=== PATIENT | female | born 1990 | race Caucasian/White ===

== ENCOUNTER 2021-05-18 10:24 | Emergency (ER) | payer OTHER, SELFPAY ==
--- NOTE | 2021-05-18 10:31 | MHC.RECOVSUP ---
Recovery Support note: This designer/writer received a call from Sabrina Stiles stating that this patient was at the recovery center trying to get into detox. Patient was reportedly experiencing withdrawal symptoms and no detox bed was available so patient was brought to the hospital due to withdrawal symptoms. This designer/writer received additional information that patient used heroin recently and that she started throwing up and got really sick with hot flashes shortly after using. This designer/writer will meet with patient to discuss treatment options and referrals when she is in the ED.
--- NOTE | 2021-05-18 10:41 | ED_ITS ---
HPI - Psych General Chief Complaint: Psychiatric Symptoms Stated Complaint: crisis Time Seen by Provider: 05/18/21 10:41 Source: patient Mode of arrival: ambulatory Limitations: no limitations History of Present Illness HPI Narrative: wants heroin detox last used 4am states she thinks she might [facility] a bed [facility] complaint: substance abuse Onset (ago): month(s) Duration: getting worse History of same: Yes Relieving factors: none Exacerbating factors: drug use Context: recent drug abuse Associated psychiatric symptoms: none Associated symptoms: denies other symptoms Treatments prior to arrival: none Related Data Allergies Allergy/AdvReac Type Severity Reaction Status Date / Time hydrocodone Allergy Mild THROAT Unverified 12/27/19 18:01 [HYDROCODONE] CLOSES acetaminophen [From Allergy Unknown ANAPHYLAXIS Unverified 12/27/19 18:01 VICODIN] penicillin V Allergy Unknown HIVES Unverified 12/27/19 18:01 [PENICILLIN V] Penicillins Allergy Unknown HIVES Unverified 12/27/19 18:01 [PENICILLINS] penicilin Allergy Unknown Uncoded 07/27/18 00:00 Review of Systems Verdana 4l Review of Systems: Verdana 4d Verdana 4d Constitutional : No Fever, No Chills ENT/Mouth : No Ear Pain, No Nasal Congestion, No sore throat Eyes: No Eye Pain, No Swelling, No Redness Cardiovascular : No Chest Pain, No SOB Respiratory : No Cough, No Sputum, No Dyspnea GastrointestinalGastrointestinal : No Nausea, No Vomiting, No Diarrhea, No Hematochezia, No Melena Genitourinary : No Dysuria, No Urinary Frequency, No Hematuria Musculoskeletal : No Myalgias Skin : No Skin Lesions, No rash Neuro : No Weakness, No Numbness, No Paresthesias, No Dizziness, No Headache Psych : positive Anxiety, no Depression, no SI/HI Heme/Lymph: No Lymphadenopathy Endocrine : No Polyuria, No Polydipsia All other systems reviewed and are negative [facility] Past Medical History Medical History (Updated 05/18/21 @ 10:55 by Thu Johns DO) Active substance abuse Social History Social History (Updated 05/18/21 @ 10:54 by Thu Johns DO) Patient Tobacco Use Status: Current everyday Tobacco user Use of substances other than those prescribed or required for medical reasons: Yes Substance Use Type: Heroin Substance Use Frequency: Chronic Longstanding Last Used Substance: Just Prior to Admission Advance Directives: No Advance Directives Information Provided: No Physical Exam Verdana 4l Vital Signs: Verdana 4d Verdana 4d Vital Signs: Verdana 4d Verdana 4Bd Last Vital Signs Verdana 4d Electromechanical Technician New 4d Femi New 4d Temp 97.8 F 05/18/21 10:42 Electromechanical Technician New 4d Pulse 83 05/18/21 10:42 Electromechanical Technician New 4d Resp 20 05/18/21 10:42 BP 112/65 05/18/21 10:42 Pulse Ox 97 05/18/21 10:42 BMI result Body Mass Index 24.2 Appearance: Alert. Oriented X3. No acute distress. Eyes: Pupils equal, round and reactive to light. ENT: Pharynx normal. Neck: Normal inspection. Neck supple. CVS: Normal heart rate and rhythm. Pulses normal. Respiratory: No respiratory distress. Breath sounds normal. Abdomen: Soft and nontender. Skin: Skin warm and dry. Normal skin color. Normal skin turgor. Extremities: No lower extremity edema. No calf ttp Neuro: Oriented X 3. No motor deficit. No sensory deficit. Psych: calm and cooperative, no SI/HI Course Course Course Narrative: to go to [facility] MDM - Psych MDM Narrative Medical decision making narrative: 30 yo female here for heroin abuse just wants detox - told to come to ED by local detox center for clearance has no medical complaints no SI/HI. will obtain labs and COVID swab refer to recovery coaches. Lab Data Labs: Lab Results 05/18/21 05/18/21 05/18/21 Range/Units 11:08 11:08 11:08 Urine Color YELLOW Urine Appearance HAZY Urine pH 5.5 (5.0-8.0) Ur Specific Franklin >= 1.030 H (1.005-1.025) Urine Protein TRACE (NEG-TRACE) MG/DL Urine Glucose (UA) NEG (NEG) MG/DL Urine Ketones 15 (NEG) MG/DL Urine Blood NEG (NEG) Urine Nitrite NEG (NEG) Ur Leukocyte NEG (NEG) Esterase Urine Test NEGATIVE (NEGATIVE) Urine Opiates Screen POSITIVE H (Not Detect) Urine Fentanyl POSITIVE H (Not Detect) Screen Ur Barbiturates Not Detected (Not Detect) Screen Ur Phencyclidine Not Detected (Not Detect) Scrn Ur Amphetamines Not Detected (Not Detect) Screen U Benzodiazepines Not Detected (Not Detect) Scrn Urine Cocaine Screen POSITIVE H (Not Detect) U Marijuana (THC) POSITIVE H (Not Detect) Screen COVID-19 ([facility]) (Negative) COVID-19 Clin Com 05/18/21 Range/Units 11:09 Urine Color Urine Appearance Urine pH (5.0-8.0) Ur Specific Franklin (1.005-1.025) Urine Protein (NEG-TRACE) MG/DL Urine Glucose (UA) (NEG) MG/DL Urine Ketones (NEG) MG/DL Urine Blood (NEG) Urine Nitrite (NEG) Ur Leukocyte Esterase (NEG) Urine Test (NEGATIVE) Urine Opiates Screen (Not Detect) Urine Fentanyl Screen (Not Detect) Ur Barbiturates Screen (Not Detect) Ur Phencyclidine Scrn (Not Detect) Ur Amphetamines Screen (Not Detect) U Benzodiazepines Scrn (Not Detect) Urine Cocaine Screen (Not Detect) U Marijuana (THC) Screen (Not Detect) COVID-19 ([facility]) Negative (Negative) COVID-19 Clin Com See Note Discharge Plan Discharge Clinical Impression: Opiate dependence, continuous Patient Disposition: Xfer Other Transfer Details: [facility] Instructions: Opioid Use Disorder (ED) Additional Instructions: return to ED for any worsening symptoms or concerns COVID test negative
[2021-05-18 10:42] VITALS: BP 112/65; PULSE 83; RESP 20; TEMP 36.6; O2SAT 97; BMI 24.2
--- NOTE | 2021-05-18 11:11 | MHC.RECOVSUP ---
Recovery Support note: Patient is a 30 year old Congolese speaking female who presented to [facility] ED seeking detox. Patient reports using 4-5 bundles of heroin daily, IV. Patient reports no alcohol use. Patient denies SI/HI/AH/VH. Patient reports last using this morning. Patient has completed intake with [facility] however no beds are available at this time. Patient is willing to go anywhere for treatment. This feature writer will assist patient in referring to ATS facilities.
[2021-05-18 11:31] LABS: COVID-19 Test Negative (Negative)
[2021-05-18 11:32] LABS: UPreg QC Valid YES; Urine Pregnancy NEGATIVE (NEGATIVE)
[2021-05-18] MEDS: Nicotine 21 MG PATCH.TD24 TRANSDERMA (11:32)
[2021-05-18 11:35] LABS: Appearance Urine HAZY; Color Urine YELLOW; Glucose Urine UA NEG (NEG); Leukocyte Esterase Urine NEG (NEG); Nitrite Urine NEG (NEG); PH 5.5 (5.0-8.0); Specific Gravity - Urine >= 1.030 (1.005-1.025); Urine Blood NEG (NEG); Urine Ketones 15 MG/DL (NEG); Urine Protein TRACE MG/DL (NEG-TRACE)
--- NOTE | 2021-05-18 11:41 | PC.NURSE ---
pt voluntarily came to ed, states she is an active user last used this morning. pt states she called [facility] to get a bed and they told her that something may become available later this evening. pt denies SI/HI. denies history of self harm. denies pain. snack given. Twan from Care Team attempted to meet with pt but she kept falling asleep during assessment, Twan reports he will reattempt when pt is more awake. will continue to monitor.
[2021-05-18 12:00] VITALS: BP 108/59; PULSE 87; RESP 20; O2SAT 97
[2021-05-18 12:01] LABS: Amphetamine Screen Urine Not Detected (Not Detect); Barbiturates, Urine Not Detected (Not Detect); Benzodiazepines Screen Urine Not Detected (Not Detect); Cannabinoid Screen Urine POSITIVE (Not Detect); Cocaine Screen Urine POSITIVE (Not Detect); Fentanyl, urine POSITIVE (Not Detect); Opiate Screen Urine POSITIVE (Not Detect); Phencyclidine Screen Urine Not Detected (Not Detect)
--- NOTE | 2021-05-18 13:39 | MHC.RECOVSUP ---
Recovery Support note: Patient accepted to [facility] and transported via Lyft.
== END 2021-05-18 13:54 | disposition other institution (70) ==
PROVIDERS: Emergency Provider Emergency Medicine; PCP Internal Medicine
DX: F11.20 Opioid dependence, uncomplicated (principal); Z20.822 Contact with and (suspected) exposure to COVID-19; F19.10 Other psychoactive substance abuse, uncomplicated; F17.200 Nicotine dependence, unspecified, uncomplicated
CPT/HCPCS: 80307; 81003; 81025; 87635; 99285

== ENCOUNTER 2023-08-27 01:48 | Emergency (ER) | payer OTHER, SELFPAY ==
[2023-08-27 01:57] VITALS: BP 128/70; BP 139/66; PULSE 110; PULSE 132; RESP 16; TEMP 36.3; O2SAT 98; BMI 29.8
--- NOTE | 2023-08-27 02:21 | MHC.EDTECH ---
Patient came in by EMS,security called to assist with private branch exchange repairer, this tech brought patient to the bathroom and an empty bag of white substance fell out onto floor,with needle cap security discarded and all belongings placed in [place]. Vitals taken,attempted to get a urine patient said she is unable to give at this time.
--- NOTE | 2023-08-27 03:01 | ED_ITS ---
HPI - General Adult General Chief complaint: General Medical Stated complaint: insomnia 5xdays Time Seen by Provider: 08/27/23 03:07 Source: patient and EMS Mode of arrival: EMS Limitations: no limitations History of Present Illness HPI narrative: Patient comes to the emergency room complaining that EMS brought her against her will. Patient states she was brought to emergency room against her will. Patient states that she has not been able to sleep for about 5 days, according to EMS patient was acting erratic. However, patient is alert and oriented x3, states she has not slept for several days, admits to using heroin. Denies SI or HI. Related Data Home Medications ?Medication ?Instructions ?Recorded ?Confirmed gabapentin 300 mg capsule 300 mg PO TID 11/04/23 11/04/23 Allergies Allergy/AdvReac Type Severity Reaction Status Date / Time penicillin V [PENICILLIN V] Allergy Unknown HIVES Verified 11/03/23 16:58 Penicillins [PENICILLINS] Allergy Unknown HIVES Verified 11/03/23 16:58 penicilin Allergy Unknown Difficulty Uncoded 11/03/23 16:58 Breathing Review of Systems Review of Systems: Constitutional : No Weight loss, No Fever, No Chills, No Night Sweats, No Fatigue, No Malaise ENT/Mouth : No Hearing loss, No Ear Pain, No Nasal Congestion, No Sinus Pain, No Hoarseness, No sore throat, No Rhinorrhea, No Swallowing Difficulty Eyes: No Eye Pain, No Swelling, No Redness, No Foreign Body, No Discharge, No Vision Changes Cardiovascular : No Chest Pain, No SOB, No Dyspnea on Exertion, No Orthopnea, No Edema, No Palpitations Respiratory : No Cough, No Sputum, No Wheezing, No Smoke Exposure, No Dyspnea Gastrointestinal : No Nausea, No Vomiting, No Diarrhea, No Constipation, No abdominal Pain, No Hematochezia, No Melena Genitourinary : no irregular bleeding, No Dysuria, No Urinary Frequency, No Luther turia, No Urinary Incontinence, No Urgency, No Flank Pain, No Urinary Flow Changes, No Hesitancy Musculoskeletal : No joint pain, No Myalgias, No Joint Swelling Skin : No Skin Lesions, No rash Neuro : No Weakness, No Numbness, No Paresthesias, No Loss of Consciousness, No Dizziness, No Headache, patient complaining of insomnia Psych : No Anxiety/Panic, No Depression, denies SI or HI, Heme/Lymph: No Bruising, No Bleeding,No Lymphadenopathy Endocrine : No Polyuria, No Polydipsia, No Temperature Intolerance [facility] Past Medical History Medical History Active substance abuse Social History Social History Household Members: None Housing: Homeless Do you presently have visiting nurse or other home services: No Alcohol intake: never Patient Tobacco Use Status: Current everyday Tobacco user Tobacco use type: Cigarette e-Cigarette/Vaping Use: Never Used Second Hand Smoke Exposure: Yes Substance Use Type: Crack/Cocaine and Marijuana service: No Physical Exam ED Vital Signs: Vital Signs - 24 hr 08/27/23 01:57 Temperature 97.3 F Pulse Rate 110 H Respiratory Rate 16 Blood Pressure 139/66 Pulse Oximetry 98 Oxygen Delivery Method Room Air BMI result Body Mass Index 29.8 Const Other: Appearance: Alert. Oriented X3. No acute distress. Eyes: Pupils equal, round and reactive to light. ENT: Pharynx normal. Neck: Normal inspection. Neck supple. No lymph nodes noted. No crepitus CVS: Normal heart rate and rhythm. Pulses normal. Normal S1 and S2 Respiratory: No respiratory distress. Breath sounds normal. No Wheezing. No rales Abdomen: Soft and nontender. No rigidity. No distention. Skin: Skin warm and dry. Normal skin color. Normal skin turgor. Extremities: No lower extremity edema. No Lacerations. No Rash Neuro: Oriented X 3. No motor deficit. No sensory deficit. Moving all extremities. No slurred speech. CN 2 through 12 grossly intact Psych: Agitated, angry, requesting to be discharged Medical Decision Making Medical Decision Making [facility] Narrative: Patient yelling in the hallway that she want to come here, requesting to be discharged. -patient is alert and oriented x3, has steady gait. -patient requesting to have her belongings returned to her so that she can do. -patient declined any further care. -patient denies SI or HI -vital signs stable Discharge Plan Discharge Clinical Impression: Insomnia Patient Disposition: Home, Self-Care Instructions: Insomnia (ED) Additional Instructions: Please follow-up with your primary care physician tomorrow. If you have any worsening or new symptoms, please return to the emergency room or call 911 Prescriptions: No Action gabapentin 300 mg Capsule 300 mg PO TID Interventions: ED Discharge Assessment Last Done: 08/27/23 03:43 Discharge Date/Time: 08/27/23 03:45 Print Language: Romanian
--- NOTE | 2023-08-27 03:01 | PC.NURSE ---
Patient is alert and oriented x3, ambulating with a steady gait. Patient requesting to leave AMA. Dr. Brown made aware.
--- NOTE | 2023-08-27 03:38 | PC.NURSE ---
Patient was seen by Dr. Brown, plan for discharge at this time. Patient refused vital signs to be checked at discharge.
[2023-08-27 03:43] VITALS: BP 139/66; PULSE 110; RESP 16; TEMP 36.3; O2SAT 98
== END 2023-08-27 03:45 | disposition home or self-care (01) ==
PROVIDERS: Emergency Provider Emergency Medicine; PCP Internal Medicine
DX: G47.00 Insomnia, unspecified (principal); F19.90 Other psychoactive substance use, unspecified, uncomplicated
CPT/HCPCS: 99284

== ENCOUNTER 2023-10-12 11:10 | Emergency (ER) | payer OTHER, SELFPAY ==
[2023-10-12 11:14] VITALS: BP 136/72; PULSE 83; RESP 16; TEMP 36.6; O2SAT 99; BMI 29.2
--- NOTE | 2023-10-12 12:15 | ED_ITS ---
HPI - Eye Problem General Chief complaint: Eye Problems Stated complaint: infected eyes Time Seen by Provider: 10/12/23 12:17 Source: patient Mode of arrival: ambulatory Limitations: no limitations History of Present Illness ED Provider: STACIA Haines HPI Narrative: 32 yo f presents w/ red itchy eyes w/ yellow / green discharge in the morning ongoing for the past three days. Not improving. No trauma. Blurred vision. No pain to eyes. No fb sensation. Denies recent illness. No cough, nausea, vomiting, abd pain, headache, vision changes, dizziness, weakness, cp, sob Related Data Previous Rx's ?Medication ?Instructions ?Recorded erythromycin 5 mg/gram (0.5 %) eye 1 appl ophthalmic (eye) TID 5 days 10/12/23 ointment #3.5 grams Allergies Allergy/AdvReac Type Severity Reaction Status Date / Time hydrocodone [HYDROCODONE] Allergy Mild THROAT Verified 10/12/23 11:15 CLOSES acetaminophen [From VICODIN] Allergy Unknown ANAPHYLAXIS Verified 10/12/23 11:15 penicillin V [PENICILLIN V] Allergy Unknown HIVES Verified 10/12/23 11:15 Penicillins [PENICILLINS] Allergy Unknown HIVES Verified 10/12/23 11:15 penicilin Allergy Unknown Difficulty Uncoded 10/12/23 11:15 Breathing Review of Systems Review of Systems: Yes all other systems are reviewed and are negative PMF[facility] Past Medical History Attestation statement: The following information was validated with the patient. Source: old records reviewed and nursing notes reviewed Medical History Active substance abuse Social History Social History Alcohol intake: unknown Patient Tobacco Use Status: Current everyday Tobacco user Substance Use Type: Crack/Cocaine and Marijuana Physical Exam Vital Signs: Vital Signs: Last Vital Signs Temp 97.8 F 10/12/23 11:14 Pulse 83 10/12/23 11:14 Resp 16 10/12/23 11:14 BP 136/72 10/12/23 11:14 Pulse Ox 99 10/12/23 11:14 O2 Del Method Room Air 10/12/23 11:14 BMI result Body Mass Index 29.2 vss Appearance: Alert.? Oriented X3.? No acute cardiopulmonary distress distress.? Head: Normocephalic, atraumatic, no step-offs or deformities Neck: Normal inspection.? Neck supple. Eyes: b/l conjunctival injection. EOMI pain free. ? CVS: Pulses normal.? Respiratory: No respiratory distress.? Abdomen: Soft and nontender.? Skin: ? Normal skin color. Extremities: 5/5 strength to bilateral upper and lower extremities Neuro: Oriented X 3.? No motor deficit.? No sensory deficit. Medical Decision Making Medical Decision Making [facility] Narrative: 32 yo f presents w/ redness/ drainage x 3 days. No injury or trauma PE b/l conjunctival injection. EOMI pain free. ? hx and pe concerning for conjunctivitis. Unlikley orbital/ periorbital cellulitis. No signs of fb in eye. No signs of acute closed angle or wet macular degneratin Plan- dc home w/ erythromycin ointment Differential Diagnosis Differential Diagnoses: The differential diagnosis associated with the presentation includes hx and pe concerning for conjunctivitis. Unlikley orbital/ periorbital cellulitis. No signs of fb in eye. No signs of acute closed angle or wet macular degneratin Admission/Observation Consideration of admission/observation: Escalation of care including admission/observation considered No indication Discharge Plan Discharge Clinical Impression: Bacterial conjunctivitis Patient Disposition: Home, Self-Care Instructions: Conjunctivitis (ED) Additional Instructions: Take your medications as prescribed. If you were prescribed antibiotics today, it is important that you take your medication to their entirety, do not skip any doses, do not finish them early. Follow-up with your primary care provider this week. Return to the emergency department with new or worsening symptoms. In case of emergency call 911 Prescriptions: New erythromycin 5 mg/gram (0.5 %) ointment 1 appl ophthalmic (eye) TID 5 Days Qty: 3.5 0RF Referrals: Emery Izaguirre MD [Primary Care Provider] - 2 days Print Language: Yi
[2023-10-12 12:28] VITALS: BP 136/72; PULSE 83; RESP 16; TEMP 36.6; O2SAT 99
== END 2023-10-12 12:29 | disposition home or self-care (01) ==
PROVIDERS: Emergency Provider Emergency Medicine; PCP Internal Medicine
DX: H10.89 Other conjunctivitis (principal); H57.89 Other specified disorders of eye and adnexa
CPT/HCPCS: 99282; 99283

== ENCOUNTER 2023-10-18 19:46 | Emergency (ER) | payer OTHER, SELFPAY ==
[2023-10-18 19:51] VITALS: BP 128/88; PULSE 122; O2SAT 97
[2023-10-18 20:15] VITALS: BP 143/77; PULSE 115; RESP 18; TEMP 36.9; O2SAT 96; BMI 28.8
--- NOTE | 2023-10-18 22:05 | ED.GENADULT ---
HPI - General Adult General Chief complaint: Vaginal Bleeding Stated complaint: low back pain post op from [facility] Time Seen by Provider: 10/18/23 22:04 Source: patient Mode of arrival: ambulatory Limitations: no limitations History of Present Illness ED Provider: Dr. Evelyn Brown HPI narrative: Patient comes to the emergency room complaining of lower back pain. Patient states that it has been a few days since she feels an achy back. Patient denies fever chills. Patient states that last week she was seen at [facility] for medical . Patient initially came in complaining that she was having heavy vaginal bleeding. When I spoke with the patient, patient states that she feels well, it has not heavy, states that while she was in the waiting room she took her home medications gabapentin, acetaminophen, and now the medication started kicking in that she has no pain at all and would like to be discharged home. Related Data Previous Rx's ?Medication ?Instructions ?Recorded erythromycin 5 mg/gram (0.5 %) eye 1 appl ophthalmic (eye) TID 5 days 10/12/23 ointment #3.5 grams Allergies Allergy/AdvReac Type Severity Reaction Status Date / Time hydrocodone [HYDROCODONE] Allergy Mild THROAT Verified 10/18/23 20:18 CLOSES acetaminophen [From VICODIN] Allergy Unknown ANAPHYLAXIS Verified 10/18/23 20:18 penicillin V [PENICILLIN V] Allergy Unknown HIVES Verified 10/18/23 20:18 Penicillins [PENICILLINS] Allergy Unknown HIVES Verified 10/18/23 20:18 penicilin Allergy Unknown Difficulty Uncoded 10/18/23 20:18 Breathing Review of Systems Review of Systems: Constitutional : No Weight loss, No Fever, No Chills, No Night Sweats, No Fatigue, No Malaise ENT/Mouth : No Hearing loss, No Ear Pain, No Nasal Congestion, No Sinus Pain, No Hoarseness, No sore throat, No Rhinorrhea, No Swallowing Difficulty Eyes: No Eye Pain, No Swelling, No Redness, No Foreign Body, No Discharge, No Vision Changes Cardiovascular : No Chest Pain, No SOB, No Dyspnea on Exertion, No Orthopnea, No Edema, No Palpitations Respiratory : No Cough, No Sputum, No Wheezing, No Smoke Exposure, No Dyspnea Gastrointestinal : No Nausea, No Vomiting, No Diarrhea, No Constipation, No abdominal Pain, No Hematochezia, No Melena Genitourinary : Complaining of vaginal bleeding status post medical , No Dysuria, No Urinary Frequency, No Hematuria, No Urinary Incontinence, No Urgency, No Flank Pain, No Urinary Flow Changes, No Hesitancy Musculoskeletal : Complaining of back pain which resolved, No joint pain, No Myalgias, No Joint Swelling Skin : No Skin Lesions, No rash Neuro : No Weakness, No Numbness, No Paresthesias, No Loss of Consciousness, No Dizziness, No Headache Psych : No Anxiety/Panic, No Depression, No SI/HI/AH/VH, No Social Issues, Heme/Lymph: No Bruising, No Bleeding,No Lymphadenopathy Endocrine : No Polyuria, No Polydipsia, No Temperature Intolerance [facility] Past Medical History Medical History Active substance abuse Social History Social History Alcohol intake: unknown Patient Tobacco Use Status: Current everyday Tobacco user Smoked in Last 30 Days: Yes Use of substances other than those prescribed or required for medical reasons: Yes Substance Use Type: Crack/Cocaine and Marijuana Advance Directives: No Advance Directives Information Provided: No Do you have a plan to hurt others: No Plan Physical Exam ED Vital Signs: Vital Signs - 24 hr 10/18/23 20:15 Temperature 98.5 F Pulse Rate 115 H Respiratory Rate 18 Blood Pressure 143/77 H Pulse Oximetry 96 Oxygen Delivery Method Room Air BMI result Body Mass Index 28.8 Const Other: Appearance: Alert. Oriented X3. No acute distress. Eyes: Pupils equal, round and reactive to light. ENT: Pharynx normal. Neck: Normal inspection. Neck supple. No lymph nodes noted. No crepitus CVS: Normal heart rate and rhythm. Pulses normal. Normal S1 and S2 Respiratory: No respiratory distress. Breath sounds normal. No Wheezing. No rales Abdomen: Soft and nontender. No rigidity. No distention. Skin: Skin warm and dry. Normal skin color. Normal skin turgor. Extremities: No lower extremity edema. No Lacerations. No Rash Neuro: Oriented X 3. No motor deficit. No sensory deficit. Moving all extremities. No slurred speech. CN 2 through 12 grossly intact Psych: calm, cooperative, normal affect Medical Decision Making Medical Decision Making [facility] Narrative: When I walk into the room to evaluate the patient, patient states that her medication gabapentin and acetaminophen a starting to kick in and she no longer has any pain. Patient does not want to be evaluated for vaginal bleeding, states that she is at baseline and feels ready to be discharged. Patient is not SI no HI, does not seem to be intoxicated or under the influence of drugs. -per patient's request, patient being discharged without any further workup Discharge Plan Discharge Clinical Impression: Back pain Patient Disposition: Home, Self-Care Instructions: Back Pain (ED) Additional Instructions: Please follow-up with your primary care physician tomorrow. If you have any worsening or new symptoms, please return to the emergency room or call 911 Prescriptions: No Action erythromycin 5 mg/gram (0.5 %) ointment 1 appl ophthalmic (eye) TID 5 Days Qty: 3.5 0RF Print Language: Kiswahili
--- NOTE | 2023-10-18 22:08 | PC.NURSE ---
pt requesting discharge. states that she cracked her back, pain is now relieved, and she would like to go home. MD is aware. DC paperwork ready.
[2023-10-18 22:27] VITALS: BP 143/77; PULSE 115; RESP 18; TEMP 36.9; O2SAT 96
== END 2023-10-18 22:29 | disposition home or self-care (01) ==
PROVIDERS: Emergency Provider Emergency Medicine
DX: M54.9 Dorsalgia, unspecified (principal)
CPT/HCPCS: 99282; 99284

== ENCOUNTER 2023-10-19 20:43 | Emergency (ER) | payer OTHER, SELFPAY ==
[2023-10-19 20:48] VITALS: BP 114/50; PULSE 111; O2SAT 98
[2023-10-19 20:54] VITALS: BP 119/87; PULSE 108; RESP 20; TEMP 38.3; O2SAT 98; BMI 28.8
--- NOTE | 2023-10-19 21:00 | PC.NURSE ---
2100: Pt A&Ox3, reports 10/10 lower back pain x 2 days. Bruising and warmness noted to left inner thigh. Pt reports IV cocaine use x 3 days ago to area. Pt febrile. IV line established, blood work collected and sent to lab.
[2023-10-19 21:16] LABS: MANUAL DIFF FLAG NO
[2023-10-19 21:17] LABS: Basophils Percent Auto 0.3 % (0-2); Eosinophils Absolute Auto 0.1 X10*3/uL (0.0-0.4); Eosinophils Percent Auto 0.8 % (0-4); Hematocrit 33.2 % (37.0-47.0); Hemoglobin 11.4 g/dl (12.0-16.0); Imm Gran Pct Auto 0.6 % (0.0-0.4); Lymphocytes Absolute Auto 2.5 X10*3/uL (1.2-4.9); Lymphocytes Percent Auto 15.6 % (20-40); Mean Corpuscular HGB Conc 34.3 g/dl (31.0-35.0); Mean Corpuscular Hemoglobin 31.4 pg (27.0-33.0); Mean Corpuscular Volume 91.5 fL (80.0-98.0); Mean Platelet Volume 8.3 fL (9.4-12.3); Monocytes Absolute Auto 1.5 X10*3/uL (0.1-1.2); Monocytes Percent Auto 9.5 % (2-11); Neutrophils Absolute Auto 11.5 x10*3/uL (2.0-8.3); Neutrophils Percent Auto 73.2 % (45-73); Platelet Count 221 X10*3/uL (160-400); Red Blood Count 3.63 X10*6/uL (4.20-5.50); Red Cell Distribution Width 13.2 % (11.0-16.0); White Blood Count 15.8 X10*3/uL (4.8-10.8)
[2023-10-19 21:43] VITALS: BP 109/51; PULSE 106; RESP 20; TEMP 37.8; O2SAT 95
[2023-10-19 21:43] LABS: Alanine Aminotransferase 67 U/L (0-31); Albumin Level 3.3 g/dL (3.5-5.0); Alkaline Phosphatase 109 U/L (39-117); Anion Gap 13 (12-20); Aspartate Amino Transferase 26 U/L (5-31); Bilirubin Total 0.8 mg/dL (0.0-1.0); Blood Urea Nitrogen 14 mg/dL (9-16); Calcium 8.9 mg/dL (8.4-10.2); Carbon Dioxide 26 mmol/L (22-29); Chloride 102 mmol/L (96-108); Creatinine Clr Calc Pharmacy 129.8; Estimated Glomerular Filt Rate > 60; Glucose Random 119 mg/dL (60-115); Potassium 3.8 mmol/L (3.3-5.1); Sodium 137 mmol/L (135-145); Total Protein 6.9 g/dL (6.5-8.0)
[2023-10-19 21:44] LABS: HCG Quantitative 473 mIU/mL
[2023-10-19 21:57] LABS: Appearance Urine Clear; Color Urine Dark Yellow; Glucose Urine UA Negative (Negative); Leukocyte Esterase Urine Trace (Negative); Nitrite Urine Negative (Negative); Specific Gravity - Urine >= 1.030 (1.005-1.025); UMIC TRIGGER UACC YES; Urine Blood Moderate (2+) (Negative); Urine Ketones Negative (Negative); Urine Protein 30 (1+) mg/dL (Neg-Trace)
[2023-10-19 22:06] LABS: Amphetamine Screen Urine Not Detected (Not Detect); Barbiturates, Urine Not Detected (Not Detect); Benzodiazepines Screen Urine Not Detected (Not Detect); Buprenorphine Scr Not Detected (Not Detect); Cannabinoid Screen Urine Not Detected (Not Detect); Cocaine Screen Urine POSITIVE (Not Detect); Fentanyl, urine POSITIVE (Not Detect); Methadone Screen, Urine Positive (Not Detect); Opiate Screen Urine POSITIVE (Not Detect); Oxycodone Screen Urine Not Detected (Not Detect); Phencyclidine Screen Urine Not Detected (Not Detect)
[2023-10-19 22:09] LABS: Bacteria Urine Trace (None Seen); Hyaline Casts Urine 0-2 /LPF (0-2); RBC Urine 0-2 /HPF (0-2); UACC Culture Trigger YES
--- NOTE | 2023-10-19 22:09 | MHC.EDTECH ---
Patient belonging list done ,urine sample collected and sent to lab ,vitals taken .
--- NOTE | 2023-10-19 22:14 | ED_ITS ---
HPI - General Adult General Chief complaint: Extremity Problem Stated complaint: LEG PAIN X1WEEK, FEVER, SEPSIS ALERT PER EMS Time Seen by Provider: 10/19/23 22:11 Source: patient Mode of arrival: EMS Limitations: no limitations History of Present Illness ED Provider: Dr. Zeke Kothari HPI narrative: 32-year-old female history of opiate use disorder, cocaine use disorder, paraspinal abscess, therapeutic 1 week prior at [facility] who was brought to emergency department by ambulance for evaluation of left lower back pain and pain with swelling , increased warmth to her left inner thigh. The patient states that she has been injecting cocaine 20-30 times a day into her left inner thigh area where she has the swelling and pain. She states she has been ?hitting a vein ? when she injects herself. She states that 3 days prior, she did notice a hard, warm, area of swelling swelling to her left inner thigh which has gotten worse. She states that over the past 2 days, she also developed pain in her left lower back radiating to her buttocks. She states that both lower extremities are numb but this is a chronic condition for her. She states that 5-6 years ago when she was in [place] she had similar pain in her lower back and had a paraspinal abscess which required incision and drainage. She states that the left inner thigh pain and left lower back pain is 10/10. She denied loss of bowel or bladder control. She states she has had fever and chills. She had nausea but no vomiting or diarrhea. Patient was seen yesterday, 10/18/2023 in the emergency department complaining of lower back pain and pain in her left inner thigh. She took her gabapentin and acetaminophen in her pain improved and she did not want any further treatment yesterday. Patient states she just started a methadone program and takes methadone 30 mg once a day. Patient states she is allergic to penicillin, she states when she gets penicillin she gets hives. Related Data Previous Rx's ?Medication ?Instructions ?Recorded erythromycin 5 mg/gram (0.5 %) eye 1 appl ophthalmic (eye) TID 5 days 10/12/23 ointment #3.5 grams Allergies Allergy/AdvReac Type Severity Reaction Status Date / Time hydrocodone [HYDROCODONE] Allergy Mild THROAT Verified 10/18/23 20:18 CLOSES acetaminophen [From VICODIN] Allergy Unknown ANAPHYLAXIS Verified 10/19/23 20:55 penicillin V [PENICILLIN V] Allergy Unknown HIVES Verified 10/19/23 20:55 Penicillins [PENICILLINS] Allergy Unknown HIVES Verified 10/19/23 20:55 penicilin Allergy Unknown Difficulty Uncoded 10/18/23 20:18 Breathing Review of Systems 2 Review of Systems: Yes all other systems are reviewed and are negative [facility] Past Medical History [facility] Narrative: Social history: Patient states she was homeless. She denies alcohol use. She does smoke cigarettes. She admits to injecting cocaine 20-30 times a day and to her left inner thigh. She denies opiate use. She just started a methadone program in his on methadone 30 mg once a day. Medical History Active substance abuse Social History Social History Alcohol intake: never Patient Tobacco Use Status: Current everyday Tobacco user Smoked in Last 30 Days: Yes Use of substances other than those prescribed or required for medical reasons: Yes Substance Use Type: Crack/Cocaine Advance Directives: No Advance Directives Information Provided: No Physical Exam ED Vital Signs: Vital Signs - 24 hr 10/19/23 20:54 10/19/23 21:43 10/19/23 22:51 Temperature 101.0 F H 100.0 F Pulse Rate 108 H 106 H Respiratory Rate 20 20 22 H Blood Pressure 119/87 109/51 L Pulse Oximetry 98 95 Oxygen Delivery Method Room Air Room Air 10/20/23 01:01 10/20/23 02:00 10/20/23 02:43 Temperature 99.0 F 98.4 F Pulse Rate 83 74 72 Respiratory Rate 16 16 12 Blood Pressure 91/45 L 86/49 L Pulse Oximetry 96 94 96 Oxygen Delivery Method Room Air Room Air Room Air 10/20/23 02:47 10/20/23 02:51 10/20/23 02:57 Temperature Pulse Rate 73 81 Respiratory Rate 12 Blood Pressure 76/37 L 83/37 L Pulse Oximetry 100 95 Oxygen Delivery Method Room Air Room Air 10/20/23 03:01 10/20/23 03:05 10/20/23 03:15 Temperature Pulse Rate 79 Respiratory Rate 13 Blood Pressure 95/50 L 96/45 L Pulse Oximetry 96 Oxygen Delivery Method Room Air 10/20/23 03:17 10/20/23 03:20 10/20/23 03:27 Temperature Pulse Rate 72 Respiratory Rate 12 Blood Pressure 100/37 L 95/38 L 96/50 L Pulse Oximetry 93 Oxygen Delivery Method Room Air 10/20/23 03:56 10/20/23 04:04 10/20/23 04:10 Temperature Pulse Rate 78 77 Respiratory Rate Blood Pressure 85/44 L 83/39 L 80/41 L Pulse Oximetry Oxygen Delivery Method 10/20/23 04:10 10/20/23 04:16 10/20/23 04:19 Temperature Pulse Rate 74 65 67 Respiratory Rate 19 18 Blood Pressure 80/41 L 98/53 L 91/47 L Pulse Oximetry 96 Oxygen Delivery Method Room Air 10/20/23 04:24 10/20/23 04:31 10/20/23 04:36 Temperature Pulse Rate 62 70 Respiratory Rate 20 Blood Pressure 105/48 L 108/51 L 108/47 L Pulse Oximetry Oxygen Delivery Method 10/20/23 04:52 10/20/23 05:51 10/20/23 05:56 Temperature Pulse Rate 73 Respiratory Rate 18 18 Blood Pressure 99/49 L 106/52 L Pulse Oximetry Oxygen Delivery Method 10/20/23 06:03 Temperature 99.4 F Pulse Rate 73 Respiratory Rate 18 Blood Pressure 106/52 L Pulse Oximetry Oxygen Delivery Method BMI result Body Mass Index 28.8 Vital signs revealed a fever of 101.0 degrees orally Exam: General: Awake, alert , appears to be moderate distress secondary to her left lower back pain in her left inner thigh pain Head: Normocephalic, atraumatic EENT: PERRL, Lids normal, sclera normal, conjunctiva normal, nose normal , ears normal, throat without erythema or exudates Neck: Supple, no adenopathy Lung: breath sounds symmetric, no wheezing, rales or rhonchi Chest: symmetric movement, nontender Heart: regular rate and rhythm, normal S1, S2 no murmurs or rubs Abdomen: soft, non-tender, nondistended, normal bowel sounds Back: Patient has tenderness palpation of her lumbar spine in her left lumbar paraspinal muscles, there has no increased warmth or swelling of this area. Extremities: Patient has a 10 x 10 area of in with erythema and some ecchymosis to her left inner thigh. This area is very warm to the touch, there has no flocculence to palpation. Neuro: Awake, alert, oriented, normal speech, cranial nerves intact, moves all extremities symmetrically Psych: Appears in distress secondary to pain but is cooperative, answers all questions appropriately, normal affect. Medications Administered Discontinued Medications Generic Name Dose Route Start Last Admin Trade Name Adele PRN Reason Stop Dose Admin Acetaminophen 975 mg 10/19/23 22:38 10/19/23 22:49 Acetaminophen 325 Mg Tablet PO 10/19/23 22:39 975 mg ONCE STA Administration Fentanyl 100 mcg 10/20/23 03:09 10/20/23 03:15 Fentanyl Citrate/Pf 100 Mcg/2 Ml Vial IVPUSH 10/20/23 03:10 100 mcg ONCE ONE Administration Protocol Fentanyl 100 mcg 10/20/23 05:50 10/20/23 05:56 Fentanyl Citrate/Pf 100 Mcg/2 Ml Vial IVPUSH 10/20/23 05:51 100 mcg ONCE ONE Administration Protocol Hydromorphone HCl 2 mg 10/19/23 22:29 10/19/23 22:51 Hydromorphone Hcl 2 Mg/Ml Vial IVPUSH 10/19/23 22:30 2 mg ONCE ONE Administration Protocol Ceftriaxone Sodium 1 gm/ 50 mls @ 100 mls/hr 10/19/23 22:29 10/19/23 23:18 Sodium Chloride IV 10/19/23 22:58 Infused ONCE ONE Infusion Vancomycin HCl 2,000 mg in 500 mls @ 250 mls/hr 10/19/23 22:29 10/20/23 02:49 Vancomycin/Ns IV 10/20/23 00:28 Infused ONCE ONE Infusion Sodium Chloride 1,000 mls @ 999 mls/hr 10/19/23 22:45 10/19/23 23:50 Ns IV 10/19/23 23:45 Infused .Q1H1M STA Infusion Sodium Chloride 1,000 mls @ 999 mls/hr 10/20/23 03:00 10/20/23 04:07 Ns IV 10/20/23 04:00 Infused .Q1H1M JOE Infusion Norepinephrine Bitartrate 8 mg in 250 mls @ 0 mls/hr 10/20/23 04:00 10/20/23 04:10 Levophed IV 0.07 mcg/kg/min .Q0M JOE 10.3 mls/hr Titration Protocol Per Protocol Medical Decision Making Medical Decision Making [facility] Narrative: 32-year-old female history of opiate use disorder, cocaine use disorder, paraspinal abscess, therapeutic 1 week prior at [facility] who was brought to emergency department by ambulance for evaluation of left lower back pain and pain with swelling , increased warmth to her left inner thigh. Your cocaine 20-30 times a day into her left inner thigh and states she has been ?hitting a vein ? when she injects herself. Her left inner thigh became painful, hot, and swollen 3 days. Over the past 2 days she developed pain in her left lower back radiating to her buttocks. She states this pain is similar to the pain in her back when she had a paraspinal abscess 6 years prior in [place]. Her pain is 10/10. She denied loss of bowel or bladder control. She does have numbness in both feet but this is chronic Differential diagnosis: ?Includes but is not limited to left thigh cellulitis, left thigh abscess, paraspinal abscess, endocarditis, electrolyte abnormalities, anemia, polysubstance use disorder Following evaluation was ordered: CBC, CMP, quantitative beta-hCG, urinalysis, drug screen urine, lactic acid, blood cultures x2 Patient was initially treated with the following: Cardiac monitoring, O2 saturation monitoring, IV insert, Dilaudid 2 mg IV, vancomycin 2 g IV, ceftriaxone 1 g IV, normal saline x1 Course: 01:15 My interpretation of the patient's laboratory evaluation is as follows: Elevated white blood count 17939 with a left shift 73 neutrophils 15 lymphocytes. Anemia with an H&H of 11.4 and 33.2. Glucose elevated 118. AST elevated 67. Lactic acid normal at 0.8. Urinalysis was positive under in protein. Microscopic revealed 11-20 WBCs and trace bacteria. Urine tox screen was positive for opiates, methadone, fentanyl and cocaine The patient is feeling better after the IV Dilaudid however she states that her pain is still severe. Given her IV drug use and her history of having a paraspinal abscess, I will try to transfer the patient to a facility that can get an urgent a paraspinal abscess. 01:42 I did talk to the neurosurgical PA at [facility] and she states that if the patient had no neurologic symptoms then they were and recommend that I talk to the hospitalist service at [facility] to see if they would accept the patient in transfer for further workup of possible paraspinal abscess. The transfer line however stated that they are closed to transfers this evening and the patient could not be accepted until tomorrow if there was space available. [facility] was also close to transfer 03:01 Patient was accepted at the [facility] in [place], [place]. Accepting physician is Dr. Urbano Eugene 03:52 Prior to transferring the patient, she developed vaginal bleeding. The patient did have a therapeutic at 24 weeks 1 week prior at [facility]. I did do a pelvic exam on the patient, the os appears to be open but did not see any products of conception in the cervical os. The patient had blood in the vagina which was swept away with 4 x 4 ring forceps swabs. At this time I do not think the patient has significant bleeding but the bleeding is most likely related to her D&C. I ordered a type and screen, CBC, CMP, lactic acid. Given the patient's hypotension I will start Levophed to help support her pressure. Patient was given fentanyl 100 mcg IV for her pain 04:[address] and OB pad on the patient and there is only a small amount of blood on the pad. It is H&H was 9.9 and 29.5 which is decreased from 11.4 and 33.2 but she did receive 2 L of fluid IV I believe this is delusional as opposed to significant blood loss. CMP is unchanged. Quantitative beta-hCG is 340 this is consistent with the recent therapeutic . Lactic acid was unchanged at 0.8. I did update the patient status to the [facility] transfer service [facility] will be [facility] by ALS paramedics Admission/Observation Consideration of admission/observation: Escalation of care including admission/observation considered Lab Data 10/20/23 03:59 10/20/23 03:59 Labs: Lab Results 10/19/23 10/19/23 10/19/23 Range/Units 21:12 21:49 22:47 WBC 15.8 H (4.8-10.8) X10*3/uL RBC 3.63 L (4.20-5.50) X10*6/uL Hgb 11.4 L (12.0-16.0) g/dl Hct 33.2 L (37.0-47.0) % MCV 91.5 (80.0-98.0) fL MCH 31.4 (27.0-33.0) pg MCHC 34.3 (31.0-35.0) g/dl RDW 13.2 (11.0-16.0) % Plt Count 221 (160-400) X10*3/uL MPV 8.3 L (9.4-12.3) fL Immature Gran % (Auto) 0.6 H (0.0-0.4) % Neut % (Auto) 73.2 H (45-73) % Lymph % (Auto) 15.6 L (20-40) % Hartley % (Auto) 9.5 (2-11) % Eos % (Auto) 0.8 (0-4) % Baso % (Auto) 0.3 (0-2) % Lymph # (Auto) 2.5 (1.2-4.9) X10*3/uL Hartley # (Auto) 1.5 H (0.1-1.2) X10*3/uL Eos # (Auto) 0.1 (0.0-0.4) X10*3/uL Baso # (Auto) 0.0 (0.0-0.2) X10*3/uL Abs Immat Gran (auto) 0.10 H (0.00-0.03) X10*3/uL Absolute Neuts (auto) 11.5 H (2.0-8.3) x10*3/uL Absolute Nucleated RBC 0.000 (0.0-0.012) X10*3/uL Nucleated RBC % (auto) 0.0 (0.0-0.2) /100WBC Sodium 137 (135-145) mmol/L Potassium 3.8 (3.3-5.1) mmol/L Chloride 102 (96-108) mmol/L Carbon Dioxide 26 (22-29) mmol/L Anion Gap 13 (12-20) BUN 14 (9-16) mg/dL Creatinine 0.65 (0.5-1.4) mg/dL Estim Creat Clear Calc 129.8 Estimated GFR > 60 Random Glucose 119 H (60-115) mg/dL Lactic Acid 0.8 (0.5-2.0) mmol/L Calcium 8.9 (8.4-10.2) mg/dL Total Bilirubin 0.8 (0.0-1.0) mg/dL AST 26 (5-31) U/L ALT 67 H (0-31) U/L Alkaline Phosphatase 109 (39-117) U/L Total Protein 6.9 (6.5-8.0) g/dL Albumin 3.3 L (3.5-5.0) g/dL Beta HCG, Quant 473 mIU/mL Hold Yellow Top Urine Color Dark Yellow Urine Appearance Clear Urine pH 6.0 (5.0-9.0) Ur Specific Wells >= 1.030 H (1.005-1.025) Urine Protein 30 (1+) H (Neg-Trace) mg/dL Urine Glucose (UA) Negative (Negative) mg/dL Urine Ketones Negative (Negative) mg/dL Urine Blood Moderate (2+) H (Negative) Urine Nitrite Negative (Negative) Ur Leukocyte Esterase Trace H (Negative) Urine RBC 0-2 (0-2) /HPF Urine WBC 11-20 H (0-5) /HPF Ur Squamous Epith Cells 3-5 (0-2) /HPF Urine Bacteria Trace (None Seen) Hyaline Casts 0-2 (0-2) /LPF Urine Opiates Screen POSITIVE H (Not Detect) Ur Buprenorphine Scrn Not Detected (Not Detect) ng/mL Ur Oxycodone Screen Not Detected (Not Detect) ng/mL Urine Methadone Screen Positive H (Not Detect) ng/mL Urine Fentanyl Screen POSITIVE H (Not Detect) Ur Barbiturates Screen Not Detected (Not Detect) Ur Phencyclidine Scrn Not Detected (Not Detect) Ur Amphetamines Screen Not Detected (Not Detect) U Benzodiazepines Scrn Not Detected (Not Detect) Urine Cocaine Screen POSITIVE H (Not Detect) U Marijuana (THC) Screen Not Detected (Not Detect) Blood Type Antibody Screen Antibody Identification Crossmatch 10/20/23 10/20/23 10/20/23 Range/Units 03:48 03:48 03:59 WBC 11.9 H (4.8-10.8) X10*3/uL RBC 3.17 L (4.20-5.50) X10*6/uL Hgb 9.9 L (12.0-16.0) g/dl Hct 29.5 L (37.0-47.0) % MCV 93.1 (80.0-98.0) fL MCH 31.2 (27.0-33.0) pg MCHC 33.6 (31.0-35.0) g/dl RDW 13.4 (11.0-16.0) % Plt Count 154 L D (160-400) X10*3/uL MPV 8.2 L (9.4-12.3) fL Immature Gran % (Auto) 0.5 H (0.0-0.4) % Neut % (Auto) 69.1 (45-73) % Lymph % (Auto) 20.9 (20-40) % Hartley % (Auto) 8.5 (2-11) % Eos % (Auto) 0.8 (0-4) % Baso % (Auto) 0.2 (0-2) % Lymph # (Auto) 2.5 (1.2-4.9) X10*3/uL Hartley # (Auto) 1.0 (0.1-1.2) X10*3/uL Eos # (Auto) 0.1 (0.0-0.4) X10*3/uL Baso # (Auto) 0.0 (0.0-0.2) X10*3/uL Abs Immat Gran (auto) 0.06 H (0.00-0.03) X10*3/uL Absolute Neuts (auto) 8.3 (2.0-8.3) x10*3/uL Absolute Nucleated RBC 0.000 (0.0-0.012) X10*3/uL Nucleated RBC % (auto) 0.0 (0.0-0.2) /100WBC Sodium 136 (135-145) mmol/L Potassium 3.8 (3.3-5.1) mmol/L Chloride 106 (96-108) mmol/L Carbon Dioxide 24 (22-29) mmol/L Anion Gap 10 L (12-20) BUN 12 (9-16) mg/dL Creatinine 0.68 (0.5-1.4) mg/dL Estim Creat Clear Calc 124.1 Estimated GFR > 60 Random Glucose 107 (60-115) mg/dL Lactic Acid 0.8 (0.5-2.0) mmol/L Calcium 8.0 L D (8.4-10.2) mg/dL Total Bilirubin 1.0 (0.0-1.0) mg/dL AST 18 (5-31) U/L ALT 53 H (0-31) U/L Alkaline Phosphatase 92 (39-117) U/L Total Protein 6.0 L (6.5-8.0) g/dL Albumin 2.7 L (3.5-5.0) g/dL Beta HCG, Quant 340 mIU/mL Hold Yellow Top See Note Urine Color Urine Appearance Urine pH (5.0-9.0) Ur Specific Wells (1.005-1.025) Urine Protein (Neg-Trace) mg/dL Urine Glucose (UA) (Negative) mg/dL Urine Ketones (Negative) mg/dL Urine Blood (Negative) Urine Nitrite (Negative) Ur Leukocyte Esterase (Negative) Urine RBC (0-2) /HPF Urine WBC (0-5) /HPF Ur Squamous Epith Cells (0-2) /HPF Urine Bacteria (None Seen) Hyaline Casts (0-2) /LPF Urine Opiates Screen (Not Detect) Ur Buprenorphine Scrn (Not Detect) ng/mL Ur Oxycodone Screen (Not Detect) ng/mL Urine Methadone Screen (Not Detect) ng/mL Urine Fentanyl Screen (Not Detect) Ur Barbiturates Screen (Not Detect) Ur Phencyclidine Scrn (Not Detect) Ur Amphetamines Screen (Not Detect) U Benzodiazepines Scrn (Not Detect) Urine Cocaine Screen (Not Detect) U Marijuana (THC) Screen (Not Detect) Blood Type A Positive Antibody Screen POSITIVE Antibody Identification Inconclusive Anti-Michelle Crossmatch See Detail Critical Care Time Critical Care Time Critical Care Time: Yes Total Critical Care Time: 120 Attestation: Critical Care: The patient was critically ill with a high probability of imminent or life threatening deterioration. I spent greater than 30 minutes of discontinuous time evaluating the patient,delivering critical care at the bedside, discussing and evaluating pertinent data with consultants. Critical care time does not include time spent performing separately billable procedures or teaching. Total time spent performing critical care was 120 minutes. Discharge Plan Discharge Clinical Impression: Abscess of left thigh, Left lumbar pain, Acute hypotension, Polysubstance abuse, Vaginal bleeding, Status post therapeutic Patient Disposition: Xfer Acute Care Hospital Transfer Details: [facility] Prescriptions: No Action erythromycin 5 mg/gram (0.5 %) ointment 1 appl ophthalmic (eye) TID 5 Days Qty: 3.5 0RF Interventions: Acute Care Transfer Worksheet (ED) Last Done: 10/20/23 06:03 Discharge Date/Time: 10/20/23 06:16 Print Language: Serbian
--- NOTE | 2023-10-19 22:45 | ECG_ITS ---
Test Reason : fever Blood Pressure : / mmHG Vent. Rate : 089 BPM Atrial Rate : 089 BPM P-R Int : 134 ms QRS Dur : 088 ms QT Int : 350 ms P-R-T Axes : 042 084 053 degrees QTc Int : 425 ms Normal sinus rhythm Normal ECG No previous ECGs available Referred By: Zeek Kothari Electronically Signed By:Michel Morales
[2023-10-19] MEDS: cefTRIAXone sodium 1 GM in 0.9 % Sodium Chloride 50 ML IV (22:48)
[2023-10-19] MEDS: Acetaminophen 325 MG TABLET 975 MG PO (22:49)
[2023-10-19] MEDS: 0.9 % Sodium Chloride 1,000 ML 999 ML IV (22:49)
[2023-10-19 22:51] VITALS: RESP 22
[2023-10-19] MEDS: HYDROmorphone HCl 2 MG/ML VIAL IVPUSH (22:51)
[2023-10-19 23:02] LABS: Lactic Acid 0.8 mmol/L (0.5-2.0)
[2023-10-19] MEDS: vancomycin/NS 2,000 MG/500 ML PLAST..BAG 250 MG IV (23:18)
[2023-10-20] VITALS (24 sets, daily range): BP systolic 76–108; BP diastolic 37–53; PULSE 62–83; RESP 12–20; TEMP 36.9–37.4; O2SAT 93–100
[2023-10-20] MEDS: 0.9 % Sodium Chloride 1,000 ML 999 ML IV (03:00)
[2023-10-20] MEDS: fentaNYL citrate/PF 100 MCG/2 ML VIAL IVPUSH ×2 (03:15→05:56)
[2023-10-20] MEDS: Norepinephrine Bitartrate/D5W 8 MG/250 ML PLAST..BAG 7.36 MG IV (04:04)
[2023-10-20 04:06] LABS: MANUAL DIFF FLAG NO
[2023-10-20 04:07] LABS: Basophils Percent Auto 0.2 % (0-2); Eosinophils Absolute Auto 0.1 X10*3/uL (0.0-0.4); Eosinophils Percent Auto 0.8 % (0-4); Hematocrit 29.5 % (37.0-47.0); Hemoglobin 9.9 g/dl (12.0-16.0); Imm Gran Abs Auto 0.06 X10*3/uL (0.00-0.03); Imm Gran Pct Auto 0.5 % (0.0-0.4); Lymphocytes Absolute Auto 2.5 X10*3/uL (1.2-4.9); Lymphocytes Percent Auto 20.9 % (20-40); Mean Corpuscular HGB Conc 33.6 g/dl (31.0-35.0); Mean Corpuscular Hemoglobin 31.2 pg (27.0-33.0); Mean Corpuscular Volume 93.1 fL (80.0-98.0); Mean Platelet Volume 8.2 fL (9.4-12.3); Monocytes Percent Auto 8.5 % (2-11); Neutrophils Absolute Auto 8.3 x10*3/uL (2.0-8.3); Neutrophils Percent Auto 69.1 % (45-73); Platelet Count 154 X10*3/uL (160-400); Red Blood Count 3.17 X10*6/uL (4.20-5.50); Red Cell Distribution Width 13.4 % (11.0-16.0); White Blood Count 11.9 X10*3/uL (4.8-10.8)
--- NOTE | 2023-10-20 04:07 | PC.NURSE ---
pt was going to be a transfer out, attempt to transfer, ems at bedside when noted blood flowing from vaginal area. Notified MD right away, he was at bedside to perform exam. Per MD pt just had Dand C for recently, On exam bleeding subsided. Pt no longer stable to transfer. Pt is hypotensive at 83/39 and levo administered at 0405
[2023-10-20 04:18] LABS: Lactic Acid 0.8 mmol/L (0.5-2.0)
[2023-10-20 04:34] LABS: Alanine Aminotransferase 53 U/L (0-31); Albumin Level 2.7 g/dL (3.5-5.0); Alkaline Phosphatase 92 U/L (39-117); Anion Gap 10 (12-20); Aspartate Amino Transferase 18 U/L (5-31); Blood Urea Nitrogen 12 mg/dL (9-16); Carbon Dioxide 24 mmol/L (22-29); Chloride 106 mmol/L (96-108); Creatinine Clr Calc Pharmacy 124.1; Estimated Glomerular Filt Rate > 60; Glucose Random 107 mg/dL (60-115); HCG Quantitative 340 mIU/mL; Potassium 3.8 mmol/L (3.3-5.1); Sodium 136 mmol/L (135-145)
--- NOTE | 2023-10-20 06:13 | PC.NURSE ---
Report given to FAUSTO Camp at [facility]. Pt medicated prior to transport, Pt aware of plan.
== END 2023-10-20 06:16 | disposition short-term general hospital (02) ==
PROVIDERS: Emergency Provider Emergency Medicine Emergency Medical Services
DX: L02.416 Cutaneous abscess of left lower limb (principal); I95.9 Hypotension, unspecified; F19.10 Other psychoactive substance abuse, uncomplicated; N93.9 Abnormal uterine and vaginal bleeding, unspecified; M54.50 Low back pain, unspecified; Z79.899 Other long term (current) drug therapy
CPT/HCPCS: 36415; 80053; 80307; 81001; 83605; 84702; 85025; 86850; 86870; 86885; 86900; 86901; 87040; 87086; 87147; 87186; 87205; 93005; 96361; 96365; 96366; 96367; 96375; 96376; 99285; 99291; 99292; J0696; J1170; J3010; J3370

== ENCOUNTER → 2023-10-19 22:45 | Outpatient (BNV) | payer OTHER, SELFPAY | PROVIDERS: Emergency Provider Emergency Medicine Emergency Medical Services; Visit Provider Internal Medicine Cardiovascular Disease | DX: R50.9 Fever, unspecified (principal) | CPT/HCPCS: 93010 ==

== ENCOUNTER 2023-11-03 16:33 | Inpatient (IN) | payer OTHER, SELFPAY ==
[2023-11-03] VITALS (10 sets, daily range): BP systolic 103–119; BP diastolic 46–59; PULSE 91–118; RESP 16–34; TEMP 37.1–40.2; O2SAT 96–97; BMI 28.6
--- NOTE | ~2023-11-03 | CT_ITS ---
EXAMINATION: CT of thoracic and lumbar spine with contrast CLINICAL INFORMATION: hx paraspinal abscess, cant feel L leg COMPARISON: None. TECHNIQUE: 85 mL Omnipaque 350 injected intravenously. Axial images obtained through the thoracic and lumbar spine. Coronal and sagittal reformatted images are performed at CT scanner. [This CT examination was performed using dose optimization techniques as appropriate, variously including the following: *Automated exposure control *Adjustment of mA and/or kV according to patient size (this includes techniques or standardized protocols for targeted exams where dose is matched to indication/reason for exam; i.e. extremities or head) *Use of iterative reconstruction technique] Dose: DLP 1106.66 FINDINGS: No abscess. No focal fluid collection. No abnormal enhancing lesion. There is edema and probable small volume of fluid around the left iliopsoas muscle extending down into the pelvis. The edema and fluid extending around the left common iliac and external iliac artery and vein. No focal bone lesion. Vertebrae have normal height and alignment. There is fusion of the T1 and T2 vertebrae. Mild diffuse degenerative lipping at the anterior endplates of lower thoracic and upper lumbar vertebrae. CT/CT thoracic spine w IV con IMPRESSION: No abscess. There is edema and probable small volume of fluid around the left iliopsoas muscle extending down into the pelvis.
--- NOTE | ~2023-11-03 | XR_ITS ---
EXAMINATION: XR CHEST CLINICAL INFORMATION: Fever COMPARISON: 10/05/2013 TECHNIQUE: Frontal view of the chest was obtained. FINDINGS: Heart is normal in size. Increased bilateral perihilar opacities. No pleural effusions. XR/XR chest 1V IMPRESSION: Increased bilateral perihilar opacities.
--- NOTE | ~2023-11-03 | CT_ITS ---
EXAMINATION: CT HIP WITH CONTRAST, LEFT CLINICAL INFORMATION: severe pain, hx abscess, IVDU COMPARISON: None available. TECHNIQUE: Axial images obtained through the left hip. Coronal and sagittal reformatted images are performed at CT scanner This CT examination was performed using dose optimization techniques as appropriate, variously including the following: *Automated exposure control *Adjustment of mA and/or kV according to patient size (this includes techniques or standardized protocols for targeted exams where dose is matched to indication/reason for exam; i.e. extremities or head) *Use of iterative reconstruction technique DLP: 435.68 mGy-cm FINDINGS: There is edema around the iliacus muscle which is prominent in size relative to the other muscles of the hip. There is no defined fluid collection or abscess however. No joint effusion. No focal bone lesion. Hip joint is maintained. IUD partially imaged in the uterus. CT/CT hip LT w IV con IMPRESSION: Edema around the iliacus muscle . No defined fluid collection or abscess. Targeted ultrasound could be helpful for follow-up.
--- NOTE | ~2023-11-03 | CT_ITS ---
EXAMINATION: CT of thoracic and lumbar spine with contrast CLINICAL INFORMATION: hx paraspinal abscess, cant feel L leg COMPARISON: None. TECHNIQUE: 85 mL Omnipaque 350 injected intravenously. Axial images obtained through the thoracic and lumbar spine. Coronal and sagittal reformatted images are performed at CT scanner. [This CT examination was performed using dose optimization techniques as appropriate, variously including the following: *Automated exposure control *Adjustment of mA and/or kV according to patient size (this includes techniques or standardized protocols for targeted exams where dose is matched to indication/reason for exam; i.e. extremities or head) *Use of iterative reconstruction technique] Dose: DLP 1106.66 FINDINGS: No abscess. No focal fluid collection. No abnormal enhancing lesion. There is edema and probable small volume of fluid around the left iliopsoas muscle extending down into the pelvis. The edema and fluid extending around the left common iliac and external iliac artery and vein. No focal bone lesion. Vertebrae have normal height and alignment. There is fusion of the T1 and T2 vertebrae. Mild diffuse degenerative lipping at the anterior endplates of lower thoracic and upper lumbar vertebrae. CT/CT lumbar spine w IV con IMPRESSION: No abscess. There is edema and probable small volume of fluid around the left iliopsoas muscle extending down into the pelvis.
--- NOTE | ~2023-11-03 | MR_ITS ---
CANCELED MRI OF THE LUMBAR SPINE WITHOUT CONTRAST CLINICAL INFORMATION: Intravenous drug use. Fever. L4-L5 epidural abscess. COMPARISON: Lumbar spine CT 11/03/2023. TECHNIQUE: Limited incomplete lumbar spine MRI is performed with sagittal T1 and sagittal T2-weighted series. MR/MR lumbar spine wo/w con FINDINGS/IMPRESSION: * Nondiagnostic MRI of the lumbar spine. The patient could not tolerate this study and no postcontrast imaging or axial imaging was obtained. 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 Probable phlegmon effacing the left L5-S1 neural foramen inseparable from the exiting left L5 nerve root. No definite epidural abscess is appreciated and there is nondiagnostic assessment for epidural phlegmon given the lack of axial imaging and postcontrast imaging. There are a few small subcentimeter abscesses versus synovial cysts along the dorsal margin of the left L5-S1 facet joint and to a lesser extent the left L4-L5 facet joint. * At L5-S1, there is a broad-based central disc protrusion eccentric to the right side that likely results in mild mass effect on the traversing right S1 nerve root within the right subarticular zone.
--- NOTE | 2023-11-03 17:04 | PC.NURSE ---
Aguilar Brown MD aware of sepsis trigger
--- NOTE | 2023-11-03 17:05 | PC.NURSE ---
Pt. is on phototypesetting equipment monitor at this time. Aguilar Brown MD is at bedside at this time.
--- NOTE | 2023-11-03 17:21 | ED.GENADULT ---
HPI - General Adult General Chief complaint: General Medical Stated complaint: BACK PAIN Time Seen by Provider: 11/03/23 17:01 Source: patient and EMS Mode of arrival: EMS Limitations: no limitations History of Present Illness ED Provider: Dr. Evelyn Brown HPI narrative: Patient comes to the emergency room complaining of severe left-sided hip pain. Patient states that about 2 weeks ago, patient was seen at [facility] for severe hip pain, some kind of hip infection?, patient was told that she needed 6 weeks of IV antibiotics and they offered her to go to short-term rehab during this time. Patient states that she is homeless and has history of IV drug use. Patient states that she refused to go for 6 weeks. Patient was prescribed p.o. antibiotics which she never picked up from the pharmacy. Patient states that for the last week, she has been having worsening and much more severe left-sided hip pain. Patient states that now she can not move or feel much the upper part of her thigh on the left side. Patient complaining of fever and chills, denies hematuria or dysuria. No issues with the right leg. Patient denies any urinary/fecal incontinence or retention. Related Data Previous Rx's ?Medication ?Instructions ?Recorded erythromycin 5 mg/gram (0.5 %) eye 1 appl ophthalmic (eye) TID 5 days 10/12/23 ointment #3.5 grams Allergies Allergy/AdvReac Type Severity Reaction Status Date / Time hydrocodone [HYDROCODONE] Allergy Mild THROAT Verified 11/03/23 16:58 CLOSES penicillin V [PENICILLIN V] Allergy Unknown HIVES Verified 11/03/23 16:58 Penicillins [PENICILLINS] Allergy Unknown HIVES Verified 11/03/23 16:58 penicilin Allergy Unknown Difficulty Uncoded 11/03/23 16:58 Breathing Review of Systems Review of Systems: Constitutional : No Weight loss, complaining of fever and chills, No Night Sweats, No Fatigue, No Malaise ENT/Mouth : No Hearing loss, No Ear Pain, No Nasal Congestion, No Sinus Pain, No Hoarseness, No sore throat, No Rhinorrhea, No Swallowing Difficulty Eyes: No Eye Pain, No Swelling, No Redness, No Foreign Body, No Discharge, No Vision Changes Cardiovascular : No Chest Pain, No SOB, No Dyspnea on Exertion, No Orthopnea, No Edema, No Palpitations Respiratory : No Cough, No Sputum, No Wheezing, No Smoke Exposure, No Dyspnea Gastrointestinal : No Nausea, No Vomiting, No Diarrhea, No Constipation, No abdominal Pain, No Hematochezia, No Melena Genitourinary : no irregular bleeding, No Dysuria, No Urinary Frequency, No Hematuria, No Urinary Incontinence, No Urgency, No Flank Pain, No Urinary Flow Changes, No Hesitancy Musculoskeletal : Complaining of severe left-sided hip pain, no thoracic or lumbar spine pain. Skin : No Skin Lesions, No rash Neuro : No Weakness, No Numbness, No Paresthesias, No Loss of Consciousness, No Dizziness, No Headache Psych : No Anxiety/Panic, No Depression, No SI/HI/AH/VH, No Social Issues, Heme/Lymph: No Bruising, No Bleeding,No Lymphadenopathy Endocrine : No Polyuria, No Polydipsia, No Temperature Intolerance PMFSH Past Medical History Medical History Active substance abuse Social History Social History Alcohol intake: never Patient Tobacco Use Status: Current everyday Tobacco user Substance Use Type: Crack/Cocaine Advance Directives: No Advance Directives Information Provided: No Do you have a plan to hurt others: No Plan Physical Exam ED Vital Signs: Vital Signs - 24 hr 11/03/23 16:56 11/03/23 17:05 11/03/23 17:12 Temperature 103.1 F H 103.1 F H 104.3 F H Pulse Rate 117 H 117 H Respiratory Rate 24 H 25 H Blood Pressure 113/51 L 113/51 L Pulse Oximetry 96 97 Oxygen Delivery Method Room Air Room Air 11/03/23 17:43 11/03/23 18:21 11/03/23 18:42 Temperature Pulse Rate 111 H 110 H Respiratory Rate 20 34 H 28 H Blood Pressure 115/50 L 104/46 L Pulse Oximetry 96 96 Oxygen Delivery Method Room Air Room Air 11/03/23 18:49 11/03/23 19:21 11/03/23 20:20 Temperature 102.5 F H 99.1 F 98.8 F Pulse Rate 106 H 106 H 91 Respiratory Rate 23 H 18 18 Blood Pressure 108/54 L 115/52 L 119/56 L Pulse Oximetry 97 97 97 Oxygen Delivery Method Room Air Room Air Room Air 11/03/23 22:31 11/04/23 00:14 Temperature 98.5 F Pulse Rate 89 Respiratory Rate 16 15 Blood Pressure 113/74 Pulse Oximetry 97 Oxygen Delivery Method Room Air BMI result Body Mass Index 28.6 Const Other: Appearance: Alert. Oriented X3. Ill-appearing, disheveled Eyes: Pupils equal, round and reactive to light. ENT: Pharynx normal. Neck: Normal inspection. Neck supple. No lymph nodes noted. No crepitus CVS: Normal heart rate and rhythm. Pulses normal. Normal S1 and S2 Respiratory: No respiratory distress. Breath sounds normal. No Wheezing. No rales Abdomen: Soft and nontender. No rigidity. No distention. Back: No pain to palpation over the cervical thoracic or lumbar spine. Skin: Very warm to touch, flushed Extremities: No lower extremity edema. No Lacerations. No Rash. Patient has severe pain with any left-sided hip pain movement. Patient is able to move her legs. Patient has normal patellar and plantar reflexes bilaterally, normal sensation in the soles of feet bilaterally Neuro: Oriented X 3. No motor deficit. No sensory deficit. Moving all extremities. No slurred speech. CN 2 through 12 grossly intact Psych: calm, cooperative, normal affect Course Course Course Narrative: -patient has a fever of 104.3, tachycardic, blood pressure holding up, 113/51 -patient has been giving IV fluids and Zosyn and vancomycin, sepsis protocol has been started. - Medications Administered Discontinued Medications Generic Name Dose Route Start Last Admin Trade Name Adele PRN Reason Stop Dose Admin Acetaminophen 975 mg 11/03/23 17:20 11/03/23 17:59 Acetaminophen 325 Mg Tablet PO 11/03/23 17:21 975 mg ONCE ONE Administration Hydromorphone HCl 1 mg 11/03/23 17:27 11/03/23 17:43 Hydromorphone Hcl 1 Mg/Ml Syringe IVPUSH 11/03/23 17:28 1 mg ONCE ONE Administration Protocol Hydromorphone HCl 1 mg 11/03/23 20:36 11/03/23 22:31 Hydromorphone Hcl 1 Mg/Ml Syringe IVPUSH 11/03/23 20:37 1 mg ONCE ONE Administration Protocol Hydromorphone HCl 1 mg 11/03/23 23:41 11/04/23 00:10 Hydromorphone Hcl 1 Mg/Ml Syringe IVPUSH 11/03/23 23:42 1 mg ONCE ONE Administration Protocol Sodium Chloride 2,343 mls @ 2,343 mls/hr 11/03/23 17:15 11/03/23 18:32 Ns 30 ml/kg infuse over 1 hr (2343 ml) 11/03/23 18:14 Infused IV Infusion .Q1H STA Piperacillin Sod/Tazobactam 50 mls @ 100 mls/hr 11/03/23 17:15 11/03/23 18:22 Sod 3.375 gm/ Sodium Chloride IV 11/03/23 17:44 Infused ONCE ONE Infusion Vancomycin HCl 2,000 mg in 500 mls @ 250 mls/hr 11/03/23 17:15 11/03/23 22:33 Vancomycin/Ns IV 11/03/23 19:14 Infused ONCE ONE Infusion Ibuprofen 600 mg 11/03/23 17:20 11/03/23 17:58 Ibuprofen Oral Susp 200 Mg/10 Ml Oral.Susp PO 11/03/23 17:21 600 mg ONCE ONE Administration Iohexol 85 ml 11/03/23 20:17 11/03/23 20:17 Iohexol 350 Mg/Ml 100 Ml Infus..Btl IV 11/03/23 20:18 85 ml ONCE ONE Administration Medical Decision Making Medical Decision Making [facility] Narrative: -patient empirically being treated with IV fluids and vancomycin/Zosyn, p.o. acetaminophen and ibuprofen, IV Dilaudid -all of patient's labs pending -patient does not have any thoracic/lumbar spine pain, normal rectal tone, normal patellar reflexes. At this time, cauda equina is not suspected. -all of patient's labs and imaging pending. -my interpretation of chest x-ray: No obvious abnormality. No infiltrates -my interpretation of CT scan of the thoracic and lumbar spine no obvious abnormality, no obvious abscess. -my interpretation of CT scan of the left hip, no obvious abscess or drainable fluid collection -I discussed the patient with Dr. Mayes from the Medicine team, patient being admitted Differential Diagnosis Differential Diagnoses: The differential diagnosis associated with the presentation includes (Cellulitis, abscess, osteomyelitis of the left hip, sepsis) Admission/Observation Consideration of admission/observation: Escalation of care including admission/observation considered Lab Data [facility] Lab Attestation statement: I reviewed the patient's lab results. 11/03/23 17:39 11/03/23 17:39 Labs: Lab Results 11/03/23 11/03/23 11/03/23 Range/Units 17:39 17:50 18:40 WBC 16.9 H (4.8-10.8) X10*3/uL RBC 3.62 L (4.20-5.50) X10*6/uL Hgb 11.3 L (12.0-16.0) g/dl Hct 32.7 L (37.0-47.0) % MCV 90.3 (80.0-98.0) fL MCH 31.2 (27.0-33.0) pg MCHC 34.6 (31.0-35.0) g/dl RDW 12.5 (11.0-16.0) % Plt Count 245 D (160-400) X10*3/uL MPV 8.8 L (9.4-12.3) fL Immature Gran % (Auto) 0.6 H (0.0-0.4) % Neut % (Auto) 82.1 H (45-73) % Lymph % (Auto) 9.9 L (20-40) % [place] % (Auto) 7.0 (2-11) % Eos % (Auto) 0.1 (0-4) % Baso % (Auto) 0.3 (0-2) % Lymph # (Auto) 1.7 (1.2-4.9) X10*3/uL [place] # (Auto) 1.2 (0.1-1.2) X10*3/uL Eos # (Auto) 0.0 (0.0-0.4) X10*3/uL Baso # (Auto) 0.1 (0.0-0.2) X10*3/uL Abs Immat Gran (auto) 0.10 H (0.00-0.03) X10*3/uL Absolute Neuts (auto) 13.9 H (2.0-8.3) x10*3/uL Absolute Nucleated RBC 0.000 (0.0-0.012) X10*3/uL Nucleated RBC % (auto) 0.0 (0.0-0.2) /100WBC ESR 66 H (0-20) MM/HR Hold Purple Top SEE NOTE PT 14.5 H (11.1-13.3) SEC INR 1.2 H (0.9-1.1) Sodium 135 (135-145) mmol/L Potassium 3.4 (3.3-5.1) mmol/L Chloride 101 (96-108) mmol/L Carbon Dioxide 24 (22-29) mmol/L Anion Gap 13 (12-20) BUN 8 L (9-16) mg/dL Creatinine 0.82 (0.5-1.4) mg/dL Estim Creat Clear Calc 102.7 Estimated GFR > 60 Random Glucose 153 H (60-115) mg/dL Lactic Acid 2.1 H* (0.5-2.0) mmol/L Lactic Acid F/U @ 2Hr (0.5-2.0) mmol/L Calcium 8.9 D (8.4-10.2) mg/dL Magnesium 1.6 (1.6-2.6) mg/dL Total Bilirubin 0.9 (0.0-1.0) mg/dL Direct Bilirubin 0.4 (0.0-0.5) mg/dL AST 22 (5-31) U/L ALT 18 (0-31) U/L Alkaline Phosphatase 85 (39-117) U/L Troponin I High Sens < 2.7 (<3.5-17.0) ng/L C-Reactive Protein 12.06 H (< or = 0.50) mg/dL Total Protein 6.8 (6.5-8.0) g/dL Albumin 3.4 L (3.5-5.0) g/dL Beta HCG, Quant < 2 mIU/mL Urine Color Urine Appearance Urine pH (5.0-9.0) Ur Specific [place] (1.005-1.025) Urine Protein (Neg-Trace) mg/dL Urine Glucose (UA) (Negative) mg/dL Urine Ketones (Negative) mg/dL Urine Blood (Negative) Urine Nitrite (Negative) Ur Leukocyte Esterase (Negative) Urine RBC (0-2) /HPF Urine WBC (0-5) /HPF Ur Squamous Epith Cells (0-2) /HPF Urine Bacteria (None Seen) Hyaline Casts (0-2) /LPF Urine Opiates Screen (Not Detect) Ur Buprenorphine Scrn (Not Detect) ng/mL Ur Oxycodone Screen (Not Detect) ng/mL Urine Methadone Screen (Not Detect) ng/mL Urine Fentanyl Screen (Not Detect) Ur Barbiturates Screen (Not Detect) Ur Phencyclidine Scrn (Not Detect) Ur Amphetamines Screen (Not Detect) U Benzodiazepines Scrn (Not Detect) Urine Cocaine Screen (Not Detect) U Marijuana (THC) Screen (Not Detect) Ethyl Alcohol < 10 mg/dL COVID-19 ([facility]BERTO) Negative (Negative) COVID-19 Clin Com See Note Influenza Type A (CARL) Negative (Negative) Influenza Type B (CARL) Negative (Negative) Influenza A & B Note See Note 11/03/23 11/03/23 Range/Units 20:18 21:15 WBC (4.8-10.8) X10*3/uL RBC (4.20-5.50) X10*6/uL Hgb (12.0-16.0) g/dl Hct (37.0-47.0) % MCV (80.0-98.0) fL MCH (27.0-33.0) pg MCHC (31.0-35.0) g/dl RDW (11.0-16.0) % Plt Count (160-400) X10*3/uL MPV (9.4-12.3) fL Immature Gran % (Auto) (0.0-0.4) % Neut % (Auto) (45-73) % Lymph % (Auto) (20-40) % [place] % (Auto) (2-11) % Eos % (Auto) (0-4) % Baso % (Auto) (0-2) % Lymph # (Auto) (1.2-4.9) X10*3/uL [place] # (Auto) (0.1-1.2) X10*3/uL Eos # (Auto) (0.0-0.4) X10*3/uL Baso # (Auto) (0.0-0.2) X10*3/uL Abs Immat Gran (auto) (0.00-0.03) X10*3/uL Absolute Neuts (auto) (2.0-8.3) x10*3/uL Absolute Nucleated RBC (0.0-0.012) X10*3/uL Nucleated RBC % (auto) (0.0-0.2) /100WBC ESR (0-20) MM/HR Hold Purple Top PT (11.1-13.3) SEC INR (0.9-1.1) Sodium (135-145) mmol/L Potassium (3.3-5.1) mmol/L Chloride (96-108) mmol/L Carbon Dioxide (22-29) mmol/L Anion Gap (12-20) BUN (9-16) mg/dL Creatinine (0.5-1.4) mg/dL Estim Creat Clear Calc Estimated GFR Random Glucose (60-115) mg/dL Lactic Acid (0.5-2.0) mmol/L Lactic Acid F/U @ 2Hr 0.7 (0.5-2.0) mmol/L Calcium (8.4-10.2) mg/dL Magnesium (1.6-2.6) mg/dL Total Bilirubin (0.0-1.0) mg/dL Direct Bilirubin (0.0-0.5) mg/dL AST (5-31) U/L ALT (0-31) U/L Alkaline Phosphatase (39-117) U/L Troponin I High Sens (<3.5-17.0) ng/L C-Reactive Protein (< or = 0.50) mg/dL Total Protein (6.5-8.0) g/dL Albumin (3.5-5.0) g/dL Beta HCG, Quant mIU/mL Urine Color Yellow Urine Appearance Clear Urine pH 6.0 (5.0-9.0) Ur Specific [place] 1.020 (1.005-1.025) Urine Protein Negative (Neg-Trace) mg/dL Urine Glucose (UA) Negative (Negative) mg/dL Urine Ketones Negative (Negative) mg/dL Urine Blood Trace H (Negative) Urine Nitrite Negative (Negative) Ur Leukocyte Esterase Small (1+) H (Negative) Urine RBC 0-2 (0-2) /HPF Urine WBC 0-5 (0-5) /HPF Ur Squamous Epith Cells 0-2 (0-2) /HPF Urine Bacteria None Seen (None Seen) Hyaline Casts 0-2 (0-2) /LPF Urine Opiates Screen POSITIVE H (Not Detect) Ur Buprenorphine Scrn Not Detected (Not Detect) ng/mL Ur Oxycodone Screen Not Detected (Not Detect) ng/mL Urine Methadone Screen Not Detected (Not Detect) ng/mL Urine Fentanyl Screen POSITIVE H (Not Detect) Ur Barbiturates Screen Not Detected (Not Detect) Ur Phencyclidine Scrn Not Detected (Not Detect) Ur Amphetamines Screen Not Detected (Not Detect) U Benzodiazepines Scrn Not Detected (Not Detect) Urine Cocaine Screen POSITIVE H (Not Detect) U Marijuana (THC) Screen POSITIVE H (Not Detect) Ethyl Alcohol mg/dL COVID-19 ([facility]ERTO) (Negative) COVID-19 Clin Com Influenza Type A (CARL) (Negative) Influenza Type B (CARL) (Negative) Influenza A & B Note Independent Interpretation I performed an independent interpretation of an: Plain X-Ray Radiology Impression Discussion of test interpretation with radiology: I have reviewed the radiologist's reading. Radiologist Impression: Heart is normal in size. Increased bilateral perihilar opacities. No pleural effusions. XR/XR chest 1V IMPRESSION: Increased bilateral perihilar opacities. Critical Care Time Critical Care Time Critical Care Time: Yes Total Critical Care Time: 75 Attestation: I have personally provided critical care time. Time includes review of lab data, radiology results, discussion with consultants, and monitoring for potential decompensation. Intervention performed as documented. Discharge Plan Discharge Clinical Impression: Muscle pain, Fever Patient Disposition: Admitted As Inpatient Print Language: [place]
[2023-11-03] MEDS: Piperacillin Sodium/Tazobactam 3.375 GM in 0.9 % Sodium Chloride 50 ML IV (17:40)
--- NOTE | 2023-11-03 17:40 | PC.NURSE ---
Unable to obtain second ser of cultures at this time - pt. is a difficult stick d/t history of IV drug use. Provider aware
[2023-11-03] MEDS: vancomycin/NS 2,000 MG/500 ML PLAST..BAG 250 MG IV (17:42)
[2023-11-03] MEDS: HYDROmorphone HCl 1 MG/ML SYRINGE IVPUSH ×2 (17:43→22:31)
[2023-11-03 17:52] LABS: MANUAL DIFF FLAG NO
[2023-11-03] MEDS: Ibuprofen Oral Susp 200 MG/10 ML ORAL.SUSP 600 MG PO (17:58)
[2023-11-03] MEDS: Acetaminophen 325 MG TABLET 975 MG PO (17:59)
[2023-11-03 18:06] LABS: Basophils Absolute Auto 0.1 X10*3/uL (0.0-0.2); Basophils Percent Auto 0.3 % (0-2); Eosinophils Percent Auto 0.1 % (0-4); Hematocrit 32.7 % (37.0-47.0); Hemoglobin 11.3 g/dl (12.0-16.0); Imm Gran Pct Auto 0.6 % (0.0-0.4); Lymphocytes Absolute Auto 1.7 X10*3/uL (1.2-4.9); Lymphocytes Percent Auto 9.9 % (20-40); Mean Corpuscular HGB Conc 34.6 g/dl (31.0-35.0); Mean Corpuscular Hemoglobin 31.2 pg (27.0-33.0); Mean Corpuscular Volume 90.3 fL (80.0-98.0); Mean Platelet Volume 8.8 fL (9.4-12.3); Monocytes Absolute Auto 1.2 X10*3/uL (0.1-1.2); Neutrophils Absolute Auto 13.9 x10*3/uL (2.0-8.3); Neutrophils Percent Auto 82.1 % (45-73); Platelet Count 245 X10*3/uL (160-400); Red Blood Count 3.62 X10*6/uL (4.20-5.50); Red Cell Distribution Width 12.5 % (11.0-16.0); White Blood Count 16.9 X10*3/uL (4.8-10.8)
[2023-11-03 18:27] LABS: C Reactive Protein 12.06 mg/dL (< or = 0.50); Ethanol < 10 mg/dL
[2023-11-03 18:29] LABS: Alanine Aminotransferase 18 U/L (0-31); Albumin Level 3.4 g/dL (3.5-5.0); Alkaline Phosphatase 85 U/L (39-117); Anion Gap 13 (12-20); Aspartate Amino Transferase 22 U/L (5-31); Bilirubin Direct 0.4 mg/dL (0.0-0.5); Bilirubin Total 0.9 mg/dL (0.0-1.0); Blood Urea Nitrogen 8 mg/dL (9-16); Calcium 8.9 mg/dL (8.4-10.2); Carbon Dioxide 24 mmol/L (22-29); Chloride 101 mmol/L (96-108); Creatinine Clr Calc Pharmacy 102.7; Estimated Glomerular Filt Rate > 60; Glucose Random 153 mg/dL (60-115); HCG Quantitative < 2 mIU/mL; Magnesium 1.6 mg/dL (1.6-2.6); Potassium 3.4 mmol/L (3.3-5.1); Sodium 135 mmol/L (135-145); Total Protein 6.8 g/dL (6.5-8.0)
[2023-11-03 18:30] LABS: COVID-19 Test Negative (Negative); IDNOW Serial# 08D9AD1C; IDNOW Serial# 152EDE1D; Influenza A Negative (Negative); Influenza B2 Negative (Negative)
[2023-11-03 18:35] LABS: Troponin-I High Sensitivity < 2.7 ng/L (<3.5-17.0)
[2023-11-03 18:40] LABS: INTERNATIONAL NORM RATIO 1.2 (0.9-1.1); Prothrombin Time 14.5 SEC (11.1-13.3)
[2023-11-03 19:04] LABS: Lactic Acid 2.1 mmol/L (0.5-2.0)
[2023-11-03 19:08] LABS: Erythrocyte Sedimentation Rate 66 MM/HR (0-20)
--- NOTE | 2023-11-03 19:18 | MHC.EDTECH ---
This Tech took over care as PCT @1900 pt expresses no other needs at this time Call light within reach Plan of care ongoing
[2023-11-03] MEDS: iohexoL 350 MG/ML 100 ML INFUS..BTL 85 ML IV (20:17)
[2023-11-03 20:24] LABS: Appearance Urine Clear; Color Urine Yellow; Glucose Urine UA Negative (Negative); Leukocyte Esterase Urine Small (1+) (Negative); Nitrite Urine Negative (Negative); UMIC TRIGGER UACC YES; Urine Blood Trace (Negative); Urine Ketones Negative (Negative); Urine Protein Negative (Neg-Trace)
[2023-11-03 20:33] LABS: Amphetamine Screen Urine Not Detected (Not Detect); Barbiturates, Urine Not Detected (Not Detect); Benzodiazepines Screen Urine Not Detected (Not Detect); Buprenorphine Scr Not Detected (Not Detect); Cannabinoid Screen Urine POSITIVE (Not Detect); Cocaine Screen Urine POSITIVE (Not Detect); Fentanyl, urine POSITIVE (Not Detect); Methadone Screen, Urine Not Detected (Not Detect); Opiate Screen Urine POSITIVE (Not Detect); Oxycodone Screen Urine Not Detected (Not Detect); Phencyclidine Screen Urine Not Detected (Not Detect)
[2023-11-03 20:42] LABS: Reflex Lactate? Lactic Acid Added
[2023-11-03 20:46] LABS: Bacteria Urine None Seen (None Seen); Hyaline Casts Urine 0-2 /LPF (0-2); RBC Urine 0-2 /HPF (0-2); Squamous Epithelial Cell Urine 0-2 /HPF (0-2); UACC Culture Trigger YES; WBC Urine 0-5 /HPF (0-5)
[2023-11-03 21:30] LABS: ~Lactic Acid-LAB USE ONLY 0.7 mmol/L (0.5-2.0)
[2023-11-04] VITALS (15 sets, daily range): BP systolic 107–129; BP diastolic 55–74; PULSE 79–109; RESP 14–20; TEMP 36.3–38.1; O2SAT 95–99; BMI 28.3
[2023-11-04] MEDS: HYDROmorphone HCl 1 MG/ML SYRINGE IVPUSH ×5 (00:10→20:01)
--- NOTE | 2023-11-04 01:35 | P.HPHOSP_ITS ---
History of Present Illness Date of Service: 11/04/23 Attending physician on admission: Cynthia Alford Chief Complaint: Left hip and leg pain Nakia Martins is a 32 years old woman with past medical history significant for IV drug use (cocaine tampered with Fentanyl according to the patient) presents to the emergency department complaining of worsening left hip and leg pain associated with generalized weakness, fever and chills. The patient reports difficulty with ambulation due to pain and left lower extremity weakness. The patient stated that about 2 weeks ago she was hospitalized at [facility] to treat some sort of infection in her spine that was diagnosed with an MRI. She is unclear about what kind of infection. She also said that she was recommended to get a PICC line and get a course of antibiotics for 6 weeks. In order to do this she had to be discharged to a nursing facility as she is homeless. She refused IV antibiotic therapy for 6 weeks and was sent home (she denied leaving AMA) on her antibiotics which she has not gotten from the pharmacy (she said that the pharmacy did not have the antibiotics). She continues to use IV drugs -last use was yesterday. She also smokes marijuana and tobacco. In the ED, she was found to have marked fever (max 104.3), tachycardia and tachypnea. There is no hypotension and O2 sats are normal on room air. Blood workup is remarkable for leukocytosis of 16.9, hemoglobin 11.3 and platelets 245. There is lactic acidosis of 2.1 (normalized, 0.7). CXR is 12.06. test is negative. There are no significant electrolyte imbalances. Renal function is normal. LFTs are normal. Urinalysis not consistent with UTI. Urine drug screen is positive for opiates, fentanyl, cocaine and marijuana. Viral testing for RSV, COVID-19 and influenza is negative. She underwent thoracic, lumbar, left hip CT scans that showed edema and probable small volume of fluid around the left iliopsoas muscle extending down into the pelvis without abscesses. CXR showed increased bilateral perihilar opacities. ED tx: Zosyn 3.375 g IV, vancomycin 2 g IV, ibuprofen 600 mg p.o., acetaminophen 975 mg, Dilaudid 3 mg IV (total), NS 2,343 ml bolus. Review of Systems 2 Review of Systems: All 12 systems were reviewed and normal except as noted in HPI. PMFSH Medical History Active substance abuse Social History Alcohol intake: never Patient Tobacco Use Status: Current everyday Tobacco user Substance Use Type: Crack/Cocaine Advance Directives: No Advance Directives Information Provided: No Do you have a plan to hurt others: No Plan Meds Allergies Allergy/AdvReac Type Severity Reaction Status Date / Time hydrocodone [HYDROCODONE] Allergy Mild THROAT Verified 11/03/23 16:58 CLOSES penicillin V [PENICILLIN V] Allergy Unknown HIVES Verified 11/03/23 16:58 Penicillins [PENICILLINS] Allergy Unknown HIVES Verified 11/03/23 16:58 penicilin Allergy Unknown Difficulty Uncoded 11/03/23 16:58 Breathing Active Medications: Current Medications Acetaminophen (Acetaminophen 325 Mg Tablet) 975 mg PO Q6H PRN PRN Reason: Pain, Mild (Pain Scale 1-3), fever or headache Enoxaparin Sodium (Enoxaparin Sodium 40 Mg/0.4 Ml Syringe) 40 mg SUBCUT Q24H JOE Hydromorphone HCl (Hydromorphone Hcl 1 Mg/Ml Syringe) 1 mg IVPUSH Q3H PRN; Protocol PRN Reason: Pain, Severe (Pain Scale 7-10) Lactated Ringer's (Lr) 1,000 mls @ 150 mls/hr IVCONT .Q6H40M JOE Ketorolac Tromethamine (Ketorolac Tromethamine 30 Mg/Ml Vial) 30 mg IVPUSH Q6H [facility] Stop: 11/04/23 13:31 Pharmacy Consult (Consult Rx Vancomycin Dosing) 1 each MISCELLANE DAILY PRN PRN Reason: Consult order Sodium Chloride (0.9 % Sodium Chloride Flush 3 Ml Syringe) 3 ml IVFLUSH QSHIFT [facility] Physical Exam 2 Vital Signs and Narrative: Vital Signs: Last Vital Signs Temp 100.1 F 11/04/23 01:15 Pulse 94 11/04/23 01:15 Resp 18 11/04/23 01:15 BP 129/74 11/04/23 01:15 Pulse Ox 98 11/04/23 01:15 O2 Del Method Room Air 11/04/23 01:15 BMI result Body Mass Index 28.6 Constitutional - Awake and Alert. Looks uncomfortable due to left lower extremity pain. Look older than her stated age. Disheveled. Febrile. HEENT - PERRL, EOMI. Heart - RRR, No murmur. Lungs - Normal lung expansion, Normal respiratory effort, No respiratory distress, CTA bilaterally Abdomen - NT / ND; +BS; No rebound or guarding Extremities - Severe tenderness to palpation to the left groing area. No edema. Musculoskeletal - Flexed left hip and left knee spontaneously without limitation. Skin - Warm/Dry Neurological - Alert & oriented x3. Normal speech. Psychological - Depressed affect Results Labs 11/03/23 17:39 11/03/23 17:39 Labs: Laboratory Results - last 24 hr 11/03/23 11/03/23 11/03/23 17:39 17:50 18:40 MCV 90.3 MCH 31.2 MCHC 34.6 RDW 12.5 Plt Count 245 D MPV 8.8 L Immature Gran % (Auto) 0.6 H Neut % (Auto) 82.1 H Lymph % (Auto) 9.9 L [place] % (Auto) 7.0 Eos % (Auto) 0.1 Baso % (Auto) 0.3 Lymph # (Auto) 1.7 [place] # (Auto) 1.2 Eos # (Auto) 0.0 Baso # (Auto) 0.1 Abs Immat Gran (auto) 0.10 H Absolute Neuts (auto) 13.9 H Absolute Nucleated RBC 0.000 Nucleated RBC % (auto) 0.0 ESR 66 H Hold Purple Top SEE NOTE PT 14.5 H INR 1.2 H Anion Gap 13 Estim Creat Clear Calc 102.7 Estimated GFR > 60 Random Glucose 153 H Lactic Acid 2.1 H* Lactic Acid F/U @ 2Hr Calcium 8.9 D Magnesium 1.6 Total Bilirubin 0.9 Direct Bilirubin 0.4 AST 22 ALT 18 Alkaline Phosphatase 85 Troponin I High Sens < 2.7 C-Reactive Protein 12.06 H Total Protein 6.8 Albumin 3.4 L Beta HCG, Quant < 2 Urine Color Urine Appearance Urine pH Ur Specific [place] Urine Protein Urine Glucose (UA) Urine Ketones Urine Blood Urine Nitrite Ur Leukocyte Esterase Urine RBC Urine WBC Ur Squamous Epith Cells Urine Bacteria Hyaline Casts Urine Opiates Screen Ur Buprenorphine Scrn Ur Oxycodone Screen Urine Methadone Screen Urine Fentanyl Screen Ur Barbiturates Screen Ur Phencyclidine Scrn Ur Amphetamines Screen U Benzodiazepines Scrn Urine Cocaine Screen U Marijuana (THC) Screen Ethyl Alcohol < 10 COVID-19 (NORBERTO) Negative COVID-19 Clin Com See Note Influenza Type A (CARL) Negative Influenza Type B (CARL) Negative Influenza A & B Note See Note 11/03/23 11/03/23 20:18 21:15 MCV MCH MCHC RDW Plt Count MPV Immature Gran % (Auto) Neut % (Auto) Lymph % (Auto) [place] % (Auto) Eos % (Auto) Baso % (Auto) Lymph # (Auto) [place] # (Auto) Eos # (Auto) Baso # (Auto) Abs Immat Gran (auto) Absolute Neuts (auto) Absolute Nucleated RBC Nucleated RBC % (auto) ESR Hold Purple Top PT INR Anion Gap Estim Creat Clear Calc Estimated GFR Random Glucose Lactic Acid Lactic Acid F/U @ 2Hr 0.7 Calcium Magnesium Total Bilirubin Direct Bilirubin AST ALT Alkaline Phosphatase Troponin I High Sens C-Reactive Protein Total Protein Albumin Beta HCG, Quant Urine Color Yellow Urine Appearance Clear Urine pH 6.0 Ur Specific [place] 1.020 Urine Protein Negative Urine Glucose (UA) Negative Urine Ketones Negative Urine Blood Trace H Urine Nitrite Negative Ur Leukocyte Esterase Small (1+) H Urine RBC 0-2 Urine WBC 0-5 Ur Squamous Epith Cells 0-2 Urine Bacteria None Seen Hyaline Casts 0-2 Urine Opiates Screen POSITIVE H Ur Buprenorphine Scrn Not Detected Ur Oxycodone Screen Not Detected Urine Methadone Screen Not Detected Urine Fentanyl Screen POSITIVE H Ur Barbiturates Screen Not Detected Ur Phencyclidine Scrn Not Detected Ur Amphetamines Screen Not Detected U Benzodiazepines Scrn Not Detected Urine Cocaine Screen POSITIVE H U Marijuana (THC) Screen POSITIVE H Ethyl Alcohol COVID-19 (NORBERTO) COVID-19 Clin Com Influenza Type A (CARL) Influenza Type B (CARL) Influenza A & B Note Imaging Radiologist's Impressions: Impressions Chest X-Ray 11/03/23 18:45 IMPRESSION: Increased bilateral perihilar opacities. Hip CT 11/03/23 20:39 IMPRESSION: Edema around the iliacus muscle . No defined fluid collection or abscess. Targeted ultrasound could be helpful for follow-up. Lumbar Spine CT 11/03/23 20:39 IMPRESSION: No abscess. There is edema and probable small volume of fluid around the left iliopsoas muscle extending down into the pelvis. Thoracic Spine CT 11/03/23 20:39 IMPRESSION: No abscess. There is edema and probable small volume of fluid around the left iliopsoas muscle extending down into the pelvis. Assessment and Plan (1) Severe sepsis: Status: Acute (2) Myositis: Qualifiers: Myositis type: infective Laterality: left Status: Acute (3) IV drug user: Status: Acute Plan Nakia Martins is a 32 y/o woman admitted with: * Severe sepsis secondary left iliopsoas infection due to IV drug use; rule out bacteremia and/or endocarditis, epidural abscess. Admit to hospitalist service. Continue IV fluids (30 ml/kg given by ED + empiric IV antibioitc tx). Continue empiric IV antibiotic therapy with vancomycin and ceftriaxone. Blood culture obtained -will follow results. Pain control with Dilaudid, acetaminophen and Toradol IV. Check echo to assess for endocarditis. Will obtain Lumbar MRI with and without IV contrast to assess for spinal cord abscesses/infections/discitis (recently found to have suspected small epidural abscess L4-L5 -see above, no surgical candidate, refused to go to SNF for IV antibiotic tx for 4-6 weeks). * IV drug use, ongoing: Cocaine and fentanyl. COWS. Seroquel, clonidine, Zofran and lorazepam for withdrawal symptoms as needed. Addiction medicine consult. 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 test tonight - negative. [facility] Discharge Summary review: Patient was admitted on October due to sepsis. She was found to have a symmetric left paraspinal muscle edema and contrast enhancement at L3-L4 caudally through L5/S1, pericapsular and has been affecting the left greater than right L4-L5 and L5-S1 zygapophyseal joints possible related to infectious myositis, septic arthritis or muscle strain, small epidural abscess is suspected on the left posteriorly at L4-L5, no acute discitis or osteomyelitis She was receiving treatment with vancomycin and ceftriaxone IV. She was also evaluated by Neurosurgery Service and not to be a surgical candidate. ID service recommended IV antibiotic therapy for 4-6 weeks at SNF but patient was unwilling to go to SNF and wanted to try oral antibiotics. The patient left [facility] and received a prescription for linezolid 600 mg PO bid and cefpodoxime 400 mg PO bid on the day of discharge it was notified by patient's outpatient pharmacy that the patient does not have active insurance on the record as of October 2023. Providers discussed concern about medication cost and coverage issues with the patient for linezolid and encouraged the patient to stay in the hospital while social service figure it out but patient refused to stay any further in the hospital stating she can self pay for medications no matter the cost with the help of her [id number]. She signed AMA paperwork and abandoned the hospital. The patient was informed about the risks of leaving the hospital such as enlargement of the epidural abscess, cord compression resulting in paralysis and . Transabdominal pelvic ultrasound October 20, 2023 Retained products of conception, intraluminal bladder debris. Abdominal ultrasound October 20, 2013 Abnormal appearance of the gallbladder with diffuse gallbladder wall thickening and pericolic fluid. Patient does appear to be tender over the gallbladder. No definitive gallstones identified. Can not exclude acute cholecystitis. Consider for assessment with hepatobiliary imaging. Slightly echogenic prominent liver. Small right pleural effusion and trace free fluid. NM Hepatobiliary October 21, 2023 Normal opacification of the gallbladder. No evidence of acute cholecystitis Abdomen pelvis CT scan with IV contrast October 22, 2023 Findings compatible with generalized anasarca with mild body wall edema, bilateral pleural effusion and ascites. This may be responsible for marked gallbladder wall edema in the absence of gallstones and with normal filling on HIDA scan. Hyperdense and/or enhancing elements within the endometrial canal. These may ribs and hemorrhage. Retained products of contraception could also have this appearance. Intrauterine contraceptive device with concern for impingement in the endometrial of the lower uterine segment. Splenic enlargement, of uncertain etiology. No evidence of splenic infarct, splenic vein or portal vein thrombosis. Patient has recent history evacuation of 25 weeks due to malformation. Case was discussed with covering lock fitter who failed patient's clinical picture does not fit retained product of conception. This heterogeneous area with blood flow could in fact represent a heterogeneous myometrium that can not be differentiated from the adjacent endometrial transvaginally. Transvaginal imaging was recommended but patient refused this. DVT prophylaxis: Lovenox Code status: Full Patient will need hospitalization for at least 2 midnights for severe sepsis treatment with IV antibiotic therapy and IV fluids in the setting of IV drug use. Quality Stroke Does the patient have a stroke diagnosis?: No VTE Prior VTE?: No VTE Risk Level:: Medical - moderate - high VTE Device Contraindication: Treatment Not Indicated VTE Drug Contraindication: N/A - Med Ordered
[2023-11-04] MEDS: Ketorolac Tromethamine 30 MG/ML VIAL IVPUSH ×2 (02:06→08:20)
[2023-11-04] MEDS: Acetaminophen 325 MG TABLET 975 MG PO ×3 (02:06→17:13)
[2023-11-04] MEDS: Lactated Ringers 1,000 ML 150 ML IVCONT ×4 (02:06→22:20)
[2023-11-04] MEDS: QUEtiapine Fumarate 50 MG TABLET PO (02:14)
[2023-11-04 03:44] LABS: UPreg QC Valid YES; Urine Pregnancy NEGATIVE (NEGATIVE)
[2023-11-04] MEDS: cefTRIAXone sodium 1 GM in 0.9 % Sodium Chloride 50 ML IV (04:49)
--- NOTE | 2023-11-04 04:59 | PC.NURSE ---
pt medicated per mar with iv abx, LR paused as incompatible. pt found to be sweaty. poc and vitals wnl afebrile. cows 5. pt is axox4 speaking full clear sentences however appears drowsy at this time. made aware.
[2023-11-04 05:04] LABS: Glucose, Whole Blood 127 mg/dL (60-115)
[2023-11-04] MEDS: vancomycin HCL 1,500 MG in 0.9 % Sodium Chloride 500 ML 333.33 MG IV (05:49)
[2023-11-04 06:06] LABS: MANUAL DIFF FLAG NO
[2023-11-04 06:16] LABS: Basophils Percent Auto 0.3 % (0-2); Eosinophils Percent Auto 0.1 % (0-4); Hematocrit 30.6 % (37.0-47.0); Hemoglobin 10.3 g/dl (12.0-16.0); Imm Gran Abs Auto 0.17 X10*3/uL (0.00-0.03); Imm Gran Pct Auto 1.2 % (0.0-0.4); Lymphocytes Absolute Auto 1.2 X10*3/uL (1.2-4.9); Lymphocytes Percent Auto 7.9 % (20-40); Mean Corpuscular HGB Conc 33.7 g/dl (31.0-35.0); Mean Corpuscular Hemoglobin 30.7 pg (27.0-33.0); Mean Corpuscular Volume 91.3 fL (80.0-98.0); Mean Platelet Volume 8.8 fL (9.4-12.3); Monocytes Absolute Auto 0.9 X10*3/uL (0.1-1.2); Monocytes Percent Auto 6.3 % (2-11); Neutrophils Absolute Auto 12.2 x10*3/uL (2.0-8.3); Neutrophils Percent Auto 84.2 % (45-73); Platelet Count 202 X10*3/uL (160-400); Red Blood Count 3.35 X10*6/uL (4.20-5.50); Red Cell Distribution Width 12.5 % (11.0-16.0); White Blood Count 14.5 X10*3/uL (4.8-10.8)
[2023-11-04 06:22] LABS: Alanine Aminotransferase 18 U/L (0-31); Alkaline Phosphatase 89 U/L (39-117); Anion Gap 11 (12-20); Aspartate Amino Transferase 21 U/L (5-31); Bilirubin Total 0.8 mg/dL (0.0-1.0); Blood Urea Nitrogen 7 mg/dL (9-16); Calcium 8.7 mg/dL (8.4-10.2); Carbon Dioxide 22 mmol/L (22-29); Chloride 109 mmol/L (96-108); Creatinine Clr Calc Pharmacy 127.6; Estimated Glomerular Filt Rate > 60; Glucose Random 127 mg/dL (60-115); Potassium 3.3 mmol/L (3.3-5.1); Sodium 139 mmol/L (135-145); Total Protein 6.1 g/dL (6.5-8.0)
--- NOTE | 2023-11-04 07:00 | CA_ITS ---
Transthoracic Echocardiogram Patient (Last, First, Middle): Nakia Martins, Gender: Female Date of : 1990 Age: 32 Procedure Date: 11/04/2023 Procedure Type: Transthoracic Echocardiogram [place] [facility] [place] Height: 165.1 cm Weight: 78.02 kg BSA: 1.86 m2 Heart Rate: 49 bpm BP: 107 / 63 mmHg Plate Colorer: Referring MD: Cynthia Alford MD Symptoms: IVDU, fever, tachycardia. Assess for endocarditis Study Quality: Fair ECG Rhythm: Sinus Conclusions: - The left ventricular systolic function is normal. The calculated ejection fraction is 64% by biplane method. - The basal inferior segment is hypokinetic. - No obvious valvular pathology seen on this study. Findings Left Ventricle Normal left ventricular cavity size. There is normal left ventricular wall thickness. The left ventricular systolic function is normal. The calculated ejection fraction is 64% by biplane method. Diastolic function is normal for age. Wall Motion Rest Echo Findings The basal inferior segment is hypokinetic. Right Ventricle Mildly increased right ventricular cavity size. There is normal right ventricular systolic function. Atria The left atrium is mildly dilated. The right atrium is normal in size. Aortic Valve There is a normal trileaflet aortic valve. There is no aortic valve stenosis. There is no aortic valve regurgitation. Mitral Valve The mitral valve appears normal. There is no mitral valve regurgitation. There is no mitral valve stenosis. Pulmonic Valve The pulmonic valve is likely normal. Tricuspid Valve Normal tricuspid valve structure. There is trace tricuspid valve regurgitation. There is no evidence of pulmonary hypertension. Great Vessels The asc aorta is normal in size. Venous The inferior vena cava is normal in size and collapses less than 50% with inspiration. Pericardium/Pleural There is no evidence of pericardial effusion. Prior Study Comparison No prior study available for comparison. Recommendations, Care & Conclusions No obvious valvular pathology seen on this study. Measurements 2D Linear Measurements IVSd: 0.97 0.6-0.9/0.6-1.0 cm LVIDd: 4.91 3.9-5.3/4.2-5.9 cm LVIDd Index: 2.64 2.4-3.2/2.2-3.1 cm/m2 LVIDs: 3.11 2.0-3.6 cm LVPWd: 1.04 0.7-1.1 cm Ao Root: 2.40 2.1-3.5 cm LA Diam: 3.80 2.7-3.8/3.0-4.0 cm LAIDs Index: 2.04 1.5-2.3 cm/m2 LV Mass: 221.22 67-162/88-224 g LV Mass Index: 118.94 43-95/49-115 g/m2 LVOT Diam: 2.20 3.0+(-)1.3 cm 2D Systolic Function EF 4C: 70.50 >55% EF 2C: 62.30 >55% EF BiP: 64.40 >55% Mitral Valve MV Pk E: 1.04 MV PK A: 0.74 MV Decel Time: 209.00 E/A: 1.40 E'Lateral: 16.90 E'Medial: 11.50 E/E' Med: 9.00 E/E' Lat: 6.20 PHT: 61.00 MVA PHT: 3.61 Decel [place]: 4.98 Aortic Valve AoV Pk [place]: 1.75 AoV Mn [place]: 1.12 AoV VTI: 0.35 AoV Pk Grad: 12.00 Aov Mn Grad: 6.00 GISELLE Cont.VTI: 2.36 LVOT LVOT Pk [place]: 1.09 LVOT Mn [place]: 0.73 LVOT VTI: 0.22 LVOT Pk Grad: 5.00 LVOT Mn Grad: 3.00 LVOT Diam: 2.20 LVOT Area: 3.80 Diastolic Function MV Pk E: 1.04 MV Pk A: 0.74 E/A: 1.40 E'Medial: 11.50 E/E' Med: 9.00 E' Laterial: 16.90 E/E' Lat: 6.20 Right Ventricle TAPSE (mm): 29.00 Tricuspid Valve TR Pk [place]: 2.14 TR Pk Grad: 18.00 RA Press: 3.00 RVSP: 21.00 Great Vessels Aorta Ao Root-2D: 2.40 2.0-3.7 cm Ao Asc: 2.70 2.1-3.4 cm Pulmonary Valve PV Pk [place]: 1.29 Peak PV Grad: 7.00 Updated in Other Vendor System with Status of Final Italo Sanchez MD electronically signed on 11/04/2023 12:24:36 PM with status of Final
[2023-11-04] MEDS: cloNIDine HCL 0.1 MG TABLET PO ×2 (08:20→20:10)
[2023-11-04] MEDS: Docusate Sodium 100 MG CAPSULE PO ×2 (08:20→20:11)
[2023-11-04] MEDS: LORazepam 0.5 MG TABLET PO ×2 (08:20→18:33)
--- NOTE | 2023-11-04 08:20 | MHC.CM.PN ---
DC Plan is TBD. Patient is homeless and recently @ [facility] CT and refused a SNF for LT IV ABT R/T a Spine Infection, and is now admitted here with Severe Sepsis.Patient tested positive for multiple drugs; she is not presently on Methadone nor Suboxone.CM will initiate a referral to [facility] SNF in case LT IV ABT is needed and Patient is agreeable this hospitalization to go to a SNF.CM will follow.
[2023-11-04] MEDS: cefEPime HCl 2 GM in 0.9 % Sodium Chloride 50 ML IV ×2 (08:21→22:09)
[2023-11-04] MEDS: 0.9 % Sodium Chloride Flush 3 ML SYRINGE IVFLUSH ×3 (08:21→22:21)
--- NOTE | 2023-11-04 08:31 | PC.NURSE ---
Pt awoken from sleep to be given medications, pain medication offered. Pt originally calm, quiet. Upon RN going into room to give medications, pt screaming/crying and restless on the stretcher. I'M IN SO MUCH PAIN! HURRY UP AND GIVE IT TO ME!
--- NOTE | 2023-11-04 09:12 | PHA.PROG ---
Admission Date/Time: November 04, 2023 01:19 Indication: BACTEREMIA Weight in k.2 kg Adjusted body weight in Kg: [place] body weight in Kg: Obesity Dosing Indication % IBW: Serum Creatinine - Last 168 Hours 11/03/23 11/04/23 17:39 05:38 Creatinine 0.82 0.66 Estimated CrCl and GFR - Last 168 Hours 11/03/23 11/04/23 17:39 05:38 Estim Creat Clear Calc 102.7 127.6 Estimated GFR > 60 > 60 Vancomycin Loading Dose: 2000 MG Current Vancomycin Dosing Regimen: 1000 MG Q8H Vancomycin Monitoring using AUC goal of 400 - 600 range with trough as surrogate marker: NRZ=120 TROUGH=17.8 Date and Time for next Vancomycin Level to be drawn: 11/04/23 @1999 Pharmacist Comments on Vancomycin Plan: Vancomycin dosing will take advantage of [employer] as a clinical decision support tool that uses Bayesian modeling to calculate individual patient's pharmacokinetic parameters and forecast the patient's drug concentration time course with the target goal AUC 24 range of 400 - 600 mg/L/hr.
--- NOTE | 2023-11-04 09:38 | MHC.RECOVRN ---
Attempted to meet with pt in 459 after consult placed to Addiction Medicine for IV substance use. Pt had presented to the ED after being seen at [facility] appx. three weeks ago for a spinal infection. She was discharged on oral antibiotics and has not taken the antibiotics. Pain 10/10. Upon evaluation, pt admitted for severe sepsis and myositis. Pt laying in bed, asleep, wakes briefly to voice and falls back to sleep. Appears comfortable. Unable to engage in conversation. ACS to return later.
--- NOTE | 2023-11-04 12:45 | PM.EVENT ---
Event Note Date of Service: 11/04/23 Event Note: Chart reviewed patient examined. Agree with H&P and plan as outlined. We will continue IV antibiotics at this time. Will reviewed data from [facility]. Patient will likely require PICC line and extended IV antibiotics. Time Spent With Patient Time: Total time managing care of this patient today ____ minutes.
[2023-11-04] MEDS: vancomycin HCL 1,000 MG in 0.9 % Sodium Chloride 250 ML 270 MG IV (13:21)
--- NOTE | 2023-11-04 15:44 | PM.EVENT ---
Event Note Date of Service: 11/04/23 Event Note: Addiction consult placed for patient with history of OUD and cocaine use Medically admitted with sepsis Attempted to meet with patient x2, each time patient sleeping soundly Did not appear to be diaphoretic, restless and BP/HR WNL RN reporting patient has been sleeping since arrival from ED--chart reviewed and she had received pain medication prior to transfer up Chart review shows +fentanyl and cocaine in UDS earlier this month UDS +methadone as well. Plan: will order PRN methadone 10mg q 3 hrs PRN withdrawal sx-max 4 doses--will check in over the weekend Time Spent With Patient Time: Total time managing care of this patient today ____ minutes.
--- NOTE | 2023-11-04 16:16 | PHA.MEDREC ---
Pharmacy Consult ? Medication Reconciliation Pharmacy has completed the medication reconciliation. Confirmed medications with patient. Looking in Patient claims she didnt have anything but a Eythromycin Ointment that she is no longer taking and states she is taking Gabapening 300mg 1 TID, Seroquel 200mg in the morning and 300mg at night and Clonidine 0.1 mg 1 TID. I confirmed her pharmacy and she states it the [facility] on [address] [facility] in [place] and I called them to confirm the medications. The pharmacist confirmed she is still taking her Gabapentin 300mg 1 TID but looking in records for Seroquel and Clonidine they have not filled those since 2021. I kept those off the [facility] but patient claims she took both the Seroquel and Clonidine this morning.
[2023-11-04] MEDS: QUEtiapine Fumarate 25 MG TABLET PO (20:11)
[2023-11-04 21:07] LABS: Vancomycin Random 10.3 mcg/mL (15-20)
--- NOTE | 2023-11-04 21:15 | HE.PHANOTE ---
Re: Vanco Trough returned at 10.3. Pt has good renal function. Dose increased to 1250 q8h with predicted AUC 493 and predicted trough 12.6. Next trough 11/04 at 2000.
[2023-11-04] MEDS: vancomycin HCL 1,250 MG in 0.9 % Sodium Chloride 250 ML 166.67 MG IV (22:10)
[2023-11-05] VITALS (11 sets, daily range): BP systolic 113–128; BP diastolic 58–65; PULSE 77–96; RESP 16–20; TEMP 36.2–38.1; O2SAT 96–98
[2023-11-05] MEDS: HYDROmorphone HCl 1 MG/ML SYRINGE IVPUSH ×5 (00:22→19:47)
[2023-11-05] MEDS: LORazepam 0.5 MG TABLET PO ×3 (03:22→19:58)
[2023-11-05] MEDS: methADONE HCl 20 MG/2 ML ORAL.CONC 10 MG PO ×3 (03:29→14:35)
[2023-11-05] MEDS: ondansetron HCL 4 MG/2 ML VIAL IVPUSH (03:30)
[2023-11-05] MEDS: Lactated Ringers 1,000 ML 150 ML IVCONT ×3 (06:27→19:49)
[2023-11-05] MEDS: vancomycin HCL 1,250 MG in 0.9 % Sodium Chloride 250 ML 166.7 MG IV (06:27)
[2023-11-05 06:49] LABS: Creatinine Clr Calc Pharmacy 128.8; Estimated Glomerular Filt Rate > 60
--- NOTE | 2023-11-05 07:41 | PC.NURSE ---
0330 Nursing Note. COWS assessment performed as patient reporting she feels like she is going through drug withdrawl . COWS score of 9 with patient reporting feeling anxious, nauseated, skin clammy and perspiring, Top blankets moist from perspiration. Methadone 10mg PO given and repeat COWS assessment decreased to 0 with patient sleeping, rr even and nonlabored. 18-20 RR. Easily arousable with pupils normal reative size in room light.
[2023-11-05] MEDS: Docusate Sodium 100 MG CAPSULE PO (07:54)
[2023-11-05] MEDS: Acetaminophen 325 MG TABLET 975 MG PO ×2 (07:54→21:29)
[2023-11-05] MEDS: cloNIDine HCL 0.1 MG TABLET PO ×2 (07:54→19:56)
[2023-11-05] MEDS: Enoxaparin Sodium 40 MG/0.4 ML SYRINGE SUBCUT (07:56)
[2023-11-05] MEDS: 0.9 % Sodium Chloride Flush 3 ML SYRINGE IVFLUSH (08:22)
[2023-11-05] MEDS: cefEPime HCl 2 GM in 0.9 % Sodium Chloride 50 ML IV ×2 (08:43→19:49)
[2023-11-05 10:07] LABS: MANUAL DIFF FLAG NO
[2023-11-05 10:16] LABS: Basophils Percent Auto 0.3 % (0-2); Eosinophils Absolute Auto 0.1 X10*3/uL (0.0-0.4); Eosinophils Percent Auto 1.1 % (0-4); Hematocrit 27.6 % (37.0-47.0); Hemoglobin 9.2 g/dl (12.0-16.0); Imm Gran Abs Auto 0.11 X10*3/uL (0.00-0.03); Imm Gran Pct Auto 0.9 % (0.0-0.4); Lymphocytes Absolute Auto 1.4 X10*3/uL (1.2-4.9); Lymphocytes Percent Auto 12.3 % (20-40); Mean Corpuscular HGB Conc 33.3 g/dl (31.0-35.0); Mean Corpuscular Hemoglobin 30.8 pg (27.0-33.0); Mean Corpuscular Volume 92.3 fL (80.0-98.0); Mean Platelet Volume 9.2 fL (9.4-12.3); Monocytes Absolute Auto 0.6 X10*3/uL (0.1-1.2); Monocytes Percent Auto 5.1 % (2-11); Neutrophils Absolute Auto 9.4 x10*3/uL (2.0-8.3); Neutrophils Percent Auto 80.3 % (45-73); Platelet Count 179 X10*3/uL (160-400); Red Blood Count 2.99 X10*6/uL (4.20-5.50); Red Cell Distribution Width 12.6 % (11.0-16.0); White Blood Count 11.7 X10*3/uL (4.8-10.8)
[2023-11-05 10:29] LABS: Alanine Aminotransferase 16 U/L (0-31); Albumin Level 2.7 g/dL (3.5-5.0); Alkaline Phosphatase 164 U/L (39-117); Anion Gap 10 (12-20); Aspartate Amino Transferase 20 U/L (5-31); Bilirubin Total 0.4 mg/dL (0.0-1.0); Blood Urea Nitrogen 7 mg/dL (9-16); Calcium 8.7 mg/dL (8.4-10.2); Carbon Dioxide 22 mmol/L (22-29); Chloride 110 mmol/L (96-108); Creatinine Clr Calc Pharmacy 117.9; Estimated Glomerular Filt Rate > 60; Glucose Fasting 107 mg/dL (60-99); Potassium 3.5 mmol/L (3.3-5.1); Sodium 138 mmol/L (135-145); Total Protein 5.7 g/dL (6.5-8.0)
--- NOTE | 2023-11-05 12:14 | P.PNIM_ITS ---
Subjective Subjective Date of Service: 11/05/23 Interval History: No acute issues overnight. Essentially sleeping at every attempted visit. Will awake and then complain of pain. . . Review of Systems Denies chest pain Denies shortness of breath Denies nausea vomiting diarrhea Admits fever and diffuse left hip pain Physical Exam 2 Vital Signs: Vital Signs: Last Vital Signs Temp 97.1 F 11/05/23 11:52 Pulse 77 11/05/23 11:52 Resp 16 11/05/23 11:52 BP 122/65 11/05/23 11:52 Pulse Ox 98 11/05/23 11:52 O2 Del Method Room Air 11/05/23 11:52 BMI result Body Mass Index 28.3 Const: Other: Somnolent but arousable appears comfortable Resp: Other: Clear to auscultation bilaterally no rales rhonchi or wheezes Cardio: Other: No S4; positive S1-S2; no S3 murmurs rubs or gallops GI: Other: Soft nontender nondistended normoactive bowel sounds Extrem: Other: No edema bilaterally Objective Data Active Medications Acetaminophen (Acetaminophen 325 Mg Tablet) 975 mg PO Q6H PRN PRN Reason: Pain, Mild (Pain Scale 1-3), fever or headache Last Admin: 11/05/23 07:54 Dose: 975 mg Documented By: MEIR Clonidine HCl (Clonidine Hcl 0.1 Mg Tablet) 0.1 mg PO BID [facility]; Protocol Last Admin: 11/05/23 07:54 Dose: 0.1 mg Documented By: MEIR Docusate Sodium (Docusate Sodium 100 Mg Capsule) 100 mg PO BID [facility] Last Admin: 11/05/23 07:54 Dose: 100 mg Documented By: MEIR Enoxaparin Sodium (Enoxaparin Sodium 40 Mg/0.4 Ml Syringe) 40 mg SUBCUT Q24H [facility] Last Admin: 11/05/23 07:56 Dose: 40 mg Documented By: MEIR Hydromorphone HCl (Hydromorphone Hcl 1 Mg/Ml Syringe) 1 mg IVPUSH Q3H PRN; Protocol PRN Reason: Pain, Severe (Pain Scale 7-10) Last Admin: 11/05/23 07:54 Dose: 1 mg Documented By: MEIR Lactated Ringer's (Lr) 1,000 mls @ 150 mls/hr IVCONT .Q6H40M [facility] Last Admin: 11/05/23 06:27 Dose: 150 mls/hr Documented By: MANDY Vancomycin HCl 1,250 mg/ (Sodium Chloride) 250 mls @ 166.667 mls/hr IV Q8H [facility] Last Infusion: 11/05/23 08:24 Dose: Infused Documented By: MEIR Cefepime HCl 2 gm/ Sodium (Chloride) 50 mls @ 100 mls/hr IV Q12H [facility] Last Infusion: 11/05/23 09:15 Dose: Infused Documented By: MEIR Lorazepam (Lorazepam 0.5 Mg Tablet) 0.5 mg PO Q8H PRN PRN Reason: Anxiety Last Admin: 11/05/23 11:28 Dose: 0.5 mg Documented By: MEIR Methadone HCl (Methadone Hcl 20 Mg/2 Ml Oral.Conc) 10 mg PO Q4H PRN PRN Reason: Opiate Withdrawal Last Admin: 11/05/23 08:21 Dose: 10 mg Documented By: MEIR Ondansetron HCl (Ondansetron Hcl 4 Mg/2 Ml Vial) 4 mg IVPUSH Q4H PRN PRN Reason: Nausea and Vomiting Last Admin: 11/05/23 03:30 Dose: 4 mg Documented By: MANDY Comments: c/o Nausea Pharmacy Consult (Consult Rx Vancomycin Dosing) 1 each MISCELLANE DAILY PRN PRN Reason: Consult order Quetiapine Fumarate (Quetiapine Fumarate 25 Mg Tablet) 25 mg PO BEDTIME PRN PRN Reason: anxiety or insomnia Last Admin: 11/04/23 20:11 Dose: 25 mg Documented By: MANDY Comments: pt reports she feels anxious Sodium Chloride (0.9 % Sodium Chloride Flush 3 Ml Syringe) 3 ml IVFLUSH QSHIFT [facility] Last Admin: 11/05/23 08:22 Dose: 3 ml Documented By: MEIR Labs 11/05/23 09:57 11/05/23 09:57 Labs: Laboratory Results - last 24 hr 11/04/23 11/05/23 11/05/23 20:24 06:21 09:57 MCV 92.3 MCH 30.8 MCHC 33.3 RDW 12.6 Plt Count 179 MPV 9.2 L Immature Gran % (Auto) 0.9 H Neut % (Auto) 80.3 H Lymph % (Auto) 12.3 L [place] % (Auto) 5.1 Eos % (Auto) 1.1 Baso % (Auto) 0.3 Lymph # (Auto) 1.4 [place] # (Auto) 0.6 Eos # (Auto) 0.1 Baso # (Auto) 0.0 Abs Immat Gran (auto) 0.11 H Absolute Neuts (auto) 9.4 H Absolute Nucleated RBC 0.000 Nucleated RBC % (auto) 0.0 Anion Gap 10 L Estim Creat Clear Calc 128.8 117.9 Estimated GFR > 60 > 60 Fasting Glucose 107 H Calcium 8.7 Total Bilirubin 0.4 AST 20 ALT 16 Alkaline Phosphatase 164 H Total Protein 5.7 L Albumin 2.7 L Random Vancomycin 10.3 L Microbiology Microbiology Results: Microbiology 11/03/23 20:18 Urine Culture - Final Urine Catheterized - Straight Catheter 11/03/23 18:00 Blood Culture - Preliminary Blood - Venous No growth after 24 hours. 11/03/23 17:39 Blood Culture - Preliminary Blood - Venous No growth after 24 hours. Assessment and Plan (1) Myositis: Status: Acute (2) Severe sepsis: Status: Acute Plan Nakia Martins is a 32 y/o woman admitted with: 1. Severe sepsis secondary to iliopsoas infection in backdrop of IVDA -sepsis resolved -data from [facility] in [place] reviewed. No evidence of epidural abscess. CT of thoracic and lumbar spine at [facility] failed to demonstrate any abscess. Minor inflammation around psoas -white count improving -vancomycin/cefepime (2). . . MRI pending if no epidural abscess can be switched to oral meds pending culture -no further increase inpatient medicine as patient exhibiting drug-seeking behavior 2. IVDA/polysubstance abuse -methadone as per addiction Medicine -no further increase in Dilaudid as patient somnolent throughout day having to be awakened -follow clinically Full Lovenox Will require ongoing hospitalization for IV antibiotics pending negative blood culture results and MRI results Quality Stroke Does the patient have a stroke diagnosis?: No VTE Prior VTE?: No VTE Risk Level:: Medical - moderate - high VTE Device Contraindication: Treatment Not Indicated VTE Drug Contraindication: N/A - Med Ordered
--- NOTE | 2023-11-05 12:15 | HO.ADDICTPRO ---
Subjective Subjective Date of Service: 11/05/23 Reason For Visit: severe sepsis Interim History: Patient seen in follow up for OUD Methadone 10mg Q4H PRN ordered overnight When seen this AM, patient had received 2 doses Patient seen in room 459. Eyes closed, but easily wakes to voice Reporting withdrawal sx managed, but experiencing pain in her hip and leg She did not appear to be diaphoretic or restless Nursing reporting that overall she has been resting comfortably, and responding well to PRN methadone doses Patient reports she would like to continue titrating dose States she was recently engaged in treatment and methadone dose was 40mg She reports using a bundle of heroin/fentanyl daily -cocaine use as well of note, at time of admission patient reported drinking up to 10 nips daily. She did not report this to t/w and she has not shown any signs or symptoms of alcohol withdrawal during admission Review of Systems Constitutional: Reports as per HPI Mental Status Exam Mental Status Exam Patient Appearance: Fatigued Level of Consciousness: Appropriate and Drowsy (tired) Patient Behavior: Appropriate and Cooperative Diagnostics Vital Signs (24Hr): Vital Signs - 24 hr 11/04/23 14:03 11/04/23 15:42 11/04/23 19:31 Temperature 99.8 F 98.1 F Pulse Rate 108 H 96 Respiratory Rate 18 19 20 Blood Pressure 121/66 126/65 Pulse Oximetry 95 97 Oxygen Delivery Method Room Air 11/04/23 20:01 11/04/23 20:31 11/04/23 22:14 Temperature Pulse Rate Respiratory Rate 20 20 18 Blood Pressure Pulse Oximetry Oxygen Delivery Method 11/05/23 00:00 11/05/23 00:52 11/05/23 03:24 Temperature 98.8 F 97.3 F Pulse Rate 92 90 Respiratory Rate 20 16 18 Blood Pressure 113/63 122/60 Pulse Oximetry 97 97 Oxygen Delivery Method Room Air Room Air 11/05/23 07:47 11/05/23 10:29 11/05/23 11:52 Temperature 100.6 F H 97.2 F 97.1 F Pulse Rate 96 77 Respiratory Rate 20 16 Blood Pressure 113/59 L 122/65 Pulse Oximetry 96 98 Oxygen Delivery Method Room Air Room Air BMI result Body Mass Index 28.3 Labs 11/05/23 09:57 11/05/23 09:57 Labs: Laboratory Results - last 48 hr 11/03/23 11/03/23 11/03/23 17:39 17:50 18:40 WBC 16.9 H RBC 3.62 L Hgb 11.3 L Hct 32.7 L MCV 90.3 MCH 31.2 MCHC 34.6 RDW 12.5 Plt Count 245 D MPV 8.8 L Immature Gran % (Auto) 0.6 H Neut % (Auto) 82.1 H Lymph % (Auto) 9.9 L [place] % (Auto) 7.0 Eos % (Auto) 0.1 Baso % (Auto) 0.3 Lymph # (Auto) 1.7 [place] # (Auto) 1.2 Eos # (Auto) 0.0 Baso # (Auto) 0.1 Abs Immat Gran (auto) 0.10 H Absolute Neuts (auto) 13.9 H Absolute Nucleated RBC 0.000 Nucleated RBC % (auto) 0.0 ESR 66 H Hold Purple Top SEE NOTE PT 14.5 H INR 1.2 H Sodium 135 Potassium 3.4 Chloride 101 Carbon Dioxide 24 Anion Gap 13 BUN 8 L Creatinine 0.82 Estim Creat Clear Calc 102.7 Estimated GFR > 60 POC Glucose Random Glucose 153 H Fasting Glucose Lactic Acid 2.1 H* Lactic Acid F/U @ 2Hr Calcium 8.9 D Magnesium 1.6 Total Bilirubin 0.9 Direct Bilirubin 0.4 AST 22 ALT 18 Alkaline Phosphatase 85 Troponin I High Sens < 2.7 C-Reactive Protein 12.06 H Total Protein 6.8 Albumin 3.4 L Beta HCG, Quant < 2 Urine Color Urine Appearance Urine pH Ur Specific [place]ift Urine Protein Urine Glucose (UA) Urine Ketones Urine Blood Urine Nitrite Ur Leukocyte Esterase Urine RBC Urine WBC Ur Squamous Epith Cells Urine Bacteria Hyaline Casts Urine Test Random Vancomycin Urine Opiates Screen Ur Buprenorphine Scrn Ur Oxycodone Screen Urine Methadone Screen Urine Fentanyl Screen Ur Barbiturates Screen Ur Phencyclidine Scrn Ur Amphetamines Screen U Benzodiazepines Scrn Urine Cocaine Screen U Marijuana (THC) Screen Ethyl Alcohol < 10 COVID-19 ([facility]) Negative COVID-19 Clin Com See Note Influenza Type A (CARL) Negative Influenza Type B (CARL) Negative Influenza A & B Note See Note 11/03/23 11/03/23 11/04/23 20:18 21:15 04:52 WBC RBC Hgb Hct MCV MCH MCHC RDW Plt Count MPV Immature Gran % (Auto) Neut % (Auto) Lymph % (Auto) [place] % (Auto) Eos % (Auto) Baso % (Auto) Lymph # (Auto) [place] # (Auto) Eos # (Auto) Baso # (Auto) Abs Immat Gran (auto) Absolute Neuts (auto) Absolute Nucleated RBC Nucleated RBC % (auto) ESR Hold Purple Top PT INR Sodium Potassium Chloride Carbon Dioxide Anion Gap BUN Creatinine Estim Creat Clear Calc Estimated GFR POC Glucose 127 H Random Glucose Fasting Glucose Lactic Acid Lactic Acid F/U @ 2Hr 0.7 Calcium Magnesium Total Bilirubin Direct Bilirubin AST ALT Alkaline Phosphatase Troponin I High Sens C-Reactive Protein Total Protein Albumin Beta HCG, Quant Urine Color Yellow Urine Appearance Clear Urine pH 6.0 Ur Specific [place] 1.020 Urine Protein Negative Urine Glucose (UA) Negative Urine Ketones Negative Urine Blood Trace H Urine Nitrite Negative Ur Leukocyte Esterase Small (1+) H Urine RBC 0-2 Urine WBC 0-5 Ur Squamous Epith Cells 0-2 Urine Bacteria None Seen Hyaline Casts 0-2 Urine Test NEGATIVE Random Vancomycin Urine Opiates Screen POSITIVE H Ur Buprenorphine Scrn Not Detected Ur Oxycodone Screen Not Detected Urine Methadone Screen Not Detected Urine Fentanyl Screen POSITIVE H Ur Barbiturates Screen Not Detected Ur Phencyclidine Scrn Not Detected Ur Amphetamines Screen Not Detected U Benzodiazepines Scrn Not Detected Urine Cocaine Screen POSITIVE H U Marijuana (THC) Screen POSITIVE H Ethyl Alcohol COVID-19 ([facility]) COVID-19 Clin Com Influenza Type A (CARL) Influenza Type B (CARL) Influenza A & B Note 11/04/23 11/04/23 11/05/23 05:38 20:24 06:21 WBC 14.5 H RBC 3.35 L Hgb 10.3 L Hct 30.6 L MCV 91.3 MCH 30.7 MCHC 33.7 RDW 12.5 Plt Count 202 MPV 8.8 L Immature Gran % (Auto) 1.2 H Neut % (Auto) 84.2 H Lymph % (Auto) 7.9 L [place] % (Auto) 6.3 Eos % (Auto) 0.1 Baso % (Auto) 0.3 Lymph # (Auto) 1.2 [place] # (Auto) 0.9 Eos # (Auto) 0.0 Baso # (Auto) 0.0 Abs Immat Gran (auto) 0.17 H Absolute Neuts (auto) 12.2 H Absolute Nucleated RBC 0.000 Nucleated RBC % (auto) 0.0 ESR Hold Purple Top PT INR Sodium 139 Potassium 3.3 Chloride 109 H Carbon Dioxide 22 Anion Gap 11 L BUN 7 L Creatinine 0.66 0.65 Estim Creat Clear Calc 127.6 128.8 Estimated GFR > 60 > 60 POC Glucose Random Glucose 127 H Fasting Glucose Lactic Acid Lactic Acid F/U @ 2Hr Calcium 8.7 Magnesium Total Bilirubin 0.8 Direct Bilirubin AST 21 ALT 18 Alkaline Phosphatase 89 Troponin I High Sens C-Reactive Protein Total Protein 6.1 L Albumin 3.0 L Beta HCG, Quant Urine Color Urine Appearance Urine pH Ur Specific [place] Urine Protein Urine Glucose (UA) Urine Ketones Urine Blood Urine Nitrite Ur Leukocyte Esterase Urine RBC Urine WBC Ur Squamous Epith Cells Urine Bacteria Hyaline Casts Urine Test Random Vancomycin 10.3 L Urine Opiates Screen Ur Buprenorphine Scrn Ur Oxycodone Screen Urine Methadone Screen Urine Fentanyl Screen Ur Barbiturates Screen Ur Phencyclidine Scrn Ur Amphetamines Screen U Benzodiazepines Scrn Urine Cocaine Screen U Marijuana (THC) Screen Ethyl Alcohol COVID-19 ([facility]) COVID-19 Clin Com Influenza Type A (CARL) Influenza Type B (CARL) Influenza A & B Note 11/05/23 09:57 WBC 11.7 H RBC 2.99 L Hgb 9.2 L Hct 27.6 L MCV 92.3 MCH 30.8 MCHC 33.3 RDW 12.6 Plt Count 179 MPV 9.2 L Immature Gran % (Auto) 0.9 H Neut % (Auto) 80.3 H Lymph % (Auto) 12.3 L [place] % (Auto) 5.1 Eos % (Auto) 1.1 Baso % (Auto) 0.3 Lymph # (Auto) 1.4 [place] # (Auto) 0.6 Eos # (Auto) 0.1 Baso # (Auto) 0.0 Abs Immat Gran (auto) 0.11 H Absolute Neuts (auto) 9.4 H Absolute Nucleated RBC 0.000 Nucleated RBC % (auto) 0.0 ESR Hold Purple Top PT INR Sodium 138 Potassium 3.5 Chloride 110 H Carbon Dioxide 22 Anion Gap 10 L BUN 7 L Creatinine 0.71 Estim Creat Clear Calc 117.9 Estimated GFR > 60 POC Glucose Random Glucose Fasting Glucose 107 H Lactic Acid Lactic Acid F/U @ 2Hr Calcium 8.7 Magnesium Total Bilirubin 0.4 Direct Bilirubin AST 20 ALT 16 Alkaline Phosphatase 164 H Troponin I High Sens C-Reactive Protein Total Protein 5.7 L Albumin 2.7 L Beta HCG, Quant Urine Color Urine Appearance Urine pH Ur Specific [place] Urine Protein Urine Glucose (UA) Urine Ketones Urine Blood Urine Nitrite Ur Leukocyte Esterase Urine RBC Urine WBC Ur Squamous Epith Cells Urine Bacteria Hyaline Casts Urine Test Random Vancomycin Urine Opiates Screen Ur Buprenorphine Scrn Ur Oxycodone Screen Urine Methadone Screen Urine Fentanyl Screen Ur Barbiturates Screen Ur Phencyclidine Scrn Ur Amphetamines Screen U Benzodiazepines Scrn Urine Cocaine Screen U Marijuana (THC) Screen Ethyl Alcohol COVID-19 ([facility]) COVID-19 Clin Com Influenza Type A (CARL) Influenza Type B (CARL) Influenza A & B Note Imaging Radiology Impressions: ITS Impressions Chest X-Ray 11/03/23 18:45 IMPRESSION: Increased bilateral perihilar opacities. Hip CT 11/03/23 20:39 IMPRESSION: Edema around the iliacus muscle . No defined fluid collection or abscess. Targeted ultrasound could be helpful for follow-up. Lumbar Spine CT 11/03/23 20:39 IMPRESSION: No abscess. There is edema and probable small volume of fluid around the left iliopsoas muscle extending down into the pelvis. Thoracic Spine CT 11/03/23 20:39 IMPRESSION: No abscess. There is edema and probable small volume of fluid around the left iliopsoas muscle extending down into the pelvis. Medications Medications Current Medications Acetaminophen (Acetaminophen 325 Mg Tablet) 975 mg PO Q6H PRN PRN Reason: Pain, Mild (Pain Scale 1-3), fever or headache Last Admin: 11/05/23 07:54 Dose: 975 mg Clonidine HCl (Clonidine Hcl 0.1 Mg Tablet) 0.1 mg PO BID [facility]; Protocol Last Admin: 11/05/23 07:54 Dose: 0.1 mg Docusate Sodium (Docusate Sodium 100 Mg Capsule) 100 mg PO BID [facility] Last Admin: 11/05/23 07:54 Dose: 100 mg Enoxaparin Sodium (Enoxaparin Sodium 40 Mg/0.4 Ml Syringe) 40 mg SUBCUT Q24H [facility] Last Admin: 11/05/23 07:56 Dose: 40 mg Hydromorphone HCl (Hydromorphone Hcl 1 Mg/Ml Syringe) 1 mg IVPUSH Q3H PRN; Protocol PRN Reason: Pain, Severe (Pain Scale 7-10) Last Admin: 11/05/23 07:54 Dose: 1 mg Lactated Ringer's (Lr) 1,000 mls @ 150 mls/hr IVCONT .Q6H40M [facility] Last Admin: 11/05/23 06:27 Dose: 150 mls/hr Vancomycin HCl 1,250 mg/ (Sodium Chloride) 250 mls @ 166.667 mls/hr IV Q8H [facility] Last Infusion: 11/05/23 08:24 Dose: Infused Cefepime HCl 2 gm/ Sodium (Chloride) 50 mls @ 100 mls/hr IV Q12H [facility] Last Infusion: 11/05/23 09:15 Dose: Infused Lorazepam (Lorazepam 0.5 Mg Tablet) 0.5 mg PO Q8H PRN PRN Reason: Anxiety Last Admin: 11/05/23 11:28 Dose: 0.5 mg Methadone HCl (Methadone Hcl 20 Mg/2 Ml Oral.Conc) 10 mg PO Q4H PRN PRN Reason: Opiate Withdrawal Last Admin: 11/05/23 08:21 Dose: 10 mg Ondansetron HCl (Ondansetron Hcl 4 Mg/2 Ml Vial) 4 mg IVPUSH Q4H PRN PRN Reason: Nausea and Vomiting Last Admin: 11/05/23 03:30 Dose: 4 mg Pharmacy Consult (Consult Rx Vancomycin Dosing) 1 each MISCELLANE DAILY PRN PRN Reason: Consult order Quetiapine Fumarate (Quetiapine Fumarate 25 Mg Tablet) 25 mg PO BEDTIME PRN PRN Reason: anxiety or insomnia Last Admin: 11/04/23 20:11 Dose: 25 mg Sodium Chloride (0.9 % Sodium Chloride Flush 3 Ml Syringe) 3 ml IVFLUSH QSHIFT [facility] Last Admin: 11/05/23 08:22 Dose: 3 ml Allergies Allergies Allergy/AdvReac Type Severity Reaction Status Date / Time penicillin V [PENICILLIN V] Allergy Unknown HIVES Verified 11/03/23 16:58 Penicillins [PENICILLINS] Allergy Unknown HIVES Verified 11/03/23 16:58 penicilin Allergy Unknown Difficulty Uncoded 11/03/23 16:58 Breathing Assessment & Plan Assessment & Plan (1) Opioid use disorder: Status: Acute Code(s): F11.90 - Opioid use, unspecified, uncomplicated Assessment and Plan: methadone 20mg daily starting 11/05 AM will continue to follow and titrate dose accordingly for today continue with PRN doses as ordered will follow up on Tuesday Total time managing care of this patient today __20__ minutes.
[2023-11-05] MEDS: vancomycin HCL 1,250 MG in 0.9 % Sodium Chloride 250 ML 166.67 MG IV ×2 (13:30→21:32)
[2023-11-05] MEDS: oxyCODONE HCl Immed Release 5 MG TABLET 10 MG PO ×2 (14:01→21:29)
[2023-11-05 20:21] LABS: Vancomycin Random 15.2 mcg/mL (15-20)
[2023-11-05] MEDS: QUEtiapine Fumarate 25 MG TABLET PO (21:30)
[2023-11-06] VITALS (7 sets, daily range): BP systolic 116–127; BP diastolic 61–88; PULSE 75–100; RESP 16–18; TEMP 36.1–37.4; O2SAT 94–98
[2023-11-06] MEDS: methADONE HCl 20 MG/2 ML ORAL.CONC 10 MG PO ×2 (00:10→18:00)
[2023-11-06] MEDS: vancomycin HCL 1,250 MG in 0.9 % Sodium Chloride 250 ML 166.67 MG IV ×2 (04:44→21:27)
[2023-11-06] MEDS: HYDROmorphone HCl 1 MG/ML SYRINGE IVPUSH ×4 (04:44→19:12)
[2023-11-06] MEDS: oxyCODONE HCl Immed Release 5 MG TABLET 10 MG PO ×4 (06:42→21:27)
[2023-11-06 07:03] LABS: MANUAL DIFF FLAG NO
[2023-11-06 07:18] LABS: Basophils Percent Auto 0.5 % (0-2); Eosinophils Absolute Auto 0.2 X10*3/uL (0.0-0.4); Eosinophils Percent Auto 2.4 % (0-4); Hematocrit 28.5 % (37.0-47.0); Hemoglobin 9.4 g/dl (12.0-16.0); Imm Gran Abs Auto 0.07 X10*3/uL (0.00-0.03); Imm Gran Pct Auto 0.8 % (0.0-0.4); Lymphocytes Absolute Auto 1.7 X10*3/uL (1.2-4.9); Lymphocytes Percent Auto 18.9 % (20-40); Mean Corpuscular Hemoglobin 30.5 pg (27.0-33.0); Mean Corpuscular Volume 92.5 fL (80.0-98.0); Mean Platelet Volume 9.3 fL (9.4-12.3); Monocytes Absolute Auto 0.5 X10*3/uL (0.1-1.2); Monocytes Percent Auto 5.1 % (2-11); Neutrophils Absolute Auto 6.4 x10*3/uL (2.0-8.3); Neutrophils Percent Auto 72.3 % (45-73); Platelet Count 195 X10*3/uL (160-400); Red Blood Count 3.08 X10*6/uL (4.20-5.50); Red Cell Distribution Width 12.8 % (11.0-16.0); White Blood Count 8.9 X10*3/uL (4.8-10.8)
[2023-11-06 07:53] LABS: Alanine Aminotransferase 17 U/L (0-31); Albumin Level 2.7 g/dL (3.5-5.0); Alkaline Phosphatase 88 U/L (39-117); Anion Gap 11 (12-20); Aspartate Amino Transferase 18 U/L (5-31); Bilirubin Total 0.3 mg/dL (0.0-1.0); Blood Urea Nitrogen 6 mg/dL (9-16); C Reactive Protein 10.83 mg/dL (< or = 0.50); Calcium 8.6 mg/dL (8.4-10.2); Carbon Dioxide 23 mmol/L (22-29); Chloride 110 mmol/L (96-108); Creatinine Clr Calc Pharmacy 123.1; Estimated Glomerular Filt Rate > 60; Glucose Fasting 84 mg/dL (60-99); Potassium 3.8 mmol/L (3.3-5.1); Sodium 140 mmol/L (135-145); Total Protein 5.8 g/dL (6.5-8.0)
[2023-11-06 08:11] LABS: Erythrocyte Sedimentation Rate 104 MM/HR (0-20)
[2023-11-06] MEDS: Enoxaparin Sodium 40 MG/0.4 ML SYRINGE SUBCUT (08:37)
[2023-11-06] MEDS: Docusate Sodium 100 MG CAPSULE PO (08:37)
[2023-11-06] MEDS: methADONE HCl 20 MG/2 ML ORAL.CONC PO ×2 (08:37→18:12)
[2023-11-06] MEDS: 0.9 % Sodium Chloride Flush 3 ML SYRINGE IVFLUSH ×3 (08:38→20:15)
[2023-11-06] MEDS: cloNIDine HCL 0.1 MG TABLET PO ×2 (08:39→20:14)
[2023-11-06] MEDS: cefEPime HCl 2 GM in 0.9 % Sodium Chloride 50 ML IV ×2 (09:03→20:14)
--- NOTE | 2023-11-06 12:14 | P.PNIM_ITS ---
Subjective Subjective Date of Service: 11/06/23 Interval History: No acute issues overnight. Remains afebrile. Pain control adequate Review of Systems Denies chest pain Denies shortness of breath Denies nausea vomiting diarrhea Admits fever and diffuse left hip pain Physical Exam 2 Vital Signs: Vital Signs: Last Vital Signs Temp 97.4 F 11/06/23 11:30 Pulse 78 11/06/23 11:30 Resp 18 11/06/23 11:30 BP 121/66 11/06/23 11:30 Pulse Ox 98 11/06/23 11:30 O2 Del Method Room Air 11/06/23 11:30 BMI result Body Mass Index 28.3 Const: Other: Somnolent but arousable appears comfortable Resp: Other: Clear to auscultation bilaterally no rales rhonchi or wheezes Cardio: Other: No S4; positive S1-S2; no S3 murmurs rubs or gallops GI: Other: Soft nontender nondistended normoactive bowel sounds Extrem: Other: No edema bilaterally Objective Data Active Medications Acetaminophen (Acetaminophen 325 Mg Tablet) 975 mg PO Q6H PRN PRN Reason: Pain, Mild (Pain Scale 1-3), fever or headache Last Admin: 11/05/23 21:29 Dose: 975 mg Documented By: MANDY Clonidine HCl (Clonidine Hcl 0.1 Mg Tablet) 0.1 mg PO BID [facility]; Protocol Last Admin: 11/06/23 08:39 Dose: 0.1 mg Documented By: AUREA Docusate Sodium (Docusate Sodium 100 Mg Capsule) 100 mg PO BID [facility] Last Admin: 11/06/23 08:37 Dose: 100 mg Documented By: AUREA Enoxaparin Sodium (Enoxaparin Sodium 40 Mg/0.4 Ml Syringe) 40 mg SUBCUT Q24H [facility] Last Admin: 11/06/23 08:37 Dose: 40 mg Documented By: AUREA Hydromorphone HCl (Hydromorphone Hcl 1 Mg/Ml Syringe) 1 mg IVPUSH Q4H PRN; Protocol PRN Reason: Pain, Severe (Pain Scale 7-10) Last Admin: 11/06/23 08:44 Dose: 1 mg Documented By: AUREA Vancomycin HCl 1,250 mg/ (Sodium Chloride) 250 mls @ 166.667 mls/hr IV Q8H [facility] Last Infusion: 11/06/23 06:52 Dose: Infused Documented By: MANDY Cefepime HCl 2 gm/ Sodium (Chloride) 50 mls @ 100 mls/hr IV Q12H [facility] Last Infusion: 11/06/23 11:31 Dose: Infused Documented By: TAWANDA Lorazepam (Lorazepam 0.5 Mg Tablet) 0.5 mg PO Q8H PRN PRN Reason: Anxiety Last Admin: 11/05/23 19:58 Dose: 0.5 mg Documented By: MANDY Comments: pt reports increase anxiety with placement of new IV Methadone HCl (Methadone Hcl 20 Mg/2 Ml Oral.Conc) 20 mg PO DAILY [facility] Last Admin: 11/06/23 08:37 Dose: 20 mg Documented By: AUREA Ondansetron HCl (Ondansetron Hcl 4 Mg/2 Ml Vial) 4 mg IVPUSH Q4H PRN PRN Reason: Nausea and Vomiting Last Admin: 11/05/23 03:30 Dose: 4 mg Documented By: MANDY Comments: c/o Nausea Oxycodone HCl (Oxycodone Hcl Immed Release 5 Mg Tablet) 10 mg PO Q4H PRN PRN Reason: Pain, Moderate(Pain Scale 4-6) Last Admin: 11/06/23 11:18 Dose: 10 mg Documented By: AUREA Pharmacy Consult (Consult Rx Vancomycin Dosing) 1 each MISCELLANE DAILY PRN PRN Reason: Consult order Quetiapine Fumarate (Quetiapine Fumarate 25 Mg Tablet) 25 mg PO BEDTIME PRN PRN Reason: anxiety or insomnia Last Admin: 11/05/23 21:30 Dose: 25 mg Documented By: MANDY Comments: pt requested for sleep Sodium Chloride (0.9 % Sodium Chloride Flush 3 Ml Syringe) 3 ml IVFLUSH QSHIFT [facility] Last Admin: 11/06/23 08:38 Dose: 3 ml Documented By: AUREA Labs 11/06/23 06:38 11/06/23 06:38 Labs: Laboratory Results - last 24 hr 11/05/23 11/06/23 20:00 06:38 MCV 92.5 MCH 30.5 MCHC 33.0 RDW 12.8 Plt Count 195 MPV 9.3 L Immature Gran % (Auto) 0.8 H Neut % (Auto) 72.3 Lymph % (Auto) 18.9 L [place] % (Auto) 5.1 Eos % (Auto) 2.4 Baso % (Auto) 0.5 Lymph # (Auto) 1.7 [place] # (Auto) 0.5 Eos # (Auto) 0.2 Baso # (Auto) 0.0 Abs Immat Gran (auto) 0.07 H Absolute Neuts (auto) 6.4 Absolute Nucleated RBC 0.000 Nucleated RBC % (auto) 0.0 ESR 104 H Anion Gap 11 L Estim Creat Clear Calc 123.1 Estimated GFR > 60 Fasting Glucose 84 Calcium 8.6 Total Bilirubin 0.3 AST 18 ALT 17 Alkaline Phosphatase 88 C-Reactive Protein 10.83 H Total Protein 5.8 L Albumin 2.7 L Random Vancomycin 15.2 Microbiology Microbiology Results: Microbiology 11/03/23 18:00 Blood Culture - Preliminary Blood - Venous No growth after 48 hours. 11/03/23 17:39 Blood Culture - Preliminary Blood - Venous No growth after 48 hours. 11/03/23 20:18 Urine Culture - Final Urine Catheterized - Straight Catheter Assessment and Plan (1) Myositis: Status: Acute (2) Opioid use disorder: Status: Acute Plan Nakia Martins is a 32 y/o woman admitted with: 1. Severe sepsis secondary to iliopsoas infection in backdrop of IVDA -sepsis resolved -data from [facility] in [place] reviewed. No evidence of epidural abscess. CT of thoracic and lumbar spine at [facility] failed to demonstrate any abscess. Minor inflammation around psoas. Recent MRI inconclusive -white count improving.. Blood cultures negative times 48 -vancomycin/cefepime (3). . . -id consult in a.m. 2. IVDA/polysubstance abuse -methadone as per addiction Medicine -no further increase in Dilaudid as patient somnolent throughout day having to be awakened -follow clinically Full Lovenox Will require ongoing hospitalization for IV antibiotics pending negative blood culture results and MRI results Quality Stroke Does the patient have a stroke diagnosis?: No VTE Prior VTE?: No VTE Risk Level:: Medical - moderate - high VTE Device Contraindication: Treatment Not Indicated VTE Drug Contraindication: N/A - Med Ordered
[2023-11-06] MEDS: vancomycin HCL 1,250 MG in 0.9 % Sodium Chloride 250 ML 166.66 MG IV (14:41)
[2023-11-06] MEDS: LORazepam 0.5 MG TABLET PO (14:51)
[2023-11-06] MEDS: Acetaminophen 325 MG TABLET 975 MG PO (16:56)
[2023-11-06 20:38] LABS: Vancomycin Random 6.7 mcg/mL (15-20)
[2023-11-06] MEDS: QUEtiapine Fumarate 25 MG TABLET PO (21:27)
[2023-11-07] VITALS (7 sets, daily range): BP systolic 111–132; BP diastolic 56–76; PULSE 70–93; RESP 18–19; TEMP 35.9–37.2; O2SAT 93–95
[2023-11-07] MEDS: HYDROmorphone HCl 1 MG/ML SYRINGE IVPUSH ×5 (01:45→22:44)
[2023-11-07] MEDS: vancomycin HCL 1,250 MG in 0.9 % Sodium Chloride 250 ML 166.67 MG IV ×4 (03:52→22:44)
[2023-11-07] MEDS: oxyCODONE HCl Immed Release 5 MG TABLET 10 MG PO ×4 (03:59→20:12)
[2023-11-07] MEDS: LORazepam 0.5 MG TABLET PO ×2 (03:59→16:14)
[2023-11-07 07:05] LABS: Alanine Aminotransferase 22 U/L (0-31); Albumin Level 2.7 g/dL (3.5-5.0); Alkaline Phosphatase 88 U/L (39-117); Anion Gap 13 (12-20); Aspartate Amino Transferase 23 U/L (5-31); Basophils Absolute Auto 0.1 X10*3/uL (0.0-0.2); Basophils Percent Auto 0.8 % (0-2); Bilirubin Total 0.3 mg/dL (0.0-1.0); Blood Urea Nitrogen 7 mg/dL (9-16); Calcium 8.9 mg/dL (8.4-10.2); Carbon Dioxide 25 mmol/L (22-29); Chloride 105 mmol/L (96-108); Creatinine Clr Calc Pharmacy 117.9; Eosinophils Absolute Auto 0.3 X10*3/uL (0.0-0.4); Eosinophils Percent Auto 3.6 % (0-4); Estimated Glomerular Filt Rate > 60; Glucose Fasting 84 mg/dL (60-99); Imm Gran Abs Auto 0.16 X10*3/uL (0.00-0.03); Imm Gran Pct Auto 2.1 % (0.0-0.4); Lymphocytes Absolute Auto 1.7 X10*3/uL (1.2-4.9); Lymphocytes Percent Auto 22.3 % (20-40); MANUAL DIFF FLAG SCAN; Mean Corpuscular HGB Conc 33.3 g/dl (31.0-35.0); Mean Corpuscular Hemoglobin 30.6 pg (27.0-33.0); Mean Corpuscular Volume 91.7 fL (80.0-98.0); Monocytes Absolute Auto 0.7 X10*3/uL (0.1-1.2); Monocytes Percent Auto 8.7 % (2-11); Neutrophils Absolute Auto 4.7 x10*3/uL (2.0-8.3); Neutrophils Percent Auto 62.5 % (45-73); PLT CLUMP 1; Potassium 4.6 mmol/L (3.3-5.1); Red Blood Count 3.27 X10*6/uL (4.20-5.50); Red Cell Distribution Width 12.7 % (11.0-16.0); SCAN SMEAR FLAG 1; Sodium 138 mmol/L (135-145); Total Protein 6.4 g/dL (6.5-8.0)
[2023-11-07 08:13] LABS: Mean Platelet Volume 10.3 fL (9.4-12.3); Platelet Count 184 X10*3/uL (160-400); SLIDE REVIEW VERIFIED; White Blood Count 7.6 X10*3/uL (4.8-10.8)
[2023-11-07] MEDS: 0.9 % Sodium Chloride Flush 3 ML SYRINGE IVFLUSH ×2 (08:46→16:12)
[2023-11-07] MEDS: methADONE HCl 20 MG/2 ML ORAL.CONC PO (08:47)
[2023-11-07] MEDS: cefEPime HCl 2 GM in 0.9 % Sodium Chloride 50 ML IV (08:47)
[2023-11-07] MEDS: Enoxaparin Sodium 40 MG/0.4 ML SYRINGE SUBCUT (08:48)
[2023-11-07] MEDS: cloNIDine HCL 0.1 MG TABLET PO ×2 (08:49→20:12)
[2023-11-07] MEDS: methADONE HCl 20 MG/2 ML ORAL.CONC 10 MG PO (11:18)
--- NOTE | 2023-11-07 11:26 | MHC.CM.PN ---
Per ROUNDS discussion, Patient is not yet medically cleared for dc (ID Consult pending); dc plan is TBD and CM will follow.
--- NOTE | 2023-11-07 12:53 | P.PNADD_ITS ---
Subjective Subjective Date of Service: 11/07/23 Reason For Visit: severe sepsis Interim History: Patient seen in follow up Awake, alert, eating lunch when seen by t/w Reporting she is experiencing opioid withdrawal sx--loose stools, restless legs, chills, sweats, anxiety Received methadone 30mg this morning, with positive effect. Review of Systems Constitutional: Reports as per HPI Mental Status Exam Mental Status Exam Patient Appearance: Appropriate Level of Consciousness: Awake, Appropriate and Alert Patient Behavior: Guarded Mood Description: Blunted Affect Description: Blunted Speech Pattern: Clear Diagnostics Vital Signs (24Hr): Vital Signs - 24 hr 11/06/23 16:00 11/06/23 19:40 11/06/23 23:18 Temperature 99.4 F 97.9 F 98.7 F Pulse Rate 87 80 79 Respiratory Rate 18 18 18 Blood Pressure 120/88 126/75 125/69 Pulse Oximetry 97 96 95 Oxygen Delivery Method Room Air Room Air Room Air 11/07/23 03:16 11/07/23 07:53 11/07/23 12:00 Temperature 98.9 F 97.4 F 97.7 F Pulse Rate 83 93 82 Respiratory Rate 18 19 19 Blood Pressure 124/70 132/75 127/68 Pulse Oximetry 95 93 94 Oxygen Delivery Method Room Air Room Air Room Air BMI result Body Mass Index 28.3 Labs 11/07/23 06:23 11/07/23 06:23 Labs: Laboratory Results - last 48 hr 11/05/23 11/06/23 11/06/23 20:00 06:38 20:06 WBC 8.9 RBC 3.08 L Hgb 9.4 L Hct 28.5 L MCV 92.5 MCH 30.5 MCHC 33.0 RDW 12.8 Plt Count 195 MPV 9.3 L Immature Gran % (Auto) 0.8 H Neut % (Auto) 72.3 Lymph % (Auto) 18.9 L Jenkins % (Auto) 5.1 Eos % (Auto) 2.4 Baso % (Auto) 0.5 Lymph # (Auto) 1.7 Jenkins # (Auto) 0.5 Eos # (Auto) 0.2 Baso # (Auto) 0.0 Abs Immat Gran (auto) 0.07 H Absolute Neuts (auto) 6.4 Absolute Nucleated RBC 0.000 Nucleated RBC % (auto) 0.0 Smear Tech's Comments ESR 104 H Sodium 140 Potassium 3.8 Chloride 110 H Carbon Dioxide 23 Anion Gap 11 L BUN 6 L Creatinine 0.68 Estim Creat Clear Calc 123.1 Estimated GFR > 60 Fasting Glucose 84 Calcium 8.6 Total Bilirubin 0.3 AST 18 ALT 17 Alkaline Phosphatase 88 C-Reactive Protein 10.83 H Total Protein 5.8 L Albumin 2.7 L Random Vancomycin 15.2 6.7 L 11/07/23 06:23 WBC 7.6 RBC 3.27 L Hgb 10.0 L Hct 30.0 L MCV 91.7 MCH 30.6 MCHC 33.3 RDW 12.7 Plt Count 184 MPV 10.3 Immature Gran % (Auto) 2.1 H Neut % (Auto) 62.5 Lymph % (Auto) 22.3 Jenkins % (Auto) 8.7 Eos % (Auto) 3.6 Baso % (Auto) 0.8 Lymph # (Auto) 1.7 Jenkins # (Auto) 0.7 Eos # (Auto) 0.3 Baso # (Auto) 0.1 Abs Immat Gran (auto) 0.16 H Absolute Neuts (auto) 4.7 Absolute Nucleated RBC 0.000 Nucleated RBC % (auto) 0.0 Smear Tech's Comments VERIFIED ESR Sodium 138 Potassium 4.6 D Chloride 105 Carbon Dioxide 25 Anion Gap 13 BUN 7 L Creatinine 0.71 Estim Creat Clear Calc 117.9 Estimated GFR > 60 Fasting Glucose 84 Calcium 8.9 Total Bilirubin 0.3 AST 23 ALT 22 Alkaline Phosphatase 88 C-Reactive Protein Total Protein 6.4 L Albumin 2.7 L Random Vancomycin Imaging Radiology Impressions: ITS Impressions Chest X-Ray 11/03/23 18:45 IMPRESSION: Increased bilateral perihilar opacities. Hip CT 11/03/23 20:39 IMPRESSION: Edema around the iliacus muscle . No defined fluid collection or abscess. Targeted ultrasound could be helpful for follow-up. Lumbar Spine CT 11/03/23 20:39 IMPRESSION: No abscess. There is edema and probable small volume of fluid around the left iliopsoas muscle extending down into the pelvis. Thoracic Spine CT 11/03/23 20:39 IMPRESSION: No abscess. There is edema and probable small volume of fluid around the left iliopsoas muscle extending down into the pelvis. Lumbar Spine MRI 11/05/23 12:20 FINDINGS/IMPRESSION: * Nondiagnostic MRI of the lumbar spine. The patient could not tolerate this study and no postcontrast imaging or axial imaging was obtained. 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 Probable phlegmon effacing the left L5-S1 neural foramen inseparable from the exiting left L5 nerve root. No definite epidural abscess is appreciated and there is nondiagnostic assessment for epidural phlegmon given the lack of axial imaging and postcontrast imaging. There are a few small subcentimeter abscesses versus synovial cysts along the dorsal margin of the left L5-S1 facet joint and to a lesser extent the left L4-L5 facet joint. * At L5-S1, there is a broad-based central disc protrusion eccentric to the right side that likely results in mild mass effect on the traversing right S1 nerve root within the right subarticular zone. Medications Medications Current Medications Acetaminophen (Acetaminophen 325 Mg Tablet) 975 mg PO Q6H PRN PRN Reason: Pain, Mild (Pain Scale 1-3), fever or headache Last Admin: 11/06/23 16:56 Dose: 975 mg Clonidine HCl (Clonidine Hcl 0.1 Mg Tablet) 0.1 mg PO BID JOE; Protocol Last Admin: 11/07/23 08:49 Dose: 0.1 mg Docusate Sodium (Docusate Sodium 100 Mg Capsule) 100 mg PO BID [facility] Last Admin: 11/07/23 08:54 Dose: Not Given Enoxaparin Sodium (Enoxaparin Sodium 40 Mg/0.4 Ml Syringe) 40 mg SUBCUT Q24H JOE Last Admin: 11/07/23 08:48 Dose: 40 mg Hydromorphone HCl (Hydromorphone Hcl 1 Mg/Ml Syringe) 1 mg IVPUSH Q4H PRN; Protocol PRN Reason: Pain, Severe (Pain Scale 7-10) Last Admin: 11/07/23 12:46 Dose: 1 mg Cefepime HCl 2 gm/ Sodium (Chloride) 50 mls @ 100 mls/hr IV Q12H [facility] Last Infusion: 11/07/23 09:26 Dose: Infused Vancomycin HCl 1,250 mg/ (Sodium Chloride) 250 mls @ 166.667 mls/hr IV Q6H [facility] Last Infusion: 11/07/23 12:03 Dose: Infused Lorazepam (Lorazepam 0.5 Mg Tablet) 0.5 mg PO Q8H PRN PRN Reason: Anxiety Last Admin: 11/07/23 03:59 Dose: 0.5 mg Methadone HCl (Methadone Hcl 20 Mg/2 Ml Oral.Conc) 40 mg PO DAILY [facility] Ondansetron HCl (Ondansetron Hcl 4 Mg/2 Ml Vial) 4 mg IVPUSH Q4H PRN PRN Reason: Nausea and Vomiting Last Admin: 11/05/23 03:30 Dose: 4 mg Oxycodone HCl (Oxycodone Hcl Immed Release 5 Mg Tablet) 10 mg PO Q4H PRN PRN Reason: Pain, Moderate(Pain Scale 4-6) Last Admin: 11/07/23 09:33 Dose: 10 mg Pharmacy Consult (Consult Rx Vancomycin Dosing) 1 each MISCELLANE DAILY PRN PRN Reason: Consult order Quetiapine Fumarate (Quetiapine Fumarate 25 Mg Tablet) 25 mg PO BEDTIME PRN PRN Reason: anxiety or insomnia Last Admin: 11/06/23 21:27 Dose: 25 mg Sodium Chloride (0.9 % Sodium Chloride Flush 3 Ml Syringe) 3 ml IVFLUSH QSHIFT [facility] Last Admin: 11/07/23 08:46 Dose: 3 ml Tizanidine HCl (Tizanidine Hcl 4 Mg Tablet) 4 mg PO BID PRN PRN Reason: Restlessness Allergies Allergies Allergy/AdvReac Type Severity Reaction Status Date / Time penicillin V [PENICILLIN V] Allergy Unknown HIVES Verified 11/03/23 16:58 Penicillins [PENICILLINS] Allergy Unknown HIVES Verified 11/03/23 16:58 penicilin Allergy Unknown Difficulty Uncoded 11/03/23 16:58 Breathing Assessment & Plan Assessment & Plan (1) Opioid use disorder: Status: Acute Code(s): F11.90 - Opioid use, unspecified, uncomplicated Assessment and Plan: * methadone dose increased to 40mg daily 11/07--will continue to titrate based on response * will add one time 5mg dose for evening * tizanidine added PRN to address restless legs Total time managing care of this patient today __20__ minutes.
[2023-11-07] MEDS: cefTRIAXone sodium 2 GM in 0.9 % Sodium Chloride 50 ML IV (13:52)
[2023-11-07] MEDS: TiZANidine HCL 4 MG TABLET PO (13:56)
--- NOTE | 2023-11-07 14:21 | P.PNIM_ITS ---
Subjective Subjective Date of Service: 11/08/23 Interval History: Complaining of pain radiating from left lower back towards left groin and left leg,experiencing opioid withdrawal sx--loose stools, restless legs, chills, sweats, anxiety. Received methadone 30mg this morning, with positive effect. Denies fever, no chills, no nausea, no vomiting tolerating diet. Review of Systems All other system reviewed and are negative. Physical Exam 2 Vital Signs: Vital Signs: Last Vital Signs Temp 97.7 F 11/07/23 12:00 Pulse 82 11/07/23 12:00 Resp 19 11/07/23 12:00 BP 127/68 11/07/23 12:00 Pulse Ox 94 11/07/23 12:00 O2 Del Method Room Air 11/07/23 12:00 BMI result Body Mass Index 28.3 Const: Other: General mild distress due to acute pain. Anicteric sclera Neck no JVD. CVS regular rate rhythm, Respiratory lungs clear to auscultation, no respiratory distress, no wheeze, no rhonchi. Gastrointestinal abdomen soft, non tender, bowel sounds audible, no guarding , no rigidity. Extremities no edema. Neuro moving all 4 extremity speech clear. Back left lumbar paraspinal tenderness to palpation with radiation towards left groin/no redness no palpable swelling. Skin no rash Objective Data Active Medications Acetaminophen (Acetaminophen 325 Mg Tablet) 975 mg PO Q6H PRN PRN Reason: Pain, Mild (Pain Scale 1-3), fever or headache Last Admin: 11/06/23 16:56 Dose: 975 mg Documented By: AUREA Clonidine HCl (Clonidine Hcl 0.1 Mg Tablet) 0.1 mg PO BID [facility]; Protocol Last Admin: 11/07/23 08:49 Dose: 0.1 mg Documented By: TIA Docusate Sodium (Docusate Sodium 100 Mg Capsule) 100 mg PO BID [facility] Last Admin: 11/07/23 08:54 Dose: Not Given Documented By: TIA Non-Admin Reason: Patient Refused Enoxaparin Sodium (Enoxaparin Sodium 40 Mg/0.4 Ml Syringe) 40 mg SUBCUT Q24H [facility] Last Admin: 11/07/23 08:48 Dose: 40 mg Documented By: TIA Hydromorphone HCl (Hydromorphone Hcl 1 Mg/Ml Syringe) 1 mg IVPUSH Q4H PRN; Protocol PRN Reason: Pain, Severe (Pain Scale 7-10) Last Admin: 11/07/23 12:46 Dose: 1 mg Documented By: TIA Vancomycin HCl 1,250 mg/ (Sodium Chloride) 250 mls @ 166.667 mls/hr IV Q6H [facility] Last Infusion: 11/07/23 12:03 Dose: Infused Documented By: TIA Ceftriaxone Sodium 2 gm/ (Sodium Chloride) 50 mls @ 100 mls/hr IV Q24H [facility] Last Admin: 11/07/23 13:52 Dose: 100 mls/hr Documented By: TIA Lorazepam (Lorazepam 0.5 Mg Tablet) 0.5 mg PO Q8H PRN PRN Reason: Anxiety Last Admin: 11/07/23 03:59 Dose: 0.5 mg Documented By: FRANCIA Methadone HCl (Methadone Hcl 20 Mg/2 Ml Oral.Conc) 40 mg PO DAILY [facility] Ondansetron HCl (Ondansetron Hcl 4 Mg/2 Ml Vial) 4 mg IVPUSH Q4H PRN PRN Reason: Nausea and Vomiting Last Admin: 11/05/23 03:30 Dose: 4 mg Documented By: MANDY Comments: c/o Nausea Oxycodone HCl (Oxycodone Hcl Immed Release 5 Mg Tablet) 10 mg PO Q4H PRN PRN Reason: Pain, Moderate(Pain Scale 4-6) Last Admin: 11/07/23 13:39 Dose: 10 mg Documented By: TIA Pharmacy Consult (Consult Rx Vancomycin Dosing) 1 each MISCELLANE DAILY PRN PRN Reason: Consult order Quetiapine Fumarate (Quetiapine Fumarate 25 Mg Tablet) 25 mg PO BEDTIME PRN PRN Reason: anxiety or insomnia Last Admin: 11/06/23 21:27 Dose: 25 mg Documented By: LARRY Sodium Chloride (0.9 % Sodium Chloride Flush 3 Ml Syringe) [facility] Last Admin: 11/07/23 08:46 Dose: 3 ml Documented By: TIA Tizanidine HCl (Tizanidine Hcl 4 Mg Tablet) 4 mg PO BID PRN PRN Reason: Restlessness Last Admin: 11/07/23 13:56 Dose: 4 mg Documented By: TIA Labs 11/08/23 06:14 11/08/23 06:14 Labs: Laboratory Results - last 24 hr 11/06/23 11/07/23 20:06 06:23 MCV 91.7 MCH 30.6 MCHC 33.3 RDW 12.7 Plt Count 184 MPV 10.3 Immature Gran % (Auto) 2.1 H Neut % (Auto) 62.5 Lymph % (Auto) 22.3 Valencia % (Auto) 8.7 Eos % (Auto) 3.6 Baso % (Auto) 0.8 Lymph # (Auto) 1.7 [place] # (Auto) 0.7 Eos # (Auto) 0.3 Baso # (Auto) 0.1 Abs Immat Gran (auto) 0.16 H Absolute Neuts (auto) 4.7 Absolute Nucleated RBC 0.000 Nucleated RBC % (auto) 0.0 Smear Tech's Comments VERIFIED Anion Gap 13 Estim Creat Clear Calc 117.9 Estimated GFR > 60 Fasting Glucose 84 Calcium 8.9 Total Bilirubin 0.3 AST 23 ALT 22 Alkaline Phosphatase 88 Total Protein 6.4 L Albumin 2.7 L Random Vancomycin 6.7 L Assessment and Plan (1) Myositis: Status: Acute (2) Opioid use disorder: Status: Acute Plan Nakia Martins is a 32 y/o woman admitted with left hip and leg pain associated with fever chills and weakness, patient recently left AMA from [facility] she was treated there for sepsis with evidence of epidural abscess was recommended 4-6 weeks of IV antibiotic have : 1. Severe sepsis secondary to iliopsoas infection with backdrop of IVDA sepsis resolved data from [facility] in [place] reviewed, MRI L-spine showed asymmetric left paraspinal muscle edema findings likely related to infectious myositis and septic arthritis or muscle strain small epidural abscess is suspected on the left posteriorly at L4-L5, neurosurgery at [place] evaluated patient and felt she is not a candidate for surgery. CT of thoracic and lumbar spine at [facility] failed to demonstrate any abscess, Minor inflammation around psoas. MRI lumbar spine at [place] showed no definite epidural abscess, small subcentimeter abscess versus synovial cyst along the dorsal margin of the left L5/S1 facet joint, probable phlegmon effacing the left L5-S1 neural foramen inseparable from the exiting left 5th nerve root. white count normalized, Blood cultures negative times 48h on vancomycin/cefepime started 11/03 HIV nonreactive, hepatitis-C antibody reactive. Echo showed no valvular abnormality -case discussed with ID she recommend 6 weeks of IV ceftriaxone and vancomycin since no specific organism, will DC IV cefepime and place on IV ceftriaxone started 11/06 Continue IV Dilaudid and oxycodone for pain control, gradually wean IV analgesics. 2. IVDA/polysubstance abuse -methadone as per addiction Medicine and Zanaflex b.i.d. as needed. 3. Status post recent therapeutic at [facility] recommend outpatient follow-up with OBGYN. Disposition patient will need rehab to finish course of IV antibiotics once rehab available will place PICC line. Full Lovenox Will require ongoing hospitalization for IV antibiotics and IV analgesics Quality Stroke Does the patient have a stroke diagnosis?: No VTE Prior VTE?: No VTE Risk Level:: Medical - moderate - high VTE Device Contraindication: Treatment Not Indicated VTE Drug Contraindication: N/A - Med Ordered
[2023-11-07] MEDS: Acetaminophen 325 MG TABLET 975 MG PO (16:12)
--- NOTE | 2023-11-07 16:29 | P.CNID_ITS ---
History of Present Illness Data of Consult Service Date: 11/07/23 Requesting physician: Mian Costa Primary Care Provider: None Physician HPI Reason for consult: iliposoas abscess She has two weeks left flank pain She had 8/10 pain She has chronic pain and was sent to [facility] for possible drainage of paraaspinal left abscess with L3-L4 involvement. She was supposed to get 4-6 weeks IV treatment and refused placement. She was given po linezolid and cefpodoxime which she didnt take. She comes in again here with painful left leg.upper area. Review of Systems 2 Review of Systems: Yes all other systems are reviewed and are negative Musculoskeletal: Comments: left leg pain PMFSH Past Medical History Medical History Active substance abuse Social History Social History Household Members: None Housing: Homeless Do you presently have visiting nurse or other home services: No Alcohol intake: never Patient Tobacco Use Status: Current everyday Tobacco user Tobacco use type: Cigarette e-Cigarette/Vaping Use: Never Used Second Hand Smoke Exposure: Yes Substance Use Type: Crack/Cocaine and Marijuana service: No Meds Allergies Allergy/AdvReac Type Severity Reaction Status Date / Time penicillin V [PENICILLIN V] Allergy Unknown HIVES Verified 11/03/23 16:58 Penicillins [PENICILLINS] Allergy Unknown HIVES Verified 11/03/23 16:58 penicilin Allergy Unknown Difficulty Uncoded 11/03/23 16:58 Breathing Active Medications: Current Medications Acetaminophen (Acetaminophen 325 Mg Tablet) 975 mg PO Q6H PRN PRN Reason: Pain, Mild (Pain Scale 1-3), fever or headache Last Admin: 11/07/23 16:12 Dose: 975 mg Clonidine HCl (Clonidine Hcl 0.1 Mg Tablet) 0.1 mg PO BID [facility]; Protocol Last Admin: 11/07/23 08:49 Dose: 0.1 mg Docusate Sodium (Docusate Sodium 100 Mg Capsule) 100 mg PO BID [facility] Last Admin: 11/07/23 08:54 Dose: Not Given Enoxaparin Sodium (Enoxaparin Sodium 40 Mg/0.4 Ml Syringe) 40 mg SUBCUT Q24H [facility] Last Admin: 11/07/23 08:48 Dose: 40 mg Hydromorphone HCl (Hydromorphone Hcl 1 Mg/Ml Syringe) 1 mg IVPUSH Q4H PRN; Protocol PRN Reason: Pain, Severe (Pain Scale 7-10) Last Admin: 11/07/23 12:46 Dose: 1 mg Vancomycin HCl 1,250 mg/ (Sodium Chloride) 250 mls @ 166.667 mls/hr IV Q6H [facility] Last Admin: 11/07/23 16:11 Dose: 166.67 mls/hr Ceftriaxone Sodium 2 gm/ (Sodium Chloride) 50 mls @ 100 mls/hr IV Q24H [facility] Last Infusion: 11/07/23 14:33 Dose: Infused Lorazepam (Lorazepam 0.5 Mg Tablet) 0.5 mg PO Q8H PRN PRN Reason: Anxiety Last Admin: 11/07/23 16:14 Dose: 0.5 mg Methadone HCl (Methadone Hcl 20 Mg/2 Ml Oral.Conc) 40 mg PO DAILY [facility] Methadone HCl (Methadone Hcl 20 Mg/2 Ml Oral.Conc) 5 mg PO ONCE ONE Stop: 11/07/23 18:01 Ondansetron HCl (Ondansetron Hcl 4 Mg/2 Ml Vial) 4 mg IVPUSH Q4H PRN PRN Reason: Nausea and Vomiting Last Admin: 11/05/23 03:30 Dose: 4 mg Oxycodone HCl (Oxycodone Hcl Immed Release 5 Mg Tablet) 10 mg PO Q4H PRN PRN Reason: Pain, Moderate(Pain Scale 4-6) Last Admin: 11/07/23 13:39 Dose: 10 mg Pharmacy Consult (Consult Rx Vancomycin Dosing) 1 each MISCELLANE DAILY PRN PRN Reason: Consult order Quetiapine Fumarate (Quetiapine Fumarate 25 Mg Tablet) 25 mg PO BEDTIME PRN PRN Reason: anxiety or insomnia Last Admin: 11/06/23 21:27 Dose: 25 mg Sodium Chloride (0.9 % Sodium Chloride Flush 3 Ml Syringe) [facility] Last Admin: 11/07/23 16:12 Dose: 3 ml Tizanidine HCl (Tizanidine Hcl 4 Mg Tablet) 4 mg PO BID PRN PRN Reason: Restlessness Last Admin: 11/07/23 13:56 Dose: 4 mg Home Medications ?Medication ?Instructions ?Recorded ?Confirmed ?Last Taken ?Type gabapentin 300 mg capsule 300 mg PO TID 11/04/23 11/04/23 11/02/23 History Physical Exam 2 Vital Signs: Vital Signs: Last Vital Signs Temp 98.7 F 11/07/23 15:44 Pulse 81 11/07/23 15:44 Resp 19 11/07/23 15:44 BP 121/63 11/07/23 15:44 Pulse Ox 95 11/07/23 15:44 O2 Del Method Room Air 11/07/23 15:44 BMI result Body Mass Index 28.3 Results Labs 11/07/23 06:23 11/07/23 06:23 Labs: Short CBC 11/07/23 Range/Units 06:23 WBC 7.6 (4.8-10.8) X10*3/uL Hgb 10.0 L (12.0-16.0) g/dl Hct 30.0 L (37.0-47.0) % Plt Count 184 (160-400) X10*3/uL BMP 11/07/23 06:23 Sodium 138 Potassium 4.6 D Chloride 105 Carbon Dioxide 25 BUN 7 L Creatinine 0.71 Calcium 8.9 Liver Function 11/07/23 Range/Units 06:23 Total Bilirubin 0.3 (0.0-1.0) mg/dL AST 23 (5-31) U/L ALT 22 (0-31) U/L Alkaline Phosphatase 88 (39-117) U/L Albumin 2.7 L (3.5-5.0) g/dL Microbiology Microbiology Results: Microbiology 11/03/23 18:00 Blood - Venous Blood Culture - Preliminary No growth after 48 hours. 11/03/23 17:39 Blood - Venous Blood Culture - Preliminary No growth after 48 hours. 11/03/23 20:18 Urine Catheterized - Straight Catheter Urine Culture - Final Assessment and Plan (1) IV drug user: Status: Acute (2) Myositis: Qualifiers: Myositis type: infective Laterality: left Status: Acute (3) Severe sepsis: Status: Acute Plan She has areas of infection pockets left L5-S1 with phlegmon. She needs six weeks IV Ceftriaxone and Vancomycin since no specific organsim. Check HIV and Hepatitis C. Consider echo if not done as well.
[2023-11-07] MEDS: methADONE HCl 20 MG/2 ML ORAL.CONC 5 MG PO (17:59)
[2023-11-07 21:00] LABS: Vancomycin Random 26.8 mcg/mL (15-20)
--- NOTE | 2023-11-07 21:22 | HE.PHANOTE ---
Addendum entered by Marcos Lincoln, [facility] 11/07/23 21:57: DOSE ONLY 4 HOURS AFTER Q6H DOSE. SO HELD A COUPLE HOURS AND RESTARTED Q8. NEXT TROUGH AFTER 1 DOSE TO MAKE SURE DOSING INTERVAL IS CORRECT Original Note: VANCO DOSE ADJUSTMENT BASED ON SCR AND TROUGH OF 26.8 DOSE HELD UNTIL AM DOSE AND ANOTHER TROUGH ORDERED FOR 0700 ON 11/07. PREVIOUS DOSE OF 1500 Q 8H LEAD TO TROUGH OF 15.2. BASE AM DOSE ON AM LABS
[2023-11-07] MEDS: QUEtiapine Fumarate 25 MG TABLET PO (21:44)
[2023-11-08 03:36] VITALS: BP 121/62; PULSE 70; RESP 18; TEMP 36.6; O2SAT 96
[2023-11-08] MEDS: HYDROmorphone HCl 1 MG/ML SYRINGE IVPUSH ×5 (03:46→20:40)
[2023-11-08 04:25] LABS: HIV AB/AG Nonreactive (Nonreactive); HIV Num 1 0.19 S/CO (0.00-0.99); ~HepC Num1 15.11 S/CO (0.00-0.79); ~Hepatitis C Antibody Reactive (Nonreactive)
[2023-11-08] MEDS: oxyCODONE HCl Immed Release 5 MG TABLET 10 MG PO ×3 (06:09→19:06)
[2023-11-08] MEDS: Acetaminophen 325 MG TABLET 975 MG PO ×2 (06:09→17:22)
[2023-11-08 06:40] LABS: Hematocrit 31.7 % (37.0-47.0); Hemoglobin 10.6 g/dl (12.0-16.0); Mean Corpuscular HGB Conc 33.4 g/dl (31.0-35.0); Mean Corpuscular Hemoglobin 30.1 pg (27.0-33.0); Mean Corpuscular Volume 90.1 fL (80.0-98.0); Mean Platelet Volume 8.6 fL (9.4-12.3); Platelet Count 276 X10*3/uL (160-400); Red Blood Count 3.52 X10*6/uL (4.20-5.50); Red Cell Distribution Width 12.6 % (11.0-16.0); White Blood Count 8.4 X10*3/uL (4.8-10.8)
[2023-11-08 06:52] LABS: Vancomycin Random 19.4 mcg/mL (15-20)
[2023-11-08 07:00] LABS: Alanine Aminotransferase 19 U/L (0-31); Albumin Level 2.9 g/dL (3.5-5.0); Alkaline Phosphatase 94 U/L (39-117); Anion Gap 13 (12-20); Aspartate Amino Transferase 16 U/L (5-31); Bilirubin Total 0.2 mg/dL (0.0-1.0); Blood Urea Nitrogen 8 mg/dL (9-16); Calcium 9.6 mg/dL (8.4-10.2); Carbon Dioxide 26 mmol/L (22-29); Chloride 102 mmol/L (96-108); Creatinine Clr Calc Pharmacy 121.3; Estimated Glomerular Filt Rate > 60; Glucose Fasting 89 mg/dL (60-99); Potassium 4.4 mmol/L (3.3-5.1); Sodium 137 mmol/L (135-145); Total Protein 6.6 g/dL (6.5-8.0)
--- NOTE | 2023-11-08 07:17 | HE.PHANOTE ---
RE: VANCO DOSING Random came back as 19.4. Continue with 1250 mg q8h with predicted AUC 531 and trough 14.2. Next random is scheduled for 11/08/23 @2100.
[2023-11-08 07:20] VITALS: BP 116/61; PULSE 66; RESP 18; TEMP 36.6; O2SAT 94
[2023-11-08 07:28] LABS: Band Neutrophils Percent 2 % (3-5); Basophils Abs Manual 0.2 X10*3/uL (0.0-0.2); Basophils Percent Manual 2 % (0-2); Eosinophils Absolute Manual 0.3 X10*3/uL (0.0-0.4); Eosinophils Percent Manual 3 % (0-4); Lymphocytes Absolute Manual 1.5 X10*3/uL (1.2-4.9); Lymphocytes Percent Manual 18 % (20-40); Metamyelocytes Absolute 0.2 X10*3/uL; Metamyelocytes Percent 2 %; Monocytes Absolute Manual 0.7 X10*3/uL (0.1-1.2); Monocytes Percent Manual 8 % (2-11); Myelocytes Absolute 0.1 X10*/uL; Myelocytes Percent 1 %; Neutrophils Absolute Manual 5.5 X10*3/uL (2.0-8.3); Neutrophils Percent Manual 64 % (45-73)
[2023-11-08 07:30] LABS: Platelet Estimate NORMAL (NORMAL); Platelet Morphology Comment NORMAL; RBC Morphology NORMAL
[2023-11-08] MEDS: cloNIDine HCL 0.1 MG TABLET PO ×2 (08:08→20:39)
[2023-11-08] MEDS: Docusate Sodium 100 MG CAPSULE PO ×2 (08:09→20:40)
[2023-11-08] MEDS: methADONE HCl 20 MG/2 ML ORAL.CONC 40 MG PO (08:09)
[2023-11-08] MEDS: vancomycin HCL 1,250 MG in 0.9 % Sodium Chloride 250 ML 166.67 MG IV ×2 (08:10→16:35)
[2023-11-08] MEDS: Enoxaparin Sodium 40 MG/0.4 ML SYRINGE SUBCUT (08:11)
[2023-11-08] MEDS: 0.9 % Sodium Chloride Flush 3 ML SYRINGE IVFLUSH ×3 (08:11→20:41)
--- NOTE | 2023-11-08 10:41 | PC.NURSE ---
Correction- Dose of methadone 20mg charted on 11/07 at 0900 slot actually given on 11/06 at 0847.
--- NOTE | 2023-11-08 10:56 | MHC.RECOVRN ---
Met with pt to follow up and provide support. Pt received 40 mg methadone this morning. Pt laying in bed, awake, alert, easily engages in conversation. Room is dark, pt reports she is trying to take a nap. Reports she is only able to sleep at night an hour here and there. Pt reports she feels withdrawal symptoms including diaphoresis, restless legs, and body aches. Pt reports she has been on methadone in the past, 160 mg and 180 mg, and is requesting a dose increase. Pt denies other questions or concerns for t/w. Discussed with Shanon Angel APRN.
[2023-11-08 11:03] VITALS: BP 110/65; PULSE 60; RESP 18; TEMP 36; O2SAT 96
[2023-11-08] MEDS: cefTRIAXone sodium 2 GM in 0.9 % Sodium Chloride 50 ML IV (12:36)
[2023-11-08] MEDS: TiZANidine HCL 4 MG TABLET PO ×2 (12:38→18:28)
[2023-11-08] MEDS: LORazepam 0.5 MG TABLET PO ×2 (12:38→20:40)
--- NOTE | 2023-11-08 12:58 | MHC.CM.PN ---
Per ROUNDS discussion, Patient is medically cleared for dc to SNF/STR today. She has a history of IVDA and Methadone was started here yesterday. Patient will need a PICC on the day of dc. [facility] originally accepted Patient and now they have no bed to offer; CM has referred to Sister facilities ([facility], [facility], and [facility]). Also, will need [facility] authorization, CM will follow.
[2023-11-08 15:20] VITALS: BP 111/58; PULSE 65; RESP 18; TEMP 36.1; O2SAT 94
--- NOTE | 2023-11-08 15:22 | HO.PM.IMPN ---
Subjective Subjective Date of Service: 11/08/23 Interval History: Being followed for severe sepsis secondary ileopsoas infection, Complaining of pain localized to left groin, better controlled than yesterday , no withdrawal symptoms, no fevers, no chills tolerating diet, no constipation, no acute events overnight. Review of Systems All other system reviewed and negative. Physical Exam Vital Signs: Vital Signs: Last Vital Signs Temp 97.0 F 11/08/23 15:20 Pulse 65 11/08/23 15:20 Resp 18 11/08/23 15:20 BP 111/58 L 11/08/23 15:20 Pulse Ox 94 11/08/23 15:20 O2 Del Method Room Air 11/08/23 15:20 BMI result Body Mass Index 28.3 Const: Other: General awake alert x3, in no acute distress Anicteric sclera Neck no JVD. CVS regular rate rhythm, Respiratory lungs clear to auscultation, no respiratory distress, no wheeze, no rhonchi. Gastrointestinal abdomen soft, non tender, bowel sounds audible, no guarding , no rigidity. Extremities no edema. Neuro moving all 4 extremity speech clear. Back left lumbar paraspinal tenderness to palpation ,tenderness left groin/no redness, no swelling. Skin no rash Objective Data Active Medications Acetaminophen (Acetaminophen 325 Mg Tablet) 975 mg PO Q6H PRN PRN Reason: Pain, Mild (Pain Scale 1-3), fever or headache Last Admin: 11/08/23 06:09 Dose: 975 mg Documented By: LARRY Comments: pt requesting both for pain 6/10 Clonidine HCl (Clonidine Hcl 0.1 Mg Tablet) 0.1 mg PO BID [facility]; Protocol Last Admin: 11/08/23 08:08 Dose: 0.1 mg Documented By: JULIET Docusate Sodium (Docusate Sodium 100 Mg Capsule) 100 mg PO BID [facility] Last Admin: 11/08/23 08:09 Dose: 100 mg Documented By: JULIET Enoxaparin Sodium (Enoxaparin Sodium 40 Mg/0.4 Ml Syringe) 40 mg SUBCUT Q24H [facility] Last Admin: 11/08/23 08:11 Dose: 40 mg Documented By: JULIET Hydromorphone HCl (Hydromorphone Hcl 1 Mg/Ml Syringe) 1 mg IVPUSH Q4H PRN; Protocol PRN Reason: Pain, Severe (Pain Scale 7-10) Last Admin: 11/08/23 12:36 Dose: 1 mg Documented By: JULIET Ceftriaxone Sodium 2 gm/ (Sodium Chloride) 50 mls @ 100 mls/hr IV Q24H [facility] Last Infusion: 11/08/23 12:46 Dose: 0 mls/hr Documented By: JULIET Vancomycin HCl 1,250 mg/ (Sodium Chloride) 250 mls @ 166.667 mls/hr IV Q8H [facility] Last Infusion: 11/08/23 09:54 Dose: Infused Documented By: JULIET Lorazepam (Lorazepam 0.5 Mg Tablet) 0.5 mg PO Q8H PRN PRN Reason: Anxiety Last Admin: 11/08/23 12:38 Dose: 0.5 mg Documented By: JULIET Methadone HCl (Methadone Hcl 20 Mg/2 Ml Oral.Conc) 40 mg PO DAILY [facility] Last Admin: 11/08/23 08:09 Dose: 40 mg Documented By: JULIET Ondansetron HCl (Ondansetron Hcl 4 Mg/2 Ml Vial) 4 mg IVPUSH Q4H PRN PRN Reason: Nausea and Vomiting Last Admin: 11/05/23 03:30 Dose: 4 mg Documented By: MANDY Comments: c/o Nausea Oxycodone HCl (Oxycodone Hcl Immed Release 5 Mg Tablet) 10 mg PO Q4H PRN PRN Reason: Pain, Moderate(Pain Scale 4-6) Last Admin: 11/08/23 14:52 Dose: 10 mg Documented By: JULIET Pharmacy Consult (Consult Rx Vancomycin Dosing) 1 each MISCELLANE DAILY PRN PRN Reason: Consult order Quetiapine Fumarate (Quetiapine Fumarate 25 Mg Tablet) 25 mg PO BEDTIME PRN PRN Reason: anxiety or insomnia Last Admin: 11/07/23 21:44 Dose: 25 mg Documented By: LARRY Sodium Chloride (0.9 % Sodium Chloride Flush 3 Ml Syringe) [facility] Last Admin: 11/08/23 08:11 Dose: 3 ml Documented By: JULIET Tizanidine HCl (Tizanidine Hcl 4 Mg Tablet) 4 mg PO BID PRN PRN Reason: Restlessness Last Admin: 11/08/23 12:38 Dose: 4 mg Documented By: JULIET Labs 11/08/23 06:14 11/08/23 06:14 Labs: Laboratory Results - last 24 hr 11/07/23 11/08/23 20:11 06:14 MCV 90.1 MCH 30.1 MCHC 33.4 RDW 12.6 Plt Count 276 D MPV 8.6 L Immature Gran % (Auto) Cancelled Neut % (Auto) Cancelled Lymph % (Auto) Cancelled Emm[place] % (Auto) Cancelled Eos % (Auto) Cancelled Baso % (Auto) Cancelled Lymph # (Auto) Cancelled Emm[place] # (Auto) Cancelled Eos # (Auto) Cancelled Baso # (Auto) Cancelled Abs Immat Gran (auto) Cancelled Absolute Neuts (auto) Cancelled Absolute Nucleated RBC 0.000 Nucleated RBC % (auto) 0.0 Neutrophils % (Manual) 64 Band Neutrophils % 2 L Lymphocytes % (Manual) 18 L Monocytes % (Manual) 8 Eosinophils % (Manual) 3 Basophils % (Manual) 2 Metamyelocytes % 2 Myelocytes % 1 Abs Neuts (Manual) 5.5 Lymphocytes # (Manual) 1.5 Monocytes # (Manual) 0.7 Eosinophils # (Manual) 0.3 Basophils # (Manual) 0.2 Metamyelocytes # 0.2 Myelocytes # 0.1 Platelet Estimate NORMAL Plt Morphology Comment NORMAL RBC Morphology NORMAL Anion Gap 13 Estim Creat Clear Calc 121.3 Estimated GFR > 60 Fasting Glucose 89 Calcium 9.6 D Total Bilirubin 0.2 AST 16 ALT 19 Alkaline Phosphatase 94 Total Protein 6.6 Albumin 2.9 L Random Vancomycin 26.8 H* 19.4 Hepatitis C Ab (EIA) Reactive H HIV 1&2 Ab/P24 Ag 4thGn Nonreactive Assessment and Plan (1) Myositis: Status: Acute (2) Opioid use disorder: Status: Acute Plan Nakia Martins is a 32 y/o woman admitted with left hip and leg pain associated with fever chills and weakness, patient recently left AMA from [facility] she was treated there for sepsis with evidence of epidural abscess was recommended 4-6 weeks of IV antibiotic have : 1. Severe sepsis secondary to iliopsoas infection with backdrop of IVDA sepsis resolved data from [facility] in [place] reviewed, MRI L-spine showed asymmetric left paraspinal muscle edema findings likely related to infectious myositis and septic arthritis or muscle strain small epidural abscess is suspected on the left posteriorly at L4-L5, neurosurgery at [place] evaluated patient and felt she is not a candidate for surgery. CT of thoracic and lumbar spine at [facility] failed to demonstrate any abscess, Minor inflammation around psoas. MRI lumbar spine at [place] showed no definite epidural abscess, small subcentimeter abscess versus synovial cyst along the dorsal margin of the left L5/S1 facet joint, probable phlegmon effacing the left L5-S1 neural foramen inseparable from the exiting left 5th nerve root. white count normalized, Blood cultures negative times 48h on vancomycin/cefepime started 11/03 HIV nonreactive, hepatitis-C antibody reactive. Echo showed no valvular abnormality -case discussed with ID she recommend 6 weeks of IV ceftriaxone and vancomycin since no specific organism, will DC IV cefepime and place on IV ceftriaxone started 11/06 end date 12/14 Continue IV Dilaudid and oxycodone for pain control, gradually wean IV analgesics. 2. IVDA/polysubstance abuse -methadone as per addiction Medicine and Zanaflex b.i.d. as needed. 3. Status post recent therapeutic at [facility] recommend outpatient follow-up with OBGYN. Disposition patient will need rehab to finish course of IV antibiotics once rehab available will place PICC line. Full Lovenox Will require ongoing hospitalization for IV antibiotics and IV analgesics Quality Stroke Does the patient have a stroke diagnosis?: No VTE Prior VTE?: No VTE Risk Level:: Medical - moderate - high VTE Device Contraindication: Treatment Not Indicated VTE Drug Contraindication: N/A - Med Ordered
[2023-11-08 19:24] VITALS: BP 122/56; PULSE 76; RESP 18; TEMP 36.8; O2SAT 96
[2023-11-08] MEDS: QUEtiapine Fumarate 25 MG TABLET PO (20:40)
[2023-11-08 21:48] LABS: Vancomycin Random 25.7 mcg/mL (15-20)
[2023-11-09] VITALS: BP 105/55; PULSE 68; RESP 20; TEMP 36.1; O2SAT 97
[2023-11-09] MEDS: Acetaminophen 325 MG TABLET 975 MG PO (00:39)
[2023-11-09] MEDS: HYDROmorphone HCl 1 MG/ML SYRINGE IVPUSH ×3 (00:39→09:03)
[2023-11-09] MEDS: oxyCODONE HCl Immed Release 5 MG TABLET 10 MG PO ×5 (00:39→21:03)
[2023-11-09 03:27] VITALS: BP 105/55; PULSE 57; RESP 20; TEMP 36.1; O2SAT 95
[2023-11-09 06:43] LABS: Creatinine Clr Calc Pharmacy 116.3; Estimated Glomerular Filt Rate > 60
[2023-11-09 07:09] VITALS: BP 119/57; PULSE 72; RESP 18; TEMP 36.2; O2SAT 95
[2023-11-09] MEDS: Docusate Sodium 100 MG CAPSULE PO ×2 (07:53→20:32)
[2023-11-09] MEDS: methADONE HCl 20 MG/2 ML ORAL.CONC 50 MG PO (07:53)
[2023-11-09] MEDS: cloNIDine HCL 0.1 MG TABLET PO ×2 (07:53→20:32)
[2023-11-09] MEDS: 0.9 % Sodium Chloride Flush 3 ML SYRINGE IVFLUSH ×3 (07:54→20:32)
--- NOTE | 2023-11-09 09:02 | MHC.RECOVRN ---
Pts referral sent to [facility] in [place].
--- NOTE | 2023-11-09 09:52 | P.PNIM_ITS ---
Subjective Subjective Date of Service: 11/09/23 Interval History: back pain Physical Exam 2 Vital Signs: Vital Signs: Last Vital Signs Temp 97.1 F 11/09/23 07:09 Pulse 72 11/09/23 07:09 Resp 18 11/09/23 07:09 BP 119/57 L 11/09/23 07:09 Pulse Ox 95 11/09/23 07:09 O2 Del Method Room Air 11/09/23 07:09 BMI result Body Mass Index 28.3 Const: Other: General awake alert x3, in no acute distress Anicteric sclera Neck no JVD. CVS regular rate rhythm, Respiratory lungs clear to auscultation, no respiratory distress, no wheeze, no rhonchi. Gastrointestinal abdomen soft, non tender, bowel sounds audible, no guarding , no rigidity. Extremities no edema. Neuro moving all 4 extremity speech clear. Back left lumbar paraspinal tenderness to palpation ,tenderness left groin/no redness, no swelling. Skin no rash Objective Data Active Medications Acetaminophen (Acetaminophen 325 Mg Tablet) 975 mg PO Q6H PRN PRN Reason: Pain, Mild (Pain Scale 1-3), fever or headache Last Admin: 11/09/23 00:39 Dose: 975 mg Documented By: BANG Clonidine HCl (Clonidine Hcl 0.1 Mg Tablet) 0.1 mg PO BID [facility]; Protocol Last Admin: 11/09/23 07:53 Dose: 0.1 mg Documented By: MEIR Docusate Sodium (Docusate Sodium 100 Mg Capsule) 100 mg PO BID [facility] Last Admin: 11/09/23 07:53 Dose: 100 mg Documented By: MEIR Enoxaparin Sodium (Enoxaparin Sodium 40 Mg/0.4 Ml Syringe) 40 mg SUBCUT Q24H [facility] Last Admin: 11/09/23 07:54 Dose: Not Given Documented By: MEIR Non-Admin Reason: Patient Refused Hydromorphone HCl (Hydromorphone Hcl 1 Mg/Ml Syringe) 1 mg IVPUSH Q4H PRN; Protocol PRN Reason: Pain, Severe (Pain Scale 7-10) Last Admin: 11/09/23 09:03 Dose: 1 mg Documented By: MEIR Ceftriaxone Sodium 2 gm/ (Sodium Chloride) 50 mls @ 100 mls/hr IV Q24H [facility] Last Infusion: 11/08/23 16:34 Dose: Infused Documented By: JULIET Vancomycin HCl 1,250 mg/ (Sodium Chloride) 250 mls @ 166.667 mls/hr IV Q8H [facility] Methadone HCl (Methadone Hcl 20 Mg/2 Ml Oral.Conc) 50 mg PO DAILY [facility] Last Admin: 11/09/23 07:53 Dose: 50 mg Documented By: MEIR Ondansetron HCl (Ondansetron Hcl 4 Mg/2 Ml Vial) 4 mg IVPUSH Q4H PRN PRN Reason: Nausea and Vomiting Last Admin: 11/05/23 03:30 Dose: 4 mg Documented By: MANDY Comments: c/o Nausea Oxycodone HCl (Oxycodone Hcl Immed Release 5 Mg Tablet) 10 mg PO Q4H PRN PRN Reason: Pain, Moderate(Pain Scale 4-6) Last Admin: 11/09/23 05:58 Dose: 10 mg Documented By: BANG Pharmacy Consult (Consult Rx Vancomycin Dosing) 1 each MISCELLANE DAILY PRN PRN Reason: Consult order Quetiapine Fumarate (Quetiapine Fumarate 25 Mg Tablet) 25 mg PO BEDTIME PRN PRN Reason: anxiety or insomnia Last Admin: 11/08/23 20:40 Dose: 25 mg Documented By: BANG Sodium Chloride (0.9 % Sodium Chloride Flush 3 Ml Syringe) [facility] Last Admin: 11/09/23 07:54 Dose: 3 ml Documented By: MEIR Tizanidine HCl (Tizanidine Hcl 4 Mg Tablet) 4 mg PO BID PRN PRN Reason: Restlessness Last Admin: 11/08/23 12:38 Dose: 4 mg Documented By: JULIET Labs 11/08/23 06:14 11/09/23 05:53 Labs: Laboratory Results - last 24 hr 11/08/23 11/09/23 21:00 05:53 Hold Purple Top SEE NOTE Estim Creat Clear Calc 116.3 Estimated GFR > 60 Random Vancomycin 25.7 H* Microbiology Microbiology Results: Microbiology 11/03/23 18:00 Blood Culture - Final Blood - Venous No growth after 5 days. 11/03/23 17:39 Blood Culture - Final Blood - Venous No growth after 5 days. Assessment and Plan (1) Myositis: Status: Acute (2) Opioid use disorder: Status: Acute Plan 32F PMH IVDA presented with left hip and leg pain associated with fever chills and weakness, patient recently left AMA from [facility] she was treated there for sepsis with evidence of epidural abscess was recommended 4-6 weeks of IV antibiotic Severe sepsis secondary to iliopsoas infection with backdrop of IVDA sepsis resolved data from [facility] in [place] reviewed, MRI L-spine showed asymmetric left paraspinal muscle edema findings likely related to infectious myositis and septic arthritis or muscle strain small epidural abscess is suspected on the left posteriorly at L4-L5, neurosurgery at [place] evaluated patient and felt she is not a candidate for surgery. CT of thoracic and lumbar spine at [facility] failed to demonstrate any abscess, Minor inflammation around psoas. MRI lumbar spine at [place] showed no definite epidural abscess, small subcentimeter abscess versus synovial cyst along the dorsal margin of the left L5/S1 facet joint, probable phlegmon effacing the left L5-S1 neural foramen inseparable from the exiting left 5th nerve root. white count normalized, Blood cultures negative on vancomycin/cefepime started 11/03 HIV nonreactive, hepatitis-C antibody reactive. Echo showed no valvular abnormality case discussed with ID she recommend 6 weeks of IV ceftriaxone and vancomycin since no specific organism, will DC IV cefepime and place on IV ceftriaxone started 11/06 end date 12/14 Continue IV Dilaudid and oxycodone for pain control, gradually wean IV analgesics. IVDA/polysubstance abuse methadone as per addiction Medicine and Zanaflex b.i.d. as needed. Status post recent therapeutic at [facility] recommend outpatient follow-up with OBGYN. Disposition patient will need rehab to finish course of IV antibiotics once rehab available will place PICC line. Full Lovenox Will require ongoing hospitalization for IV antibiotics and IV analgesics Quality Stroke Does the patient have a stroke diagnosis?: No VTE Prior VTE?: No VTE Risk Level:: Medical - moderate - high VTE Device Contraindication: Treatment Not Indicated VTE Drug Contraindication: N/A - Med Ordered
[2023-11-09 09:53] LABS: Vancomycin Random 8.5 mcg/mL (15-20)
--- NOTE | 2023-11-09 10:02 | HE.PHANOTE ---
Re: Vanco Trough returned at 8.5. Pt has good renal function. Restarting 1250mg q8h, with predicted AUC 574 and predicted trough 15.4. Next trough 11/09 at 0900.
--- NOTE | 2023-11-09 10:58 | MHC.CM.PN ---
[facility] has accepted patient pending Merged with [facility], weaning of IV Dilaudid, PICC on day of dc and bolt man is working on Methadone Guest Dosing. CM will follow.
[2023-11-09 11:28] VITALS: BP 108/56; PULSE 76; RESP 18; TEMP 36.6; O2SAT 95
[2023-11-09] MEDS: vancomycin HCL 1,250 MG in 0.9 % Sodium Chloride 250 ML 166.67 MG IV ×2 (11:52→18:41)
--- NOTE | 2023-11-09 13:30 | MHC.CM.PN ---
Per RN's request, CM met with Patient at bedside. Patient is not pleased with her pain management. CM explained that MD manages meds but from a CM perspective, IV Dilaudid must be weaned before Patient can be dc to [facility]. CM explained the steps that need to take place prior to dc (wean off IV Dilaudid, Methadone Guest Dosing, insurance auth and PICC). Patient says that she is not seeking the IV Dilaudid and should be off it completely by tomorrow. CM will follow.
--- NOTE | 2023-11-09 13:39 | MHC.RECOVRN ---
[facility] has received all requested documentation.
[2023-11-09] MEDS: HYDROmorphone HCl 1 MG/ML SYRINGE 0.5 MG IVPUSH ×3 (14:17→22:56)
[2023-11-09] MEDS: TiZANidine HCL 4 MG TABLET PO (14:35)
[2023-11-09] MEDS: LORazepam 0.5 MG TABLET PO (14:35)
[2023-11-09] MEDS: cefTRIAXone sodium 2 GM in 0.9 % Sodium Chloride 50 ML IV (14:35)
[2023-11-09 15:00] VITALS: BP 105/59; PULSE 79; RESP 20; TEMP 36.6; O2SAT 95
[2023-11-09 20:00] VITALS: BP 123/58; PULSE 74; RESP 20; TEMP 37.4; O2SAT 95
[2023-11-09] MEDS: QUEtiapine Fumarate 25 MG TABLET PO (20:35)
[2023-11-10] VITALS (7 sets, daily range): BP systolic 107–122; BP diastolic 56–70; PULSE 72–87; RESP 16–22; TEMP 35.8–37.3; O2SAT 94–96
[2023-11-10] MEDS: vancomycin HCL 1,250 MG in 0.9 % Sodium Chloride 250 ML 166.67 MG IV (02:28)
[2023-11-10] MEDS: HYDROmorphone HCl 1 MG/ML SYRINGE 0.5 MG IVPUSH (03:46)
--- NOTE | 2023-11-10 07:28 | PC.NURSE ---
on 11/05 around 1800 requested dose of prn morphine, I consulted who authorized prn dose, in error iscanned prn dose and next moring scheduled dose in same administration, only the prn dose of 10 mg was given
[2023-11-10 07:53] LABS: Creatinine Clr Calc Pharmacy 114.7; Estimated Glomerular Filt Rate > 60
[2023-11-10] MEDS: oxyCODONE HCl Immed Release 5 MG TABLET 10 MG PO ×3 (08:42→20:25)
[2023-11-10] MEDS: Acetaminophen 325 MG TABLET 975 MG PO (08:43)
[2023-11-10] MEDS: cloNIDine HCL 0.1 MG TABLET PO ×2 (08:46→20:25)
[2023-11-10] MEDS: Docusate Sodium 100 MG CAPSULE PO (08:46)
[2023-11-10] MEDS: methADONE HCl 20 MG/2 ML ORAL.CONC 50 MG PO (08:46)
[2023-11-10] MEDS: 0.9 % Sodium Chloride Flush 3 ML SYRINGE IVFLUSH ×3 (08:48→20:26)
[2023-11-10] MEDS: LORazepam 0.5 MG TABLET PO ×2 (08:53→17:32)
--- NOTE | 2023-11-10 09:04 | P.PNIM_ITS ---
Subjective Subjective Date of Service: 11/10/23 Interval History: back pain Physical Exam 2 Vital Signs: Vital Signs: Last Vital Signs Temp 97.4 F 11/10/23 07:25 Pulse 79 11/10/23 07:25 Resp 18 11/10/23 07:25 BP 110/61 11/10/23 07:25 Pulse Ox 96 11/10/23 07:25 O2 Del Method Room Air 11/10/23 07:25 BMI result Body Mass Index 28.3 Const: Other: General awake alert x3, in no acute distress Anicteric sclera Neck no JVD. CVS regular rate rhythm, Respiratory lungs clear to auscultation, no respiratory distress, no wheeze, no rhonchi. Gastrointestinal abdomen soft, non tender, bowel sounds audible, no guarding , no rigidity. Extremities no edema. Neuro moving all 4 extremity speech clear. Back left lumbar paraspinal tenderness to palpation ,tenderness left groin/no redness, no swelling. Skin no rash Objective Data Active Medications Acetaminophen (Acetaminophen 325 Mg Tablet) 975 mg PO Q6H PRN PRN Reason: Pain, Mild (Pain Scale 1-3), fever or headache Last Admin: 11/10/23 08:43 Dose: 975 mg Documented By: AUREA Clonidine HCl (Clonidine Hcl 0.1 Mg Tablet) 0.1 mg PO BID [facility]; Protocol Last Admin: 11/10/23 08:46 Dose: 0.1 mg Documented By: AUREA Docusate Sodium (Docusate Sodium 100 Mg Capsule) 100 mg PO BID [facility] Last Admin: 11/10/23 08:46 Dose: 100 mg Documented By: AUREA Enoxaparin Sodium (Enoxaparin Sodium 40 Mg/0.4 Ml Syringe) 40 mg SUBCUT Q24H [facility] Last Admin: 11/10/23 08:48 Dose: Not Given Documented By: AUREA Non-Admin Reason: Patient Refused Ceftriaxone Sodium 2 gm/ (Sodium Chloride) 50 mls @ 100 mls/hr IV Q24H [facility] Last Infusion: 11/09/23 15:24 Dose: Infused Documented By: MEIR Vancomycin HCl 1,250 mg/ (Sodium Chloride) 250 mls @ 166.667 mls/hr IV Q8H [facility] Last Infusion: 11/10/23 04:08 Dose: Infused Documented By: DARRYL Lorazepam (Lorazepam 0.5 Mg Tablet) 0.5 mg PO Q8H PRN PRN Reason: Anxiety Last Admin: 11/10/23 08:53 Dose: 0.5 mg Documented By: AUREA Methadone HCl (Methadone Hcl 20 Mg/2 Ml Oral.Conc) 50 mg PO DAILY [facility] Last Admin: 11/10/23 08:46 Dose: 50 mg Documented By: AUREA Ondansetron HCl (Ondansetron Hcl 4 Mg/2 Ml Vial) 4 mg IVPUSH Q4H PRN PRN Reason: Nausea and Vomiting Last Admin: 11/05/23 03:30 Dose: 4 mg Documented By: MANDY Comments: c/o Nausea Oxycodone HCl (Oxycodone Hcl Immed Release 5 Mg Tablet) 10 mg PO Q4H PRN PRN Reason: Pain, Moderate(Pain Scale 4-6) Last Admin: 11/10/23 08:42 Dose: 10 mg Documented By: AUREA Pharmacy Consult (Consult Rx Vancomycin Dosing) 1 each MISCELLANE DAILY PRN PRN Reason: Consult order Quetiapine Fumarate (Quetiapine Fumarate 25 Mg Tablet) 25 mg PO BEDTIME PRN PRN Reason: anxiety or insomnia Last Admin: 11/09/23 20:35 Dose: 25 mg Documented By: DARRYL Sodium Chloride (0.9 % Sodium Chloride Flush 3 Ml Syringe) [facility] Last Admin: 11/10/23 08:48 Dose: 3 ml Documented By: AUREA Tizanidine HCl (Tizanidine Hcl 4 Mg Tablet) 4 mg PO BID PRN PRN Reason: Restlessness Last Admin: 11/09/23 14:35 Dose: 4 mg Documented By: MEIR Labs 11/08/23 06:14 11/10/23 07:03 Labs: Laboratory Results - last 24 hr 11/09/23 11/10/23 09:08 07:03 Hold Purple Top SEE NOTE Estim Creat Clear Calc 114.7 Estimated GFR > 60 Random Vancomycin 8.5 L Assessment and Plan (1) Myositis: Status: Acute (2) Opioid use disorder: Status: Acute Plan 32F PMH IVDA presented with left hip and leg pain associated with fever chills and weakness, patient recently left AMA from [facility] she was treated there for sepsis with evidence of epidural abscess was recommended 4-6 weeks of IV antibiotic Severe sepsis secondary to iliopsoas infection with backdrop of IVDA sepsis resolved data from [facility] in [place] reviewed, MRI L-spine showed asymmetric left paraspinal muscle edema findings likely related to infectious myositis and septic arthritis or muscle strain small epidural abscess is suspected on the left posteriorly at L4-L5, neurosurgery at [facility] evaluated patient and felt she is not a candidate for surgery. CT of thoracic and lumbar spine at [facility] failed to demonstrate any abscess, Minor inflammation around psoas. MRI lumbar spine at [place] showed no definite epidural abscess, small subcentimeter abscess versus synovial cyst along the dorsal margin of the left L5/S1 facet joint, probable phlegmon effacing the left L5-S1 neural foramen inseparable from the exiting left 5th nerve root. white count normalized, Blood cultures negative on vancomycin/cefepime started 11/03 HIV nonreactive, hepatitis-C antibody reactive. Echo showed no valvular abnormality case discussed with ID she recommend 6 weeks of IV ceftriaxone and vancomycin since no specific organism, will DC IV cefepime and place on IV ceftriaxone started 11/06 end date 12/14 will dc iv dilaudid and uses po pain meds only IVDA/polysubstance abuse methadone as per addiction Medicine and Zanaflex b.i.d. as needed. Status post recent therapeutic at [facility] recommend outpatient follow-up with OBGYN. Disposition patient will need rehab to finish course of IV antibiotics once rehab available will place PICC line. Full Lovenox Will require ongoing hospitalization for IV antibiotics and IV analgesics Quality Stroke Does the patient have a stroke diagnosis?: No VTE Prior VTE?: No VTE Risk Level:: Medical - moderate - high VTE Device Contraindication: Treatment Not Indicated VTE Drug Contraindication: N/A - Med Ordered
[2023-11-10 11:06] LABS: Vancomycin Random 15.4 mcg/mL (15-20)
--- NOTE | 2023-11-10 11:38 | MHC.RECOVRN ---
Confirmed with [facility] pt will start dosing on Tuesday, 11/11. CM aware.
--- NOTE | 2023-11-10 12:49 | MHC.CM.PN ---
Per [facility]/Cele Darden's request (#[phone])KATHRIN has faxed requested information to her at [phone].
[2023-11-10] MEDS: Linezolid/D5W 600 MG/300 ML PIGGYBACK 300 MG IV ×2 (13:28→23:03)
[2023-11-10] MEDS: cefTRIAXone sodium 2 GM in 0.9 % Sodium Chloride 50 ML IV (15:00)
[2023-11-10] MEDS: diphenhydrAMINE HCL 25 MG CAPSULE PO (18:14)
[2023-11-10] MEDS: QUEtiapine Fumarate 25 MG TABLET PO (20:25)
[2023-11-11] VITALS (7 sets, daily range): BP systolic 98–114; BP diastolic 51–65; PULSE 67–75; RESP 18–20; TEMP 36–36.7; O2SAT 94–97
[2023-11-11] MEDS: oxyCODONE HCl Immed Release 5 MG TABLET 10 MG PO ×5 (00:26→20:26)
[2023-11-11] MEDS: 0.9 % Sodium Chloride Flush 3 ML SYRINGE IVFLUSH ×2 (09:15→16:26)
[2023-11-11] MEDS: methADONE HCl 20 MG/2 ML ORAL.CONC 50 MG PO (09:15)
[2023-11-11] MEDS: cloNIDine HCL 0.1 MG TABLET PO ×2 (09:16→20:28)
[2023-11-11] MEDS: Docusate Sodium 100 MG CAPSULE PO (09:16)
[2023-11-11] MEDS: LORazepam 0.5 MG TABLET PO ×2 (09:16→20:26)
--- NOTE | 2023-11-11 10:17 | MHC.CM.PN ---
Per [facility] discussion, Patient is medically cleared for dc to SNF for IV ABT today at 2PM, via [facility].
--- NOTE | 2023-11-11 10:23 | P.DS_ITS ---
DS: Providers Provider Date of Service: 11/14/23 Date of admission: 11/04/23 01:19 Primary care physician: None Physician Consults: 11/04/23 09:04 Addiction Medicine Routine Consulting Provider: Yuli Alvarez Reason for consultation: IV drug use: Cocaine, fentanyl Has provider been notified: No 11/07/23 08:15 Consult to Infectious Diseases Routine Consulting Provider: [facility] Reason for consultation: ileopsoas infection/abscess Has provider been notified: No DS: Diagnosis Discharge Diagnosis (1) Myositis: Status: Acute (2) Opioid use disorder: Status: Acute DS: Summary Hospital Course Hospital Course: from initial hpi: 32 years old woman with past medical history significant for IV drug use (cocaine tampered with Fentanyl according to the patient) presents to the emergency department complaining of worsening left hip and leg pain associated with generalized weakness, fever and chills. The patient reports difficulty with ambulation due to pain and left lower extremity weakness. The patient stated that about 2 weeks ago she was hospitalized at [facility] to treat some sort of infection in her spine that was diagnosed with an MRI. She is unclear about what kind of infection. She also said that she was recommended to get a PICC line and get a course of antibiotics for 6 weeks. In order to do this she had to be discharged to a nursing facility as she is homeless. She refused IV antibiotic therapy for 6 weeks and was sent home (she denied leaving AMA) on her antibiotics which she has not gotten from the pharmacy (she said that the pharmacy did not have the antibiotics). She continues to use IV drugs -last use was yesterday. She also smokes marijuana and tobacco. In the ED, she was found to have marked fever (max 104.3), tachycardia and tachypnea. There is no hypotension and O2 sats are normal on room air. Blood workup is remarkable for leukocytosis of 16.9, hemoglobin 11.3 and platelets 245. There is lactic acidosis of 2.1 (normalized, 0.7). CXR is 12.06. test is negative. There are no significant electrolyte imbalances. Renal function is normal. LFTs are normal. Urinalysis not consistent with UTI. Urine drug screen is positive for opiates, fentanyl, cocaine and marijuana. Viral testing for RSV, COVID-19 and influenza is negative. She underwent thoracic, lumbar, left hip CT scans that showed edema and probable small volume of fluid around the left iliopsoas muscle extending down into the pelvis without abscesses. CXR showed increased bilateral perihilar opacities. ED tx: Zosyn 3.375 g IV, vancomycin 2 g IV, ibuprofen 600 mg p.o., acetaminophen 975 mg, Dilaudid 3 mg IV (total), NS 2,343 ml bolus. hospital course: Patient was admitted for severe sepsis secondary to iliopsoas infection with bacteria up of IV drug abuse with opiates. Was treated with vancomycin ceftriaxone and sepsis resolved. Blood cultures were negative. Was seen by infectious disease recommended 6 weeks of vancomycin ceftriaxone to be completed December 14. MRI of the lumbar spine showed no definitive epidural abscess, did show small subcentimeter abscess versus synovial cyst along the dorsal margin of the left L5/S1 facet joint, probable phlegmon effacing the left L5 and S1 neural foramen. Patient's PICC line patient will complete antibiotics at group home. Vanc trough should be monitored closely as well as BNP. For polysubstance dependence was seen by Addiction team and started on methadone. Patient is medically stable be discharged to snf facility. Expected require less than 30 days Time Attestation Discharge Coordination Time (in mins): 33 Quality: Safe Use of Opioids Does Pt have an Active Cancer Diagnosis on the Problem List?: No Quality: Stroke Does the patient have a stroke diagnosis?: No Physical Exam Vital Signs: Vital Signs: Last Vital Signs Temp 97.9 F 11/11/23 07:18 Pulse 67 11/11/23 07:18 Resp 18 11/11/23 07:18 BP 98/55 L 11/11/23 07:18 Pulse Ox 94 11/11/23 07:18 O2 Del Method Room Air 11/11/23 07:18 BMI result Body Mass Index 28.3 Const: Other: General awake alert x3, in no acute distress Anicteric sclera Neck no JVD. CVS regular rate rhythm, Respiratory lungs clear to auscultation, no respiratory distress, no wheeze, no rhonchi. Gastrointestinal abdomen soft, non tender, bowel sounds audible, no guarding , no rigidity. Extremities no edema. Neuro moving all 4 extremity speech clear. Back left lumbar paraspinal tenderness to palpation ,tenderness left groin/no redness, no swelling. Skin no rash DS: Data Data Completed and Pending Labs on day of discharge: Laboratory Results - last 24 hr 11/10/23 10:46 Random Vancomycin 15.4 Discharge Plan Discharge Anticipated Discharge Date/Time: 11/14/23 08:43 Patient Disposition: Xfer SNF Discharge Diagnosis: ivda, sepsis [facility]errals: [facility] [Outside] - 1 Week Brigid Daily MD [Physician] - 6 Weeks Physician,None [Primary Care Provider] - 1 Week Discharge Medications: New quetiapine 25 mg Tablet 25 mg PO BEDTIME PRN (Reason: anxiety or insomnia) Qty: 0 0RF clonidine HCl 0.1 mg Tablet 0.1 mg PO BID Qty: 0 0RF Protocol: Hold for SBP< HOLD for SBP < : 90 acetaminophen 325 mg Tablet 975 mg PO Q6H PRN (Reason: Pain, Mild (Pain Scale 1-3), fever or headache) Qty: 0 0RF tizanidine 4 mg Tablet 4 mg PO BID PRN (Reason: Restlessness) Qty: 0 0RF lorazepam 0.5 mg Tablet 0.5 mg PO Q8H PRN (Reason: Anxiety) Qty: 0 0RF diphenhydramine HCl [Banophen] 25 mg Capsule 25 mg PO Q6H PRN (Reason: pruritis) Qty: 0 0RF docusate sodium 100 mg Capsule 100 mg PO BID Qty: 0 0RF methadone [Methadose] 10 mg/mL Concentrate 50 mg PO DAILY Qty: 0 0RF Rx Instructions: Partial Fill upon patient request. ceftriaxone 2 gram Recon Soln 2 g IV Q24H Qty: 0 0RF oxycodone 5 mg Tablet 10 mg PO Q4H PRN (Reason: severe pain) Qty: 0 0RF Rx Instructions: Partial Fill upon patient request. vancomycin 1.25 gram recon soln 1.25 g IV Q12H 42 Days Continued gabapentin 300 mg Capsule 300 mg PO TID Diet: Advance to usual diet Activity on Discharge: As tolerated Stand Alone Forms: Patient Portal Discharge page Print Language: Bengali Care Plan Goals: recovery Health Concerns: ivda, sepsis Plan of Treatment: 6 weeks vanco and ceftriaxone monitor troughs and bmp closely and ajdust dosing accordingly follow up with ID Assessment: see above
[2023-11-11] MEDS: Linezolid/D5W 600 MG/300 ML PIGGYBACK 300 MG IV (11:00)
--- NOTE | 2023-11-11 11:49 | MHC.CM.PN ---
Per Attending MD, who spoke with Psychiatrist, Patient is medically cleared for return [facility], pending bed availability. CM will follow.
--- NOTE | 2023-11-11 12:01 | P.PICC_ITS ---
PICC Line Insertion NPICC Diagnosis: ileposoas abscess Indication: group home antibiotics Pertinent Labs: Reviewed Technique: Following informed consent including risks, benefits and alternatives and using sterile technique including cap and mask, sterile gown, glove and drape, the right arm was prepped and draped in the usual sterile fashion of full barrier technique with CHG. Following completion of Starke Protocol the skin and soft tissues were anesthetized with 1% Lidocaine plain. Using ultrasound guidance, the right bvasilic vein access was obtained in a second attempt by this RN. Over an 0.018 wire through peel-away sheath, a 4 kazakh single lumen PASV PICC line was positioned. Catheter length is 40 cm internal length, the external length is at the 0 cm kristine, for a total trimmed length of 40 cm. The procedure was performed in S272. Tip verification was performed by Otilio Kim with Sherlock 3CG. Tip located in SVC. Ultrasound was used to document vein patency and for needle entry. A formal ultrasound picture and cardiac rhythm strip was recorded. [employer] Sales Representative has released the line for use and it is currently dressed with a StatLock, Tegaderm, and CHG disc. Verification has been performed for blood return and line patency. Arm Circumference: 28 cm Equipment: [employer] Solo Ctheter with Sherlock 3CG Tip Catheter Type: 4 kazakh single lumen PASV PICC Lot #: [id number]
--- NOTE | 2023-11-11 12:24 | MHC.CM.PN ---
CM just received word from [facility] that Patient's insurance is now showing up in the system as, inactive. [facility] [place] [employer] will be meeting with Patient TAMI. has been made aware and CM will follow.
--- NOTE | 2023-11-11 12:31 | HO.PM.IMPN ---
Subjective Subjective Date of Service: 11/11/23 Interval History: back pain Physical Exam Vital Signs: Vital Signs: Last Vital Signs Temp 96.8 F 11/11/23 11:23 Pulse 69 11/11/23 11:23 Resp 18 11/11/23 11:23 BP 105/60 11/11/23 11:23 Pulse Ox 94 11/11/23 11:23 O2 Del Method Room Air 11/11/23 11:23 BMI result Body Mass Index 28.3 Const: Other: General awake alert x3, in no acute distress Anicteric sclera Neck no JVD. CVS regular rate rhythm, Respiratory lungs clear to auscultation, no respiratory distress, no wheeze, no rhonchi. Gastrointestinal abdomen soft, non tender, bowel sounds audible, no guarding , no rigidity. Extremities no edema. Neuro moving all 4 extremity speech clear. Back left lumbar paraspinal tenderness to palpation ,tenderness left groin/no redness, no swelling. Skin no rash Objective Data Active Medications Acetaminophen (Acetaminophen 325 Mg Tablet) 975 mg PO Q6H PRN PRN Reason: Pain, Mild (Pain Scale 1-3), fever or headache Last Admin: 11/10/23 08:43 Dose: 975 mg Documented By: AUREA Clonidine HCl (Clonidine Hcl 0.1 Mg Tablet) 0.1 mg PO BID [facility]; Protocol Last Admin: 11/11/23 09:16 Dose: 0.1 mg Documented By: AUREA Diphenhydramine HCl (Diphenhydramine Hcl 25 Mg Capsule) 25 mg PO Q6H PRN PRN Reason: pruritis Last Admin: 11/10/23 18:14 Dose: 25 mg Documented By: AUREA Docusate Sodium (Docusate Sodium 100 Mg Capsule) 100 mg PO BID [facility] Last Admin: 11/11/23 09:16 Dose: 100 mg Documented By: AUREA Enoxaparin Sodium (Enoxaparin Sodium 40 Mg/0.4 Ml Syringe) 40 mg SUBCUT Q24H [facility] Last Admin: 11/11/23 09:45 Dose: Not Given Documented By: AUREA Non-Admin Reason: Patient Refused Ceftriaxone Sodium 2 gm/ (Sodium Chloride) 50 mls @ 100 mls/hr IV Q24H [facility] Last Infusion: 11/10/23 17:39 Dose: Infused Documented By: AUREA Linezolid (Zyvox/D5w) 600 mg in 300 mls @ 300 mls/hr IV Q12H [facility] Last Admin: 11/11/23 11:00 Dose: 300 mls/hr Documented By: AUREA Lorazepam (Lorazepam 0.5 Mg Tablet) 0.5 mg PO Q8H PRN PRN Reason: Anxiety Last Admin: 11/11/23 09:16 Dose: 0.5 mg Documented By: AUREA Methadone HCl (Methadone Hcl 20 Mg/2 Ml Oral.Conc) 50 mg PO DAILY [facility] Last Admin: 11/11/23 09:15 Dose: 50 mg Documented By: AUREA Ondansetron HCl (Ondansetron Hcl 4 Mg/2 Ml Vial) 4 mg IVPUSH Q4H PRN PRN Reason: Nausea and Vomiting Last Admin: 11/05/23 03:30 Dose: 4 mg Documented By: MANDY Comments: c/o Nausea Oxycodone HCl (Oxycodone Hcl Immed Release 5 Mg Tablet) 10 mg PO Q4H PRN PRN Reason: severe pain Last Admin: 11/11/23 10:59 Dose: 10 mg Documented By: AUREA Quetiapine Fumarate (Quetiapine Fumarate 25 Mg Tablet) 25 mg PO BEDTIME PRN PRN Reason: anxiety or insomnia Last Admin: 11/10/23 20:25 Dose: 25 mg Documented By: DARRYL Sodium Chloride (0.9 % Sodium Chloride Flush 3 Ml Syringe) 3 ml IVFLUSH QSHIFT [facility] Last Admin: 11/11/23 09:15 Dose: 3 ml Documented By: AUREA Sodium Chloride (0.9 % Sodium Chloride Flush 10 Ml Syringe) 5 ml IVFLUSH TID [facility] Tizanidine HCl (Tizanidine Hcl 4 Mg Tablet) 4 mg PO BID PRN PRN Reason: Restlessness Last Admin: 11/09/23 14:35 Dose: 4 mg Documented By: MEIR Labs 11/08/23 06:14 11/10/23 07:03 Assessment and Plan (1) Myositis: Status: Acute (2) Opioid use disorder: Status: Acute Plan 32F PMH IVDA presented with left hip and leg pain associated with fever chills and weakness, patient recently left AMA from [facility] she was treated there for sepsis with evidence of epidural abscess was recommended 4-6 weeks of IV antibiotic Severe sepsis secondary to iliopsoas infection with backdrop of IVDA sepsis resolved data from [facility] in [place] reviewed, MRI L-spine showed asymmetric left paraspinal muscle edema findings likely related to infectious myositis and septic arthritis or muscle strain small epidural abscess is suspected on the left posteriorly at L4-L5, neurosurgery at [place] evaluated patient and felt she is not a candidate for surgery. CT of thoracic and lumbar spine at [facility] failed to demonstrate any abscess, Minor inflammation around psoas. MRI lumbar spine at [place] showed no definite epidural abscess, small subcentimeter abscess versus synovial cyst along the dorsal margin of the left L5/S1 facet joint, probable phlegmon effacing the left L5-S1 neural foramen inseparable from the exiting left 5th nerve root. white count normalized, Blood cultures negative on vancomycin/cefepime started 11/03 HIV nonreactive, hepatitis-C antibody reactive. Echo showed no valvular abnormality case discussed with ID she recommend 6 weeks of IV ceftriaxone and vancomycin since no specific organism, (using zyvox here because difficulty with troughs) now on po pain meds only IVDA/polysubstance abuse methadone as per addiction Medicine and Zanaflex b.i.d. as needed. Status post recent therapeutic at [facility] recommend outpatient follow-up with OBGYN. Disposition patient will need rehab to finish course of IV antibiotics once rehab available will place PICC line. Full Lovenox Will require ongoing hospitalization for IV antibiotics and IV analgesics Quality Stroke Does the patient have a stroke diagnosis?: No VTE Prior VTE?: No VTE Risk Level:: Medical - moderate - high VTE Device Contraindication: Treatment Not Indicated VTE Drug Contraindication: N/A - Med Ordered
--- NOTE | 2023-11-11 14:15 | MHC.RECOVRN ---
Met with pt in 459 after pts request to meet with recovery prior to dc. Pt reports at 2-3PM she begins to feel withdrawal symptoms including restless legs and diaphoresis. Pt requesting methadone dose increase. Denies other questions or concers. Shanon Angel APRN, aware.
--- NOTE | 2023-11-11 14:25 | MHC.CM.PN ---
Per [facility] [employer], Patient's FLAQUITO is definitely termed. Patient is not showing up in our online portal so all documents were faxed to [employer]. Patient is expected to remain at [facility] at least through the weekend. RN CM/Management, title assistant all made aware and transport has been cancelled.
[2023-11-11] MEDS: cefTRIAXone sodium 2 GM in 0.9 % Sodium Chloride 50 ML IV (14:49)
[2023-11-11] MEDS: methADONE HCl 20 MG/2 ML ORAL.CONC 10 MG PO (15:44)
[2023-11-11] MEDS: 0.9 % Sodium Chloride Flush 10 ML SYRINGE 5 ML IVFLUSH (16:26)
[2023-11-11] MEDS: QUEtiapine Fumarate 25 MG TABLET PO (20:26)
[2023-11-12] VITALS (9 sets, daily range): BP systolic 100–114; BP diastolic 50–61; PULSE 62–68; RESP 14–20; TEMP 36.2–36.9; O2SAT 96–97
[2023-11-12] MEDS: oxyCODONE HCl Immed Release 5 MG TABLET 10 MG PO ×4 (00:42→23:22)
[2023-11-12] MEDS: Linezolid/D5W 600 MG/300 ML PIGGYBACK 300 MG IV ×3 (00:43→23:15)
[2023-11-12] MEDS: Nystatin Cream 15 GM TUBE 1 APPL TOPICAL ×4 (00:44→20:06)
[2023-11-12] MEDS: 0.9 % Sodium Chloride Flush 10 ML SYRINGE 5 ML IVFLUSH ×2 (01:07→23:25)
--- NOTE | 2023-11-12 08:58 | HO.PM.IMPN ---
Subjective Subjective Date of Service: 11/12/23 Interval History: back pain Physical Exam Vital Signs: Vital Signs: Last Vital Signs Temp 98.4 F 11/12/23 07:50 Pulse 63 11/12/23 07:50 Resp 18 11/12/23 07:50 BP 83/46 L 11/12/23 07:50 Pulse Ox 96 11/12/23 07:50 O2 Del Method Room Air 11/12/23 07:50 BMI result Body Mass Index 28.3 Const: Other: General awake alert x3, in no acute distress Anicteric sclera Neck no JVD. CVS regular rate rhythm, Respiratory lungs clear to auscultation, no respiratory distress, no wheeze, no rhonchi. Gastrointestinal abdomen soft, non tender, bowel sounds audible, no guarding , no rigidity. Extremities no edema. Neuro moving all 4 extremity speech clear. Back left lumbar paraspinal tenderness to palpation ,tenderness left groin/no redness, no swelling. Skin no rash Objective Data Active Medications Acetaminophen (Acetaminophen 325 Mg Tablet) 975 mg PO Q6H PRN PRN Reason: Pain, Mild (Pain Scale 1-3), fever or headache Last Admin: 11/10/23 08:43 Dose: 975 mg Documented By: AUREA Clonidine HCl (Clonidine Hcl 0.1 Mg Tablet) 0.1 mg PO BID [facility]; Protocol Last Admin: 11/11/23 20:28 Dose: 0.1 mg Documented By: JOSE Diphenhydramine HCl (Diphenhydramine Hcl 25 Mg Capsule) 25 mg PO Q6H PRN PRN Reason: pruritis Last Admin: 11/10/23 18:14 Dose: 25 mg Documented By: AUREA Docusate Sodium (Docusate Sodium 100 Mg Capsule) 100 mg PO BID [facility] Last Admin: 11/11/23 23:34 Dose: Not Given Documented By: JOSE Non-Admin Reason: Patient Refused Enoxaparin Sodium (Enoxaparin Sodium 40 Mg/0.4 Ml Syringe) 40 mg SUBCUT Q24H [facility] Last Admin: 11/11/23 09:45 Dose: Not Given Documented By: AUREA Non-Admin Reason: Patient Refused Ceftriaxone Sodium 2 gm/ (Sodium Chloride) 50 mls @ 100 mls/hr IV Q24H [facility] Last Infusion: 11/11/23 15:47 Dose: Infused Documented By: AUREA Linezolid (Zyvox/D5w) 600 mg in 300 mls @ 300 mls/hr IV Q12H [facility] Last Infusion: 11/12/23 01:43 Dose: Infused Documented By: ANA MARIA Lorazepam (Lorazepam 0.5 Mg Tablet) 0.5 mg PO Q8H PRN PRN Reason: Anxiety Last Admin: 11/11/23 20:26 Dose: 0.5 mg Documented By: JOSE Methadone HCl (Methadone Hcl 20 Mg/2 Ml Oral.Conc) 60 mg PO DAILY [facility] Nystatin (Nystatin Cream 15 Gm Tube) 1 appl TOPICAL BID [facility]; Protocol Last Admin: 11/12/23 00:44 Dose: 1 appl Documented By: ANA MARIA Ondansetron HCl (Ondansetron Hcl 4 Mg/2 Ml Vial) 4 mg IVPUSH Q4H PRN PRN Reason: Nausea and Vomiting Last Admin: 11/05/23 03:30 Dose: 4 mg Documented By: MANDY Comments: c/o Nausea Oxycodone HCl (Oxycodone Hcl Immed Release 5 Mg Tablet) 10 mg PO Q4H PRN PRN Reason: severe pain Last Admin: 11/12/23 00:42 Dose: 10 mg Documented By: ANA MARIA Quetiapine Fumarate (Quetiapine Fumarate 25 Mg Tablet) 25 mg PO BEDTIME PRN PRN Reason: anxiety or insomnia Last Admin: 11/11/23 20:26 Dose: 25 mg Documented By: JOSE Sodium Chloride (0.9 % Sodium Chloride Flush 3 Ml Syringe) 3 ml IVFLUSH QSHIFT [facility] Last Admin: 11/12/23 01:41 Dose: Not Given Documented By: JOSE Non-Admin Reason: PICC line present Sodium Chloride (0.9 % Sodium Chloride Flush 10 Ml Syringe) 5 ml IVFLUSH TID [facility] Last Admin: 11/12/23 01:07 Dose: 5 ml Documented By: ANA MARIA Tizanidine HCl (Tizanidine Hcl 4 Mg Tablet) 4 mg PO BID PRN PRN Reason: Restlessness Last Admin: 11/09/23 14:35 Dose: 4 mg Documented By: MEIR Labs 11/08/23 06:14 11/10/23 07:03 Assessment and Plan (1) Myositis: Status: Acute (2) Opioid use disorder: Status: Acute Plan 32F PMH IVDA presented with left hip and leg pain associated with fever chills and weakness, patient recently left AMA from [facility] she was treated there for sepsis with evidence of epidural abscess was recommended 4-6 weeks of IV antibiotic Severe sepsis secondary to iliopsoas infection with backdrop of IVDA sepsis resolved data from [facility] in [place] reviewed, MRI L-spine showed asymmetric left paraspinal muscle edema findings likely related to infectious myositis and septic arthritis or muscle strain small epidural abscess is suspected on the left posteriorly at L4-L5, neurosurgery at [place] evaluated patient and felt she is not a candidate for surgery. CT of thoracic and lumbar spine at [facility] failed to demonstrate any abscess, Minor inflammation around psoas. MRI lumbar spine at [place] showed no definite epidural abscess, small subcentimeter abscess versus synovial cyst along the dorsal margin of the left L5/S1 facet joint, probable phlegmon effacing the left L5-S1 neural foramen inseparable from the exiting left 5th nerve root. white count normalized, Blood cultures negative on vancomycin/cefepime started 11/03 HIV nonreactive, hepatitis-C antibody reactive. Echo showed no valvular abnormality case discussed with ID she recommend 6 weeks of IV ceftriaxone and vancomycin since no specific organism, (using zyvox here because difficulty with troughs) now on po pain meds only IVDA/polysubstance abuse methadone as per addiction Medicine and Zanaflex b.i.d. as needed. Status post recent therapeutic at [facility] recommend outpatient follow-up with OBGYN. Disposition patient will need rehab to finish course of IV antibiotics once rehab available will place PICC line. Full Lovenox reason for continued hospitalization:awaiting auth Quality Stroke Does the patient have a stroke diagnosis?: No VTE Prior VTE?: No VTE Risk Level:: Medical - moderate - high VTE Device Contraindication: Treatment Not Indicated VTE Drug Contraindication: N/A - Med Ordered
[2023-11-12] MEDS: methADONE HCl 20 MG/2 ML ORAL.CONC 60 MG PO (09:20)
[2023-11-12] MEDS: Docusate Sodium 100 MG CAPSULE PO ×2 (09:21→20:06)
[2023-11-12] MEDS: cloNIDine HCL 0.1 MG TABLET PO ×2 (09:21→20:07)
[2023-11-12] MEDS: LORazepam 0.5 MG TABLET PO (11:44)
[2023-11-12] MEDS: diphenhydrAMINE HCL 25 MG CAPSULE PO (15:00)
[2023-11-12] MEDS: cefTRIAXone sodium 2 GM in 0.9 % Sodium Chloride 50 ML IV (15:02)
[2023-11-12] MEDS: TiZANidine HCL 4 MG TABLET PO ×2 (15:22→23:13)
--- NOTE | 2023-11-12 15:37 | HO.ADDICTPRO ---
Subjective Subjective Date of Service: 11/12/23 Reason For Visit: severe sepsis Interim History: Patient seen in follow up Was scheduled to discharge yeserday afternoon to SNF, however postpoed to Tuesday. Yesterday afternoon, RN messaged stating patient was requesting increase in methadone dose prior to discharge. She reported that she felt her dose was wearing off around 3pm. Dose increased 10mg to 60mg daily. Seen this morning in follow up. Awake alert laying in bed. Does not know if dose increase was helpful as she feels good until the afternoon. Discussed sx, reporting restless legs as main sx. Has been sweating throughout the day. Inquired about use of PRN tizanidine, she states that she forgets to ask for it. Review of Systems Constitutional: Reports as per HPI Mental Status Exam Mental Status Exam Patient Appearance: Appropriate Level of Consciousness: Awake and Alert Patient Behavior: Appropriate and Cooperative Diagnostics Vital Signs (24Hr): Vital Signs - 24 hr 11/11/23 15:43 11/11/23 19:12 11/11/23 20:28 Temperature 97.4 F 98.1 F Pulse Rate 74 75 Respiratory Rate 18 20 Blood Pressure 101/56 L 108/59 L 114/65 Pulse Oximetry 96 97 Oxygen Delivery Method Room Air Room Air 11/11/23 23:35 11/12/23 03:44 11/12/23 07:50 Temperature 97.6 F 97.5 F 98.4 F Pulse Rate 72 62 63 Respiratory Rate 20 20 18 Blood Pressure 100/51 L 100/55 L 110/52 L Pulse Oximetry 96 96 96 Oxygen Delivery Method Room Air Room Air Room Air 11/12/23 09:21 11/12/23 10:26 11/12/23 11:52 Temperature 97.2 F Pulse Rate 66 Respiratory Rate 14 20 Blood Pressure 110/52 L 114/61 Pulse Oximetry 97 Oxygen Delivery Method Room Air BMI result Body Mass Index 28.3 Labs 11/08/23 06:14 11/10/23 07:03 Imaging Radiology Impressions: ITS Impressions Chest X-Ray 11/03/23 18:45 IMPRESSION: Increased bilateral perihilar opacities. Hip CT 11/03/23 20:39 IMPRESSION: Edema around the iliacus muscle . No defined fluid collection or abscess. Targeted ultrasound could be helpful for follow-up. Lumbar Spine CT 11/03/23 20:39 IMPRESSION: No abscess. There is edema and probable small volume of fluid around the left iliopsoas muscle extending down into the pelvis. Thoracic Spine CT 11/03/23 20:39 IMPRESSION: No abscess. There is edema and probable small volume of fluid around the left iliopsoas muscle extending down into the pelvis. Lumbar Spine MRI 11/05/23 12:20 FINDINGS/IMPRESSION: * Nondiagnostic MRI of the lumbar spine. The patient could not tolerate this study and no postcontrast imaging or axial imaging was obtained. 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 Probable phlegmon effacing the left L5-S1 neural foramen inseparable from the exiting left L5 nerve root. No definite epidural abscess is appreciated and there is nondiagnostic assessment for epidural phlegmon given the lack of axial imaging and postcontrast imaging. There are a few small subcentimeter abscesses versus synovial cysts along the dorsal margin of the left L5-S1 facet joint and to a lesser extent the left L4-L5 facet joint. * At L5-S1, there is a broad-based central disc protrusion eccentric to the right side that likely results in mild mass effect on the traversing right S1 nerve root within the right subarticular zone. Medications Medications Current Medications Acetaminophen (Acetaminophen 325 Mg Tablet) 975 mg PO Q6H PRN PRN Reason: Pain, Mild (Pain Scale 1-3), fever or headache Last Admin: 11/10/23 08:43 Dose: 975 mg Clonidine HCl (Clonidine Hcl 0.1 Mg Tablet) 0.1 mg PO BID [facility]; Protocol Last Admin: 11/12/23 09:21 Dose: 0.1 mg Diphenhydramine HCl (Diphenhydramine Hcl 25 Mg Capsule) 25 mg PO Q6H PRN PRN Reason: pruritis Last Admin: 11/12/23 15:00 Dose: 25 mg Docusate Sodium (Docusate Sodium 100 Mg Capsule) 100 mg PO BID [facility] Last Admin: 11/12/23 09:21 Dose: 100 mg Enoxaparin Sodium (Enoxaparin Sodium 40 Mg/0.4 Ml Syringe) 40 mg SUBCUT Q24H [facility] Last Admin: 11/12/23 09:21 Dose: Not Given Ceftriaxone Sodium 2 gm/ (Sodium Chloride) 50 mls @ 100 mls/hr IV Q24H [facility] Last Infusion: 11/12/23 15:36 Dose: Infused Linezolid (Zyvox/D5w) 600 mg in 300 mls @ 300 mls/hr IV Q12H [facility] Last Infusion: 11/12/23 15:35 Dose: Infused Lorazepam (Lorazepam 0.5 Mg Tablet) 0.5 mg PO Q8H PRN PRN Reason: Anxiety Last Admin: 11/12/23 11:44 Dose: 0.5 mg Methadone HCl (Methadone Hcl 20 Mg/2 Ml Oral.Conc) 60 mg PO DAILY [facility] Last Admin: 11/12/23 09:20 Dose: 60 mg Nystatin (Nystatin Cream 15 Gm Tube) 1 appl TOPICAL BID [facility]; Protocol Last Admin: 11/12/23 12:09 Dose: 1 appl Ondansetron HCl (Ondansetron Hcl 4 Mg/2 Ml Vial) 4 mg IVPUSH Q4H PRN PRN Reason: Nausea and Vomiting Last Admin: 11/05/23 03:30 Dose: 4 mg Oxycodone HCl (Oxycodone Hcl Immed Release 5 Mg Tablet) 10 mg PO Q4H PRN PRN Reason: severe pain Last Admin: 11/12/23 14:21 Dose: 10 mg Quetiapine Fumarate (Quetiapine Fumarate 25 Mg Tablet) 25 mg PO BEDTIME PRN PRN Reason: anxiety or insomnia Last Admin: 11/11/23 20:26 Dose: 25 mg Sodium Chloride (0.9 % Sodium Chloride Flush 3 Ml Syringe) 3 ml IVFLUSH QSHIFT [facility] Last Admin: 11/12/23 09:31 Dose: Not Given Sodium Chloride (0.9 % Sodium Chloride Flush 10 Ml Syringe) 5 ml IVFLUSH TID [facility] Last Admin: 11/12/23 10:26 Dose: Not Given Tizanidine HCl (Tizanidine Hcl 4 Mg Tablet) 4 mg PO BID@1500,2000 [facility] Last Admin: 11/12/23 15:22 Dose: 4 mg Allergies Allergies Allergy/AdvReac Type Severity Reaction Status Date / Time penicillin V [PENICILLIN V] Allergy Unknown HIVES Verified 11/03/23 16:58 Penicillins [PENICILLINS] Allergy Unknown HIVES Verified 11/03/23 16:58 penicilin Allergy Unknown Difficulty Uncoded 11/03/23 16:58 Breathing Assessment & Plan Assessment & Plan (1) Opioid use disorder: Status: Acute Code(s): F11.90 - Opioid use, unspecified, uncomplicated Assessment and Plan: agreeable to trialling tizanidine scheduled at the time of this note, patient was asking for additional dose increase dose increased in AM to 70mg daily Total time managing care of this patient today _20___ minutes.
[2023-11-12] MEDS: methADONE HCl 20 MG/2 ML ORAL.CONC 10 MG PO (20:06)
[2023-11-12] MEDS: QUEtiapine Fumarate 25 MG TABLET PO (20:10)
[2023-11-12] MEDS: 0.9 % Sodium Chloride Flush 3 ML SYRINGE IVFLUSH (23:15)
[2023-11-13 04:00] VITALS: BP 94/50; PULSE 56; RESP 18; TEMP 36.3; O2SAT 96
[2023-11-13 07:22] VITALS: BP 101/52; PULSE 58; RESP 20; TEMP 36.7; O2SAT 94
[2023-11-13] MEDS: oxyCODONE HCl Immed Release 5 MG TABLET 10 MG PO ×3 (08:17→19:53)
[2023-11-13] MEDS: methADONE HCl 20 MG/2 ML ORAL.CONC 70 MG PO (08:18)
[2023-11-13] MEDS: Docusate Sodium 100 MG CAPSULE PO (08:18)
--- NOTE | 2023-11-13 08:39 | P.PNIM_ITS ---
Subjective Subjective Date of Service: 11/13/23 Interval History: back pain Physical Exam 2 Vital Signs: Vital Signs: Last Vital Signs Temp 98.1 F 11/13/23 07:22 Pulse 58 11/13/23 07:22 Resp 20 11/13/23 07:22 BP 101/52 L 11/13/23 07:22 Pulse Ox 94 11/13/23 07:22 O2 Del Method Room Air 11/13/23 07:22 BMI result Body Mass Index 28.3 Const: Other: General awake alert x3, in no acute distress Anicteric sclera Neck no JVD. CVS regular rate rhythm, Respiratory lungs clear to auscultation, no respiratory distress, no wheeze, no rhonchi. Gastrointestinal abdomen soft, non tender, bowel sounds audible, no guarding , no rigidity. Extremities no edema. Neuro moving all 4 extremity speech clear. Back left lumbar paraspinal tenderness to palpation ,tenderness left groin/no redness, no swelling. Skin no rash Objective Data Active Medications Acetaminophen (Acetaminophen 325 Mg Tablet) 975 mg PO Q6H PRN PRN Reason: Pain, Mild (Pain Scale 1-3), fever or headache Last Admin: 11/10/23 08:43 Dose: 975 mg Documented By: AUREA Clonidine HCl (Clonidine Hcl 0.1 Mg Tablet) 0.1 mg PO BID [facility]; Protocol Last Admin: 11/13/23 08:13 Dose: Not Given Documented By: DENIS Non-Admin Reason: Physician Held Med Diphenhydramine HCl (Diphenhydramine Hcl 25 Mg Capsule) 25 mg PO Q6H PRN PRN Reason: pruritis Last Admin: 11/12/23 15:00 Dose: 25 mg Documented By: NICK Docusate Sodium (Docusate Sodium 100 Mg Capsule) 100 mg PO BID [facility] Last Admin: 11/12/23 20:06 Dose: 100 mg Documented By: MAURICIO Enoxaparin Sodium (Enoxaparin Sodium 40 Mg/0.4 Ml Syringe) 40 mg SUBCUT Q24H [facility] Last Admin: 11/12/23 09:21 Dose: Not Given Documented By: DENIS Non-Admin Reason: Patient Refused Ceftriaxone Sodium 2 gm/ (Sodium Chloride) 50 mls @ 100 mls/hr IV Q24H [facility] Last Infusion: 11/12/23 15:36 Dose: Infused Documented By: DENIS Linezolid (Zyvox/D5w) 600 mg in 300 mls @ 300 mls/hr IV Q12H [facility] Last Infusion: 11/13/23 01:43 Dose: Infused Documented By: MAURICIO Lorazepam (Lorazepam 0.5 Mg Tablet) 0.5 mg PO Q8H PRN PRN Reason: Anxiety Last Admin: 11/12/23 11:44 Dose: 0.5 mg Documented By: NICK Methadone HCl (Methadone Hcl 20 Mg/2 Ml Oral.Conc) 70 mg PO DAILY [facility] Nystatin (Nystatin Cream 15 Gm Tube) 1 appl TOPICAL BID [facility]; Protocol Last Admin: 11/12/23 20:06 Dose: 1 appl Documented By: MAURICIO Ondansetron HCl (Ondansetron Hcl 4 Mg/2 Ml Vial) 4 mg IVPUSH Q4H PRN PRN Reason: Nausea and Vomiting Last Admin: 11/05/23 03:30 Dose: 4 mg Documented By: MANDY Comments: c/o Nausea Oxycodone HCl (Oxycodone Hcl Immed Release 5 Mg Tablet) 10 mg PO Q4H PRN PRN Reason: severe pain Last Admin: 11/12/23 23:22 Dose: 10 mg Documented By: MAURICIO Quetiapine Fumarate (Quetiapine Fumarate 25 Mg Tablet) 25 mg PO BEDTIME PRN PRN Reason: anxiety or insomnia Last Admin: 11/12/23 20:10 Dose: 25 mg Documented By: MAURICIO Sodium Chloride (0.9 % Sodium Chloride Flush 3 Ml Syringe) 3 ml IVFLUSH QSHIFT [facility] Last Admin: 11/12/23 23:15 Dose: 3 ml Documented By: MAURICIO Sodium Chloride (0.9 % Sodium Chloride Flush 10 Ml Syringe) 5 ml IVFLUSH TID [facility] Last Admin: 11/13/23 08:14 Dose: Not Given Documented By: DENIS Non-Admin Reason: Duplicate Order Tizanidine HCl (Tizanidine Hcl 4 Mg Tablet) 4 mg PO BID@1500,2000 [facility] Last Admin: 11/12/23 23:13 Dose: 4 mg Documented By: MAURICIO Labs 11/08/23 06:14 11/10/23 07:03 Assessment and Plan (1) Myositis: Status: Acute (2) Opioid use disorder: Status: Acute Plan 32F PMH IVDA presented with left hip and leg pain associated with fever chills and weakness, patient recently left AMA from [facility] she was treated there for sepsis with evidence of epidural abscess was recommended 4-6 weeks of IV antibiotic Severe sepsis secondary to iliopsoas infection with backdrop of IVDA sepsis resolved data from [facility] in [place] reviewed, MRI L-spine showed asymmetric left paraspinal muscle edema findings likely related to infectious myositis and septic arthritis or muscle strain small epidural abscess is suspected on the left posteriorly at L4-L5, neurosurgery at [place] evaluated patient and felt she is not a candidate for surgery. CT of thoracic and lumbar spine at [facility] failed to demonstrate any abscess, Minor inflammation around psoas. MRI lumbar spine at [place] showed no definite epidural abscess, small subcentimeter abscess versus synovial cyst along the dorsal margin of the left L5/S1 facet joint, probable phlegmon effacing the left L5-S1 neural foramen inseparable from the exiting left 5th nerve root. white count normalized, Blood cultures negative on vancomycin/cefepime started 11/03 HIV nonreactive, hepatitis-C antibody reactive. Echo showed no valvular abnormality case discussed with ID she recommend 6 weeks of IV ceftriaxone and vancomycin since no specific organism, (using zyvox here because difficulty with troughs) now on po pain meds only IVDA/polysubstance abuse methadone as per addiction Medicine and Zanaflex b.i.d. as needed. Status post recent therapeutic at [facility] recommend outpatient follow-up with OBGYN. Disposition patient will need rehab to finish course of IV antibiotics once rehab available will place PICC line. Full Lovenox reason for continued hospitalization:awaiting auth Quality Stroke Does the patient have a stroke diagnosis?: No VTE Prior VTE?: No VTE Risk Level:: Medical - moderate - high VTE Device Contraindication: Treatment Not Indicated VTE Drug Contraindication: N/A - Med Ordered
[2023-11-13] MEDS: 0.9 % Sodium Chloride Flush 3 ML SYRINGE IVFLUSH ×2 (08:46→18:19)
[2023-11-13 10:57] VITALS: BP 100/52; PULSE 66; RESP 20; TEMP 36.1; O2SAT 96
[2023-11-13] MEDS: Acetaminophen 325 MG TABLET 975 MG PO (11:07)
[2023-11-13] MEDS: LORazepam 0.5 MG TABLET PO (11:08)
[2023-11-13] MEDS: diphenhydrAMINE HCL 25 MG CAPSULE PO (11:08)
[2023-11-13] MEDS: Linezolid/D5W 600 MG/300 ML PIGGYBACK 300 MG IV ×2 (11:29→22:52)
--- NOTE | 2023-11-13 12:35 | PC.NURSE ---
patient refusing bed and chair alarms. Pt educated on the significance of fall prevention interventions, but still refuses.
[2023-11-13] MEDS: cefTRIAXone sodium 2 GM in 0.9 % Sodium Chloride 50 ML IV (14:14)
[2023-11-13 14:59] VITALS: BP 100/50; PULSE 63; RESP 20; TEMP 36.2; O2SAT 96
[2023-11-13] MEDS: TiZANidine HCL 4 MG TABLET PO ×2 (15:24→19:56)
[2023-11-13] MEDS: Nystatin Cream 15 GM TUBE 1 APPL TOPICAL (15:30)
[2023-11-13] MEDS: cloNIDine HCL 0.1 MG TABLET PO (19:53)
[2023-11-13] MEDS: QUEtiapine Fumarate 25 MG TABLET PO (19:53)
[2023-11-13 20:00] VITALS: BP 123/64; PULSE 72; RESP 18; TEMP 36; O2SAT 98
[2023-11-13 23:26] VITALS: BP 101/53; PULSE 64; RESP 18; TEMP 36.1; O2SAT 97
[2023-11-14] MEDS: oxyCODONE HCl Immed Release 5 MG TABLET 10 MG PO ×4 (03:56→19:59)
[2023-11-14 04:00] VITALS: BP 98/52; PULSE 59; RESP 18; TEMP 36; O2SAT 96
[2023-11-14 07:19] VITALS: BP 101/52; PULSE 60; RESP 18; TEMP 36.7; O2SAT 95
--- NOTE | 2023-11-14 08:44 | HO.PM.IMPN ---
Subjective Subjective Date of Service: 11/14/23 Interval History: back pain Physical Exam Vital Signs: Vital Signs: Last Vital Signs Temp 98.1 F 11/14/23 07:19 Pulse 60 11/14/23 07:19 Resp 18 11/14/23 07:19 BP 101/52 L 11/14/23 07:19 Pulse Ox 95 11/14/23 07:19 O2 Del Method Room Air 11/14/23 07:19 BMI result Body Mass Index 28.3 Const: Other: General awake alert x3, in no acute distress Anicteric sclera Neck no JVD. CVS regular rate rhythm, Respiratory lungs clear to auscultation, no respiratory distress, no wheeze, no rhonchi. Gastrointestinal abdomen soft, non tender, bowel sounds audible, no guarding , no rigidity. Extremities no edema. Neuro moving all 4 extremity speech clear. Back left lumbar paraspinal tenderness to palpation ,tenderness left groin/no redness, no swelling. Skin no rash Objective Data Active Medications Acetaminophen (Acetaminophen 325 Mg Tablet) 975 mg PO Q6H PRN PRN Reason: Pain, Mild (Pain Scale 1-3), fever or headache Last Admin: 11/13/23 11:07 Dose: 975 mg Documented By: NICK Clonidine HCl (Clonidine Hcl 0.1 Mg Tablet) 0.1 mg PO BID [facility]; Protocol Last Admin: 11/13/23 19:53 Dose: 0.1 mg Documented By: DARRYL Diphenhydramine HCl (Diphenhydramine Hcl 25 Mg Capsule) 25 mg PO Q6H PRN PRN Reason: pruritis Last Admin: 11/13/23 11:08 Dose: 25 mg Documented By: NICK Docusate Sodium (Docusate Sodium 100 Mg Capsule) 100 mg PO BID [facility] Last Admin: 11/13/23 19:55 Dose: Not Given Documented By: DARRYL Non-Admin Reason: Patient Refused Enoxaparin Sodium (Enoxaparin Sodium 40 Mg/0.4 Ml Syringe) 40 mg SUBCUT Q24H [facility] Last Admin: 11/13/23 08:46 Dose: Not Given Documented By: DENIS Non-Admin Reason: Patient Refused Ceftriaxone Sodium 2 gm/ (Sodium Chloride) 50 mls @ 100 mls/hr IV Q24H [facility] Last Infusion: 11/13/23 16:59 Dose: Infused Documented By: DENIS Linezolid (Zyvox/D5w) 600 mg in 300 mls @ 300 mls/hr IV Q12H [facility] Last Infusion: 11/14/23 00:41 Dose: Infused Documented By: DARRYL Lorazepam (Lorazepam 0.5 Mg Tablet) 0.5 mg PO Q8H PRN PRN Reason: Anxiety Last Admin: 11/13/23 11:08 Dose: 0.5 mg Documented By: NICK Methadone HCl (Methadone Hcl 20 Mg/2 Ml Oral.Conc) 70 mg PO DAILY [facility] Last Admin: 11/13/23 08:18 Dose: 70 mg Documented By: DENIS Nystatin (Nystatin Cream 15 Gm Tube) 1 appl TOPICAL BID [facility]; Protocol Last Admin: 11/13/23 15:30 Dose: 1 appl Documented By: NICK Ondansetron HCl (Ondansetron Hcl 4 Mg/2 Ml Vial) 4 mg IVPUSH Q4H PRN PRN Reason: Nausea and Vomiting Last Admin: 11/05/23 03:30 Dose: 4 mg Documented By: MANDY Comments: c/o Nausea Oxycodone HCl (Oxycodone Hcl Immed Release 5 Mg Tablet) 10 mg PO Q4H PRN PRN Reason: severe pain Last Admin: 11/14/23 03:56 Dose: 10 mg Documented By: DARRYL Quetiapine Fumarate (Quetiapine Fumarate 25 Mg Tablet) 25 mg PO BEDTIME PRN PRN Reason: anxiety or insomnia Last Admin: 11/13/23 19:53 Dose: 25 mg Documented By: DARRYL Sodium Chloride (0.9 % Sodium Chloride Flush 3 Ml Syringe) 3 ml IVFLUSH QSHIFT [facility] Last Admin: 11/14/23 00:00 Dose: Not Given Documented By: DARRYL Non-Admin Reason: IV Running Sodium Chloride (0.9 % Sodium Chloride Flush 10 Ml Syringe) 5 ml IVFLUSH TID [facility] Last Admin: 11/14/23 00:40 Dose: Not Given Documented By: DARRYL Non-Admin Reason: Previously Administered Tizanidine HCl (Tizanidine Hcl 4 Mg Tablet) 4 mg PO BID@1500,2000 [facility] Last Admin: 11/13/23 19:56 Dose: 4 mg Documented By: DARRYL Labs 11/08/23 06:14 11/10/23 07:03 Assessment and Plan (1) Myositis: Status: Acute (2) Opioid use disorder: Status: Acute Plan 32F PMH IVDA presented with left hip and leg pain associated with fever chills and weakness, patient recently left AMA from [facility] she was treated there for sepsis with evidence of epidural abscess was recommended 4-6 weeks of IV antibiotic Severe sepsis secondary to iliopsoas infection with backdrop of IVDA sepsis resolved data from [facility] in [place] reviewed, MRI L-spine showed asymmetric left paraspinal muscle edema findings likely related to infectious myositis and septic arthritis or muscle strain small epidural abscess is suspected on the left posteriorly at L4-L5, neurosurgery at [place] evaluated patient and felt she is not a candidate for surgery. CT of thoracic and lumbar spine at [facility] failed to demonstrate any abscess, Minor inflammation around psoas. MRI lumbar spine at [place] showed no definite epidural abscess, small subcentimeter abscess versus synovial cyst along the dorsal margin of the left L5/S1 facet joint, probable phlegmon effacing the left L5-S1 neural foramen inseparable from the exiting left 5th nerve root. white count normalized, Blood cultures negative on vancomycin/cefepime started 11/03 HIV nonreactive, hepatitis-C antibody reactive. Echo showed no valvular abnormality case discussed with ID she recommend 6 weeks of IV ceftriaxone and vancomycin since no specific organism, (using zyvox here because difficulty with troughs) now on po pain meds only IVDA/polysubstance abuse methadone as per addiction Medicine and Zanaflex b.i.d. as needed. Status post recent therapeutic at [facility] recommend outpatient follow-up with OBGYN. Disposition patient will need rehab to finish course of IV antibiotics once rehab available will place PICC line. Full Lovenox reason for continued hospitalization:awaiting auth Quality Stroke Does the patient have a stroke diagnosis?: No VTE Prior VTE?: No VTE Risk Level:: Medical - moderate - high VTE Device Contraindication: Treatment Not Indicated VTE Drug Contraindication: N/A - Med Ordered
[2023-11-14] MEDS: 0.9 % Sodium Chloride Flush 3 ML SYRINGE IVFLUSH ×3 (09:30→20:01)
[2023-11-14] MEDS: Nystatin Cream 15 GM TUBE 1 APPL TOPICAL ×2 (09:30→19:59)
[2023-11-14] MEDS: methADONE HCl 20 MG/2 ML ORAL.CONC 70 MG PO (09:39)
[2023-11-14] MEDS: cloNIDine HCL 0.1 MG TABLET PO ×2 (09:40→19:59)
[2023-11-14] MEDS: Docusate Sodium 100 MG CAPSULE PO (09:40)
[2023-11-14] MEDS: LORazepam 0.5 MG TABLET PO ×2 (09:46→20:36)
[2023-11-14 11:00] VITALS: BP 113/52; PULSE 70; RESP 18; TEMP 36.3; O2SAT 97
--- NOTE | 2023-11-14 11:02 | MHC.CM.PN ---
CM is staying in close contact with [facility] [employer], awaiting word that Patient's insurance has been re-instated in order for Patient to dc to [facility] for LT IVABT, CM will continue to follow.
--- NOTE | 2023-11-14 12:10 | MHC.CM.PN ---
Per [facility] Lilibeth spoke with Stefany from [employer]; Stefany confirmed that faxed form were received but have not yet been processed. CM will follow.
[2023-11-14] MEDS: Linezolid/D5W 600 MG/300 ML PIGGYBACK 300 MG IV ×2 (14:08→23:11)
[2023-11-14] MEDS: cefTRIAXone sodium 2 GM in 0.9 % Sodium Chloride 50 ML IV (15:23)
[2023-11-14 15:27] VITALS: BP 99/55; PULSE 65; RESP 16; TEMP 36.4; O2SAT 96
[2023-11-14] MEDS: TiZANidine HCL 4 MG TABLET PO ×2 (16:40→19:58)
[2023-11-14 19:42] VITALS: BP 103/53; PULSE 64; RESP 16; TEMP 36.3; O2SAT 97
[2023-11-14] MEDS: QUEtiapine Fumarate 25 MG TABLET PO (19:59)
[2023-11-14] MEDS: 0.9 % Sodium Chloride Flush 10 ML SYRINGE 5 ML IVFLUSH (20:01)
[2023-11-15] VITALS (7 sets, daily range): BP systolic 92–120; BP diastolic 51–56; PULSE 58–71; RESP 16–20; TEMP 36.1–37.2; O2SAT 93–98
--- NOTE | 2023-11-15 00:36 | P.PNID_ITS ---
Subjective Subjective Date of Service: 11/14/23 Interval History: still some back discomfort,walking Critical Care Time (minutes): 15 Objective Data Labs 11/08/23 06:14 11/10/23 07:03 Microbiology Microbiology Results: Microbiology 11/03/23 18:00 Blood - Venous Blood Culture - Final No growth after 5 days. 11/03/23 17:39 Blood - Venous Blood Culture - Final No growth after 5 days. 11/03/23 20:18 Urine Catheterized - Straight Catheter Urine Culture - Final Physical Exam 2 Vital Signs: Vital Signs: Last Vital Signs Temp 98.9 F 11/15/23 00:00 Pulse 71 11/15/23 00:00 Resp 16 11/15/23 00:00 BP 99/54 L 11/15/23 00:00 Pulse Ox 98 11/15/23 00:00 O2 Del Method Room Air 11/15/23 00:00 BMI result Body Mass Index 28.3 Const: General: cooperative HEENT: Head: Yes normal to inspection Face and sinus: Yes normal facial exam Mouth: Normal oral and palatal mucosa present Teeth and gingiva: d entition normal Eyes: General: appearance normal, both eyes and all related structures P upils: Equal, round and reactive pupils present Resp: Effort & Inspection: normal respiratory effort Cardio: Rate: regular rate Rhythm: regular rhythm GI: Palpation (GI): Soft to palpation and nontender : General: Yes no CVA tenderness Back/Spine/Pelvis: Back: no CVA tenderness Skin: General skin exam: no rashes or lesions noted Neuro: General: moves all extremities Cranial nerves: Yes Equal, round and reactive pupils present Extrem: General: Yes normal to inspection Psych: Appearance: grossly normal Assessment and Plan Assessment and plan (1) Opioid use disorder: Problem details: probable all Group B strep,but possible other coinfection like MRSA,but doubt Status: Acute Assessment and Plan: Continue Ceftriaxone total 6 weeks ,Group B strep on 10/18 it is mentioned difficulty with Vancomycin troughs so can switch to Daptomycin with Ceftriaxone for six weeks as linezolid is bacteriostatic and may not work and IV gives no advantage over po ,equally bioavailable and may have some interaction Methadone in some people (2) IV drug user: Status: Acute (3) Myositis: Problem details: Left psoas muscle Status: Acute Time Spent With Patient Time: Total time managing care of this patient today ____ minutes.
--- NOTE | 2023-11-15 09:27 | HO.PM.IMPN ---
Subjective Subjective Date of Service: 11/15/23 Interval History: back pain Physical Exam Vital Signs: Vital Signs: Last Vital Signs Temp 98.5 F 11/15/23 07:17 Pulse 58 11/15/23 07:17 Resp 18 11/15/23 07:17 BP 94/55 L 11/15/23 07:17 Pulse Ox 93 11/15/23 07:17 O2 Del Method Room Air 11/15/23 07:17 BMI result Body Mass Index 28.3 Const: General: cooperative HEENT: Head: Yes normal to inspection Face and sinus: Yes normal facial exam Mouth: Normal oral and palatal mucosa present Teeth and gingiva: dentition normal Eyes: General: appearance normal, both eyes and all related structures Pupils: Equal, round and reactive pupils present Resp: Effort & Inspection: normal respiratory effort Cardio: Rate: regular rate Rhythm: regular rhythm GI: Palpation (GI): Soft to palpation and nontender : General: Yes no CVA tenderness Back/Spine/Pelvis: Back: no CVA tenderness Skin: General skin exam: no rashes or lesions noted Neuro: General: moves all extremities Cranial nerves: Yes Equal, round and reactive pupils present Extrem: General: Yes normal to inspection Psych: Appearance: grossly normal Objective Data Active Medications Acetaminophen (Acetaminophen 325 Mg Tablet) 975 mg PO Q6H PRN PRN Reason: Pain, Mild (Pain Scale 1-3), fever or headache Last Admin: 11/13/23 11:07 Dose: 975 mg Documented By: NICK Clonidine HCl (Clonidine Hcl 0.1 Mg Tablet) 0.1 mg PO BID [facility]; Protocol Last Admin: 11/14/23 19:59 Dose: 0.1 mg Documented By: DARRYL Diphenhydramine HCl (Diphenhydramine Hcl 25 Mg Capsule) 25 mg PO Q6H PRN PRN Reason: pruritis Last Admin: 11/13/23 11:08 Dose: 25 mg Documented By: NICK Docusate Sodium (Docusate Sodium 100 Mg Capsule) 100 mg PO BID [facility] Last Admin: 11/14/23 19:59 Dose: Not Given Documented By: DARRYL Non-Admin Reason: Patient Refused Enoxaparin Sodium (Enoxaparin Sodium 40 Mg/0.4 Ml Syringe) 40 mg SUBCUT Q24H [facility] Last Admin: 11/14/23 10:41 Dose: Not Given Documented By: AUREA Non-Admin Reason: Patient Refused Ceftriaxone Sodium 2 gm/ (Sodium Chloride) 50 mls @ 100 mls/hr IV Q24H [facility] Last Infusion: 11/14/23 16:09 Dose: Infused Documented By: AUREA Daptomycin 465 mg/ Sodium (Chloride) 59.3 mls @ 100.037 mls/hr IV Q24H [facility] Lorazepam (Lorazepam 0.5 Mg Tablet) 0.5 mg PO Q8H PRN PRN Reason: Anxiety Last Admin: 11/14/23 20:36 Dose: 0.5 mg Documented By: DARRYL Methadone HCl (Methadone Hcl 20 Mg/2 Ml Oral.Conc) 70 mg PO DAILY [facility] Last Admin: 11/14/23 09:39 Dose: 70 mg Documented By: ARUEA Nystatin (Nystatin Cream 15 Gm Tube) 1 appl TOPICAL BID [facility]; Protocol Last Admin: 11/14/23 19:59 Dose: 1 appl Documented By: DARRYL Ondansetron HCl (Ondansetron Hcl 4 Mg/2 Ml Vial) 4 mg IVPUSH Q4H PRN PRN Reason: Nausea and Vomiting Last Admin: 11/05/23 03:30 Dose: 4 mg Documented By: MANDY Comments: c/o Nausea Oxycodone HCl (Oxycodone Hcl Immed Release 5 Mg Tablet) 10 mg PO Q4H PRN PRN Reason: severe pain Last Admin: 11/14/23 19:59 Dose: 10 mg Documented By: DARRYL Quetiapine Fumarate (Quetiapine Fumarate 25 Mg Tablet) 25 mg PO BEDTIME PRN PRN Reason: anxiety or insomnia Last Admin: 11/14/23 19:59 Dose: 25 mg Documented By: DARRYL Sodium Chloride (0.9 % Sodium Chloride Flush 3 Ml Syringe) 3 ml IVFLUSH QSHIFT [facility] Last Admin: 11/14/23 20:01 Dose: 3 ml Documented By: DARRYL Sodium Chloride (0.9 % Sodium Chloride Flush 10 Ml Syringe) 5 ml IVFLUSH TID [facility] Last Admin: 11/14/23 20:01 Dose: 5 ml Documented By: DARRYL Tizanidine HCl (Tizanidine Hcl 4 Mg Tablet) 4 mg PO BID@1500,1999 [facility] Last Admin: 11/14/23 19:58 Dose: 4 mg Documented By: DARRYL Labs 11/08/23 06:14 11/10/23 07:03 Assessment and Plan (1) Myositis: Status: Acute (2) Opioid use disorder: Status: Acute Plan 32F PMH IVDA presented with left hip and leg pain associated with fever chills and weakness, patient recently left AMA from [facility] she was treated there for sepsis with evidence of epidural abscess was recommended 4-6 weeks of IV antibiotic Severe sepsis secondary to iliopsoas infection with backdrop of IVDA sepsis resolved data from [facility] in [place] reviewed, MRI L-spine showed asymmetric left paraspinal muscle edema findings likely related to infectious myositis and septic arthritis or muscle strain small epidural abscess is suspected on the left posteriorly at L4-L5, neurosurgery at [facility] evaluated patient and felt she is not a candidate for surgery. CT of thoracic and lumbar spine at [facility] failed to demonstrate any abscess, Minor inflammation around psoas. MRI lumbar spine at [place] showed no definite epidural abscess, small subcentimeter abscess versus synovial cyst along the dorsal margin of the left L5/S1 facet joint, probable phlegmon effacing the left L5-S1 neural foramen inseparable from the exiting left 5th nerve root. white count normalized, Blood cultures negative on vancomycin/cefepime started 11/03 HIV nonreactive, hepatitis-C antibody reactive. Echo showed no valvular abnormality case discussed with ID she recommend 6 weeks of IV ceftriaxone and vancomycin since no specific organism, (using zyvox here because difficulty with troughs) now on po pain meds only IVDA/polysubstance abuse methadone as per addiction Medicine and Zanaflex b.i.d. as needed. Status post recent therapeutic at [facility] recommend outpatient follow-up with OBGYN. Disposition patient will need rehab to finish course of IV antibiotics once rehab available will place PICC line. Full Lovenox reason for continued hospitalization:awaiting auth Quality Stroke Does the patient have a stroke diagnosis?: No VTE Prior VTE?: No VTE Risk Level:: Medical - moderate - high VTE Device Contraindication: Treatment Not Indicated VTE Drug Contraindication: N/A - Med Ordered
[2023-11-15] MEDS: methADONE HCl 20 MG/2 ML ORAL.CONC 70 MG PO (09:29)
[2023-11-15] MEDS: oxyCODONE HCl Immed Release 5 MG TABLET 10 MG PO ×3 (09:29→19:30)
[2023-11-15] MEDS: cloNIDine HCL 0.1 MG TABLET PO ×2 (09:30→20:30)
[2023-11-15] MEDS: LORazepam 0.5 MG TABLET PO ×2 (09:30→19:38)
[2023-11-15] MEDS: Docusate Sodium 100 MG CAPSULE PO ×2 (09:30→20:29)
[2023-11-15] MEDS: 0.9 % Sodium Chloride Flush 3 ML SYRINGE IVFLUSH ×3 (09:32→21:54)
[2023-11-15] MEDS: 0.9 % Sodium Chloride Flush 10 ML SYRINGE 5 ML IVFLUSH ×2 (09:38→22:01)
[2023-11-15] MEDS: Nystatin Cream 15 GM TUBE 1 APPL TOPICAL ×2 (10:36→21:55)
--- NOTE | 2023-11-15 12:35 | MHC.CM.PN ---
Per [facility] [employer]herrie, she spoke with Carey at [place] today and forms have not yet been processed. CM will follow.
[2023-11-15] MEDS: diphenhydrAMINE HCL 25 MG CAPSULE PO (13:35)
--- NOTE | 2023-11-15 14:37 | MHC.RECOVRN ---
Met with pt in 459 to follow up and provide support. Pt laying in bed, awake, alert, difficult to engage in conversation. Pt reports continued withdrawal symptoms including feeling hot/cold and diaphoresis. Pt requesting methadone increase. Pt denies other questions or concerns. Discussed with Shanon Angel APRN.
[2023-11-15] MEDS: Clotrimazole 1 % Cream 15 GM TUBE 1 APPL TOPICAL ×2 (15:34→21:55)
[2023-11-15] MEDS: cefTRIAXone sodium 2 GM in 0.9 % Sodium Chloride 50 ML IV (15:45)
[2023-11-15] MEDS: TiZANidine HCL 4 MG TABLET PO ×2 (15:58→21:53)
[2023-11-15] MEDS: QUEtiapine Fumarate 25 MG TABLET PO (20:29)
[2023-11-16] VITALS (8 sets, daily range): BP systolic 96–111; BP diastolic 50–61; PULSE 59–65; RESP 18–20; TEMP 36.1–36.8; O2SAT 96–97
[2023-11-16 06:40] LABS: Alanine Aminotransferase 19 U/L (0-31); Albumin Level 3.3 g/dL (3.5-5.0); Alkaline Phosphatase 82 U/L (39-117); Anion Gap 13 (12-20); Aspartate Amino Transferase 18 U/L (5-31); Bilirubin Direct < 0.2 mg/dL (0.0-0.5); Bilirubin Total 0.2 mg/dL (0.0-1.0); Blood Urea Nitrogen 25 mg/dL (9-16); Calcium 10.1 mg/dL (8.4-10.2); Carbon Dioxide 32 mmol/L (22-29); Chloride 100 mmol/L (96-108); Creatinine Clr Calc Pharmacy 100.9; Estimated Glomerular Filt Rate > 60; Glucose Fasting 89 mg/dL (60-99); Potassium 4.5 mmol/L (3.3-5.1); Sodium 140 mmol/L (135-145)
[2023-11-16 06:44] LABS: Hematocrit 33.8 % (37.0-47.0); Hemoglobin 11.2 g/dl (12.0-16.0); Mean Corpuscular HGB Conc 33.1 g/dl (31.0-35.0); Mean Corpuscular Hemoglobin 30.1 pg (27.0-33.0); Mean Corpuscular Volume 90.9 fL (80.0-98.0); Mean Platelet Volume 8.2 fL (9.4-12.3); Platelet Count 289 X10*3/uL (160-400); Red Blood Count 3.72 X10*6/uL (4.20-5.50); Red Cell Distribution Width 12.3 % (11.0-16.0); White Blood Count 5.6 X10*3/uL (4.8-10.8)
[2023-11-16] MEDS: cloNIDine HCL 0.1 MG TABLET PO ×2 (09:35→20:48)
[2023-11-16] MEDS: methADONE HCl 20 MG/2 ML ORAL.CONC 75 MG PO (09:38)
[2023-11-16] MEDS: oxyCODONE HCl Immed Release 5 MG TABLET 10 MG PO ×3 (09:45→20:49)
[2023-11-16] MEDS: LORazepam 0.5 MG TABLET PO (09:47)
[2023-11-16] MEDS: 0.9 % Sodium Chloride Flush 10 ML SYRINGE 5 ML IVFLUSH ×3 (09:49→20:50)
--- NOTE | 2023-11-16 10:42 | MHC.CM.PN ---
Patient is medically cleared for dc and has a bed offer at [facility] for LT IVABT, pending re-instatement of her insurance. CM will follow.
[2023-11-16] MEDS: Butalb/Acetamin/Caff 50/325/40 TABLET 2 TAB PO (10:53)
--- NOTE | 2023-11-16 12:22 | MHC.CM.PN ---
Per [facility], they will need to get a prior carve out approval from insurance (for IV Dapto); insurance is still not active. CM will follow.
[2023-11-16] MEDS: cefTRIAXone sodium 2 GM in 0.9 % Sodium Chloride 50 ML IV (13:46)
[2023-11-16] MEDS: TiZANidine HCL 4 MG TABLET PO ×2 (15:16→20:55)
--- NOTE | 2023-11-16 15:18 | HO.PM.IMPN ---
Subjective Subjective Date of Service: 11/16/23 Interval History: seen and evaluated this nimesh denied any fever or chills reports headache and bck pain no other overnight events Review of Systems Review of Systems: Yes all other systems are reviewed and are negative Physical Exam Vital Signs: Vital Signs: Last Vital Signs Temp 96.9 F 11/16/23 11:14 Pulse 61 11/16/23 11:14 Resp 18 11/16/23 11:14 BP 104/52 L 11/16/23 11:14 Pulse Ox 97 11/16/23 11:14 O2 Del Method Room Air 11/16/23 11:14 BMI result Body Mass Index 28.3 Const: Other: Constitutional : interactive, not in distress Cardiovascular : no JVP, no lower extremity edema Respiratory : bilateral chest movement, not in resp distress Gastrointestinal: soft, lax, Non tender Skin : Warm, Dry, scratching lines, PICC in place Neurological : Alert & oriented , No focal deficit Objective Data Active Medications Acetaminophen (Acetaminophen 325 Mg Tablet) 975 mg PO Q6H PRN PRN Reason: Pain, Mild (Pain Scale 1-3), fever or headache Last Admin: 11/13/23 11:07 Dose: 975 mg Documented By: NICK Clonidine HCl (Clonidine Hcl 0.1 Mg Tablet) 0.1 mg PO BID [facility]; Protocol Last Admin: 11/16/23 09:35 Dose: 0.1 mg Documented By: BOB Clotrimazole (Clotrimazole 1 % Cream 15 Gm Tube) 1 appl TOPICAL BID [facility]; Protocol Last Admin: 11/16/23 09:52 Dose: Not Given Documented By: BOB Non-Admin Reason: Patient Refused Diphenhydramine HCl (Diphenhydramine Hcl 25 Mg Capsule) 25 mg PO Q6H PRN PRN Reason: pruritis Last Admin: 11/15/23 13:35 Dose: 25 mg Documented By: AUREA Docusate Sodium (Docusate Sodium 100 Mg Capsule) 100 mg PO BID [facility] Last Admin: 11/16/23 09:52 Dose: Not Given Documented By: BOB Non-Admin Reason: Patient Refused Enoxaparin Sodium (Enoxaparin Sodium 40 Mg/0.4 Ml Syringe) 40 mg SUBCUT Q24H [facility] Last Admin: 11/16/23 09:52 Dose: Not Given Documented By: BOB Non-Admin Reason: Patient Refused Ceftriaxone Sodium 2 gm/ (Sodium Chloride) 50 mls @ 100 mls/hr IV Q24H [facility] Last Infusion: 11/16/23 14:20 Dose: Infused Documented By: BOB Daptomycin 465 mg/ Sodium (Chloride) 59.3 mls @ 100.037 mls/hr IV Q24H [facility] Last Infusion: 11/16/23 10:15 Dose: Infused Documented By: BOB Lorazepam (Lorazepam 0.5 Mg Tablet) 0.5 mg PO Q8H PRN PRN Reason: Anxiety Last Admin: 11/16/23 09:47 Dose: 0.5 mg Documented By: BOB Methadone HCl (Methadone Hcl 20 Mg/2 Ml Oral.Conc) 75 mg PO DAILY [facility] Last Admin: 11/16/23 09:38 Dose: 75 mg Documented By: BOB Nystatin (Nystatin Cream 15 Gm Tube) 1 appl TOPICAL BID [facility]; Protocol Last Admin: 11/16/23 09:52 Dose: Not Given Documented By: BOB Non-Admin Reason: Patient Refused Ondansetron HCl (Ondansetron Hcl 4 Mg/2 Ml Vial) 4 mg IVPUSH Q4H PRN PRN Reason: Nausea and Vomiting Last Admin: 11/05/23 03:30 Dose: 4 mg Documented By: MANDY Comments: c/o Nausea Oxycodone HCl (Oxycodone Hcl Immed Release 5 Mg Tablet) 10 mg PO Q4H PRN PRN Reason: severe pain Last Admin: 11/16/23 09:45 Dose: 10 mg Documented By: BOB Quetiapine Fumarate (Quetiapine Fumarate 25 Mg Tablet) 25 mg PO BEDTIME PRN PRN Reason: anxiety or insomnia Last Admin: 11/15/23 20:29 Dose: 25 mg Documented By: MAURICIO Sodium Chloride (0.9 % Sodium Chloride Flush 3 Ml Syringe) 3 ml IVFLUSH QSHIFT [facility] Last Admin: 11/16/23 09:49 Dose: Not Given Documented By: BOB Non-Admin Reason: Duplicate Order Sodium Chloride (0.9 % Sodium Chloride Flush 10 Ml Syringe) 5 ml IVFLUSH TID [facility] Last Admin: 11/16/23 09:49 Dose: 5 ml Documented By: BOB Tizanidine HCl (Tizanidine Hcl 4 Mg Tablet) 4 mg PO BID@1500,2000 [facility] Last Admin: 11/15/23 21:53 Dose: 4 mg Documented By: MAURICIO Labs 11/16/23 06:00 11/16/23 06:00 Labs: Laboratory Results - last 24 hr 11/16/23 06:00 MCV 90.9 MCH 30.1 MCHC 33.1 RDW 12.3 Plt Count 289 MPV 8.2 L Absolute Nucleated RBC 0.000 Nucleated RBC % (auto) 0.0 Anion Gap 13 Estim Creat Clear Calc 100.9 Estimated GFR > 60 Fasting Glucose 89 Calcium 10.1 Total Bilirubin 0.2 Direct Bilirubin < 0.2 AST 18 ALT 19 Alkaline Phosphatase 82 Total Protein 7.0 Albumin 3.3 L Assessment and Plan (1) Opioid use disorder: Status: Acute (2) IV drug user: Status: Acute (3) Severe sepsis: Status: Acute Plan 32F PMH IVDA presented with left hip and leg pain associated with fever chills and weakness, patient recently left AMA from [facility] she was treated there for sepsis with evidence of epidural abscess was recommended 4-6 weeks of IV antibiotic Severe sepsis secondary to iliopsoas infection with backdrop of IVDA sepsis resolved data from [facility] in [place] reviewed, MRI L-spine showed asymmetric left paraspinal muscle edema findings likely related to infectious myositis and septic arthritis or muscle strain small epidural abscess is suspected on the left posteriorly at L4-L5, neurosurgery at [facility] evaluated patient and felt she is not a candidate for surgery. CT of thoracic and lumbar spine at [facility] failed to demonstrate any abscess, Minor inflammation around psoas. MRI lumbar spine at [place] showed no definite epidural abscess, small subcentimeter abscess versus synovial cyst along the dorsal margin of the left L5/S1 facet joint, probable phlegmon effacing the left L5-S1 neural foramen inseparable from the exiting left 5th nerve root. white count normalized, Blood cultures negative on vancomycin/cefepime started 11/03 HIV nonreactive, hepatitis-C antibody reactive. Echo showed no valvular abnormality case discussed with ID she recommend 6 weeks of IV ceftriaxone and vancomycin since no specific organism, (using zyvox here because difficulty with troughs) now on po pain meds only IVDA/polysubstance abuse methadone as per addiction Medicine and Zanaflex b.i.d. as needed. Status post recent therapeutic at [facility] recommend outpatient follow-up with OBGYN. Disposition patient will need rehab to finish course of IV antibiotics once rehab available will place PICC line. DVT PPx Lovenox reason for continued hospitalization:awaiting auth Quality Stroke Does the patient have a stroke diagnosis?: No VTE Prior VTE?: No VTE Risk Level:: Medical - moderate - high VTE Device Contraindication: Treatment Not Indicated VTE Drug Contraindication: N/A - Med Ordered
[2023-11-16] MEDS: Ammonium Lactate 12 % Lotion 226 GM BOTTLE 1 APPL TOPICAL ×2 (18:15→20:53)
[2023-11-16] MEDS: QUEtiapine Fumarate 25 MG TABLET PO (20:49)
[2023-11-16] MEDS: Docusate Sodium 100 MG CAPSULE PO (20:49)
[2023-11-16] MEDS: Clotrimazole 1 % Cream 15 GM TUBE 1 APPL TOPICAL (20:52)
[2023-11-16] MEDS: Nystatin Cream 15 GM TUBE 1 APPL TOPICAL (20:53)
[2023-11-17] VITALS (7 sets, daily range): BP systolic 93–107; BP diastolic 51–56; PULSE 60–69; RESP 18–20; TEMP 35.8–36.2; O2SAT 94–97
[2023-11-17] MEDS: 0.9 % Sodium Chloride Flush 3 ML SYRINGE IVFLUSH ×3 (05:41→17:17)
[2023-11-17 06:30] LABS: Alanine Aminotransferase 25 U/L (0-31); Albumin Level 3.3 g/dL (3.5-5.0); Alkaline Phosphatase 81 U/L (39-117); Anion Gap 13 (12-20); Aspartate Amino Transferase 27 U/L (5-31); Bilirubin Direct < 0.2 mg/dL (0.0-0.5); Bilirubin Total 0.1 mg/dL (0.0-1.0); Blood Urea Nitrogen 22 mg/dL (9-16); Calcium 10.2 mg/dL (8.4-10.2); Carbon Dioxide 30 mmol/L (22-29); Chloride 100 mmol/L (96-108); Creatinine Clr Calc Pharmacy 103.4; Estimated Glomerular Filt Rate > 60; Glucose Random 90 mg/dL (60-115); Potassium 4.5 mmol/L (3.3-5.1); Sodium 138 mmol/L (135-145); Total Protein 6.9 g/dL (6.5-8.0)
[2023-11-17] MEDS: methADONE HCl 20 MG/2 ML ORAL.CONC 75 MG PO (10:36)
[2023-11-17] MEDS: oxyCODONE HCl Immed Release 5 MG TABLET 10 MG PO ×3 (10:36→20:41)
[2023-11-17] MEDS: cloNIDine HCL 0.1 MG TABLET PO (10:36)
[2023-11-17] MEDS: Nystatin Cream 15 GM TUBE 1 APPL TOPICAL ×2 (10:39→21:36)
[2023-11-17] MEDS: Clotrimazole 1 % Cream 15 GM TUBE 1 APPL TOPICAL ×2 (10:39→21:36)
[2023-11-17] MEDS: Ammonium Lactate 12 % Lotion 226 GM BOTTLE 1 APPL TOPICAL ×2 (10:39→21:36)
[2023-11-17] MEDS: 0.9 % Sodium Chloride Flush 10 ML SYRINGE 5 ML IVFLUSH ×3 (10:41→21:37)
[2023-11-17] MEDS: LORazepam 0.5 MG TABLET PO ×2 (10:49→19:42)
--- NOTE | 2023-11-17 14:51 | HO.PM.IMPN ---
Subjective Subjective Date of Service: 11/17/23 Interval History: seen and evaluated this nimesh denied any fever or chills no other overnight events Review of Systems Review of Systems: Yes all other systems are reviewed and are negative Physical Exam Vital Signs: Vital Signs: Last Vital Signs Temp 97.2 F 11/17/23 11:24 Pulse 67 11/17/23 11:24 Resp 18 11/17/23 11:24 BP 95/55 L 11/17/23 11:24 Pulse Ox 96 11/17/23 11:24 O2 Del Method Room Air 11/17/23 11:24 BMI result Body Mass Index 28.3 Const: Other: Constitutional : interactive, not in distress Cardiovascular : no JVP, no lower extremity edema Respiratory : bilateral chest movement, not in resp distress Gastrointestinal: soft, lax, Non tender Skin : Warm, Dry, scratching lines, PICC in place Neurological : Alert & oriented , No focal deficit Objective Data Active Medications Acetaminophen (Acetaminophen 325 Mg Tablet) 975 mg PO Q6H PRN PRN Reason: Pain, Mild (Pain Scale 1-3), fever or headache Last Admin: 11/13/23 11:07 Dose: 975 mg Documented By: NICK Clonidine HCl (Clonidine Hcl 0.1 Mg Tablet) 0.1 mg PO BID [facility]; Protocol Last Admin: 11/17/23 10:36 Dose: 0.1 mg Documented By: MEIR Clotrimazole (Clotrimazole 1 % Cream 15 Gm Tube) 1 appl TOPICAL BID [facility]; Protocol Last Admin: 11/17/23 10:39 Dose: 1 appl Documented By: MEIR Diphenhydramine HCl (Diphenhydramine Hcl 25 Mg Capsule) 25 mg PO Q6H PRN PRN Reason: pruritis Last Admin: 11/15/23 13:35 Dose: 25 mg Documented By: AUREA Docusate Sodium (Docusate Sodium 100 Mg Capsule) 100 mg PO BID [facility] Last Admin: 11/17/23 10:37 Dose: Not Given Documented By: MEIR Non-Admin Reason: Patient Refused Enoxaparin Sodium (Enoxaparin Sodium 40 Mg/0.4 Ml Syringe) 40 mg SUBCUT Q24H [facility] Last Admin: 11/17/23 10:37 Dose: Not Given Documented By: MEIR Non-Admin Reason: Patient Refused Daptomycin 465 mg/ Sodium (Chloride) 59.3 mls @ 100.037 mls/hr IV Q24H [facility] Last Infusion: 11/17/23 11:49 Dose: Infused Documented By: MEIR Lactic Acid (Ammonium Lactate 12 % Lotion 226 Gm Bottle) 1 appl TOPICAL BID [facility]; Protocol Last Admin: 11/17/23 10:39 Dose: 1 appl Documented By: MEIR Lorazepam (Lorazepam 0.5 Mg Tablet) 0.5 mg PO Q8H PRN PRN Reason: Anxiety Last Admin: 11/17/23 10:49 Dose: 0.5 mg Documented By: MEIR Methadone HCl (Methadone Hcl 20 Mg/2 Ml Oral.Conc) 75 mg PO DAILY [facility] Last Admin: 11/17/23 10:36 Dose: 75 mg Documented By: MEIR Nystatin (Nystatin Cream 15 Gm Tube) 1 appl TOPICAL BID [facility]; Protocol Last Admin: 11/17/23 10:39 Dose: 1 appl Documented By: MEIR Ondansetron HCl (Ondansetron Hcl 4 Mg/2 Ml Vial) 4 mg IVPUSH Q4H PRN PRN Reason: Nausea and Vomiting Last Admin: 11/05/23 03:30 Dose: 4 mg Documented By: MANDY Comments: c/o Nausea Oxycodone HCl (Oxycodone Hcl Immed Release 5 Mg Tablet) 10 mg PO Q4H PRN PRN Reason: severe pain Last Admin: 11/17/23 10:36 Dose: 10 mg Documented By: MEIR Quetiapine Fumarate (Quetiapine Fumarate 25 Mg Tablet) 25 mg PO BEDTIME PRN PRN Reason: anxiety or insomnia Last Admin: 11/16/23 20:49 Dose: 25 mg Documented By: MAURICIO Sodium Chloride (0.9 % Sodium Chloride Flush 3 Ml Syringe) 3 ml IVFLUSH QSHIFT [facility] Last Admin: 11/17/23 10:40 Dose: 3 ml Documented By: MEIR Sodium Chloride (0.9 % Sodium Chloride Flush 10 Ml Syringe) 5 ml IVFLUSH TID [facility] Last Admin: 11/17/23 10:41 Dose: 5 ml Documented By: MEIR Tizanidine HCl (Tizanidine Hcl 4 Mg Tablet) 4 mg PO BID@1500,1999 [facility] Last Admin: 11/16/23 20:55 Dose: 4 mg Documented By: MAURICIO Labs 11/16/23 06:00 11/17/23 05:33 Labs: Laboratory Results - last 24 hr 11/17/23 05:33 Anion Gap 13 Estim Creat Clear Calc 103.4 Estimated GFR > 60 Random Glucose 90 Calcium 10.2 Total Bilirubin 0.1 Direct Bilirubin < 0.2 AST 27 ALT 25 Alkaline Phosphatase 81 Total Protein 6.9 Albumin 3.3 L Assessment and Plan (1) Opioid use disorder: Status: Acute (2) IV drug user: Status: Acute Plan 32F PMH IVDA presented with left hip and leg pain associated with fever chills and weakness, patient recently left AMA from [facility] she was treated there for sepsis with evidence of epidural abscess was recommended 4-6 weeks of IV antibiotic Severe sepsis secondary to iliopsoas infection with backdrop of IVDA sepsis resolved data from [facility] in [place] reviewed, MRI L-spine showed asymmetric left paraspinal muscle edema findings likely related to infectious myositis and septic arthritis or muscle strain small epidural abscess is suspected on the left posteriorly at L4-L5, neurosurgery at [place] evaluated patient and felt she is not a candidate for surgery. CT of thoracic and lumbar spine at [facility] failed to demonstrate any abscess, Minor inflammation around psoas. MRI lumbar spine at [place] showed no definite epidural abscess, small subcentimeter abscess versus synovial cyst along the dorsal margin of the left L5/S1 facet joint, probable phlegmon effacing the left L5-S1 neural foramen inseparable from the exiting left 5th nerve root. white count normalized, Blood cultures negative on vancomycin/cefepime started 11/03 HIV nonreactive, hepatitis-C antibody reactive. Echo showed no valvular abnormality PICC line placed case discussed with ID she recommend 6 weeks of IV ceftriaxone and Daptomycin since no specific organism, To finish by 12/16/23 on po pain meds only IVDA/polysubstance abuse methadone as per addiction Medicine and Zanaflex b.i.d. as needed. Status post recent therapeutic at [facility] recommend outpatient follow-up with OBGYN. Disposition patient will need rehab to finish course of IV antibiotics DVT PPx Lovenox reason for continued hospitalization:awaiting auth Quality Stroke Does the patient have a stroke diagnosis?: No VTE Prior VTE?: No VTE Risk Level:: Medical - moderate - high VTE Device Contraindication: Treatment Not Indicated VTE Drug Contraindication: N/A - Med Ordered
[2023-11-17] MEDS: TiZANidine HCL 4 MG TABLET PO ×2 (15:35→20:41)
[2023-11-17] MEDS: Docusate Sodium 100 MG CAPSULE PO (20:40)
--- NOTE | 2023-11-17 21:56 | PC.NURSE ---
No longer my patient. Report given to Angy LAMBERT. Patient make aware.
--- NOTE | 2023-11-17 23:17 | PC.NURSE ---
Assumed care of pt at approx 2200. Went to assess pt shortly after and pt became very upset as she was sleeping and does not want to be disturbed. Pt agreeable to vitals and nothing else, states I don't want anyone in this room the rest of the night until noon tomorrow. Assessment refused.
[2023-11-18 07:28] VITALS: BP 102/55; PULSE 54; RESP 18; TEMP 36.6; O2SAT 96
[2023-11-18] MEDS: methADONE HCl 20 MG/2 ML ORAL.CONC 75 MG PO (10:18)
[2023-11-18] MEDS: cloNIDine HCL 0.1 MG TABLET PO ×2 (10:22→20:11)
[2023-11-18] MEDS: Docusate Sodium 100 MG CAPSULE PO (10:22)
[2023-11-18] MEDS: 0.9 % Sodium Chloride Flush 3 ML SYRINGE IVFLUSH ×4 (10:22→18:14)
[2023-11-18] MEDS: Clotrimazole 1 % Cream 15 GM TUBE 1 APPL TOPICAL ×2 (10:26→20:11)
[2023-11-18] MEDS: Ammonium Lactate 12 % Lotion 226 GM BOTTLE 1 APPL TOPICAL ×2 (10:26→20:11)
[2023-11-18] MEDS: Nystatin Cream 15 GM TUBE 1 APPL TOPICAL ×2 (10:26→20:11)
[2023-11-18] MEDS: oxyCODONE HCl Immed Release 5 MG TABLET 10 MG PO ×3 (10:31→20:20)
[2023-11-18] MEDS: LORazepam 0.5 MG TABLET PO ×2 (10:31→20:20)
[2023-11-18 11:08] VITALS: BP 106/54; PULSE 68; RESP 20; TEMP 36.6; O2SAT 96
--- NOTE | 2023-11-18 11:21 | MHC.CM.PN ---
Per [facility]/Gabriella in Financial, Patient does not have an ID (it was stolen); Per Gabriella, a paper application will be started today but can take a week or more to process. CM will follow.
--- NOTE | 2023-11-18 12:20 | HO.PM.IMPN ---
Subjective Subjective Date of Service: 11/18/23 Interval History: seen and evaluated this nimesh denied any fever or chills no other overnight events Review of Systems Review of Systems: Yes all other systems are reviewed and are negative Physical Exam Vital Signs: Vital Signs: Last Vital Signs Temp 97.8 F 11/18/23 11:08 Pulse 68 11/18/23 11:08 Resp 20 11/18/23 11:08 BP 106/54 L 11/18/23 11:08 Pulse Ox 96 11/18/23 11:08 O2 Del Method Room Air 11/18/23 11:08 BMI result Body Mass Index 28.3 Const: Other: Constitutional : interactive, not in distress Cardiovascular : no JVP, no lower extremity edema Respiratory : bilateral chest movement, not in resp distress Gastrointestinal: soft, lax, Non tender Skin : Warm, Dry, scratching lines, PICC in place Neurological : Alert & oriented , No focal deficit Objective Data Active Medications Acetaminophen (Acetaminophen 325 Mg Tablet) 975 mg PO Q6H PRN PRN Reason: Pain, Mild (Pain Scale 1-3), fever or headache Last Admin: 11/13/23 11:07 Dose: 975 mg Documented By: NICK Clonidine HCl (Clonidine Hcl 0.1 Mg Tablet) 0.1 mg PO BID [facility]; Protocol Last Admin: 11/18/23 10:22 Dose: 0.1 mg Documented By: AUREA Clotrimazole (Clotrimazole 1 % Cream 15 Gm Tube) 1 appl TOPICAL BID [facility]; Protocol Last Admin: 11/18/23 10:26 Dose: 1 appl Documented By: AUREA Diphenhydramine HCl (Diphenhydramine Hcl 25 Mg Capsule) 25 mg PO Q6H PRN PRN Reason: pruritis Last Admin: 11/15/23 13:35 Dose: 25 mg Documented By: AUREA Docusate Sodium (Docusate Sodium 100 Mg Capsule) 100 mg PO BID [facility] Last Admin: 11/18/23 10:22 Dose: 100 mg Documented By: AUREA Enoxaparin Sodium (Enoxaparin Sodium 40 Mg/0.4 Ml Syringe) 40 mg SUBCUT Q24H [facility] Last Admin: 11/18/23 10:26 Dose: Not Given Documented By: AUREA Non-Admin Reason: Patient Refused Daptomycin 465 mg/ Sodium (Chloride) 59.3 mls @ 100.037 mls/hr IV Q24H [facility] Last Admin: 11/18/23 10:24 Dose: 100.03 mls/hr Documented By: AUREA Lactic Acid (Ammonium Lactate 12 % Lotion 226 Gm Bottle) 1 appl TOPICAL BID [facility]; Protocol Last Admin: 11/18/23 10:26 Dose: 1 appl Documented By: AUREA Lorazepam (Lorazepam 0.5 Mg Tablet) 0.5 mg PO Q8H PRN PRN Reason: Anxiety Last Admin: 11/18/23 10:31 Dose: 0.5 mg Documented By: AUREA Methadone HCl (Methadone Hcl 20 Mg/2 Ml Oral.Conc) 75 mg PO DAILY [facility] Last Admin: 11/18/23 10:18 Dose: 75 mg Documented By: AUREA Nystatin (Nystatin Cream 15 Gm Tube) 1 appl TOPICAL BID [facility]; Protocol Last Admin: 11/18/23 10:26 Dose: 1 appl Documented By: AUREA Ondansetron HCl (Ondansetron Hcl 4 Mg/2 Ml Vial) 4 mg IVPUSH Q4H PRN PRN Reason: Nausea and Vomiting Last Admin: 11/05/23 03:30 Dose: 4 mg Documented By: MANDY Comments: c/o Nausea Oxycodone HCl (Oxycodone Hcl Immed Release 5 Mg Tablet) 10 mg PO Q4H PRN PRN Reason: severe pain Last Admin: 11/18/23 10:31 Dose: 10 mg Documented By: AUREA Quetiapine Fumarate (Quetiapine Fumarate 25 Mg Tablet) 25 mg PO BEDTIME PRN PRN Reason: anxiety or insomnia Last Admin: 11/16/23 20:49 Dose: 25 mg Documented By: MAURCIIO Sodium Chloride (0.9 % Sodium Chloride Flush 3 Ml Syringe) 3 ml IVFLUSH QSHIFT [facility] Last Admin: 11/18/23 10:36 Dose: 3 ml Documented By: AUREA Sodium Chloride (0.9 % Sodium Chloride Flush 10 Ml Syringe) 5 ml IVFLUSH TID [facility] Last Admin: 11/17/23 21:37 Dose: 5 ml Documented By: HO.SMITHCL Tizanidine HCl (Tizanidine Hcl 4 Mg Tablet) 4 mg PO BID@1500,1999 [facility] Last Admin: 11/17/23 20:41 Dose: 4 mg Documented By: MAURICIO Labs 11/16/23 06:00 11/17/23 05:33 Assessment and Plan (1) Myositis: Status: Acute (2) Septic arthritis of lumbar spine: Status: Acute Plan 32F PMH IVDA presented with left hip and leg pain associated with fever chills and weakness, patient recently left AMA from [facility] she was treated there for sepsis with evidence of epidural abscess was recommended 4-6 weeks of IV antibiotic Severe sepsis secondary to iliopsoas infection and septic arthritis with backdrop of IVDA sepsis resolved data from [facility] in [place] reviewed, MRI L-spine showed asymmetric left paraspinal muscle edema findings likely related to infectious myositis and septic arthritis or muscle strain small epidural abscess is suspected on the left posteriorly at L4-L5, neurosurgery at [place] evaluated patient and felt she is not a candidate for surgery. CT of thoracic and lumbar spine at [facility] failed to demonstrate any abscess, Minor inflammation around psoas. MRI lumbar spine at [place] showed no definite epidural abscess, small subcentimeter abscess versus synovial cyst along the dorsal margin of the left L5/S1 facet joint, probable phlegmon effacing the left L5-S1 neural foramen inseparable from the exiting left 5th nerve root. white count normalized, Blood cultures negative on vancomycin/cefepime started 11/03 HIV nonreactive, hepatitis-C antibody reactive. Echo showed no valvular abnormality PICC line placed case discussed with ID she recommend 6 weeks of IV ceftriaxone and Daptomycin since no specific organism, To finish by 12/16/23 on po pain meds only IVDA/polysubstance abuse methadone as per addiction Medicine and Zanaflex b.i.d. as needed. Status post recent therapeutic at [facility] recommend outpatient follow-up with OBGYN. Disposition patient will need rehab to finish course of IV antibiotics DVT PPx Lovenox reason for continued hospitalization:awaiting auth Quality Stroke Does the patient have a stroke diagnosis?: No VTE Prior VTE?: No VTE Risk Level:: Medical - moderate - high VTE Device Contraindication: Treatment Not Indicated VTE Drug Contraindication: N/A - Med Ordered
[2023-11-18] MEDS: 0.9 % Sodium Chloride Flush 10 ML SYRINGE 5 ML IVFLUSH ×2 (15:37→20:13)
[2023-11-18 16:00] VITALS: BP 105/59; PULSE 60; RESP 20; TEMP 36.2; O2SAT 99
[2023-11-18] MEDS: TiZANidine HCL 4 MG TABLET PO (18:14)
[2023-11-18 20:00] VITALS: BP 114/61; PULSE 65; RESP 20; TEMP 36.4; O2SAT 97
[2023-11-18] MEDS: Acetaminophen 325 MG TABLET 975 MG PO (20:19)
[2023-11-18] MEDS: QUEtiapine Fumarate 25 MG TABLET PO (20:20)
[2023-11-19] VITALS (8 sets, daily range): BP systolic 99–124; BP diastolic 52–68; PULSE 58–69; RESP 16–20; TEMP 36–37; O2SAT 95–98
[2023-11-19 06:44] LABS: Hematocrit 33.8 % (37.0-47.0); Mean Corpuscular HGB Conc 32.5 g/dl (31.0-35.0); Mean Corpuscular Hemoglobin 29.5 pg (27.0-33.0); Mean Corpuscular Volume 90.6 fL (80.0-98.0); Mean Platelet Volume 8.7 fL (9.4-12.3); Platelet Count 233 X10*3/uL (160-400); Red Blood Count 3.73 X10*6/uL (4.20-5.50); Red Cell Distribution Width 12.2 % (11.0-16.0)
[2023-11-19 06:59] LABS: Anion Gap 13 (12-20); Blood Urea Nitrogen 22 mg/dL (9-16); Carbon Dioxide 28 mmol/L (22-29); Chloride 102 mmol/L (96-108); Creatinine Clr Calc Pharmacy 98.5; Estimated Glomerular Filt Rate > 60; Glucose Random 85 mg/dL (60-115); Potassium 4.3 mmol/L (3.3-5.1); Sodium 139 mmol/L (135-145)
[2023-11-19] MEDS: cloNIDine HCL 0.1 MG TABLET PO ×2 (08:30→21:49)
[2023-11-19] MEDS: methADONE HCl 20 MG/2 ML ORAL.CONC 75 MG PO (08:30)
[2023-11-19] MEDS: 0.9 % Sodium Chloride Flush 3 ML SYRINGE IVFLUSH (08:31)
[2023-11-19] MEDS: Clotrimazole 1 % Cream 15 GM TUBE 1 APPL TOPICAL ×2 (08:40→23:21)
[2023-11-19] MEDS: Nystatin Cream 15 GM TUBE 1 APPL TOPICAL ×2 (08:40→23:22)
[2023-11-19] MEDS: Ammonium Lactate 12 % Lotion 226 GM BOTTLE 1 APPL TOPICAL ×2 (08:40→23:22)
[2023-11-19] MEDS: LORazepam 0.5 MG TABLET PO ×2 (08:52→21:49)
[2023-11-19] MEDS: oxyCODONE HCl Immed Release 5 MG TABLET 10 MG PO ×3 (08:52→23:21)
--- NOTE | 2023-11-19 08:54 | HO.PM.IMPN ---
Subjective Subjective Date of Service: 11/19/23 Interval History: seen and evaluated this nimesh denied any fever or chills no other overnight events Review of Systems Review of Systems: Yes all other systems are reviewed and are negative Physical Exam Vital Signs: Vital Signs: Last Vital Signs Temp 97.3 F 11/19/23 08:00 Pulse 58 11/19/23 08:00 Resp 20 11/19/23 08:00 BP 99/55 L 11/19/23 08:30 Pulse Ox 96 11/19/23 08:00 O2 Del Method Room Air 11/19/23 08:00 BMI result Body Mass Index 28.3 Const: Other: Constitutional : interactive, not in distress Cardiovascular : no JVP, no lower extremity edema Respiratory : bilateral chest movement, not in resp distress Gastrointestinal: soft, lax, Non tender Skin : Warm, Dry, scratching lines, PICC in place Neurological : Alert & oriented , No focal deficit Objective Data Active Medications Acetaminophen (Acetaminophen 325 Mg Tablet) 975 mg PO Q6H PRN PRN Reason: Pain, Mild (Pain Scale 1-3), fever or headache Last Admin: 11/18/23 20:19 Dose: 975 mg Documented By: DWIGHT Clonidine HCl (Clonidine Hcl 0.1 Mg Tablet) 0.1 mg PO BID [facility]; Protocol Last Admin: 11/19/23 08:30 Dose: 0.1 mg Documented By: REBECCA Clotrimazole (Clotrimazole 1 % Cream 15 Gm Tube) 1 appl TOPICAL BID [facility]; Protocol Last Admin: 11/19/23 08:40 Dose: 1 appl Documented By: REBECCA Diphenhydramine HCl (Diphenhydramine Hcl 25 Mg Capsule) 25 mg PO Q6H PRN PRN Reason: pruritis Last Admin: 11/15/23 13:35 Dose: 25 mg Documented By: AUREA Docusate Sodium (Docusate Sodium 100 Mg Capsule) 100 mg PO BID [facility] Last Admin: 11/19/23 08:32 Dose: Not Given Documented By: REBECCA Non-Admin Reason: Patient Refused Enoxaparin Sodium (Enoxaparin Sodium 40 Mg/0.4 Ml Syringe) 40 mg SUBCUT Q24H [facility] Last Admin: 11/19/23 08:29 Dose: Not Given Documented By: REBECCA Non-Admin Reason: Patient Refused Daptomycin 465 mg/ Sodium (Chloride) 59.3 mls @ 100.037 mls/hr IV Q24H [facility] Last Admin: 11/19/23 08:31 Dose: 100.03 mls/hr Documented By: REBECCA Lactic Acid (Ammonium Lactate 12 % Lotion 226 Gm Bottle) 1 appl TOPICAL BID [facility]; Protocol Last Admin: 11/19/23 08:40 Dose: 1 appl Documented By: REBECCA Lorazepam (Lorazepam 0.5 Mg Tablet) 0.5 mg PO Q8H PRN PRN Reason: Anxiety Last Admin: 11/19/23 08:52 Dose: 0.5 mg Documented By: REBECCA Methadone HCl (Methadone Hcl 20 Mg/2 Ml Oral.Conc) 75 mg PO DAILY [facility] Last Admin: 11/19/23 08:30 Dose: 75 mg Documented By: REBECCA Nystatin (Nystatin Cream 15 Gm Tube) 1 appl TOPICAL BID [facility]; Protocol Last Admin: 11/19/23 08:40 Dose: 1 appl Documented By: REBECCA Ondansetron HCl (Ondansetron Hcl 4 Mg/2 Ml Vial) 4 mg IVPUSH Q4H PRN PRN Reason: Nausea and Vomiting Last Admin: 11/05/23 03:30 Dose: 4 mg Documented By: MANDY Comments: c/o Nausea Oxycodone HCl (Oxycodone Hcl Immed Release 5 Mg Tablet) 10 mg PO Q4H PRN PRN Reason: severe pain Last Admin: 11/19/23 08:52 Dose: 10 mg Documented By: REBECCA Quetiapine Fumarate (Quetiapine Fumarate 25 Mg Tablet) 25 mg PO BEDTIME PRN PRN Reason: anxiety or insomnia Last Admin: 11/18/23 20:20 Dose: 25 mg Documented By: DWIGHT Sodium Chloride (0.9 % Sodium Chloride Flush 3 Ml Syringe) 3 ml IVFLUSH QSHIFT [facility] Last Admin: 11/19/23 08:31 Dose: 3 ml Documented By: REBECCA Sodium Chloride (0.9 % Sodium Chloride Flush 10 Ml Syringe) 5 ml IVFLUSH TID [facility] Last Admin: 11/19/23 08:32 Dose: Not Given Documented By: REBECCA Non-Admin Reason: Previously Administered Tizanidine HCl (Tizanidine Hcl 4 Mg Tablet) 4 mg PO BID@1500,2000 [facility] Last Admin: 11/18/23 20:19 Dose: Not Given Documented By: DWIGHT Non-Admin Reason: too close to previous dose Labs 11/19/23 05:52 11/19/23 05:52 Labs: Laboratory Results - last 24 hr 11/19/23 05:52 MCV 90.6 MCH 29.5 MCHC 32.5 RDW 12.2 Plt Count 233 MPV 8.7 L Absolute Nucleated RBC 0.000 Nucleated RBC % (auto) 0.0 Anion Gap 13 Estim Creat Clear Calc 98.5 Estimated GFR > 60 Random Glucose 85 Calcium 10.0 Assessment and Plan (1) Opioid use disorder: Status: Acute (2) Septic arthritis of lumbar spine: Status: Acute Plan 32F PMH IVDA presented with left hip and leg pain associated with fever chills and weakness, patient recently left AMA from [facility] she was treated there for sepsis with evidence of epidural abscess was recommended 4-6 weeks of IV antibiotic Severe sepsis secondary to iliopsoas infection and septic arthritis with backdrop of IVDA sepsis resolved data from [facility] in [place] reviewed, MRI L-spine showed asymmetric left paraspinal muscle edema findings likely related to infectious myositis and septic arthritis or muscle strain small epidural abscess is suspected on the left posteriorly at L4-L5, neurosurgery at [place] evaluated patient and felt she is not a candidate for surgery. CT of thoracic and lumbar spine at [facility] failed to demonstrate any abscess, Minor inflammation around psoas. MRI lumbar spine at [place] showed no definite epidural abscess, small subcentimeter abscess versus synovial cyst along the dorsal margin of the left L5/S1 facet joint, probable phlegmon effacing the left L5-S1 neural foramen inseparable from the exiting left 5th nerve root. white count normalized, Blood cultures negative on vancomycin/cefepime started 11/03 HIV nonreactive, hepatitis-C antibody reactive. Echo showed no valvular abnormality PICC line placed case discussed with ID she recommend 6 weeks of IV ceftriaxone and Daptomycin since no specific organism, To finish by 12/16/23 on po pain meds only IVDA/polysubstance abuse methadone as per addiction Medicine and Zanaflex b.i.d. as needed. Status post recent therapeutic at [facility] recommend outpatient follow-up with OBGYN. Disposition: patient will need rehab to finish course of IV antibiotics DVT PPx Lovenox reason for continued hospitalization:awaiting auth Quality Stroke Does the patient have a stroke diagnosis?: No VTE Prior VTE?: No VTE Risk Level:: Medical - moderate - high VTE Device Contraindication: Treatment Not Indicated VTE Drug Contraindication: N/A - Med Ordered
[2023-11-19] MEDS: cefTRIAXone sodium 2 GM in 0.9 % Sodium Chloride 50 ML IV (09:28)
[2023-11-19] MEDS: TiZANidine HCL 4 MG TABLET PO ×2 (17:51→21:48)
[2023-11-19] MEDS: 0.9 % Sodium Chloride Flush 10 ML SYRINGE 5 ML IVFLUSH ×2 (17:52→23:22)
[2023-11-19] MEDS: Acetaminophen 325 MG TABLET 975 MG PO ×2 (17:53→23:24)
[2023-11-19] MEDS: Loperamide HCl 2 MG CAPSULE PO (21:49)
[2023-11-19] MEDS: QUEtiapine Fumarate 25 MG TABLET PO (21:49)
[2023-11-20] VITALS (8 sets, daily range): BP systolic 92–114; BP diastolic 50–64; PULSE 52–66; RESP 16–20; TEMP 36.1–37.1; O2SAT 96–99
[2023-11-20 02:38] LABS: CDiff Gene PCR NEGATIVE (Negative)
[2023-11-20] MEDS: 0.9 % Sodium Chloride Flush 3 ML SYRINGE IVFLUSH ×4 (05:20→20:36)
[2023-11-20] MEDS: methADONE HCl 20 MG/2 ML ORAL.CONC 75 MG PO (09:10)
[2023-11-20] MEDS: Docusate Sodium 100 MG CAPSULE PO (09:10)
[2023-11-20] MEDS: 0.9 % Sodium Chloride Flush 10 ML SYRINGE 5 ML IVFLUSH (09:11)
[2023-11-20] MEDS: oxyCODONE HCl Immed Release 5 MG TABLET 10 MG PO ×2 (09:14→20:35)
[2023-11-20] MEDS: LORazepam 0.5 MG TABLET PO ×2 (09:15→20:36)
[2023-11-20] MEDS: Clotrimazole 1 % Cream 15 GM TUBE 1 APPL TOPICAL ×2 (09:15→20:37)
[2023-11-20] MEDS: Ammonium Lactate 12 % Lotion 226 GM BOTTLE 1 APPL TOPICAL ×2 (09:15→20:36)
[2023-11-20] MEDS: Nystatin Cream 15 GM TUBE 1 APPL TOPICAL ×2 (09:15→20:36)
[2023-11-20] MEDS: cefTRIAXone sodium 2 GM in 0.9 % Sodium Chloride 50 ML IV (09:17)
[2023-11-20 09:54] LABS: Adenovirus F 40/41 Not Detected (Not Detect.); Astrovirus Not Detected (Not Detect.); Campylobacter Not Detected (Not Detect.); Cryptosporidium Not Detected (Not Detect.); Cyclospora cayetanensis Not Detected (Not Detect.); E. coli EAEC Not Detected (Not Detect.); E. coli EPEC Not Detected (Not Detect.); E. coli ETEC Not Detected (Not Detect.); E. coli STEC Not Detected (Not Detect.); Entamoeba histolytica Not Detected (Not Detect.); Giardia lamblia Not Detected (Not Detect.); Norovirus GI/GII Not Detected (Not Detect.); Plesiomonas shigelloides Not Detected (Not Detect.); Rotavirus A Not Detected (Not Detect.); Salmonella Not Detected (Not Detect.); Sapovirus Not Detected (Not Detect.); Shigella sp./EIEC Not Detected (Not Detect.); Vibrio Not Detected (Not Detect.); Vibrio Cholerae Not Detected (Not Detect.); Yersinia enterocolitica Not Detected (Not Detect.)
[2023-11-20] MEDS: cloNIDine HCL 0.1 MG TABLET PO ×2 (10:25→20:36)
--- NOTE | 2023-11-20 12:15 | P.PNIM_ITS ---
Subjective Subjective Date of Service: 11/20/23 Interval History: seen and evaluated this morning pain under fair control tolerating diet no other overnight events Review of Systems Review of Systems: Yes all other systems are reviewed and are negative Physical Exam 2 Vital Signs: Vital Signs: Last Vital Signs Temp 98.2 F 11/20/23 11:09 Pulse 66 11/20/23 11:09 Resp 20 11/20/23 11:09 BP 114/63 11/20/23 11:09 Pulse Ox 96 11/20/23 11:09 O2 Del Method Room Air 11/20/23 11:09 BMI result Body Mass Index 28.3 Const: Other: Constitutional : interactive, not in distress Cardiovascular : no JVP, no lower extremity edema Respiratory : bilateral chest movement, not in resp distress Gastrointestinal: soft, lax, Non tender Skin : Warm, Dry, scratching lines, PICC in place Neurological : Alert & oriented , No focal deficit Objective Data Active Medications Acetaminophen (Acetaminophen 325 Mg Tablet) 975 mg PO Q6H PRN PRN Reason: Pain, Mild (Pain Scale 1-3), fever or headache Last Admin: 11/19/23 23:24 Dose: 975 mg Documented By: MANDY Clonidine HCl (Clonidine Hcl 0.1 Mg Tablet) 0.1 mg PO BID [facility]; Protocol Last Admin: 11/20/23 10:25 Dose: 0.1 mg Documented By: REBECCA Clotrimazole (Clotrimazole 1 % Cream 15 Gm Tube) 1 appl TOPICAL BID [facility]; Protocol Last Admin: 11/20/23 09:15 Dose: 1 appl Documented By: REBECCA Diphenhydramine HCl (Diphenhydramine Hcl 25 Mg Capsule) 25 mg PO Q6H PRN PRN Reason: pruritis Last Admin: 11/15/23 13:35 Dose: 25 mg Documented By: AUREA Docusate Sodium (Docusate Sodium 100 Mg Capsule) 100 mg PO BID [facility] Last Admin: 11/20/23 09:10 Dose: 100 mg Documented By: REBECCA Enoxaparin Sodium (Enoxaparin Sodium 40 Mg/0.4 Ml Syringe) 40 mg SUBCUT Q24H [facility] Last Admin: 11/20/23 08:57 Dose: Not Given Documented By: REBECCA Non-Admin Reason: Patient Refused Daptomycin 465 mg/ Sodium (Chloride) 59.3 mls @ 100.037 mls/hr IV Q24H [facility] Last Infusion: 11/20/23 10:12 Dose: Infused Documented By: REBECCA Ceftriaxone Sodium 2 gm/ (Sodium Chloride) 50 mls @ 100 mls/hr IV Q24H [facility] Last Infusion: 11/20/23 10:58 Dose: Infused Documented By: REBECCA Lactic Acid (Ammonium Lactate 12 % Lotion 226 Gm Bottle) 1 appl TOPICAL BID [facility]; Protocol Last Admin: 11/20/23 09:15 Dose: 1 appl Documented By: REBECCA Lorazepam (Lorazepam 0.5 Mg Tablet) 0.5 mg PO Q8H PRN PRN Reason: Anxiety Last Admin: 11/20/23 09:15 Dose: 0.5 mg Documented By: REBECCA Methadone HCl (Methadone Hcl 20 Mg/2 Ml Oral.Conc) 75 mg PO DAILY [facility] Last Admin: 11/20/23 09:10 Dose: 75 mg Documented By: REBECCA Nystatin (Nystatin Cream 15 Gm Tube) 1 appl TOPICAL BID [facility]; Protocol Last Admin: 11/20/23 09:15 Dose: 1 appl Documented By: REBECCA Ondansetron HCl (Ondansetron Hcl 4 Mg/2 Ml Vial) 4 mg IVPUSH Q4H PRN PRN Reason: Nausea and Vomiting Last Admin: 11/05/23 03:30 Dose: 4 mg Documented By: MANDY Comments: c/o Nausea Oxycodone HCl (Oxycodone Hcl Immed Release 5 Mg Tablet) 10 mg PO Q4H PRN PRN Reason: severe pain Last Admin: 11/20/23 09:14 Dose: 10 mg Documented By: REBECCA Quetiapine Fumarate (Quetiapine Fumarate 25 Mg Tablet) 25 mg PO BEDTIME PRN PRN Reason: anxiety or insomnia Last Admin: 11/19/23 21:49 Dose: 25 mg Documented By: LARRY Sodium Chloride (0.9 % Sodium Chloride Flush 3 Ml [facility]ringe) [facility] Last Admin: 11/20/23 09:11 Dose: 3 ml Documented By: REBECCA Sodium Chloride (0.9 % Sodium Chloride Flush 10 Ml Syringe) 5 ml IVFLUSH TID [facility] Last Admin: 11/20/23 09:11 Dose: 5 ml Documented By: REBECCA Tizanidine HCl (Tizanidine Hcl 4 Mg Tablet) 4 mg PO BID@1500,2000 [facility] Last Admin: 11/19/23 21:48 Dose: 4 mg Documented By: LARRY Labs 11/19/23 05:52 11/19/23 05:52 Labs: Laboratory Results - last 24 hr 11/20/23 01:38 Stl C. cayetanensis PCR Not Detected Stool Rotavirus A PCR Not Detected Stl Adenov F 40/41 PCR Not Detected Stool Astrovirus (PCR) Not Detected Stool Campylobacter PCR Not Detected Stool Cryptosporidium PCR Not Detected Stl Sh Tox Pr E STEC PCR Not Detected Stool E coli O157 PCR Not applicable Stl Enterotoxigenic E PCR Not Detected Stool EPEC (PCR) Not Detected Stool EAEC (PCR) Not Detected Stl E. histolytica PCR Not Detected Stool Giardia Lamblia PCR Not Detected Stl P. shigelloides PCR Not Detected Stool Salmonella PCR Not Detected Stool Sapovirus (PCR) Not Detected Stl Shigella/EIEC PCR Not Detected St Y.enterocolitica PCR Not Detected Stool Vibrio (PCR) Not Detected Stl Vibrio cholerae PCR Not Detected Stl Norovirus GI/GII PCR Not Detected C. difficile Tox B Gene NEGATIVE Assessment and Plan (1) Septic arthritis of lumbar spine: Status: Acute (2) IV drug user: Status: Acute Plan 32F PMH IVDA presented with left hip and leg pain associated with fever chills and weakness, patient recently left AMA from [facility] she was treated there for sepsis with evidence of epidural abscess was recommended 4-6 weeks of IV antibiotic Severe sepsis secondary to iliopsoas infection and septic arthritis with backdrop of IVDA sepsis resolved data from [facility] in [place] reviewed, MRI L-spine showed asymmetric left paraspinal muscle edema findings likely related to infectious myositis and septic arthritis or muscle strain small epidural abscess is suspected on the left posteriorly at L4-L5, neurosurgery at [place] evaluated patient and felt she is not a candidate for surgery. CT of thoracic and lumbar spine at [facility] failed to demonstrate any abscess, Minor inflammation around psoas. MRI lumbar spine at [place] showed no definite epidural abscess, small subcentimeter abscess versus synovial cyst along the dorsal margin of the left L5/S1 facet joint, probable phlegmon effacing the left L5-S1 neural foramen inseparable from the exiting left 5th nerve root. white count normalized, Blood cultures negative on vancomycin/cefepime started 11/03 HIV nonreactive, hepatitis-C antibody reactive. Echo showed no valvular abnormality PICC line placed case discussed with ID she recommend 6 weeks of IV ceftriaxone and Daptomycin since no specific organism, To finish by 12/16/23 on po pain meds only IVDA/polysubstance abuse methadone as per addiction Medicine and Zanaflex b.i.d. as needed. Status post recent therapeutic at [facility] recommend outpatient follow-up with OBGYN. Disposition: patient will need rehab to finish course of IV antibiotics DVT PPx Lovenox reason for continued hospitalization:awaiting auth Quality Stroke Does the patient have a stroke diagnosis?: No VTE Prior VTE?: No VTE Risk Level:: Medical - moderate - high VTE Device Contraindication: Treatment Not Indicated VTE Drug Contraindication: N/A - Med Ordered
[2023-11-20] MEDS: TiZANidine HCL 4 MG TABLET PO ×2 (15:54→20:34)
[2023-11-20] MEDS: QUEtiapine Fumarate 25 MG TABLET PO (20:34)
[2023-11-21] VITALS (7 sets, daily range): BP systolic 93–130; BP diastolic 53–78; PULSE 51–89; RESP 16–20; TEMP 36.1–36.6; O2SAT 94–98
[2023-11-21] MEDS: cloNIDine HCL 0.1 MG TABLET PO ×2 (08:33→20:03)
[2023-11-21] MEDS: methADONE HCl 20 MG/2 ML ORAL.CONC 75 MG PO (08:35)
[2023-11-21] MEDS: 0.9 % Sodium Chloride Flush 3 ML SYRINGE IVFLUSH ×3 (08:35→20:03)
[2023-11-21] MEDS: Ammonium Lactate 12 % Lotion 226 GM BOTTLE 1 APPL TOPICAL ×2 (08:37→20:01)
[2023-11-21] MEDS: Nystatin Cream 15 GM TUBE 1 APPL TOPICAL ×2 (08:38→20:01)
[2023-11-21] MEDS: Clotrimazole 1 % Cream 15 GM TUBE 1 APPL TOPICAL ×2 (08:38→20:02)
[2023-11-21] MEDS: oxyCODONE HCl Immed Release 5 MG TABLET 10 MG PO ×3 (08:41→22:24)
[2023-11-21] MEDS: LORazepam 0.5 MG TABLET PO ×2 (08:41→20:02)
[2023-11-21] MEDS: cefTRIAXone sodium 2 GM in 0.9 % Sodium Chloride 50 ML IV (09:11)
--- NOTE | 2023-11-21 09:33 | PM.EVENT ---
Event Note Date of Service: 11/21/23 Event Note: Addiction note Patient awaiting placement at SNF methadone at 75mg daily No need for recovery follow up at this time please reconsult if necessary Time Spent With Patient Time: Total time managing care of this patient today ____ minutes.
--- NOTE | 2023-11-21 11:03 | MHC.CM.PN ---
CM still awaits re-instatement of Patient's [facility] [employer] is involved) before dc to [facility] for IV ABT. CM will continue to follow.
--- NOTE | 2023-11-21 11:23 | HO.PM.IMPN ---
Subjective Subjective Date of Service: 11/21/23 Interval History: Seen and evaluated this morning pain under fair control tolerating diet no other overnight events Review of Systems Review of Systems: Yes all other systems are reviewed and are negative Physical Exam Vital Signs: Vital Signs: Last Vital Signs Temp 97.1 F 11/21/23 11:20 Pulse 58 11/21/23 11:20 Resp 18 11/21/23 11:20 BP 99/65 11/21/23 11:20 Pulse Ox 97 11/21/23 11:20 O2 Del Method Room Air 11/21/23 11:20 BMI result Body Mass Index 28.3 Const: Other: Constitutional : interactive, not in distress Cardiovascular : no JVP, no lower extremity edema Respiratory : bilateral chest movement, not in resp distress Gastrointestinal: soft, lax, Non tender Skin : Warm, Dry, scratching lines, PICC in place Neurological : Alert & oriented , No focal deficit Objective Data Active Medications Acetaminophen (Acetaminophen 325 Mg Tablet) 975 mg PO Q6H PRN PRN Reason: Pain, Mild (Pain Scale 1-3), fever or headache Last Admin: 11/19/23 23:24 Dose: 975 mg Documented By: MANDY Clonidine HCl (Clonidine Hcl 0.1 Mg Tablet) 0.1 mg PO BID [facility]; Protocol Last Admin: 11/21/23 08:33 Dose: 0.1 mg Documented By: HERRERA Clotrimazole (Clotrimazole 1 % Cream 15 Gm Tube) 1 appl TOPICAL BID [facility]; Protocol Last Admin: 11/21/23 08:38 Dose: 1 appl Documented By: HERRERA Diphenhydramine HCl (Diphenhydramine Hcl 25 Mg Capsule) 25 mg PO Q6H PRN PRN Reason: pruritis Last Admin: 11/15/23 13:35 Dose: 25 mg Documented By: AUREA Docusate Sodium (Docusate Sodium 100 Mg Capsule) 100 mg PO BID [facility] Last Admin: 11/21/23 08:37 Dose: Not Given Documented By: HERRERA Non-Admin Reason: Patient Refused Enoxaparin Sodium (Enoxaparin Sodium 40 Mg/0.4 Ml Syringe) 40 mg SUBCUT Q24H [facility] Last Admin: 11/21/23 08:37 Dose: Not Given Documented By: HERRERA Non-Admin Reason: Patient Refused Daptomycin 465 mg/ Sodium (Chloride) 59.3 mls @ 100.037 mls/hr IV Q24H [facility] Last Infusion: 11/21/23 09:14 Dose: Infused Documented By: HERRERA Ceftriaxone Sodium 2 gm/ (Sodium Chloride) 50 mls @ 100 mls/hr IV Q24H [facility] Last Infusion: 11/21/23 09:45 Dose: Infused Documented By: HERRERA Lactic Acid (Ammonium Lactate 12 % Lotion 226 Gm Bottle) 1 appl TOPICAL BID [facility]; Protocol Last Admin: 11/21/23 08:37 Dose: 1 appl Documented By: HERRERA Lorazepam (Lorazepam 0.5 Mg Tablet) 0.5 mg PO Q8H PRN PRN Reason: Anxiety Last Admin: 11/21/23 08:41 Dose: 0.5 mg Documented By: HERRERA Methadone HCl (Methadone Hcl 20 Mg/2 Ml Oral.Conc) 75 mg PO DAILY [facility] Last Admin: 11/21/23 08:35 Dose: 75 mg Documented By: HERRERA Nystatin (Nystatin Cream 15 Gm Tube) 1 appl TOPICAL BID [facility]; Protocol Last Admin: 11/21/23 08:38 Dose: 1 appl Documented By: HERRERA Ondansetron HCl (Ondansetron Hcl 4 Mg/2 Ml Vial) 4 mg IVPUSH Q4H PRN PRN Reason: Nausea and Vomiting Last Admin: 11/05/23 03:30 Dose: 4 mg Documented By: MANDY Comments: c/o Nausea Oxycodone HCl (Oxycodone Hcl Immed Release 5 Mg Tablet) 10 mg PO Q4H PRN PRN Reason: severe pain Last Admin: 11/21/23 08:41 Dose: 10 mg Documented By: HERRERA Quetiapine Fumarate (Quetiapine Fumarate 25 Mg Tablet) 25 mg PO BEDTIME PRN PRN Reason: anxiety or insomnia Last Admin: 11/20/23 20:34 Dose: 25 mg Documented By: NESSA Sodium Chloride (0.9 % Sodium Chloride Flush 3 Ml Syringe) 3 ml IVFLUSH QSHIFT [facility] Last Admin: 11/21/23 08:35 Dose: 3 ml Documented By: HERRERA Sodium Chloride (0.9 % Sodium Chloride Flush 10 Ml Syringe) 5 ml IVFLUSH TID [facility] Last Admin: 11/21/23 08:37 Dose: Not Given Documented By: HERRERA Non-Admin Reason: Previously Administered Tizanidine HCl (Tizanidine Hcl 4 Mg Tablet) 4 mg PO BID@1500,2000 [facility] Last Admin: 11/20/23 20:34 Dose: 4 mg Documented By: RIZWANAMAR Labs 11/19/23 05:52 11/19/23 05:52 Assessment and Plan (1) Septic arthritis of lumbar spine: Status: Acute (2) Opioid use disorder: Status: Acute Plan 32F PMH IVDA presented with left hip and leg pain associated with fever chills and weakness, patient recently left AMA from [facility] she was treated there for sepsis with evidence of epidural abscess was recommended 4-6 weeks of IV antibiotic Severe sepsis secondary to iliopsoas infection and septic arthritis with backdrop of IVDA sepsis resolved data from [facility] in [place] reviewed, MRI L-spine showed asymmetric left paraspinal muscle edema findings likely related to infectious myositis and septic arthritis or muscle strain small epidural abscess is suspected on the left posteriorly at L4-L5, neurosurgery at [place] evaluated patient and felt she is not a candidate for surgery. CT of thoracic and lumbar spine at [facility] failed to demonstrate any abscess, Minor inflammation around psoas. MRI lumbar spine at [place] showed no definite epidural abscess, small subcentimeter abscess versus synovial cyst along the dorsal margin of the left L5/S1 facet joint, probable phlegmon effacing the left L5-S1 neural foramen inseparable from the exiting left 5th nerve root. white count normalized, Blood cultures negative on vancomycin/cefepime started 11/03 HIV nonreactive, hepatitis-C antibody reactive. Echo showed no valvular abnormality PICC line placed case discussed with ID she recommend 6 weeks of IV ceftriaxone and Daptomycin since no specific organism, To finish by 12/16/23 on po pain meds only IVDA/polysubstance abuse methadone as per addiction Medicine and Zanaflex b.i.d. as needed. Status post recent therapeutic at [facility] recommend outpatient follow-up with OBGYN. Disposition: patient will need rehab to finish course of IV antibiotics DVT PPx Lovenox reason for continued hospitalization:awaiting insurance approaval and placement to nursing facility to finish Antibiotics course Quality Stroke Does the patient have a stroke diagnosis?: No VTE Prior VTE?: No VTE Risk Level:: Medical - moderate - high VTE Device Contraindication: Treatment Not Indicated VTE Drug Contraindication: N/A - Med Ordered
[2023-11-21] MEDS: TiZANidine HCL 4 MG TABLET PO ×2 (15:18→20:02)
[2023-11-21] MEDS: Acetaminophen 325 MG TABLET 975 MG PO (20:00)
[2023-11-21] MEDS: QUEtiapine Fumarate 25 MG TABLET PO (20:02)
[2023-11-21] MEDS: 0.9 % Sodium Chloride Flush 10 ML SYRINGE 5 ML IVFLUSH (20:03)
[2023-11-22 04:00] VITALS: BP 98/54; PULSE 61; RESP 18; TEMP 36.1; O2SAT 96
[2023-11-22 07:12] LABS: Anion Gap 12 (12-20); Blood Urea Nitrogen 18 mg/dL (9-16); Calcium 9.4 mg/dL (8.4-10.2); Carbon Dioxide 29 mmol/L (22-29); Chloride 102 mmol/L (96-108); Creatinine Clr Calc Pharmacy 107.4; Estimated Glomerular Filt Rate > 60; Glucose Random 83 mg/dL (60-115); Potassium 4.4 mmol/L (3.3-5.1); Sodium 139 mmol/L (135-145)
[2023-11-22 07:15] VITALS: BP 102/48; PULSE 60; RESP 20; TEMP 36.4; O2SAT 96
[2023-11-22 07:22] LABS: Alanine Aminotransferase 48 U/L (0-31); Albumin Level 3.3 g/dL (3.5-5.0); Alkaline Phosphatase 86 U/L (39-117); Aspartate Amino Transferase 45 U/L (5-31); Bilirubin Direct < 0.2 mg/dL (0.0-0.5); Bilirubin Total 0.2 mg/dL (0.0-1.0); Total Protein 6.6 g/dL (6.5-8.0)
[2023-11-22] MEDS: cloNIDine HCL 0.1 MG TABLET PO ×2 (08:44→21:34)
[2023-11-22] MEDS: methADONE HCl 20 MG/2 ML ORAL.CONC 75 MG PO (08:45)
[2023-11-22] MEDS: oxyCODONE HCl Immed Release 5 MG TABLET 10 MG PO ×3 (08:51→21:34)
[2023-11-22] MEDS: LORazepam 0.5 MG TABLET PO ×2 (08:52→21:36)
[2023-11-22] MEDS: Ammonium Lactate 12 % Lotion 226 GM BOTTLE 1 APPL TOPICAL (09:58)
[2023-11-22] MEDS: Nystatin Cream 15 GM TUBE 1 APPL TOPICAL (09:58)
[2023-11-22] MEDS: Clotrimazole 1 % Cream 15 GM TUBE 1 APPL TOPICAL (09:58)
[2023-11-22] MEDS: cefTRIAXone sodium 2 GM in 0.9 % Sodium Chloride 50 ML IV (10:41)
[2023-11-22 10:58] VITALS: BP 98/62; PULSE 79; RESP 20; TEMP 36.6; O2SAT 98
--- NOTE | 2023-11-22 11:34 | MHC.CM.PN ---
Addendum entered by Jeanette Sorenson 11/22/23 13:39: Pt requested document be faxed to Clerk Hickey at [employer] with the dates that she has been in hospital. This was faxed today to: [phone] Original Note: Pt requesting a telephone and phone numbers for [employer] and dept of transitional assistance, these were provided to her today. Financial counselor informed CM that pt is eligible for Medicaid Care Plus. SNF ([facility]) informed CM that pt will need Medicaid standard for coverage of her IV ABX. Message left for financial counselor requesting if pt. can get medicaid standard. Clinical update sent to [facility].
--- NOTE | 2023-11-22 12:34 | P.PNIM_ITS ---
Subjective Subjective Date of Service: 11/22/23 Interval History: Seen and evaluated this morning pain under fair control tolerating diet no other overnight events Physical Exam 2 Vital Signs: Vital Signs: Last Vital Signs Temp 97.9 F 11/22/23 10:58 Pulse 79 11/22/23 10:58 Resp 20 11/22/23 10:58 BP 98/62 11/22/23 10:58 Pulse Ox 98 11/22/23 10:58 O2 Del Method Room Air 11/22/23 10:58 BMI result Body Mass Index 28.3 Const: Other: Constitutional : interactive, not in distress Cardiovascular : no JVP, no lower extremity edema Respiratory : bilateral chest movement, not in resp distress Gastrointestinal: soft, lax, Non tender Skin : Warm, Dry, scratching lines, PICC in place Neurological : Alert & oriented , No focal deficit Objective Data Active Medications Acetaminophen (Acetaminophen 325 Mg Tablet) 975 mg PO Q6H PRN PRN Reason: Pain, Mild (Pain Scale 1-3), fever or headache Last Admin: 11/21/23 20:00 Dose: 975 mg Documented By: LORETO Clonidine HCl (Clonidine Hcl 0.1 Mg Tablet) 0.1 mg PO BID [facility]; Protocol Last Admin: 11/22/23 08:44 Dose: 0.1 mg Documented By: NICK Clotrimazole (Clotrimazole 1 % Cream 15 Gm Tube) 1 appl TOPICAL BID [facility]; Protocol Last Admin: 11/22/23 09:58 Dose: 1 appl Documented By: NICK Diphenhydramine HCl (Diphenhydramine Hcl 25 Mg Capsule) 25 mg PO Q6H PRN PRN Reason: pruritis Last Admin: 11/15/23 13:35 Dose: 25 mg Documented By: AUREA Docusate Sodium (Docusate Sodium 100 Mg Capsule) 100 mg PO BID [facility] Last Admin: 11/22/23 10:28 Dose: Not Given Documented By: NICK Non-Admin Reason: Patient Refused Enoxaparin Sodium (Enoxaparin Sodium 40 Mg/0.4 Ml Syringe) 40 mg SUBCUT Q24H [facility] Last Admin: 11/22/23 10:28 Dose: Not Given Documented By: NICK Non-Admin Reason: Patient Refused Daptomycin 465 mg/ Sodium (Chloride) 59.3 mls @ 100.037 mls/hr IV Q24H [facility] Last Infusion: 11/22/23 10:41 Dose: Infused Documented By: NICK Ceftriaxone Sodium 2 gm/ (Sodium Chloride) 50 mls @ 100 mls/hr IV Q24H [facility] Last Admin: 11/22/23 10:41 Dose: 100 mls/hr Documented By: NICK Lactic Acid (Ammonium Lactate 12 % Lotion 226 Gm Bottle) 1 appl TOPICAL BID [facility]; Protocol Last Admin: 11/22/23 09:58 Dose: 1 appl Documented By: NICK Lorazepam (Lorazepam 0.5 Mg Tablet) 0.5 mg PO Q8H PRN PRN Reason: Anxiety Last Admin: 11/22/23 08:52 Dose: 0.5 mg Documented By: NICK Methadone HCl (Methadone Hcl 20 Mg/2 Ml Oral.Conc) 75 mg PO DAILY [facility] Last Admin: 11/22/23 08:45 Dose: 75 mg Documented By: NICK Co-signed By: DENIS Nystatin (Nystatin Cream 15 Gm Tube) 1 appl TOPICAL BID [facility]; Protocol Last Admin: 11/22/23 09:58 Dose: 1 appl Documented By: NICK Ondansetron HCl (Ondansetron Hcl 4 Mg/2 Ml Vial) 4 mg IVPUSH Q4H PRN PRN Reason: Nausea and Vomiting Last Admin: 11/05/23 03:30 Dose: 4 mg Documented By: MANDY Comments: c/o Nausea Oxycodone HCl (Oxycodone Hcl Immed Release 5 Mg Tablet) 10 mg PO Q4H PRN PRN Reason: severe pain Last Admin: 11/22/23 08:51 Dose: 10 mg Documented By: NICK Quetiapine Fumarate (Quetiapine Fumarate 25 Mg Tablet) 25 mg PO BEDTIME PRN PRN Reason: anxiety or insomnia Last Admin: 11/21/23 20:02 Dose: 25 mg Documented By: CONRADLAMReginald Sodium Chloride (0.9 % Sodium Chloride Flush 3 Ml Syringe) 3 ml IVFLUSH QSHIFT [facility] Last Admin: 11/22/23 10:31 Dose: Not Given Documented By: NICK Non-Admin Reason: Previously Administered Sodium Chloride (0.9 % Sodium Chloride Flush 10 Ml Syringe) 5 ml IVFLUSH TID [facility] Last Admin: 11/22/23 10:30 Dose: Not Given Documented By: NICK Non-Admin Reason: Previously Administered Tizanidine HCl (Tizanidine Hcl 4 Mg Tablet) 4 mg PO BID@1500,2000 [facility] Last Admin: 11/21/23 20:02 Dose: 4 mg Documented By: LORETO Labs 11/19/23 05:52 11/22/23 06:26 Labs: Laboratory Results - last 24 hr 11/22/23 06:26 Anion Gap 12 Estim Creat Clear Calc 107.4 Estimated GFR > 60 Random Glucose 83 Calcium 9.4 Total Bilirubin 0.2 Direct Bilirubin < 0.2 AST 45 H ALT 48 H Alkaline Phosphatase 86 Total Protein 6.6 Albumin 3.3 L Assessment and Plan (1) Septic arthritis of lumbar spine: Status: Acute (2) Opioid use disorder: Status: Acute Plan 32F PMH IVDA presented with left hip and leg pain associated with fever chills and weakness, patient recently left AMA from [facility] she was treated there for sepsis with evidence of epidural abscess was recommended 4-6 weeks of IV antibiotic Severe sepsis secondary to iliopsoas infection and septic arthritis with backdrop of IVDA sepsis resolved data from [facility] in [place] reviewed, MRI L-spine showed asymmetric left paraspinal muscle edema findings likely related to infectious myositis and septic arthritis or muscle strain small epidural abscess is suspected on the left posteriorly at L4-L5, neurosurgery at [place] evaluated patient and felt she is not a candidate for surgery. CT of thoracic and lumbar spine at [facility] failed to demonstrate any abscess, Minor inflammation around psoas. MRI lumbar spine at [place] showed no definite epidural abscess, small subcentimeter abscess versus synovial cyst along the dorsal margin of the left L5/S1 facet joint, probable phlegmon effacing the left L5-S1 neural foramen inseparable from the exiting left 5th nerve root. white count normalized, Blood cultures negative on vancomycin/cefepime started 11/03 HIV nonreactive, hepatitis-C antibody reactive. Echo showed no valvular abnormality PICC line placed case discussed with ID she recommend 6 weeks of IV ceftriaxone and Daptomycin since no specific organism, To finish by 12/16/23 on po pain meds only IVDA/polysubstance abuse methadone as per addiction Medicine and Zanaflex b.i.d. as needed. Status post recent therapeutic at [facility] recommend outpatient follow-up with OBGYN. Disposition: patient will need rehab to finish course of IV antibiotics DVT PPx Lovenox reason for continued hospitalization:awaiting insurance approaval and placement to nursing facility to finish Antibiotics course Quality Stroke Does the patient have a stroke diagnosis?: No VTE Prior VTE?: No VTE Risk Level:: Medical - moderate - high VTE Device Contraindication: Treatment Not Indicated VTE Drug Contraindication: N/A - Med Ordered
[2023-11-22 15:55] VITALS: BP 111/55; PULSE 64; RESP 17; TEMP 36.2; O2SAT 96
[2023-11-22] MEDS: TiZANidine HCL 4 MG TABLET PO ×2 (16:06→21:35)
[2023-11-22 20:00] VITALS: BP 114/64; PULSE 69; RESP 18; TEMP 36.1; O2SAT 98
[2023-11-22] MEDS: 0.9 % Sodium Chloride Flush 3 ML SYRINGE IVFLUSH (21:34)
[2023-11-22] MEDS: QUEtiapine Fumarate 25 MG TABLET PO (21:35)
[2023-11-22 22:57] VITALS: BP 116/65; PULSE 66; RESP 18; TEMP 36.3; O2SAT 96
[2023-11-23 03:12] VITALS: BP 111/70; PULSE 70; RESP 18; TEMP 36.6; O2SAT 96
--- NOTE | 2023-11-23 04:04 | PC.NURSE ---
Pt Aox4, able to make needs known. Pt rude to staff, attempting to dictate own care. Berated [employer] for waking her up to have vital signs taken at 0400. Pt did not tell [employer] prior she did not want to be woken up. She is independent in the room, camera is in place. She refuses bed alarms.
[2023-11-23 08:00] VITALS: BP 104/51; PULSE 52; RESP 20; TEMP 36.7; O2SAT 97
[2023-11-23] MEDS: 0.9 % Sodium Chloride Flush 10 ML SYRINGE 5 ML IVFLUSH ×2 (08:19→19:35)
[2023-11-23] MEDS: oxyCODONE HCl Immed Release 5 MG TABLET 10 MG PO ×4 (08:23→23:35)
[2023-11-23] MEDS: LORazepam 0.5 MG TABLET PO ×3 (08:23→23:36)
[2023-11-23] MEDS: cloNIDine HCL 0.1 MG TABLET PO ×2 (08:23→19:33)
[2023-11-23] MEDS: methADONE HCl 20 MG/2 ML ORAL.CONC 75 MG PO (08:24)
[2023-11-23] MEDS: Ammonium Lactate 12 % Lotion 226 GM BOTTLE 1 APPL TOPICAL ×2 (08:24→19:33)
[2023-11-23] MEDS: Clotrimazole 1 % Cream 15 GM TUBE 1 APPL TOPICAL ×2 (08:25→19:33)
[2023-11-23] MEDS: Nystatin Cream 15 GM TUBE 1 APPL TOPICAL ×2 (08:28→19:33)
[2023-11-23] MEDS: cefTRIAXone sodium 2 GM in 0.9 % Sodium Chloride 50 ML IV (08:55)
--- NOTE | 2023-11-23 10:45 | P.PNIM_ITS ---
Subjective Subjective Date of Service: 11/23/23 Interval History: Seen and evaluated this morning pain under fair control tolerating diet no other overnight events Physical Exam 2 Vital Signs: Vital Signs: Last Vital Signs Temp 98.1 F 11/23/23 08:00 Pulse 52 11/23/23 08:00 Resp 20 11/23/23 08:00 BP 104/51 L 11/23/23 08:00 Pulse Ox 97 11/23/23 08:00 O2 Del Method Room Air 11/23/23 08:00 BMI result Body Mass Index 28.3 Const: Other: Constitutional : interactive, not in distress Cardiovascular : no JVP, no lower extremity edema Respiratory : bilateral chest movement, not in resp distress Gastrointestinal: soft, lax, Non tender Skin : Warm, Dry, scratching lines, PICC in place Neurological : Alert & oriented , No focal deficit Objective Data Active Medications Acetaminophen (Acetaminophen 325 Mg Tablet) 975 mg PO Q6H PRN PRN Reason: Pain, Mild (Pain Scale 1-3), fever or headache Last Admin: 11/21/23 20:00 Dose: 975 mg Documented By: LORETO Clonidine HCl (Clonidine Hcl 0.1 Mg Tablet) 0.1 mg PO BID [facility]; Protocol Last Admin: 11/23/23 08:23 Dose: 0.1 mg Documented By: DARRIN Clotrimazole (Clotrimazole 1 % Cream 15 Gm Tube) 1 appl TOPICAL BID [facility]; Protocol Last Admin: 11/23/23 08:25 Dose: 1 appl Documented By: DARRIN Diphenhydramine HCl (Diphenhydramine Hcl 25 Mg Capsule) 25 mg PO Q6H PRN PRN Reason: pruritis Last Admin: 11/15/23 13:35 Dose: 25 mg Documented By: AUREA Docusate Sodium (Docusate Sodium 100 Mg Capsule) 100 mg PO BID [facility] Last Admin: 11/23/23 08:25 Dose: Not Given Documented By: DARRIN Non-Admin Reason: Patient Refused Enoxaparin Sodium (Enoxaparin Sodium 40 Mg/0.4 Ml Syringe) 40 mg SUBCUT Q24H [facility] Last Admin: 11/23/23 08:25 Dose: Not Given Documented By: DARRIN Non-Admin Reason: Patient Refused Daptomycin 465 mg/ Sodium (Chloride) 59.3 mls @ 100.037 mls/hr IV Q24H [facility] Stop: 12/16/23 23:59 Last Infusion: 11/23/23 08:57 Dose: Infused Documented By: DARRIN Ceftriaxone Sodium 2 gm/ (Sodium Chloride) 50 mls @ 100 mls/hr IV Q24H [facility] Stop: 12/16/23 21:35 Last Infusion: 11/23/23 09:30 Dose: Infused Documented By: DARRIN Lactic Acid (Ammonium Lactate 12 % Lotion 226 Gm Bottle) 1 appl TOPICAL BID [facility]; Protocol Last Admin: 11/23/23 08:24 Dose: 1 appl Documented By: DARRIN Lorazepam (Lorazepam 0.5 Mg Tablet) 0.5 mg PO Q8H PRN PRN Reason: Anxiety Last Admin: 11/23/23 08:23 Dose: 0.5 mg Documented By: DARRIN Methadone HCl (Methadone Hcl 20 Mg/2 Ml Oral.Conc) 75 mg PO DAILY [facility] Last Admin: 11/23/23 08:24 Dose: 75 mg Documented By: DARRIN Co-signed By: ARDEN Nystatin (Nystatin Cream 15 Gm Tube) 1 appl TOPICAL BID [facility]; Protocol Last Admin: 11/23/23 08:28 Dose: 1 appl Documented By: DARRIN Ondansetron HCl (Ondansetron Hcl 4 Mg/2 Ml Vial) 4 mg IVPUSH Q4H PRN PRN Reason: Nausea and Vomiting Last Admin: 11/05/23 03:30 Dose: 4 mg Documented By: MANDY Comments: c/o Nausea Oxycodone HCl (Oxycodone Hcl Immed Release 5 Mg Tablet) 10 mg PO Q4H PRN PRN Reason: severe pain Last Admin: 11/23/23 08:23 Dose: 10 mg Documented By: DARRIN Quetiapine Fumarate (Quetiapine Fumarate 25 Mg Tablet) 25 mg PO BEDTIME PRN PRN Reason: anxiety or insomnia Last Admin: 11/22/23 21:35 Dose: 25 mg Documented By: KEVAN Sodium Chloride (0.9 % Sodium Chloride Flush 3 Ml Syringe) [facility] Last Admin: 11/23/23 08:19 Dose: Not Given Documented By: DARRIN Non-Admin Reason: No Access Sodium Chloride (0.9 % Sodium Chloride Flush 10 Ml Syringe) 5 ml IVFLUSH TID [facility] Last Admin: 11/23/23 08:19 Dose: 5 ml Documented By: DARRIN Tizanidine HCl (Tizanidine Hcl 4 Mg Tablet) 4 mg PO BID@1500,2000 [facility] Last Admin: 11/22/23 21:35 Dose: 4 mg Documented By: KEVAN Labs 11/19/23 05:52 11/22/23 06:26 Assessment and Plan (1) Septic arthritis of lumbar spine: Status: Acute (2) Opioid use disorder: Status: Acute Plan 32F PMH IVDA presented with left hip and leg pain associated with fever chills and weakness, patient recently left AMA from [facility] she was treated there for sepsis with evidence of epidural abscess was recommended 4-6 weeks of IV antibiotic Severe sepsis secondary to iliopsoas infection and septic arthritis with backdrop of IVDA sepsis resolved data from [facility] in [place] reviewed, MRI L-spine showed asymmetric left paraspinal muscle edema findings likely related to infectious myositis and septic arthritis or muscle strain small epidural abscess is suspected on the left posteriorly at L4-L5, neurosurgery at [place] evaluated patient and felt she is not a candidate for surgery. CT of thoracic and lumbar spine at [facility] failed to demonstrate any abscess, Minor inflammation around psoas. MRI lumbar spine at [place] showed no definite epidural abscess, small subcentimeter abscess versus synovial cyst along the dorsal margin of the left L5/S1 facet joint, probable phlegmon effacing the left L5-S1 neural foramen inseparable from the exiting left 5th nerve root. white count normalized, Blood cultures negative on vancomycin/cefepime started 11/03 HIV nonreactive, hepatitis-C antibody reactive. Echo showed no valvular abnormality PICC line placed case discussed with ID she recommend 6 weeks of IV ceftriaxone and Daptomycin since no specific organism, To finish by 12/16/23 on po pain meds only IVDA/polysubstance abuse methadone as per addiction Medicine and Zanaflex b.i.d. as needed. Status post recent therapeutic at [facility] recommend outpatient follow-up with OBGYN. Disposition: patient will need rehab to finish course of IV antibiotics DVT PPx Lovenox reason for continued hospitalization:awaiting insurance approaval and placement to nursing facility to finish Antibiotics course Quality Stroke Does the patient have a stroke diagnosis?: No VTE Prior VTE?: No VTE Risk Level:: Medical - moderate - high VTE Device Contraindication: Treatment Not Indicated VTE Drug Contraindication: N/A - Med Ordered
[2023-11-23 14:58] VITALS: BP 103/55; PULSE 64; RESP 20; TEMP 36.6; O2SAT 98
[2023-11-23] MEDS: TiZANidine HCL 4 MG TABLET PO ×2 (15:45→23:36)
--- NOTE | 2023-11-23 17:31 | PM.EVENT ---
Event Note Date of Service: 11/23/23 Event Note: Patient requesting methadone increase to RN Reporting shakiness and sweating in the afternoon. Last increase one week ago Plan: -increase to 80mg in AM Time Spent With Patient Time: Total time managing care of this patient today ____ minutes.
[2023-11-23] MEDS: QUEtiapine Fumarate 25 MG TABLET PO (19:33)
[2023-11-23 22:00] VITALS: BP 112/57; PULSE 73; RESP 16; TEMP 36; O2SAT 98
[2023-11-23] MEDS: 0.9 % Sodium Chloride Flush 3 ML SYRINGE IVFLUSH (23:50)
[2023-11-24] MEDS: cloNIDine HCL 0.1 MG TABLET PO ×2 (08:01→20:00)
[2023-11-24] MEDS: methADONE HCl 20 MG/2 ML ORAL.CONC 80 MG PO (08:01)
[2023-11-24] MEDS: 0.9 % Sodium Chloride Flush 3 ML SYRINGE IVFLUSH ×2 (08:02→16:13)
[2023-11-24] MEDS: LORazepam 0.5 MG TABLET PO ×2 (08:02→16:12)
[2023-11-24] MEDS: 0.9 % Sodium Chloride Flush 10 ML SYRINGE 5 ML IVFLUSH ×3 (08:03→20:03)
[2023-11-24] MEDS: Nystatin Cream 15 GM TUBE 1 APPL TOPICAL ×2 (08:03→20:02)
[2023-11-24] MEDS: Clotrimazole 1 % Cream 15 GM TUBE 1 APPL TOPICAL ×2 (08:03→20:02)
[2023-11-24] MEDS: Ammonium Lactate 12 % Lotion 226 GM BOTTLE 1 APPL TOPICAL ×2 (08:03→20:02)
[2023-11-24 08:15] VITALS: BP 117/57; PULSE 65; RESP 20; TEMP 36.6; O2SAT 97
[2023-11-24] MEDS: oxyCODONE HCl Immed Release 5 MG TABLET 10 MG PO ×3 (08:15→20:00)
[2023-11-24] MEDS: cefTRIAXone sodium 2 GM in 0.9 % Sodium Chloride 50 ML IV (08:46)
--- NOTE | 2023-11-24 12:23 | P.PNIM_ITS ---
Subjective Subjective Date of Service: 11/24/23 Interval History: Seen and examined, no new issues Physical Exam 2 Vital Signs: Vital Signs: Last Vital Signs Temp 97.9 F 11/24/23 08:15 Pulse 65 11/24/23 08:15 Resp 20 11/24/23 08:15 BP 117/57 L 11/24/23 08:15 Pulse Ox 97 11/24/23 08:15 O2 Del Method Room Air 11/24/23 08:15 BMI result Body Mass Index 28.3 Const: Other: Constitutional : interactive, not in distress Cardiovascular : no JVP, no lower extremity edema Respiratory : bilateral chest movement, not in resp distress Gastrointestinal: soft, lax, Non tender Skin : Warm, Dry, scratching lines, PICC in place Neurological : Alert & oriented , No focal deficit Objective Data Active Medications Acetaminophen (Acetaminophen 325 Mg Tablet) 975 mg PO Q6H PRN PRN Reason: Pain, Mild (Pain Scale 1-3), fever or headache Last Admin: 11/21/23 20:00 Dose: 975 mg Documented By: LORETO Clonidine HCl (Clonidine Hcl 0.1 Mg Tablet) 0.1 mg PO BID [facility]; Protocol Last Admin: 11/24/23 08:01 Dose: 0.1 mg Documented By: TAWANDA Clotrimazole (Clotrimazole 1 % Cream 15 Gm Tube) 1 appl TOPICAL BID [facility]; Protocol Last Admin: 11/24/23 08:03 Dose: 1 appl Documented By: TAWANDA Diphenhydramine HCl (Diphenhydramine Hcl 25 Mg Capsule) 25 mg PO Q6H PRN PRN Reason: pruritis Last Admin: 11/15/23 13:35 Dose: 25 mg Documented By: AUREA Docusate Sodium (Docusate Sodium 100 Mg Capsule) 100 mg PO BID [facility] Last Admin: 11/24/23 08:01 Dose: Not Given Documented By: TAWANDA Non-Admin Reason: Patient Refused Enoxaparin Sodium (Enoxaparin Sodium 40 Mg/0.4 Ml Syringe) 40 mg SUBCUT Q24H [facility] Last Admin: 11/24/23 08:00 Dose: Not Given Documented By: TAWANDA Non-Admin Reason: Patient Refused Daptomycin 465 mg/ Sodium (Chloride) 59.3 mls @ 100.037 mls/hr IV Q24H [facility] Stop: 12/16/23 23:59 Last Infusion: 11/24/23 08:46 Dose: Infused Documented By: TAWANDA Ceftriaxone Sodium 2 gm/ (Sodium Chloride) 50 mls @ 100 mls/hr IV Q24H [facility] Stop: 12/16/23 21:35 Last Infusion: 11/24/23 10:22 Dose: Infused Documented By: TAWANDA Lactic Acid (Ammonium Lactate 12 % Lotion 226 Gm Bottle) 1 appl TOPICAL BID [facility]; Protocol Last Admin: 11/24/23 08:03 Dose: 1 appl Documented By: TAWANDA Lorazepam (Lorazepam 0.5 Mg Tablet) 0.5 mg PO Q8H PRN PRN Reason: Anxiety Last Admin: 11/24/23 08:02 Dose: 0.5 mg Documented By: TAWANDA Methadone HCl (Methadone Hcl 20 Mg/2 Ml Oral.Conc) 80 mg PO DAILY [facility] Last Admin: 11/24/23 08:01 Dose: 80 mg Documented By: TAWANDA Co-signed By: AUNDREA Nystatin (Nystatin Cream 15 Gm Tube) 1 appl TOPICAL BID [facility]; Protocol Last Admin: 11/24/23 08:03 Dose: 1 appl Documented By: TAWANDA Ondansetron HCl (Ondansetron Hcl 4 Mg/2 Ml Vial) 4 mg IVPUSH Q4H PRN PRN Reason: Nausea and Vomiting Last Admin: 11/05/23 03:30 Dose: 4 mg Documented By: MANDY Comments: c/o Nausea Oxycodone HCl (Oxycodone Hcl Immed Release 5 Mg Tablet) 10 mg PO Q4H PRN PRN Reason: severe pain Last Admin: 11/24/23 08:15 Dose: 10 mg Documented By: TAWANDA Quetiapine Fumarate (Quetiapine Fumarate 25 Mg Tablet) 25 mg PO BEDTIME PRN PRN Reason: anxiety or insomnia Last Admin: 11/23/23 19:33 Dose: 25 mg Documented By: TAWANDA Sodium Chloride (0.9 % Sodium Chloride Flush 3 Ml Syringe) [facility] Last Admin: 11/24/23 08:02 Dose: 3 ml Documented By: TAWANDA Sodium Chloride (0.9 % Sodium Chloride Flush 10 Ml Syringe) 5 ml IVFLUSH TID [facility] Last Admin: 11/24/23 08:03 Dose: 5 ml Documented By: TAWANDA Tizanidine HCl (Tizanidine Hcl 4 Mg Tablet) 4 mg PO BID@1500,2000 PRN PRN Reason: Restlessness Last Admin: 11/23/23 23:36 Dose: 4 mg Documented By: MARISELA-RIVLA Labs 11/19/23 05:52 11/22/23 06:26 Assessment and Plan (1) Septic arthritis of lumbar spine: Status: Acute (2) Opioid use disorder: Status: Acute Plan 32F PMH IVDA presented with left hip and leg pain associated with fever chills and weakness, patient recently left AMA from [facility] she was treated there for sepsis with evidence of epidural abscess was recommended 4-6 weeks of IV antibiotic Severe sepsis secondary to iliopsoas infection and septic arthritis with backdrop of IVDA sepsis resolved data from [facility] in [place] reviewed, MRI L-spine showed asymmetric left paraspinal muscle edema findings likely related to infectious myositis and septic arthritis or muscle strain small epidural abscess is suspected on the left posteriorly at L4-L5, neurosurgery at [place] evaluated patient and felt she is not a candidate for surgery. CT of thoracic and lumbar spine at [facility] failed to demonstrate any abscess, Minor inflammation around psoas. MRI lumbar spine at [place] showed no definite epidural abscess, small subcentimeter abscess versus synovial cyst along the dorsal margin of the left L5/S1 facet joint, probable phlegmon effacing the left L5-S1 neural foramen inseparable from the exiting left 5th nerve root. white count normalized, Blood cultures negative on vancomycin/cefepime started 11/03 HIV nonreactive, hepatitis-C antibody reactive. Echo showed no valvular abnormality PICC line placed 11/10 ID recommends 6 weeks of IV ceftriaxone and Daptomycin since no specific organism, To finish by 12/16/23 on po pain meds only IVDA/polysubstance abuse methadone as per addiction Medicine and Zanaflex b.i.d. as needed. Status post recent therapeutic at [facility] recommend outpatient follow-up with OBGYN. Disposition: patient will need rehab to finish course of IV antibiotics DVT PPx Lovenox reason for continued hospitalization:awaiting insurance approaval and placement to nursing facility to finish Antibiotics course Quality Stroke Does the patient have a stroke diagnosis?: No VTE Prior VTE?: No VTE Risk Level:: Medical - moderate - high VTE Device Contraindication: Treatment Not Indicated VTE Drug Contraindication: N/A - Med Ordered
[2023-11-24 16:08] VITALS: BP 106/55; PULSE 62; RESP 18; TEMP 36.1; O2SAT 96
[2023-11-24 18:54] VITALS: BP 118/63; PULSE 66; RESP 18; TEMP 36.6; O2SAT 97
[2023-11-24] MEDS: QUEtiapine Fumarate 25 MG TABLET PO (20:00)
[2023-11-24] MEDS: TiZANidine HCL 4 MG TABLET PO (20:00)
[2023-11-25] VITALS (7 sets, daily range): BP systolic 100–113; BP diastolic 51–59; PULSE 58–71; RESP 16–20; TEMP 36.1–36.4; O2SAT 95–100
[2023-11-25] MEDS: 0.9 % Sodium Chloride Flush 3 ML SYRINGE IVFLUSH
--- NOTE | 2023-11-25 08:35 | MHC.CM.PN ---
LATE ENTRY NOTE FOR 11/24/23, PT'S INSURANCE NOW ACTIVE, CM SENT MDS W/MED LIST & MH FORM TO [facility] WHO ARE STILL FOLLOWING, RECOVERY NURSE PLANS TO [facility] FRID[facility]24 AM, CM WILL CONT TO FOLLOW DC NEEDS.
--- NOTE | 2023-11-25 08:42 | P.PNIM_ITS ---
Subjective Subjective Date of Service: 11/25/23 Interval History: Seen/examined. No new issues No fever Physical Exam 2 Vital Signs: Vital Signs: Last Vital Signs Temp 97.0 F 11/25/23 07:59 Pulse 58 11/25/23 07:59 Resp 20 11/25/23 07:59 BP 100/51 L 11/25/23 07:59 Pulse Ox 95 11/25/23 07:59 O2 Del Method Room Air 11/25/23 07:59 BMI result Body Mass Index 28.3 Const: Other: Constitutional : interactive, not in distress Cardiovascular : no JVP, no lower extremity edema Respiratory : bilateral chest movement, not in resp distress Gastrointestinal: soft, lax, Non tender Skin : Warm, Dry, scratching lines, PICC in place Neurological : Alert & oriented , No focal deficit Objective Data Active Medications Acetaminophen (Acetaminophen 325 Mg Tablet) 975 mg PO Q6H PRN PRN Reason: Pain, Mild (Pain Scale 1-3), fever or headache Last Admin: 11/21/23 20:00 Dose: 975 mg Documented By: LORETO Clonidine HCl (Clonidine Hcl 0.1 Mg Tablet) 0.1 mg PO BID [facility]; Protocol Last Admin: 11/24/23 20:00 Dose: 0.1 mg Documented By: JAIME Clotrimazole (Clotrimazole 1 % Cream 15 Gm Tube) 1 appl TOPICAL BID [facility]; Protocol Last Admin: 11/24/23 20:02 Dose: 1 appl Documented By: JAIME Diphenhydramine HCl (Diphenhydramine Hcl 25 Mg Capsule) 25 mg PO Q6H PRN PRN Reason: pruritis Last Admin: 11/15/23 13:35 Dose: 25 mg Documented By: AUREA Docusate Sodium (Docusate Sodium 100 Mg Capsule) 100 mg PO BID [facility] Last Admin: 11/24/23 20:03 Dose: Not Given Documented By: JAIME Non-Admin Reason: Patient Refused Enoxaparin Sodium (Enoxaparin Sodium 40 Mg/0.4 Ml Syringe) 40 mg SUBCUT Q24H [facility] Last Admin: 11/24/23 08:00 Dose: Not Given Documented By: TAWANDA Non-Admin Reason: Patient Refused Daptomycin 465 mg/ Sodium (Chloride) 59.3 mls @ 100.037 mls/hr IV Q24H [facility] Stop: 12/16/23 23:59 Last Infusion: 11/24/23 08:46 Dose: Infused Documented By: TAWANDA Ceftriaxone Sodium 2 gm/ (Sodium Chloride) 50 mls @ 100 mls/hr IV Q24H [facility] Stop: 12/16/23 21:35 Last Infusion: 11/24/23 10:22 Dose: Infused Documented By: TAWANDA Lactic Acid (Ammonium Lactate 12 % Lotion 226 Gm Bottle) 1 appl TOPICAL BID [facility]; Protocol Last Admin: 11/24/23 20:02 Dose: 1 appl Documented By: JAIME Lorazepam (Lorazepam 0.5 Mg Tablet) 0.5 mg PO Q8H PRN PRN Reason: Anxiety Last Admin: 11/24/23 16:12 Dose: 0.5 mg Documented By: TAWANDA Methadone HCl (Methadone Hcl 20 Mg/2 Ml Oral.Conc) 80 mg PO DAILY [facility] Last Admin: 11/24/23 08:01 Dose: 80 mg Documented By: TAWANDA Co-signed By: AUNDREA Nystatin (Nystatin Cream 15 Gm Tube) 1 appl TOPICAL BID [facility]; Protocol Last Admin: 11/24/23 20:02 Dose: 1 appl Documented By: JAIME Ondansetron HCl (Ondansetron Hcl 4 Mg/2 Ml Vial) 4 mg IVPUSH Q4H PRN PRN Reason: Nausea and Vomiting Last Admin: 11/05/23 03:30 Dose: 4 mg Documented By: MANDY Comments: c/o Nausea Oxycodone HCl (Oxycodone Hcl Immed Release 5 Mg Tablet) 10 mg PO Q4H PRN PRN Reason: severe pain Last Admin: 11/24/23 20:00 Dose: 10 mg Documented By: JAIME Quetiapine Fumarate (Quetiapine Fumarate 25 Mg Tablet) 25 mg PO BEDTIME PRN PRN Reason: anxiety or insomnia Last Admin: 11/24/23 20:00 Dose: 25 mg Documented By: JAIME Sodium Chloride (0.9 % Sodium Chloride Flush 3 Ml Syringe) 3 ml IVFLUSH [facility] Last Admin: 11/25/23 00:00 Dose: 3 ml Documented By: AUGUSTIN Sodium Chloride (0.9 % Sodium Chloride Flush 10 Ml Syringe) 5 ml IVFLUSH TID [facility] Last Admin: 11/24/23 20:03 Dose: 5 ml Documented By: JAIME Tizanidine HCl (Tizanidine Hcl 4 Mg Tablet) 4 mg PO BID@1500,2000 PRN PRN Reason: Restlessness Last Admin: 11/24/23 20:00 Dose: 4 mg Documented By: JAIME Labs 11/19/23 05:52 11/22/23 06:26 Assessment and Plan (1) Septic arthritis of lumbar spine: Status: Acute (2) Opioid use disorder: Status: Acute Plan 32F PMH IVDA presented with left hip and leg pain associated with fever chills and weakness, patient recently left AMA from [facility] she was treated there for sepsis with evidence of epidural abscess was recommended 4-6 weeks of IV antibiotic Severe sepsis secondary to iliopsoas infection and septic arthritis with backdrop of IVDA sepsis resolved data from [facility] in [place] reviewed, MRI L-spine showed asymmetric left paraspinal muscle edema findings likely related to infectious myositis and septic arthritis or muscle strain small epidural abscess is suspected on the left posteriorly at L4-L5, neurosurgery at [place] evaluated patient and felt she is not a candidate for surgery. CT of thoracic and lumbar spine at [facility] failed to demonstrate any abscess, Minor inflammation around psoas. MRI lumbar spine at [facility] showed no definite epidural abscess, small subcentimeter abscess versus synovial cyst along the dorsal margin of the left L5/S1 facet joint, probable phlegmon effacing the left L5-S1 neural foramen inseparable from the exiting left 5th nerve root. white count normalized, Blood cultures negative on vancomycin/cefepime started 11/03 HIV nonreactive, hepatitis-C antibody reactive. Echo showed no valvular abnormality PICC line placed 11/10 ID recommends 6 weeks of IV ceftriaxone and Daptomycin since no specific organism, To finish by 12/16/23 on po pain meds only IVDA/polysubstance abuse methadone as per addiction Medicine and Zanaflex b.i.d. as needed. Status post recent therapeutic at [facility] recommend outpatient follow-up with OBGYN. Disposition: patient will need rehab to finish course of IV antibiotics DVT PPx Lovenox reason for continued hospitalization:awaiting insurance approaval and placement to nursing facility to finish Antibiotics course labs cbc 11/18, bmp 11/21 ok Quality Stroke Does the patient have a stroke diagnosis?: No VTE Prior VTE?: No VTE Risk Level:: Medical - moderate - high VTE Device Contraindication: Treatment Not Indicated VTE Drug Contraindication: N/A - Med Ordered
--- NOTE | 2023-11-25 08:56 | MHC.CM.PN ---
Addendum entered by Lita Bloom 11/25/23 15:39: [facility] has obtained auth. Patient will transport via BLS tomorrow. Addendum entered by Lita Bloom 11/25/23 11:47: Patients insurance is in place. Per MD patient is ready for discharge. [facility] has started the insurance authorization process. The Recovery nurse has submitted documentation for guest dosing to [facility]. CM will follow for discharge. Original Note: A clinical update has been sent to [facility]. head stock operator plans to update [facility] today 11/24. Cm will follow for discharge.
--- NOTE | 2023-11-25 09:00 | MHC.RECOVRN ---
Pts updated paperwork sent to [employer]. CM aware.
[2023-11-25] MEDS: 0.9 % Sodium Chloride Flush 10 ML SYRINGE 5 ML IVFLUSH ×3 (09:29→20:16)
[2023-11-25] MEDS: methADONE HCl 20 MG/2 ML ORAL.CONC 80 MG PO (09:34)
[2023-11-25] MEDS: cloNIDine HCL 0.1 MG TABLET PO ×2 (09:39→20:16)
[2023-11-25] MEDS: Clotrimazole 1 % Cream 15 GM TUBE 1 APPL TOPICAL ×2 (09:39→20:22)
[2023-11-25] MEDS: Ammonium Lactate 12 % Lotion 226 GM BOTTLE 1 APPL TOPICAL ×2 (09:40→20:22)
[2023-11-25] MEDS: LORazepam 0.5 MG TABLET PO ×2 (09:44→17:41)
[2023-11-25] MEDS: oxyCODONE HCl Immed Release 5 MG TABLET 10 MG PO ×3 (09:45→20:21)
[2023-11-25] MEDS: Nystatin Cream 15 GM TUBE 1 APPL TOPICAL ×2 (09:46→20:22)
[2023-11-25] MEDS: cefTRIAXone sodium 2 GM in 0.9 % Sodium Chloride 50 ML IV (10:20)
--- NOTE | 2023-11-25 10:37 | MHC.RECOVRN ---
Met with pt in 343 to follow up and provide support. Pt received 80 mg methadone this morning. Pt laying in bed, awake, alert, difficult to engage in conversation, irritable. Pt reports feeling withdrawal symptoms around 2PM including restlessness and diaphoresis. Pt would like to increase methadone dose. Denies other questions or concerns for t/w. Discussed with Shanon Angel APRN.
[2023-11-25] MEDS: QUEtiapine Fumarate 25 MG TABLET PO (20:20)
[2023-11-26 04:00] VITALS: BP 109/55; PULSE 66; RESP 20; TEMP 36.2; O2SAT 97
[2023-11-26 07:10] VITALS: BP 105/50; PULSE 57; RESP 18; TEMP 36.3; O2SAT 97
[2023-11-26] MEDS: cloNIDine HCL 0.1 MG TABLET PO ×2 (08:13→20:49)
[2023-11-26] MEDS: oxyCODONE HCl Immed Release 5 MG TABLET 10 MG PO ×2 (08:15→18:38)
[2023-11-26] MEDS: LORazepam 0.5 MG TABLET PO ×2 (08:15→20:49)
[2023-11-26] MEDS: cefTRIAXone sodium 2 GM in 0.9 % Sodium Chloride 50 ML IV (08:17)
[2023-11-26] MEDS: methADONE HCl 20 MG/2 ML ORAL.CONC 85 MG PO (08:18)
[2023-11-26] MEDS: 0.9 % Sodium Chloride Flush 10 ML SYRINGE 5 ML IVFLUSH ×3 (08:25→20:49)
[2023-11-26] MEDS: Ammonium Lactate 12 % Lotion 226 GM BOTTLE 1 APPL TOPICAL (08:28)
[2023-11-26] MEDS: Nystatin Cream 15 GM TUBE 1 APPL TOPICAL (08:28)
[2023-11-26] MEDS: Clotrimazole 1 % Cream 15 GM TUBE 1 APPL TOPICAL (08:28)
--- NOTE | 2023-11-26 09:56 | P.PNIM_ITS ---
Subjective Subjective Date of Service: 11/26/23 Interval History: Doing well, no new issues Physical Exam 2 Vital Signs: Vital Signs: Last Vital Signs Temp 97.4 F 11/26/23 07:10 Pulse 57 11/26/23 07:10 Resp 18 11/26/23 07:10 BP 105/50 L 11/26/23 07:10 Pulse Ox 97 11/26/23 07:10 O2 Del Method Room Air 11/26/23 07:10 BMI result Body Mass Index 28.3 Const: Other: Constitutional : interactive, not in distress Cardiovascular : no JVP, no lower extremity edema Respiratory : bilateral chest movement, not in resp distress Gastrointestinal: soft, lax, Non tender Skin : Warm, Dry, scratching lines, PICC in place Neurological : Alert & oriented , No focal deficit Objective Data Active Medications Acetaminophen (Acetaminophen 325 Mg Tablet) 975 mg PO Q6H PRN PRN Reason: Pain, Mild (Pain Scale 1-3), fever or headache Last Admin: 11/21/23 20:00 Dose: 975 mg Documented By: LORETO Clonidine HCl (Clonidine Hcl 0.1 Mg Tablet) 0.1 mg PO BID [facility]; Protocol Last Admin: 11/26/23 08:13 Dose: 0.1 mg Documented By: JOHN Clotrimazole (Clotrimazole 1 % Cream 15 Gm Tube) 1 appl TOPICAL BID [facility]; Protocol Last Admin: 11/26/23 08:28 Dose: 1 appl Documented By: JOHN Diphenhydramine HCl (Diphenhydramine Hcl 25 Mg Capsule) 25 mg PO Q6H PRN PRN Reason: pruritis Last Admin: 11/15/23 13:35 Dose: 25 mg Documented By: AUREA Docusate Sodium (Docusate Sodium 100 Mg Capsule) 100 mg PO BID [facility] Last Admin: 11/26/23 08:13 Dose: Not Given Documented By: JOHN Non-Admin Reason: Patient Refused Enoxaparin Sodium (Enoxaparin Sodium 40 Mg/0.4 Ml Syringe) 40 mg SUBCUT Q24H [facility] Last Admin: 11/26/23 08:13 Dose: Not Given Documented By: JOHN Non-Admin Reason: Patient Refused Daptomycin 465 mg/ Sodium (Chloride) 59.3 mls @ 100.037 mls/hr IV Q24H [facility] Stop: 12/16/23 23:59 Last Infusion: 11/26/23 09:06 Dose: Infused Documented By: JOHN Ceftriaxone Sodium 2 gm/ (Sodium Chloride) 50 mls @ 100 mls/hr IV Q24H [facility] Stop: 12/16/23 21:35 Last Infusion: 11/26/23 09:08 Dose: Infused Documented By: JOHN Lactic Acid (Ammonium Lactate 12 % Lotion 226 Gm Bottle) 1 appl TOPICAL BID [facility]; Protocol Last Admin: 11/26/23 08:28 Dose: 1 appl Documented By: JOHN Lorazepam (Lorazepam 0.5 Mg Tablet) 0.5 mg PO Q8H PRN PRN Reason: Anxiety Last Admin: 11/26/23 08:15 Dose: 0.5 mg Documented By: JOHN Methadone HCl (Methadone Hcl 20 Mg/2 Ml Oral.Conc) 85 mg PO DAILY [facility] Last Admin: 11/26/23 08:18 Dose: 85 mg Documented By: JOHN Co-signed By: LILY Nystatin (Nystatin Cream 15 Gm Tube) 1 appl TOPICAL BID [facility]; Protocol Last Admin: 11/26/23 08:28 Dose: 1 appl Documented By: JOHN Ondansetron HCl (Ondansetron Hcl 4 Mg/2 Ml Vial) 4 mg IVPUSH Q4H PRN PRN Reason: Nausea and Vomiting Last Admin: 11/05/23 03:30 Dose: 4 mg Documented By: MANDY Comments: c/o Nausea Oxycodone HCl (Oxycodone Hcl Immed Release 5 Mg Tablet) 10 mg PO Q4H PRN PRN Reason: severe pain Last Admin: 11/26/23 08:15 Dose: 10 mg Documented By: JOHN Quetiapine Fumarate (Quetiapine Fumarate 25 Mg Tablet) 25 mg PO BEDTIME PRN PRN Reason: anxiety or insomnia Last Admin: 11/25/23 20:20 Dose: 25 mg Documented By: SLOAN Sodium Chloride (0.9 % Sodium Chloride Flush 3 Ml Syringe) [facility] Last Admin: 11/26/23 08:25 Dose: Not Given Documented By: JOHN Non-Admin Reason: Previously Administered Sodium Chloride (0.9 % Sodium Chloride Flush 10 Ml Syringe) 5 ml IVFLUSH TID JOE Last Admin: 11/26/23 08:25 Dose: 5 ml Documented By: JOHN Tizanidine HCl (Tizanidine Hcl 4 Mg Tablet) 4 mg PO BID@1500,2000 PRN PRN Reason: Restlessness Last Admin: 11/24/23 20:00 Dose: 4 mg Documented By: JAIME Labs 11/19/23 05:52 11/22/23 06:26 Assessment and Plan (1) Septic arthritis of lumbar spine: Status: Acute (2) Opioid use disorder: Status: Acute Plan 32F PMH IVDA presented with left hip and leg pain associated with fever chills and weakness, patient recently left AMA from [facility] she was treated there for sepsis with evidence of epidural abscess was recommended 4-6 weeks of IV antibiotic Severe sepsis secondary to iliopsoas infection and septic arthritis with backdrop of IVDA sepsis resolved data from [facility] in [place] reviewed, MRI L-spine showed asymmetric left paraspinal muscle edema findings likely related to infectious myositis and septic arthritis or muscle strain small epidural abscess is suspected on the left posteriorly at L4-L5, neurosurgery at [place] evaluated patient and felt she is not a candidate for surgery. CT of thoracic and lumbar spine at [facility] failed to demonstrate any abscess, Minor inflammation around psoas. MRI lumbar spine at [place] showed no definite epidural abscess, small subcentimeter abscess versus synovial cyst along the dorsal margin of the left L5/S1 facet joint, probable phlegmon effacing the left L5-S1 neural foramen inseparable from the exiting left 5th nerve root. white count normalized, Blood cultures negative on vancomycin/cefepime started 11/03 HIV nonreactive, hepatitis-C antibody reactive. Echo showed no valvular abnormality PICC line placed 11/10 ID recommends 6 weeks of IV ceftriaxone and Daptomycin since no specific organism, To finish by 12/16/23 on po pain meds only IVDA/polysubstance abuse methadone as per addiction Medicine and Zanaflex b.i.d. as needed. Status post recent therapeutic at [facility] recommend outpatient follow-up with OBGYN. Disposition: patient will need rehab to finish course of IV antibiotics DVT PPx Lovenox reason for continued hospitalization:awaiting insurance approaval and placement to nursing facility to finish Antibiotics course labs cbc 11/18, bmp 11/21 ok anticipated dc on 11/27/23 to [facility], she is aware and agreable Quality Stroke Does the patient have a stroke diagnosis?: No VTE Prior VTE?: No VTE Risk Level:: Medical - moderate - high VTE Device Contraindication: Treatment Not Indicated VTE Drug Contraindication: N/A - Med Ordered
[2023-11-26 15:24] VITALS: BP 111/56; PULSE 65; RESP 17; TEMP 36.8; O2SAT 95
--- NOTE | 2023-11-26 16:58 | P.DS_ITS ---
DS: Providers Provider Date of Service: 11/27/23 Date of admission: 11/04/23 01:19 Date of discharge: 11/27/23 Primary care physician: None Physician Consults: 11/04/23 09:04 Addiction Medicine Routine Consulting Provider: Yuli Alvarez Reason for consultation: IV drug use: Cocaine, fentanyl Has provider been notified: No 11/07/23 08:15 Consult to Infectious Diseases Routine Consulting Provider: [facility] Reason for consultation: ileopsoas infection/abscess Has provider been notified: No DS: Diagnosis Discharge Diagnosis (1) Septic arthritis of lumbar spine: Status: Acute (2) Opioid use disorder: Status: Acute DS: Summary Hospital Course Hospital Course: admission hpi CC: Left hip pain 32 years old woman with past medical history significant for IV drug use (cocaine tampered with Fentanyl according to the patient) presents to the emergency department complaining of worsening left hip and leg pain associated with generalized weakness, fever and chills. The patient reports difficulty with ambulation due to pain and left lower extremity weakness. The patient stated that about 2 weeks ago she was hospitalized at [facility] to treat some sort of infection in her spine that was diagnosed with an MRI. She is unclear about what kind of infection. She also said that she was recommended to get a PICC line and get a course of antibiotics for 6 weeks. In order to do this she had to be discharged to a nursing facility as she is homeless. She refused IV antibiotic therapy for 6 weeks and was sent home (she denied leaving AMA) on her antibiotics which she has not gotten from the pharmacy (she said that the pharmacy did not have the antibiotics). She continues to use IV drugs -last use was yesterday. She also smokes marijuana and tobacco. In the ED, she was found to have marked fever (max 104.3), tachycardia and tachypnea. There is no hypotension and O2 sats are normal on room air. Blood workup is remarkable for leukocytosis of 16.9, hemoglobin 11.3 and platelets 245. There is lactic acidosis of 2.1 (normalized, 0.7). CXR is 12.06. test is negative. There are no significant electrolyte imbalances. Renal function is normal. LFTs are normal. Urinalysis not consistent with UTI. Urine drug screen is positive for opiates, fentanyl, cocaine and marijuana. Viral testing for RSV, COVID-19 and influenza is negative. She underwent thoracic, lumbar, left hip CT scans that showed edema and probable small volume of fluid around the left iliopsoas muscle extending down into the pelvis without abscesses. CXR showed increased bilateral perihilar opacities. ED tx: Zosyn 3.375 g IV, vancomycin 2 g IV, ibuprofen 600 mg p.o., acetami nophen 975 mg, Dilaudid 3 mg IV (total), NS 2,343 ml bolus. Hospital course: The patient has history of IVDA and presented with left hip pain. Hip, lumbar and thoracic spine CTs showed No abscess. There is edema and probable small volume of fluid around the left iliopsoas muscle extending down into the pelvis MRI later was Nondiagnostic MRI of the lumbar spine. The patient could not tolerate this study and no postcontrast imaging or axial imaging was obtained. 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 Probable phlegmon effacing the left L5-S1 neural foramen inseparable from the exiting left L5 nerve root. No definite epidural abscess is appreciated and there is nondiagnostic assessment for epidural phlegmon given the lack of axial imaging and postcontrast imaging. There are a few small subcentimeter abscesses versus synovial cysts along the dorsal margin of the left L5-S1 facet joint and to a lesser extent the left L4-L5 facet joint. * At L5-S1, there is a broad-based central disc protrusion eccentric to the right side that likely results in mild mass effect on the traversing right S1 nerve root within the right subarticular zone The patient was admitted for severe sepsis secondary to an iliopsoas infection related to intravenous drug use. She was initially treated with vancomycin and ceftriaxone, resulting in the resolution of sepsis. Blood cultures have remained negative, although she has a history of Group B strep bacteremia and a UTI two weeks earlier. The infectious disease team recommended six weeks of antibiotics with daptomycin and ceftriaxone, with an end date of December 15. A PICC line was inserted on 11/11/23 to facilitate IV antibiotics. The patient is to have BMP and CPK levels checked weekly while on daptomycin and will follow up with the infectious disease clinic. For opioid use disorder, addiction medicine has been following her and initiated methadone, with a current maintenance dose of 85 mg daily. She is being discharged to a senior care facility to complete the course of antibiotics. Time Attestation Discharge Coordination Time (in mins): 45 Quality: Safe Use of Opioids Does Pt have an Active Cancer Diagnosis on the Problem List?: No Quality: Stroke Does the patient have a stroke diagnosis?: No Physical Exam Vital Signs: Vital Signs: Selected Entries 11/27/23 06:55 Temperature 96.9 F Pulse Rate 60 Respiratory Rate 15 Blood Pressure 102/54 L Pulse Oximetry 95 Oxygen Delivery Me thod Room Air BMI: 28.3 Const: Other: Constitutional : interactive, not in distress Cardiovascular : no JVP, no lower extremity edema Respiratory : bilateral chest movement, not in resp distress Gastrointestinal: soft, lax, Non tender Skin : Warm, Dry, scratching lines, PICC in place Neurological : Alert & oriented , No focal deficit Discharge Plan Discharge Anticipated Discharge Date/Time: 11/27/23 08:53 Patient Disposition: Xfer SNF Discharge Diagnosis: sepsis, streptococcus bacteremia Referrals: [facility] [Outside] - 1 Week Brigid Daily MD [Physician] - 6 Weeks Physician,None [Primary Care Provider] - 1 Week Discharge Medications: New quetiapine 25 mg Tablet 25 mg PO BEDTIME PRN (Reason: anxiety or insomnia) Qty: 0 0RF clonidine HCl 0.1 mg Tablet 0.1 mg PO BID Qty: 0 0RF Protocol: Hold for SBP< HOLD for SBP < : 90 acetaminophen 325 mg Tablet 975 mg PO Q6H PRN (Reason: Pain, Mild (Pain Scale 1-3), fever or headache) Qty: 0 0RF tizanidine 4 mg Tablet 4 mg PO BID PRN (Reason: Restlessness) Qty: 0 0RF diphenhydramine HCl [Banophen] 25 mg Capsule 25 mg PO Q6H PRN (Reason: pruritis) Qty: 0 0RF docusate sodium 100 mg Capsule 100 mg PO BID Qty: 0 0RF oxycodone 5 mg Tablet 10 mg PO Q4H PRN (Reason: severe pain) Qty: 0 0RF Rx Instructions: Partial Fill upon patient request. methadone [Methadose] 10 mg/mL Concentrate 85 mg PO DAILY Qty: 1000 0RF Rx Instructions: Partial Fill upon patient request. lorazepam 0.5 mg Tablet 0.5 mg PO Q8H PRN (Reason: Anxiety) Qty: 12 0RF ceftriaxone 2 gram Recon Soln 2 g IV Q24H Qty: 19 0RF daptomycin [Cubicin RF] 500 mg recon soln 465 mg IV Q24H 19 Days Rx Instructions: administer over 30 mins Discontinued gabapentin 300 mg Capsule 300 mg PO TID Discharge Orders: Discharge Order (Routine); Ordered 11/27/23 Ordered By: Ministerio Clark Diet: Advance to usual diet Activity on Discharge: As tolerated Stand Alone Forms: Patient Portal Discharge page Print Language: [place] Citizen Care Plan Goals: recovery from sepsis, bacteremia Health Concerns: ivda, sepsis Plan of Treatment: Take Ceftriaxone and Daptomycin through IV Daily until December 16 2023 CPK and BMP weekly on Mondays ] Follow up with Dr. Daily Assessment: see above Patient Instructions: Sepsis (GEN), Narcotic Use Disorder (DC) Discharge Date/Time: 11/27/23 13:52
--- NOTE | 2023-11-26 18:30 | PC.NURSE ---
No change in previous assessment, plan to d/c to snf tomorrow for supervisor intermediates IV ABT.
[2023-11-26 19:28] VITALS: BP 104/56; PULSE 68; RESP 20; TEMP 36.2; O2SAT 97
[2023-11-26 19:38] VITALS: RESP 18
[2023-11-26] MEDS: QUEtiapine Fumarate 25 MG TABLET PO (20:49)
--- NOTE | 2023-11-26 21:34 | PC.NURSE ---
Assumed care of patient at 19:00. Patient reports pain is tolerable with current regimen. Handoff report given at 21:30. Please see shift assessment, task, and MAR for full details.
[2023-11-27 06:55] VITALS: BP 102/54; PULSE 60; RESP 15; TEMP 36.1; O2SAT 95
[2023-11-27] MEDS: Docusate Sodium 100 MG CAPSULE PO (08:11)
[2023-11-27] MEDS: methADONE HCl 20 MG/2 ML ORAL.CONC 85 MG PO (08:11)
[2023-11-27] MEDS: 0.9 % Sodium Chloride Flush 10 ML SYRINGE 5 ML IVFLUSH (08:11)
[2023-11-27] MEDS: cloNIDine HCL 0.1 MG TABLET PO (08:11)
[2023-11-27] MEDS: Nystatin Cream 15 GM TUBE 1 APPL TOPICAL (08:17)
[2023-11-27] MEDS: Ammonium Lactate 12 % Lotion 226 GM BOTTLE 1 APPL TOPICAL (08:17)
[2023-11-27] MEDS: Clotrimazole 1 % Cream 15 GM TUBE 1 APPL TOPICAL (08:17)
[2023-11-27] MEDS: LORazepam 0.5 MG TABLET PO (08:22)
[2023-11-27] MEDS: oxyCODONE HCl Immed Release 5 MG TABLET 10 MG PO (08:23)
[2023-11-27] MEDS: cefTRIAXone sodium 2 GM in 0.9 % Sodium Chloride 50 ML IV (08:49)
--- NOTE | 2023-11-27 13:42 | MHC.CM.PN ---
PT WILL DC [facility] TODAY VIA MIRIAM DILLS GUEST DOSING IN PLACE [facility] TO START TOMORROW PT WILL NEED A LAST DOSE LETTER AND PAPER SCRIPTS FOR ANY NARCOTIC MEDS
== END 2023-11-27 13:52 | disposition skilled nursing facility (03) | DRG 720 ==
LOC: HO.ED 11-04 00:36 → HO.EDOVER 11-04 01:28 → HO.IMC 11-04 07:36 → HO.S3 11-24 16:45
PROVIDERS: Hospitalist; Internal Medicine; Student in an Organized Health Care Education/Training Program; Admitting Provider Internal Medicine; Emergency Provider Emergency Medicine; Visit Provider Internal Medicine
DX: A41.9 Sepsis, unspecified organism (principal); F11.23 Opioid dependence with withdrawal; M46.57 Other infective spondylopathies, lumbosacral region; B95.1 Streptococcus, group B, as the cause of diseases classified elsewhere; M60.852 Other myositis, left thigh; F17.210 Nicotine dependence, cigarettes, uncomplicated; R65.20 Severe sepsis without septic shock; Z20.822 Contact with and (suspected) exposure to COVID-19; Z59.02 Unsheltered homelessness; Z71.6 Tobacco abuse counseling; Z88.0 Allergy status to penicillin; Z79.899 Other long term (current) drug therapy
CPT/HCPCS: 36415; 36573; 71045; 72129; 72132; 72158; 73701; 80048; 80053; 80076; 80202; 80307; 81001; 81025; 82565; 82947; 83605; 83735; 84484; 84702; 85007; 85025; 85027; 85610; 85652; 86140; 86803; 87040; 87086; 87389; 87493; 87502; 87507; 87635; 93306; 99285; C1751; J0692; J0696; J0878; J1170; J1650; J1885; J2020; J2405; J2543; J3370; J3371; J7120; Q9957; Q9967

== ENCOUNTER 2023-11-04 01:19 | Outpatient (BNV) | payer OTHER, SELFPAY | END 2023-11-04 07:00 | PROVIDERS: Admitting Provider Internal Medicine; Emergency Provider Emergency Medicine; Visit Provider Internal Medicine | DX: R00.0 Tachycardia, unspecified (principal) | CPT/HCPCS: 93306 ==

== ENCOUNTER → 2023-11-04 01:19 | Outpatient (BNV) | payer MEDICAID, OTHER, SELFPAY | PROVIDERS: Admitting Provider Internal Medicine; Emergency Provider Emergency Medicine; Visit Provider Internal Medicine | DX: M46.56 Other infective spondylopathies, lumbar region (principal); F11.90 Opioid use, unspecified, uncomplicated | CPT/HCPCS: 99223; 99231; 99232; 99239; 99499 ==

== ENCOUNTER → 2023-11-04 01:19 | Outpatient (BNV) | payer MEDICAID, OTHER, SELFPAY | PROVIDERS: Admitting Provider Internal Medicine; Emergency Provider Emergency Medicine; Visit Provider Nurse Practitioner Psychiatric/Mental Health | DX: F11.90 Opioid use, unspecified, uncomplicated (principal) | CPT/HCPCS: 99231; 99232; 99499 ==

== ENCOUNTER → 2023-11-04 01:19 | Outpatient (BNV) | payer MEDICAID, OTHER, SELFPAY | PROVIDERS: Admitting Provider Internal Medicine; Emergency Provider Emergency Medicine; Visit Provider Internal Medicine | DX: F11.90 Opioid use, unspecified, uncomplicated (principal); F19.90 Other psychoactive substance use, unspecified, uncomplicated; M60.9 Myositis, unspecified | CPT/HCPCS: 99222; 99232 ==

== ENCOUNTER 2023-12-14 12:58 | Outpatient (AMB) | payer OTHER, SELFPAY ==
--- NOTE | 2023-12-14 13:01 | MHC.OFFVIS ---
Intake Visit Reasons: reff [facility] list/ileopsoas infection/abscess Intake Note: Erma Director Allergies penicillin V [PENICILLIN V] Allergy (Unknown, Verified 12/14/23 13:01) HIVES Penicillins [PENICILLINS] Allergy (Unknown, Verified 12/14/23 13:01) HIVES penicilin Allergy (Unknown, Uncoded 11/03/23 16:58) Difficulty Breathing HPI HPI reff [facility] list/ileopsoas infection/abscess: Details: She has had Group B strep on 10/18. She has been on Ceftriaxone for six weeks. She is done with antibiotics on 12/15 [facility] Medical History Bacteremia due to group B Streptococcus Active substance abuse Social History Household Members: None Housing: Homeless Do you presently have visiting nurse or other home services: No Alcohol intake: never Patient Tobacco Use Status: Current everyday Tobacco user Tobacco use type: Cigarette e-Cigarette/Vaping Use: Never Used Second Hand Smoke Exposure: Yes Substance Use Type: Crack/Cocaine and Marijuana service: No Physical Exam Const General: cooperative Orientation/consciousness: patient oriented x3 HEENT Head: Yes normal to inspection Mouth: Normal oral and palatal mucosa present Eyes General: appearance normal, both eyes and all related structures Pupils: Equal, round and reactive pupils present Resp Effort & Inspection: normal respiratory effort Cardio Rate: regular rate Rhythm: regular rhythm GI Palpation (GI): Soft to palpation and nontender General: Yes no CVA tenderness Back/Spine/Pelvis Back: no CVA tenderness Skin General skin exam: no rashes or lesions noted Neuro General: patient oriented x3 Cranial nerves: Yes CN's II-XII intact bilaterally and Yes Equal, round and reactive pupils present Extrem General: Yes normal to inspection Psych Appearance: grossly normal Telehealth Telehealth Telehealth Platform: Telephone Location of provider rendering services: practice address Location of patient: other Patient Identification confirmed using: Name, : Yes Telehealth method: voice only Patient verbally consented to treatment: Yes Patient verbally consented to billing insurance company: Yes Patient informed of any privacy concerns related to visit: Yes Assessment & Plan Assessment & Plan (1) Septic arthritis of lumbar spine: Comment: She is feeling improved. Code(s): M46.56 - Other infective spondylopathies, lumbar region Category: Medical Plan: Finish antibiotics See prn need. Coding Level of Care Code Est Pt Level 3 (51317) Diagnoses Septic arthritis of lumbar spine M46.56
== END 2023-12-14 14:22 | disposition home or self-care (01) ==
LOC: HO.HID 12:58
PROVIDERS: Visit Provider Internal Medicine
DX: M46.56 Other infective spondylopathies, lumbar region (principal)
CPT/HCPCS: 99213

== ENCOUNTER → 2023-12-14 12:58 | Outpatient (BNVA) | payer OTHER, SELFPAY | PROVIDERS: Visit Provider Internal Medicine | DX: M46.56 Other infective spondylopathies, lumbar region (principal) | CPT/HCPCS: 99212 ==

== ENCOUNTER → 2023-12-26 13:24 | Outpatient (BNVA) | payer OTHER, SELFPAY | PROVIDERS: Visit Provider Internal Medicine ==